=== PATIENT | male | born 1965 | race Caucasian/White ===

== ENCOUNTER 2018-03-24 07:20 | Day surgery (SDC) | payer BC ==
[2018-03-23 13:46] LABS: Absolute Lymphocytes (CBC) 2.7 K/uL (0.7-4.9); Absolute Monocytes 0.6 K/uL (0.1-1.3); Absolute Neutrophil 7.1 K/uL (1.8-8.0); Basophils % 0.9 % (0-1.3); Eosinophils % 1.7 % (0-4.4); Hematocrit 45.3 % (39.6-49.0); Lymphocytes % 25.5 % (15.3-44.8); MCH 31.2 pg (27.0-35.0); MCV 89.8 fL (80-100); RBC Red Blood Cell Count 5.04 M/uL (4.33-5.43)
[2018-03-23 13:56] LABS: Potassium 3.9 mmol/L (3.5-5.1)
[2018-03-24] MEDS ORDERED: NA CHLORIDE 0.9% 500 ML ONE (07:54)
[2018-03-24] MEDS ORDERED: HEPA 1000U/500MLS 1,000 UNIT/500 ML BAG IV ONE (08:59)
[2018-03-24] MEDS ORDERED: ATROPINE SULF 1 MG/10 ML SYR IV ONE (09:07)
[2018-03-24] MEDS ORDERED: MIDAZOLAM HCL 2 MG/2 ML INJ ONE ×2 (09:07→09:38)
[2018-03-24] MEDS ORDERED: NA CHLORIDE 0.9% 0 ML ONE (09:07)
[2018-03-24] MEDS ORDERED: FENTANYL CITR 100 MCG/2 ML ONE (09:07)
[2018-03-24] MEDS ORDERED: LIDOCAINE 1% MPF 5 ML VIAL ONE (10:12)
--- NOTE | 2018-03-24 21:10 | OP ---
Surgeon: Alok Lemon MD Admitted as an outpatient on 03/24/2018 for a heart catheterization. History Of Present Illness: Mr. Hanley is a 52-year-old white male. He is a patient of Dr. Antoine ca me to see me in the office with symptoms that I thought were classic for unstable angina with shortne ss of breath, chest pain with exertion. 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 He was scheduled for a heart catheterization to day, was brought to the greens laborer, prepped and draped in the routine sterile fashion, was given 4 mg o f Versed for IV sedation and 25 mg of fentanyl. A 6-Thai sheath introduced in the right common fem oral artery. Angio-Seal was used to close the case. 6-Thai catheters, left Harmony, right Harmony , and pigtail were used to do the selective coronary arteriogram, LV-gram, a left heart catheterizati on. He was found to have normal coronaries, normal LV end-diastolic pressure, normal ejection fracti on. There were no complications. Blood loss was 5 cc. Final Diagnosis: Chest pain. Normal coronaries. Operators: Alok Lemon and My Hill. Total conscious sedation was 30 minutes. The patient will be sent home today after 2 hours of bedres t and he will see me in the office in 2 weeks. EREN/JERAD Voice ID: [id number] Report ID: [id number]
== END 2018-03-24 12:00 | disposition home or self-care (01) ==
LOC: CCL 07:20
PROC: 4A023N7 Measurement of Cardiac Sampling and Pressure, Left Heart, Percutaneous Approach (ICD-10-PCS; principal; 2018-03-24)
PROC: B211YZZ Fluoroscopy of Multiple Coronary Arteries using Other Contrast (ICD-10-PCS; 2018-03-24)
PROC: B215YZZ Fluoroscopy of Left Heart using Other Contrast (ICD-10-PCS; 2018-03-24)
DX: I20.0 Unstable angina (principal); E78.2 Mixed hyperlipidemia; I10 Essential (primary) hypertension; F17.220 Nicotine dependence, chewing tobacco, uncomplicated; R00.1 Bradycardia, unspecified; I44.0 Atrioventricular block, first degree
CPT/HCPCS: 36415; 80048; 85025; 85730; 93458; C1760; C1893; J0583; J2250; J3010

== ENCOUNTER 2020-07-28 06:52 | Emergency (ER) | payer BC, SELFPAY ==
--- OUTSIDE RECORDS SUMMARY | 2020-07-28 06:55 | XMS REPORT | Continuity of Care Document ---
:1965 Author Organization [employer] Care Team Providers Name Role Phone [employer] Unavailable Un available Problems Problem Status Onset Classification Date Comments Sourc e Date Reported ACS EVALUATION/CHEST Active 09/22/ [facility] PAIN 2012 [facility] SOB Active 09/22/ [facility] 2012 [facility] Diverticulitis Resolved 05/14/ Problem 1Had [facility] 2010 3 diverticulitis Medic al in 2010, 2011 Center Testosterone Resolved 02/19/ Problem Ángel zelaya 2010 3 Medical Center Gout Resolved 02/24/ Problem [facility] 2006 3 [facility] Hypercholesterolemia Resolved 01/13/ Problem [facility] 2001 3 [facility] Abdominal pain Active Problem [facility] 3 [facility] Chest pain Active Problem [address] Center Syncope Active Problem [address] Acute gouty arthritis Active Problem [facility] [place] Benign essential Active Problem Rhe [facility] hypertension [facility] [place] Hyperlipidemia Active Problem [facility] [place] Abnormal immunological Active Problem Rheum finding in serum, 0 Ct r of unspecified [place] Encounter for Active Diagnosis Rheum therapeutic drug level 0 [facility] monitoring [place] Heartburn Active Problem Rhe[facility] [place] Acute gouty Active Diagnosis [facility] arthropathy [facility] [place] Other obesity Active Problem [facility] [place] nursing home (current) Active Problem Rheum use of non-steroidal 0 [facility]tr [facility] anti-inflammatories [place] (NSAID) Osteoarthritis Active Problem [facility] [place] Pain in joint Active Diagnosis Rhe[facility] involving lower leg 9 [facility] [place] CHEST PAIN NOS Active [facility] Medications Medication Details Route Status Patient Ordering Order Source Instructions Provider Date PredniSONE 2 tablets daily Orally Active 20 MG Orally Vo 11/07/ Rheum for 7 days, then as directed 2019 Ctr of 15 tabs daily for [place] 1 week, then 1 tablet daily for 1 week, stay on 0.5 tab daily Mitigare 1 capsule Orally Active 0.6 MG Orally Haley 04/08/ Rheum twice a day 2018 [facility] [place] Allopurinol 2 tablets Orally Active 100 mg Orally Haley 03/26/ Rheu m every day 2018 Ctr of (qd) as [place] directed Colchicine 1 tablet Orally Active 0.6 MG Orally Haley 03/26/ Rheum twice a day 2018 Ctr of (bid) [place] meclizine 25 25 mg, 1 tab, PO, PO Active [facility] [place] mg oral TID, PRN, 10 tab, 2013 Medica l tablet for Center nausea/vomiting, Substitution Allowed, TAB Ativan 2 mg, 1 mL, IVP No Omidvar [facility] Route: IVP, Drug Longer 2012 Medical form: INJ, ONCE, Active Center Dosing Weight 125.227, kg, PRN Anxiety, Start date: 09/23/12 19:37:00 Ativan 1 mg, 0.5 mL, IVP No Noah 09/23[facility] Route: IVP, Drug 2012 Medical form: INJ, ONCE, Active Center Dosing Weight 125.227, kg, PRN Anxiety, Start date: 09/23/12 16:43:00 Zofran 4 mg, 2 mL, IVP No Carmella 09/23[facility] Route: IVP, Drug Longer 2012 Medical form: INJ, ONCE, Active Center Dosing Weight 125.227, kg, Start date: 09/23/12 12:04:00, Stop date: 09/23/12 12:04:00 Zofran 4 mg, 2 mL, IVP No [place] 09/23[facility] Route: IVP, Drug 2012 Medical form: INJ, ONCE, Active Center Start date: 09/23/12 12:00:00, Stop date: 09/23/12 12:00:00 influenza 0.5 ml, Route: IM No [place] virus IM, Drug Form: Longer 2012 Medical vaccine, INJ, Start date: Active Center inactivated 09/23/12 9:00:00, Stop date: 09/23/12 9:00:00 magnesium 2 gm, 50 mL, IVPB No [place] [facility] sulfate Route: IVPB, Drug Longer 2012 Medica l form: INJ, ONCE, Active Center Dosing Weight 125.227, kg, Total dose = 2 gm, Start date: 09/22/12 16:14:00, Duration: 1 doses or times, Stop date: 09/22/12 16:14:00 ondansetron 4 mg, 2 mL, IVP No [place] [facility] Route: IVP, Drug 2012 Medical form: INJ, Q6H, Active Center Dosing Weight 125.227, kg, PRN Nausea & Vomiting, Start date: 09/22/12 14:01:00, Duration: 30 day, Stop date: 10/22/12 14:00:00 AndroGel Substitution No [facility] Allowed 2012 Medical Active Center allopurinol Substitution [place] 300 mg oral Allowed 2012 Medical tablet Center pravastatin Substitution [place] 40 mg oral Allowed 2012 Medical tablet Center omeprazole 20 [place]stitution [place] mg oral Allowed 2012 [facility] delayed Center release capsule Omnipaque 138 mL, Route: IVP No [place] 350mg/ml IVP, Drug Form: Longer 2012 Medical SOLN, Dosing Active Center Weight 118.182, kg, ONCALL, STAT, Start date: 09/22/12 8:59:00, Duration: 1 doses or times, Dose = 2.2ml/kg, Max dose = 150ml -- "To be infused by Radiology Staff ONLY"Dose = 2.2ml/kg, Max dose = 150ml -- "To be infused by Radiology Staff ONLY" Zofran 4 mg, 2 mL, IVP No [place] [facility] Route: IVP, Drug Longer 2012 Medical form: INJ, ONCE, Active Center Dosing Weight 118.182, kg, Priority: STAT, Start date: 09/22/12 7:56:00, Stop date: 09/22/12 7:56:00 aspirin 324 mg, 4 tab, CHEW No [place] [facility] Route: CHEW, Drug 2012 Medica l form: CHEWTAB, Active Center ONCE, Dosing Weight 118.182, kg, Priority: STAT, Start date: 09/22/12 6:21:00, Stop date: 09/22/12 6:21:00 aspirin 324 mg, 4 tab, PO No [place] [facility] Route: PO, Drug 2012 Medical form: ECTAB, Active Center ONCE, Dosing Weight 118.182, kg, Priority: STAT, Start date: 09/22/12 6:00:00, Stop date: 09/22/12 6:00:00 Saline Flush 5 mL, Route: IVP, IVP No [facility] 0.9% Drug Form: INJ, Longer 2012 Medical Dosing Weight Active Center 118.182, kg, Q8H, PRN Line Flush, Start date: 09/22/12 6:00:00, Duration: 30 day, Stop date: 10/22/12 5:59:00, Administer at least once every 8 hoursAdminister at least once every 8 hours Omeprazole 1 capsule Orally Active 40 MG Orally Haley [facility] Once a day [facility] [place] AndroGel Pump not defined Transdermal Active 20.25 MG/ACT [place] [facility] (1.62%) Ctr [facility] Transdermal [place] Twice a day Metoprolol 1 tablet Orally Active 100 MG Orally Haley Rheum Succinate ER Once a day [facility] [place] Meloxicam 1 tablet Orally Active 7.5 MG Orally Vo Rheum Once a day [facility] [place] Allergies, Adverse Reactions, Alerts Substance Category Reaction Severity Reaction Status Date Comments S ource type Reported Indomethacin Adverse dizziness Adverse Active Rheum Reaction Reaction 9 [facility] [place] Immunizations Immunization Date Given Site Status Last Updated Comments Mala rce influenza virus 09/23/2012 completed [facility] vaccine, Medical inactivated Center Results Order Name Results Value Reference Date Interpretation Comments [place] Range CHEMISTRY Troponin-I <0.02 0.00 - 09/23 Normal [facility] 0.40 /2012 [facility] CHEMISTRY Troponin-T <0.010 0.000 - 09/23 Normal [facility] 0.100 /2012 [facility] CHEMISTRY Total CK 278 12 - 191 09/23 HI [facility] CHEMISTRY CK MB Index 0.9 0.0 - 2.5 09/23 Normal [facility] CHEMISTRY CK MB 2.5 0.5 - 3.6 09/23 Normal [facility] CHEMISTRY Troponin-I <0.02 0.00 - 09/22 Normal [facility] 0.40 [facility] CHEMISTRY Troponin-T <0.010 0.000 - 09/22 Normal [facility] 0.100 /2012 [facility] CHEMISTRY Total CK 302 - 09/22 HI [facility] CHEMISTRY CK MB Index 1.0 0.0 - 2.5 09/22 Normal [facility] CHEMISTRY CK MB 3.1 0.5 - 3.6 09/22 [facility] CHEMISTRY Magnesium Lvl 1.6 1.8 - 2.4 09/22 LOW [facility] CHEMISTRY Phosphorus 2.8 2.5 - 4.5 09/22 Normal [facility] CHEMISTRY Troponin-I <0.02 0.00 - 09/22 [facility] 0.40 [facility] CHEMISTRY Total CK 298 - 09/22 [facility] CHEMISTRY eGFR 66 09/22 NA <sup>1</sup>Res ult Comment: Medical The eGFR is Center calculated using the CKD-EPI formula. In most young, healthy individuals the eGFR will be >90 mL/min/1.73m2. The eGFR declines with age. An eGFR of 60-89 may be normal in some populations, particularly the elderly, for whom the CKD-EPI formula has not been extensively validated. Use of the eGFR is not recommended in the following populations:&lt ;br/>
Indiv iduals with unstable creatinine concentrations, including patients and those with serious co-morbid conditions.<br/ >
Patients with extremes in muscle mass or diet.

The data above are obtained from the National Kidney Disease Education Program (NKDEP) which additionally recommends that when the eGFR is used in patients with extremes of body mass index for purposes of drug dosing, the eGFR should be multiplied by the estimated BMI. CHEMISTRY Calcium Lvl 8.3 8.5 - 10.5 09/22 [facility]OW [facility] CHEMISTRY CO2 26 24 - 32 09/22 Normal [facility] CHEMISTRY Chloride Lvl 104 95 - 109 09/22 [facility] CHEMISTRY Potassium Lvl 4.0 3.5 - 5.1 09/22 [facility] Medical [place] CHEMISTRY Sodium Lvl 140 135 - 145 09/22 [facility] /2013 [facility] CHEMISTRY Creatinine 1.3 0.5 - 1.4 09/22 Normal [facility] Lvl Medical Center CHEMISTRY BUN 15 7 - 22 09/22 Normal Medical Center CHEMISTRY Glucose Lvl 148 70 - 99 09/22 HI <sup>2</sup>Int erpretive Data: Medical Adult reference Center range values reflect the clinical guidelines
of the [place] [employer]. CHEMISTRY Albumin Lvl 3.7 3.5 - 5.0 09/22 Normal [facility] CHEMISTRY Total Protein 6.7 6.4 - 8.4 09/22 Normal Medical Center CHEMISTRY Alk Phos 151 39 - 136 09/22 HI Medical Center CHEMISTRY ALT 63 0 - 65 09/22 Normal [facility] CHEMISTRY Bili Total 0.3 0.2 - 1.3 09/22 Normal [facility] CHEMISTRY AST 36 0 - 37 09/22 Normal [facility] CHEMISTRY AGAP 14.0 10.0 - 09/22 Normal [place] 20.0 [facility] CHEMISTRY B/C Ratio 12 6 - 25 09/22 Normal [facility] CHEMISTRY A/G Ratio 1.2 0.7 - 1.6 09/22 Normal [facility] CHEMISTRY Globulin 3.0 2.0 - 4.0 09/22 Normal [facility] HEMATOLOGY Monocytes 5.0 2.0 - 12.0 09/22 Normal [facility] HEMATOLOGY Lymphocytes 19.5 20.0 - 09/22 LOW [place] 40.0 Medical Center HEMATOLOGY Eosinophils 1.1 0.0 - 4.0 09/22 Normal Medical [place] HEMATOLOGY Segs 73.8 45.0 - 09/22 Normal [place] 75.0 Medical Center HEMATOLOGY Monocytes # 0.4 0.0 - 0.8 09/22 Normal [facility] HEMATOLOGY Lymphocytes # 1.6 1.0 - 5.5 09/22 Normal [facility] HEMATOLOGY Basophils # 0.0 0.0 - 0.2 09/22 Normal [facility] HEMATOLOGY Eosinophils # 0.1 0.0 - 0.5 09/22 Normal [place] [facility] HEMATOLOGY Segs-Bands # 6.0 1.5 - 8.1 09/22 Normal [place] [facility] HEMATOLOGY Basophils 0.6 0.0 - 1.0 09/22 Normal [facility] HEMATOLOGY INR 0.87 0.85 - 09/22 Normal <sup>3</sup>[place] 1.17 /2012 erpretive Data: [facility] RANGES FOR PROTIME INR:
2.0-3.0 for most medical and surgical thromboembolic states.
2.5-3.5 for artificial heart valves and recurrent embolism.
< br/>INR SHOULD BE USED ONLY FOR PATIENTS ON STABLE ANTICOAGULANT THERAPY. HEMATOLOGY PTT 23.2 22.9 - 09/22 Normal <sup>5</sup>[place] 35.8 erpretive Data: [facility] Therapeutic Range: 57 - 92 Seconds HEMATOLOGY PT 12.0 12.0 - 09/22 Normal [facility] 14.7 [facility] HEMATOLOGY MCV 92.3 80.0 - 09/22 Normal [facility] 94.0 /2012 [facility] HEMATOLOGY MCH 31.0 27.0 - 09/22 Normal [facility] 31.0 [facility] HEMATOLOGY MCHC 33.6 32.0 - 09/22 Normal [facility] 36.0 /2012 [facility] HEMATOLOGY RDW 12.8 11.5 - 09/22 Normal [facility] 14.5 [facility] HEMATOLOGY Hct 47.8 42.0 - 09/22 Normal [facility] 54.0 /2012 [facility] HEMATOLOGY MPV 9.1 7.4 - 10.4 09/22 Normal [facility] HEMATOLOGY Platelet 232 133 - 450 09/22 Normal [facility] HEMATOLOGY RBC 5.18 4.70 - 09/22 Normal [facility] 6.10 /2012 [facility] HEMATOLOGY Hgb 16.1 14.0 - 09/22 Normal [facility] 18.0 /2012 [facility] HEMATOLOGY WBC 8.1 3.7 - 10.4 09/22 Normal [facility] HEMATOLOGY D-Dimer 0.21 09/22 NA <sup>4</sup>[place] erpretive Data: Medical In [facility], Center quantitative D-Dimer is generally greater than
0.66 ug/mL FEU. Values of quantitative D-Dimer less than
0.40 ug/mL FEU have been reported to be associated with a low
probabilit y of deep vein thrombosis/pulm onary embolism.
This test alone should not be used to rule out DVT/PE. Pathology Reports No Data Provided for This Section Diagnostic Reports No Data Provided for This Section Consultation Notes No Data Provided for This Section Discharge Summaries No Data Provided for This Section History and Physicals No Data Provided for This Section Vital Signs Vital Sign Value Date Comments Source Weight 277.6 04/23/2019 [facility] Height 71 04/23/2019 [facility] Heart Rate 67 04/23/2019 [facility] Diastolic (mm Hg) 98 04/23/2019 [facility] Systolic (mm Hg) 151 04/23/2019 [facility] [place] Weight 273.2 03/26/2019 [facility] Height 71 03/26/2019 [facility] Heart Rate 70 03/26/2019 [facility] Diastolic (mm Hg) 91 03/26/2019 [facility] Systolic (mm Hg) 143 03/26/2019 [facility] Systolic (mm Hg) 121 09/24/2012 [facility] Diastolic (mm Hg) 72 09/24/2012 [facility] Heart Rate 76 09/24/2012 [facility] Temperature Oral (F) 97.1 F 09/24/2012 [facility] Respitory Rate 16 09/24/2012 [facility] Center Diastolic (mm Hg) 77 09/24/2012 [facility] [place] Temperature Oral (F) 97.4 F 09/24/2012 [facility] Heart Rate 69 09/24/2012 [facility] Respitory Rate 16 09/24/2012 [facility] Center Systolic (mm Hg) 129 09/24/2012 [facility] Diastolic (mm Hg) 81 09/24/2012 [facility] Systolic (mm Hg) 114 09/24/2012 [facility] Heart Rate 75 09/24/2012 [facility] Respitory Rate 20 09/24/2012 [facility] Temperature Oral (F) 97.6 F 09/24/2012 [facility] Weight 125.227 09/22/2012 [facility] Height 180.34 cm 09/22/2012 [facility] Weight 118.182 09/22/2012 [facility] Height 180.34 cm 09/22/2012 [facility] Encounters Location Location Encounter Encounter Reason Attending ADM DC Stat us Source Details Type Number For Provider Date Date Visit [facility] [id number] [facility] 09/22 09/24 [facility] Procedures Procedure Code Date Perfomer Comments Source Abdomen endoscopy [id number] 10/21/2011 1EGD [facility] <sup>1</sup> [facility] Colonoscopy [id number] 10/17/2011 [facility] Cholecystectomy [id number] 10/16/2011 [facility] Back fusion [id number] 02/16/1998 [facility] Assessment and Plan No Data Provided for This Section Plan of Care No Data Provided for This Section Social History No Data Provided for This Section Family History No Data Provided for This Section Advance Directives No Data Provided for This Section Functional Status No Data Provided for This Section
--- OUTSIDE RECORDS SUMMARY | 2020-07-28 06:56 | XMS REPORT | Summary of Care ---
:1965 Author Organization [facility] Address [address] [place] [id number] Care Team Providers Name Role Phone Evelio Gould MD Primary Care Provider Reason for Visit Reason Comments Refill Request Encounter Details Date Type Department Care Team Description 05/03/2020 Telephone [facility] Neurology- Long, Olamide Michaels MD Refill Request [place] [address] [facility] [place] [address] [address] [address] [address] [place] [address] [phone] Allergies No Known Allergiesdocumented as of this encounter (statuses as of 05/03/2020) Medications Medication Sig Dispensed Refills Start End Date Status Date omeprazole 40 mg 0 Act seun capsule 8 metoprolol Take 100 mg by 0 Acti ve succinate XL 100 mg mouth daily. 24 hr tablet vitamin B-12 Take 1,000 mcg 0 Ac tive (VITAMIN B-12) by mouth daily. 1,000 mcg tablet ARTIFICIAL 1 Drop 3 0 Active TEARS,SVPT01-VCUCG, (three) times ophthalmic solution daily as needed. allopurinol 100 mg TAKE 2 TABLETS 1 Active tablet BY MOUTH ONCE 9 DAILY DIRECTED FOR 30 DAYS aspirin 81 mg Take 1 tablet 30 tablet 5 Ac tive chewable by mouth daily. 9 tabletIndications: Vertebral basilar insufficiency, Unsteady gait thiamine 100 mg Take 1 tablet 30 tablet 5 Active tabletIndications: by mouth daily. 9 Thiamine deficiency albuterol 90 Inhale 2 Puffs 8.5 g 11 Ac tive mcg/actuation every 6 (six) 0 inhalerIndications: hours as needed Dyspnea on for Wheezing or exertion, Obesity Shortness of (BMI 35.0-39.9 Breath. without comorbidity), JAZMIN (obstructive sleep apnea) ondansetron 4 mg Take 1 tablet 20 tablet 0 Active disintegrating by mouth every 0 tabletIndications: 8 (eight) hours Left upper quadrant as needed for pain Nausea and Vomiting (N/V). proMETHazine 25 mg 0 A ctive tablet 9 predniSONE 20 mg Take 20 mg by 0 Active tabletIndications: mouth daily. takes 1/2 tablet Indications: daily takes 1/2 tablet daily metFORMIN 500 mg Take 1 tablet 30 tablet 0 Active tabletIndications: by mouth 2 0 Hyperglycemia (two) times daily. glipiZIDE 10 mg Take 1 tablet 30 tablet 0 Active tabletIndications: by mouth daily. 0 Hyperglycemia Blood-Glucose Meter Use as directed 1 Each 0 Active (BLOOD GLUCOSE 0 MONITORING) KitIndications: Hyperglycemia escitalopram Take 1 tablet 30 tablet 1 Act seun oxalate (LEXAPRO) by mouth daily. 0 10 mg tabletIndications: Current moderate episode of major depressive disorder without prior episode traZODone 50 mg Take 1/2 tablet 30 tablet 1 Active tabletIndications: at bedtime as 0 Current moderate needed for episode of major insomnia. May depressive disorder take an without prior additional 1/2 episode tab if ineffective. atorvastatin 80 mg Take 1 tablet 30 tablet 0 Active tablet by mouth at 0 bedtime. atorvastatin 80 mg 0 05/03/20 D iscontinued tablet 0 20 (Reorder) documented as of this encounter (statuses as of 05/03/2020) Active Problems Problem Noted Date Obesity (BMI 30-39.9) 10/14/2019 Gastroesophageal reflux disease, esophagitis presence not specified 10/07/2019 Overview: Added automatically from request for breanna corrine [id number] Colon cancer screening 10/07/2019 Overview: Added automatically from request for breanna corrine [id number] documented as of this encounter (statuses as of 05/03/2020) Immunizations Name Administration Dates Next Due TDAP (ADACEL) VACCINE 08/04/2011 documented as of this encounter Social History Tobacco Use Types Packs/Day Years Used Date Never Smoker Smokeless Tobacco: Current User Snuff Alcohol Use Drinks/Week oz/Week Comments No Sex Assigned at Date Recorded Not on file documented as of this encounter Last Filed Vital Signs Not on filedocumented in this encounter Miscellaneous Notes Telephone Encounter - Lyssa Lewis LVN - 05/03/2020 8:40 AM CDT Received fax from [facility] for a refill on Atorvastatin 80 mg PO QHS. EMPERATRIZ: 09-14-19 NOV: not scheduled yet Last Filled: atorvastatin 80 mg tablet 11/19/2019 documented in this encounter Plan of Treatment Date Type Specialty Care Team Description 05/15/2020 Office Visit Otolaryngology Margret Benitez MD [address] [place], [place] [address] 06/01/2020 Office Visit Pulmonary Disease Rhea Alcazar, DO [address] [place] [address] Health Maintenance Due Date Last Done Comments COLON CANCER SCREENING ANNUAL 2017 FIT/FOBT COLON CANCER SCREENING FIT 2017 DNA EVERY 3 YEARS COLON CANCER SCREENING 2017 SIGMOIDOSCOPY EVERY 5 YEARS INFLUENZA VACCINE (#1) 2020 Zoster Recombinant Vaccine 08/27/2020 Postp oned from 2017 (SHINGRIX) (1 of 2) (Refused) Depression Screening 03/10/2021 03/10/2020, 03/10/2020 DTaP,Tdap,and Td Vaccines (2 08/04/2021 08/04/2011 - Td) COLONOSCOPY 10/13/2029 10/14/2019, 08/04/2016 Colorectal Cancer Screening 10/13/2029 PNEUMOCOCCAL 0-64 YEARS Aged Out No longe r eligible based COMBINED SERIES on patient's age to complete this to pic documented as of this encounter Results Not on filedocumented in this encounter
--- OUTSIDE RECORDS SUMMARY | 2020-07-28 06:56 | XMS REPORT | Summary of Care ---
:1965 Author Organization [facility] Address [address] [place] [address] Care Team Providers Name Role Phone Evelio Gould MD Primary Care Provider [phone] Reason for Visit Reason Comments Social Work Encounter Details Date Type Department Care Team Description 05/04/2020 Patient Outreach [facility] Ear, Nose June Manley, Social Work and Throat-[facility] [address] [place] [phone] Allergies No Known Allergiesdocumented as of this encounter (statuses as of 05/08/2020) Medications Medication Sig Dispensed Refills Start Date End Date Status omeprazole 40 mg 0 05/21/2018 Ac tive capsule metoprolol succinate Take 100 mg by 0 Active XL 100 mg 24 hr tablet mouth daily. vitamin B-12 (VITAMIN Take 1,000 mcg by 0 Active B-12) 1,000 mcg tablet mouth daily. ARTIFICIAL 1 Drop 3 (three) 0 Ac tive TEARS,[id number], times daily as ophthalmic solution needed. allopurinol 100 mg TAKE 2 TABLETS BY 1 03/27/2019 Active tablet MOUTH ONCE DAILY DIRECTED FOR 30 DAYS aspirin 81 mg chewable Take 1 tablet by 30 tablet 5 06/14/2019 Active tabletIndications: mouth daily. Vertebral basilar insufficiency, Unsteady gait thiamine 100 mg Take 1 tablet by 30 tablet 5 06/20/2019 Active tabletIndications: mouth daily. Thiamine deficiency albuterol 90 Inhale 2 Puffs 8.5 g 11 08/27/2019 A ctive mcg/actuation every 6 (six) inhalerIndications: hours as needed Dyspnea on exertion, for Wheezing or Obesity (BMI 35.0-39.9 Shortness of without comorbidity), Breath. JAZMIN (obstructive sleep apnea) ondansetron 4 mg Take 1 tablet by 20 tablet 0 09/26/2019 Active disintegrating mouth every 8 tabletIndications: (eight) hours as Left upper quadrant needed for Nausea pain and Vomiting (N/V). proMETHazine 25 mg 0 02/01/2019 Active tablet predniSONE 20 mg Take 20 mg by 0 Active tabletIndications: mouth daily. takes 1/2 tablet daily Indications: takes 1/2 tablet daily metFORMIN 500 mg Take 1 tablet by 30 tablet 0 02/23/2020 Active tabletIndications: mouth 2 (two) Hyperglycemia times daily. glipiZIDE 10 mg Take 1 tablet by 30 tablet 0 02/23/2020 Active tabletIndications: mouth daily. Hyperglycemia Blood-Glucose Meter Use as directed 1 Each 0 02/23/2020 Active (BLOOD GLUCOSE MONITORING) KitIndications: Hyperglycemia escitalopram oxalate Take 1 tablet by 30 tablet 1 03/10/2020 Active (LEXAPRO) 10 mg mouth daily. tabletIndications: Current moderate episode of major depressive disorder without prior episode traZODone 50 mg Take 1/2 tablet at 30 tablet 1 03/10/2020 Active tabletIndications: bedtime as needed Current moderate for insomnia. May episode of major take an additional depressive disorder 1/2 tab if without prior episode ineffective. atorvastatin 80 mg Take 1 tablet by 30 tablet 0 05/03/2020 Active tablet mouth at bedtime. documented as of this encounter (statuses as of 05/08/2020) Active Problems Problem Noted Date Obesity (BMI 30-39.9) 10/14/2019 Gastroesophageal reflux disease, esophagitis presence not specified 10/07/2019 Overview: Added automatically from request for breanna corrine [id number] Colon cancer screening 10/07/2019 Overview: Added automatically from request for breanna corrine [id number] documented as of this encounter (statuses as of 05/08/2020) Immunizations Name Administration Dates Next Due TDAP (ADACEL) VACCINE 08/04/2011 documented as of this encounter Social History Tobacco Use Types Packs/Day Years Used Date Never Smoker Smokeless Tobacco: Current User Snuff Alcohol Use Drinks/Week oz/Week Comments No Sex Assigned at Date Recorded Not on file documented as of this encounter Last Filed Vital Signs Not on filedocumented in this encounter Progress Notes June Manley LMSW - 05/04/2020 11:59 PM CDTSW Note: SW received a referral for patient re: [place] indigent SW printed the application and typed up information on the program and mailed out to patient. SW will remain available MARCELINO Manley LMSW Office Associate documented in this encounter Plan of Treatment Date Type Specialty Care Team Description 05/15/2020 Office Visit Otolaryngology Margret Benitez MD [address] [place], [place] [address] 06/01/2020 Office Visit Pulmonary Disease Rhea Alcazar DO [address] [place] [address] Health Maintenance Due Date Last [...]
--- OUTSIDE RECORDS SUMMARY | 2020-07-28 06:56 | XMS REPORT | Continuity of Care Document ---
:1965 Author Organization [facility] t Address [address] [place] [address] Care Team Providers Name Role Phone Fahad Grijalva DO Attending Clinician Doctor Unassigned, Name Attending Clinician Unavailable Emmanuel GIBBS Attending Clinician Problems Condition Condition Condition Status Onset Resolution Last Treating Co mments Source Name Details Category Date Date Treatment Clinician Date ACS Diagnosis Active 2012-09-23 Mem oria EVALUATION 09-22 08:31:00 l /CHEST ACS 00:00: Dolph PAIN EVALUATION 00 /CHEST PAIN Active 09/22/2012 [facility] SOB Diagnosis Active 2012-09-22 Mem oria 09-22 11:39:00 l SOB 00:00: Dolph 00 Active 09/22/2012 [facility] Abdominal Problem Active 2012-09-26 Me moria pain 10:14:14 l Dolph Abdominal pain Active Problem 09/26/2012 [facility] Chest pain Problem Active 2012-09-26 M emoria 10:14:14 l Chest Bebo pain Active Problem 09/26/2012 [facility] Syncope Problem Active 2012-09-26 Serg kim 10:14:14 l Syncope Bebo Active Problem 09/26/2012 [facility] Acute Problem Active 2019-11-17 Memor ia gouty 02:45:45 l arthritis Acute Arjan n gouty arthritis Active Problem 11/17/2019 [facility] Benign Problem Active 2019-11-17 Memor ia essential 02:45:45 l hypertensi Benign Herm lobo on essential hypertensi on Active Problem 0 [facility] Hyperlipid Problem Active 2019-11-17 M emoria emia 02:45:45 l Dolph Hyperlipid emia Active Problem 11/17/2019 [facility] Abnormal Problem Active 2019-11-17 Mem oria immunologi 02:45:45 l jose Abnormal Rajan n finding in immunologi serum, jose unspecifie finding in d serum, unspecifie d Active Problem 11/17/2019 [facility] Encounter Diagnosis Active 2019-11-17 Memoria for 02:45:45 l therapeuti Rajan n c drug Encounter level for monitoring therapeuti c drug level monitoring Active Diagnosis 11/17/2019 [facility] Heartburn Problem Active 2019-11-17 Me moria 02:45:45 l Bebo Heartburn Active Problem 11/17/2019 [facility] Acute Diagnosis Active 2019-11-17 Mem oria gouty 02:45:45 l arthropath Acute Radha nn y gouty arthropath y Active Diagnosis 11/17/2019 [facility] Other Problem Active 2019-11-17 Memor ia obesity 02:45:45 l Other Bebo obesity Active Problem 11/17/2019 [facility] penitentiary Problem Active 2019-11-17 Me moria (current) 02:45:45 l use of Long Bebo non-steroi term farrukh (current) anti-infla use of mmatories non-steroi (NSAID) farrukh anti-infla mmatories (NSAID) Active Problem 11/17/2019 [facility] Osteoarthr Problem Active 2019-11-17 M emoria itis 02:45:45 l B[place]o Osteoarthr itis Active Problem 11/17/2019 [facility] Pain in Diagnosis Active 2019-03-27 Me moria joint 02:45:01 l involving Pain in Herm lobo lower leg joint involving lower leg Active Diagnosis 03/27/2019 [facility] CHEST PAIN Diagnosis Active 2012-09-23 Memoria NOS 08:31:00 l CHEST [place] PAIN NOS Active [facility] History of Past Illness Condition Condition Condition Status Onset Resolution Last Treating Co mments Source Name Details Category Date Date Treatment Clinician Date Diverticul Problem Resolve 2010-2012-09-26 2012-09-26 Memoria itis d 0-11 10:14:14 10:14:14 l 00:00: Dolph Diverticul 00 itis Resolved 05/14/2011 Problem 09/26/2012 1Had diverticul itis in 2010, 2011 [facility] Testostero Problem Resolve 2012-09-26 2012-09-26 Memoria ne d 7-19 10:14:14 10:14:14 l 00:00: [place] Testostero 00 ne Resolved 02/19/2011 Problem 09/26/2012 [facility] Gout Problem Resolve 2012-09-26 2012-09-26 Memoria d 02-24 10:14:14 10:14:14 l Gout 00:00: Bebo 00 Resolved 02/24/2007 Problem 09/26/2012 [facility] Hyperchole Problem Resolve 2012-09-26 2012-09-26 Memoria sterolemia d 6-12 10:14:14 10:14:14 l 00:00: [place] Hyperchole 00 sterolemia Resolved 01/13/2002 Problem 09/26/2012 [facility] Allergies, Adverse Reactions, Alerts Allergy Allergy Status Severity Reaction(s) Onset Inactive Treating Comm ents Source Name Type Date Date Clinician Indometh Indometh Active dizziness Mem oria acin acin 9-20 l 00:00: Medications Ordered Filled Start Stop Current Ordering Indication Dosage Frequency Signature Comments Components Source Medication Medication Date Date Medication? Clinician (SIG) Name Name PredniSONE Yes Diann 2 tablets Memoria 4-06 Vo daily for l 00:00: 7 days, then 15 tabs daily for 1 week, then 1 tablet daily for 1 week, stay on 0.5 tab daily Omeprazole Yes Nilanjana 1 capsule Memoria 04-26 Haley l 02:45: AndroGel Yes Nilanjana not Serg kim Pump 04-26 Haley defined l 02:45: Metoprolol 2018- Yes Nilanjana 1 tablet Memoria Succinate 04-26 Haley l ER 02:45: Mitigare Yes Nilanjana 1 capsule Memoria 9-05 Haley l 00:00: Meloxicam 2018- Yes Diann 1 tablet Memoria 8-24 Vo l 02:45: Allopurinol Yes Nilanjana 2 tablets Memoria 8-23 Haley l 00:00: Colchicine Yes Nilanjana 1 tablet Memoria 8-23 Haley l 00:00: meclizine Yes Jaymie 25 mg, 1 M emoria 25 mg oral 2-21 Natasha tab, PO, l tablet 17:10: Noah TID, PRN, Herm lobo 25 10 tab, for nausea/vom iting, Substituti on Allowed, TAB Ativan No Jarvis 2 mg, 1 Memori a 2-21 Omidvar mL, Route: l 01:37: IVP, Drug Dolph form: INJ, ONCE, Dosing Weight 125.227, kg, PRN Anxiety, Start date: 09/23/12 19:37:00 Ativan No Jaymie 1 mg, 0.5 Mem oria 2-20 Natasha mL, Route: l 22:43: Noah IVP, Drug Rajan n form: INJ, ONCE, Dosing Weight 125.227, kg, PRN Anxiety, Start date: 09/23/12 16:43:00 Zofran No Bret 4 mg, 2 Memor ia 2-20 Donald mL, Route: l 18:04: Carmella IVP, Drug Herm lobo 00 form: INJ, ONCE, Dosing Weight 125.227, kg, Start date: 09/23/12 12:04:00, Stop date: 09/23/12 12:04:00 Zofran No Zaina 4 mg, 2 Serg kim 2-20 Lobo Wally mL, Route: l 18:00: IVP, Drug Bebo form: INJ, ONCE, Start date: 09/23/12 12:00:00, Stop date: 09/23/12 12:00:00 influenza No SYSTEM 0.5 ml, Mem oria virus 2-20 SYSTEM Route: IM, l vaccine, 15:00: Drug Form: Her marina inactivated 00 INJ, Start date: 09/23/12 9:00:00, Stop date: 09/23/12 9:00:00 magnesium No Zaina 2 gm, 50 Memoria sulfate 2-19 Lobo Wally mL, Route: l 22:14: IVPB, Drug Bebo 00 form: INJ, ONCE, Dosing Weight 125.227, kg, Total dose = 2 gm, Start date: 09/22/12 16:14:00, Duration: 1 doses or times, Stop date: 09/22/12 16:14:00 ondansetron No Zaina 4 mg, 2 Memoria 2-19 Lobo Wally mL, Route: l 20:01: IVP, Drug Bebo 00 form: INJ, Q6H, Dosing Weight 125.227, kg, PRN Nausea & Vomiting, Start date: 09/22/12 14:01:00, Duration: 30 day, Stop date: 10/22/12 14:00:00 AndroGel No Substituti Mem oria 2-19 on Allowed l 19:27: Bebo 11 allopurinol Yes Substituti Memoria 300 mg oral 2-19 on Allowed l tablet 19:26: Bebo 34 pravastatin Yes Substituti Memoria 40 mg oral 2-19 on Allowed l tablet 19:26: Bebo 17 omeprazole Yes Substituti M emoria 20 mg oral 2-19 on Allowed l delayed 19:25: Bebo release 55 capsule Omnipaque No Arthur-Abundio 138 mL, M emoria 350mg/ml 2-19 Sperry Route: l 14:59: Vogt IVP, Drug Herm lobo 00 Pu Form: SOLN, Dosing Weight 118.182, kg, ONCALL, STAT, Start date: 09/22/12 8:59:00, Duration: 1 doses or times, Dose = 2.2ml/kg, Max dose = 150ml -- "To be infused by Radiology Staff ONLY"Dose = 2.2ml/kg, Max dose = 150ml -- "To be infused by Radiology Staff ONLY" Zofran No Arthur-Abundio 4 mg, 2 Serg kim 2-19 Sperry mL, Route: l 13:56: Vogt IVP, Drug Herm lobo 00 Pu form: INJ, ONCE, Dosing Weight 118.182, kg, Priority: STAT, Start date: 09/22/12 7:56:00, Stop date: 09/22/12 7:56:00 aspirin No Shoshana 324 mg, 4 Mem oria -19 Joyce tab, l 12:21: Bruce Route: Bebo 00 CHEW, Drug form: CHEWTAB, ONCE, Dosing Weight 118.182, kg, Priority: STAT, Start date: 09/22/12 6:21:00, Stop date: 09/22/12 6:21:00 aspirin No Shoshana 324 mg, 4 Mem oria -19 Joyce tab, l 12:00: Bruce Route: PO, Herm lobo 00 Drug form: ECTAB, ONCE, Dosing Weight 118.182, kg, Priority: STAT, Start date: 09/22/12 6:00:00, Stop date: 09/22/12 6:00:00 Saline No Shoshana 5 mL, Memoria Flush 0.9% 09-22 Joyce Route: l 12:00: Bruce IVP, Drug Radha nn 00 Form: INJ, Dosing Weight 118.182, kg, Q8H, PRN Line Flush, Start date: 09/22/12 6:00:00, Duration: 30 day, Stop date: 10/22/12 5:59:00, Administer at least once every 8 hoursAdmin ister at least once every 8 hours Vital Signs Vital Name Observation Time Observation Value Comments Source [facility]23 [facility] 2019[facility]04-23 14:15:00 [facility] Bebo Heart Rate 2019-04-23 14:15:00 [facility] Dolph Diastolic (mm Hg) 2019-04-23 14:15:00 [facility] orial Dolph Systolic (mm Hg) 2019-04-23 14:15:00 [facility]erg [facility] Bebo Weight 2019-03-26 13:45:00 [facility] Bebo Height 2019-03-26 13:45:00 [facility] Bebo Heart Rate 2019-03-26 13:45:00 [facility] [place] Diastolic (mm Hg) 2019-03-26 13:45:00 Mem orial Dolph Systolic (mm Hg) 2019-03-26 13:45:00 Serg rial Bebo Systolic (mm Hg) 2012-09-24 13:17:00 Serg [facility] Bebo Diastolic (mm Hg) 2012-09-24 13:17:00 Mem orial B[place]o Heart Rate 2012-09-24 13:17:00 [facility] [place] Temperature Oral (F) 2012-09-24 13:17:00 97.1 F [facility] [place] Respitory Rate 2012-09-24 13:17:00 Memori al Bebo Diastolic (mm Hg) 2012-09-24 10:00:00 Mem orial Dolph Temperature Oral (F) 2012-09-24 10:00:00 97.4 F [facility] [place] Heart Rate 2012-09-24 10:00:00 [facility] [place] Respitory Rate 2012-09-24 10:00:00 Memori al B[place]o Systolic (mm Hg) 2012-09-24 10:00:00 Serg rial Bebo Diastolic (mm Hg) 2012-09-24 08:10:00 Mem orial Dolph Systolic (mm Hg) 2012-09-24 08:10:00 Serg rial Bebo Heart Rate 2012-09-24 08:10:00 [facility] [place] Respitory Rate 2012-09-24 01:42:00 Memori al [place]o Temperature Oral (F) 2012-09-24 01:42:00 97.6 F [facility] [place] Weight 2012-09-22 19:21:00 [facility] Dolph Height 2012-09-22 19:21:00 180.34 cm [facility] [place] Weight 2012-09-22 11:50:00 [facility] Dolph Height 2012-09-22 11:50:00 180.34 cm [facility] Procedures Procedure Date / Time Performing Clinician Source Performed Abdomen endoscopy 2011-10-21 05:00:00 [facility] Etienne ermann <sup>1</sup> Colonoscopy 2011-10-17 05:00:00 [facility] marina Cholecystectomy 2011-10-16 05:00:00 [facility] marina Back fusion 1998-02-16 05:00:00 [facility] Her marina Encounters Start End Encounter Admission Attending Care Care Encounter Source Date/Time Date/Time Type Type Clinicians Facility Department ID 2020-07-19 2020-07-19 Telephone TONA Grijalva 1.2.840.114 [id number] 00:00:00 00:00:00 Mahesh Vásquez [facility] [id number] CARE [id number] [facility] [id number] 2020-07-14 2020-07-14 Telephone Rudi COJUAN CARLOS 1.2.840.114 [id number] 00:00:00 00:00:00 Mahesh Vásquez MULTISPEC [id number] [place]AL[facility] 4.2.7.2.686 [place] [id number] AND HARMAN [facility] 2020-07-14 2020-07-14 Telephone [facility] 1.2.840.114 [id number] 00:00:00 00:00:00 Mahesh Vásquez MULTISPEC [id number] IAL[place] [id number] [place] [id number] AND HARMAN [facility] 2020-07-14 2020-07-14 Orders Doctor MARIA TERESA [id number] 00:00:00 00:00:00 Only Unassigned, FANNY 350.1.13.10 [place] [facility] 4.2.7.2.686 [id number] 2020-07-13 2020-07-13 Telephone [place] [id number] 00:00:00 00:00:00 Magui YOANA [id number] [facility] 4.2.7.2.686 [id number] 2020-06-07 2020-06-07 Orders Doctor MARIA TERESA [id number] 00:00:00 00:00:00 Only Unassigned, FANNY [id number] [place] [facility] 4.2.7.2.686 [id number] 2020-05-15 2020-05-15 Office [place] [id number] 09:43:40 09:58:40 Visit Magui YOANA [id number] [facility] 4.2.7.2.686 [id number] 2019-11-08 2019-11-08 Outpatient PRL - PRL - [id number] eClinic 12:53:00 12:53:00 [facility]umat[facility] 2019-10-19 2019-10-19 Outpatient PRL - PRL - [id number] eClinic 15:28:00 15:28:00 [facility]umatol [facility] 2019-04-23 2019-04-23 Outpatient PRL - PRL - [id number] eClinic 09:15:00 09:15:00 Rheumatol [facility] 2019-03-31 2019-03-31 Outpatient JESI Salima [facility] - [id number] eClinic 11:15:00 11:15:00 Rheumatol [facility] 2019-03-26 2019-03-26 Outpatient PRL - PRL - [id number] eClinic 08:45:00 08:45:00 Rheumatol [facility] Results Test Description Test Time Test Comments Results Result Comments Source CHEMISTRY 2012-09-23 <0.02 [facility] Radha nn 02:00:00 CHEMISTRY 2012-09-23 <0.010 [facility] Radha nn 02:00:00 CHEMISTRY 2012-09-23 278 [facility] Radha nn 02:00:00 CHEMISTRY 2012-09-23 0.9 [facility] Radha nn 02:00:00 CHEMISTRY 2012-09-23 2.5 [facility] Radha nn 02:00:00 CHEMISTRY 2012-09-22 <0.02 [facility] Radha nn 20:37:00 CHEMISTRY 2012-09-22 <0.010 [facility] Radha nn 20:37:00 CHEMISTRY 2012-09-22 302 [facility] Radha nn 20:37:00 CHEMISTRY 2012-09-22 1.0 [facility] Radha nn 20:37:00 CHEMISTRY 2012-09-22 3.1 [facility] Radha nn 20:37:00 CHEMISTRY 2012-09-22 1.6 [facility] Radha nn 12:15:00 CHEMISTRY 2012-09-22 2.8 [facility] Radha nn 12:15:00 CHEMISTRY 2012-09-22 <0.02 [facility] Radha nn 12:15:00 CHEMISTRY 2012-09-22 298 [facility] Radha nn 12:15:00 CHEMISTRY 2012-09-22 66 [facility] Radha nn 12:15:00 CHEMISTRY 2012-09-22 8.3 [facility] Radha nn 12:15:00 CHEMISTRY 2012-09-22 26 [facility] Radha nn 12:15:00 CHEMISTRY 2012-09-22 104 [facility] Radha nn 12:15:00 CHEMISTRY 2012-09-22 4.0 [facility] Radha nn 12:15:00 CHEMISTRY 2012-09-22 140 [facility] Radha nn 12:15:00 CHEMISTRY 2012-09-22 1.3 [facility] Radha nn 12:15:00 CHEMISTRY 2012-09-22 15 [facility] Radha nn 12:15:00 CHEMISTRY 2012-09-22 148 [facility] Radha nn 12:15:00 CHEMISTRY 2012-09-22 3.7 [facility] Radha nn 12:15:00 CHEMISTRY 2012-09-22 6.7 [facility] Radha nn 12:15:00 CHEMISTRY 2012-09-22 151 [facility] Radha nn 12:15:00 CHEMISTRY 2012-09-22 63 [facility] Radha nn 12:15:00 CHEMISTRY 2012-09-22 0.3 [facility] Radha nn 12:15:00 CHEMISTRY 2012-09-22 36 [facility] Radha nn 12:15:00 CHEMISTRY 2012-09-22 14.0 [facility] Radha nn 12:15:00 CHEMISTRY 2012-09-22 12 [facility] Radha nn 12:15:00 CHEMISTRY 2012-09-22 1.2 [facility] Radha nn 12:15:00 CHEMISTRY 2012-09-22 3.0 [facility] Radha nn 12:15:00 HEMATOLOGY 2012-09-22 5.0 [facility] Radha nn 12:15:00 HEMATOLOGY 2012-09-22 19.5 [facility] Radha nn 12:15:00 HEMATOLOGY 2012-09-22 1.1 [facility] Radha nn 12:15:00 HEMATOLOGY 2012-09-22 73.8 [facility] Radha nn 12:15:00 HEMATOLOGY 2012-09-22 0.4 [facility] Radha nn 12:15:00 HEMATOLOGY 2012-09-22 1.6 [facility] Radha nn 12:15:00 HEMATOLOGY 2012-09-22 0.0 [facility] Radha nn 12:15:00 HEMATOLOGY 2012-09-22 0.1 [facility] Radha nn 12:15:00 HEMATOLOGY 2012-09-22 6.0 [facility] Radha nn 12:15:00 HEMATOLOGY 2012-09-22 0.6 [facility] Radha nn 12:15:00 HEMATOLOGY 2012-09-22 0.87 [facility] Radha nn 12:15:00 HEMATOLOGY 2012-09-22 12:15:00 Test Item Value Reference Range Interpretation Comme nts PTT (test code = PTT) 23.2 s 22.9-35.8 N [facility] [id number] 12:15:00 Test Item Value Reference Range Interpretation Comments PT (test code = PT) 12.0 s 12.0-14.7 N [facility] [id number] 12:15:0092.3[facility] 2012-09-22 12:15:00 Test Item Value Reference Range Interpretation Comments MCH (test code = MCH) 31.0 pg 27.0-31.0 N [facility] [id number] 12:15:0033.6[facility] HermannHEMATOLOGY 2012-09-22 12:15:0012.8[facility] [id number] 12:15:0047.8[facility] [id number] 12:15:009.1[facility] [id number] 12:15:88620Yweakxen UwnmgyiTLXZKHLRXP1982-20-00 12:15:005.18[facility] [place] [id number] 12:15:0016.1[facility] [id number] 12:15:00 8.1[facility] [id number] 12:00:000.21[facility] [place]
--- OUTSIDE RECORDS SUMMARY | 2020-07-28 06:57 | XMS REPORT | Clinical Summary ---
:[address] [facility] Address [address] [place] [address] Care Team Providers Name Role Phone Evelio Gould MD Primary Care Provider Allergies No Known Allergies Medications Medication Sig Dispensed Refills Start Date End Date Status omeprazole 40 mg 0 05/21/2018 Ac tive capsule metoprolol succinate Take 100 mg by 0 Active XL 100 mg 24 hr tablet mouth daily. vitamin B-12 (VITAMIN Take 1,000 mcg by 0 Active B-12) 1,000 mcg tablet mouth daily. ARTIFICIAL 1 Drop 3 (three) 0 Ac tive TEARS,[id number], times daily as ophthalmic solution needed. allopurinol [...] 02/23/2020 Active (BLOOD GLUCOSE MONITORING) KitIndications: Hyperglycemia atorvastatin 80 mg Take 1 tablet by 30 tablet 0 05/03/2020 Active tablet mouth at bedtime. traZODone 50 mg Take 1/2 tablet at 30 tablet 1 05/10/2020 Active tabletIndications: bedtime as needed Current moderate for insomnia. May episode of major take an additional depressive disorder 1/2 tab if without prior episode ineffective. escitalopram oxalate Take 1 tablet by 30 tablet 1 05/10/2020 Active (LEXAPRO) 10 mg mouth daily. tabletIndications: Current moderate episode of major depressive disorder without prior episode Active Problems Problem Noted Date Obesity (BMI 30-39.9) 10/14/2019 Gastroesophageal reflux disease, esophagitis presence not specified 10/07/2019 Overview: Added automatically from request for breanna corrine [id number] Colon cancer screening 10/07/2019 Overview: Added automatically from request for breanna corrine [id number] Encounters Date Type Specialty Care Team Description 05/04/2020 Patient Outreach Otolaryngology June Manley Social Work Andreea Corrales LMSW 05/03/2020 Telephone Neurology Kamari Long Refill Request MD Brando 03/20/2020 Office Visit Otolaryngology Emmanuel Dizziness (Pr imary Dx); MD Magui Fatigue, unspec ified type; Vertigo; Anxiety; Depression, uns pecified depression type; Central vestibu lar vertigo; Insomnia, unspe cified type 03/20/2020 Orders Only Doctor Unassigned, [place] 03/10/2020 Orders Only Doctor Unassigned, [place] 03/09/2020 Travel 02/23/2020 Emergency Emergency Medicine Mickey Clemente, Hyper glycemia (Primary DO Dx) 02/23/2020 Showroom Sales Assistant Visit Phlebotomy Mahesh Grijalva Rheumat oid arthritis, M, DO involving unspecified Pcp-Lab site, unspecifi ed rheumatoid fact or presence 02/23/2020 Office Visit Rheumatology Mahesh Grijalva Rheumatoid arthritis, involving unspecified site, unspecified rheumatoid factor presence (Primary Dx); M, DO Gout, unspecifi ed cause, unspecified chronicity, unspecified site; Dry eyes; GERMAN positive; Osteoarthritis, unspecified osteoarthritis type, unspecified site; Diffuse pain; terminal supervisor syste wesly steroid user 02/23/2020 Telephone Rheumatology Mahesh Grijalva LAB WORK M, DO 02/23/2020 Telephone Rheumatology Mahesh Grijalva Lab Results ; LAB WORK M, DO 02/23/2020 Travel 02/22/2020 Patient Outreach Otolaryngology June Manley Social Work Andreea Corrales LMSW 02/14/2020 Office Visit Otolaryngology Emmanuel, Vertigo (Prim edgar Dx); MD Magui Other insomnia; Anxiety; Depression, uns pecified depression type; BPPV (benign pa roxysmal positional vertigo), right; Central vestibu lar vertigo; Dizziness; Tinnitus of bot h ears; Insomnia, unspe cified type; Uninsured; Fatigue, unspec ified type; Obstructive sle ep apnea; Daytime sleepin ess; Nystagmus assoc iated with vestibular disorder; Imbalance 02/14/2020 Travel from Last 3 Months Immunizations Name Administration Dates Next Due TDAP (ADACEL) VACCINE 08/04/2011 Family History Medical History Relation Name Comments VT (myocardial infarction) Father Thyroid Mother Relation Name Status Comments Father Mother Social History Tobacco Use Types Packs/Day Years Used Date Never Smoker Smokeless Tobacco: Current User Snuff Tobacco Cessation: Counseling Given: No Alcohol Use Drinks/Week oz/Week Comments No Sex Assigned at Date Recorded Not on file Last Filed Vital Signs Vital Sign Reading Time Taken Comments Blood Pressure 126/74 03/10/2020 8:45 AM CDT Pulse 70 03/10/2020 8:45 AM CDT Temperature 36.6 C (97.8 F) 03/20/2020 8:59 AM CDT Respiratory Rate 19 03/10/2020 8:45 AM CDT Oxygen Saturation 95% 02/23/2020 4:53 PM CDT Inhaled Oxygen Concentration - - Weight 116.2 kg (256 lb 1.6 oz) 03/20/2020 8:59 AM CDT Height 180.3 cm (5' 11") 03/20/2020 8:59 AM CDT Body Mass Index 35.72 03/20/2020 8:59 AM CDT Plan of Treatment Date Type Specialty Care Team Description 05/15/2020 Office Visit Otolaryngology Margret Benitez MD [address] [place], [place] [address] [phone] 06/01/2020 Office Visit Pulmonary Disease Rhea Alcazar, [address] [place] [phone] 06/06/2020 Office Visit Rheumatology Mahesh Grijalva, DO [address] [place] [address] Health Maintenance Due Date Last Done Comments [...] patient's age to complete this to pic Procedures Procedure Name Priority Date/Time Associated Comments Diagnosis PATIENT QUESTIONNAIRE Routine 03/20/2020 12:01 AM CDT AUTHORIZATION FOR RELEASE Routine 03/10/2020 12:01 OF PHI AM CDT AUTHORIZATION FOR RELEASE Routine 03/10/2020 12:01 OF PHI AM CDT PSYCHIATRY CLINIC PATIENT Routine 03/10/2020 12:01 INFORMATION AM CDT CONSENT TO TREATMENT WITH Routine 03/10/2020 12:01 PSYCHOACTIVE MEDICATION AM CDT CONSENT TO TREATMENT WITH Routine 03/10/2020 12:01 PSYCHOACTIVE MEDICATION AM CDT POCT GLUCOSE (AUTOMATED) Routine 02/23/2020 5:00 Results for PM CDT this procedure are in the results section. POCT GLUCOSE(AGE >30DAYS) YAHAIRA 02/23/2020 4:36 Hyperglycem ia Results for PM CDT this procedure are in the results section. POCT GLUCOSE (AUTOMATED) Routine 02/23/2020 4:34 Results for PM CDT this procedure are in the results section. POCT GLUCOSE (AUTOMATED) Routine 02/23/2020 3:44 Results for PM CDT this procedure are in the results section. GLYCOSYLATED HEMOGLOBIN STAT 02/23/2020 2:57 Hyperglycemia Results for (A1C) PM CDT this procedure are in the results section. POCT GLUCOSE (AUTOMATED) Routine 02/23/2020 2:35 Results for PM CDT this procedure are in the results section. CONSENT/REFUSAL FOR Routine 02/23/2020 2:23 DIAGNOSIS AND TREATMENT PM CDT URINALYSIS Routine 02/23/2020 8:41 Rheumatoid Results for AM CDT arthritis, this procedure involving are in the unspecified site, results unspecified section. rheumatoid factor presence ANTI-NUCLEAR ANTIBODY Routine 02/23/2020 8:33 Rheumatoid Re sults for TITER AM CDT arthritis, this procedure involving are in the unspecified site, results unspecified section. rheumatoid factor presence CREATINE KINASE Add-on 02/23/2020 8:33 Rheumatoid Results for AM CDT arthritis, this procedure involving are in the unspecified site, results unspecified section. rheumatoid factor presence GERMAN positive GAMMA GLUTAMYLTRANSFERASE Add-on 02/23/2020 8:33 Rheumatoid Results for AM CDT arthritis, this procedure involving are in the unspecified site, results unspecified section. rheumatoid factor presence GERMAN positive ANTI-SSB(LA) Routine 02/23/2020 8:33 Rheumatoid Results for AM CDT arthritis, this procedure involving are in the unspecified site, results unspecified section. rheumatoid factor presence HCV ANTIBODY Routine 02/23/2020 8:33 Rheumatoid Results for AM CDT arthritis, this procedure involving are in the unspecified site, results unspecified section. rheumatoid factor presence HEPATITIS B SURFACE Routine 02/23/2020 8:33 Rheumatoid Resu lts for ANTIGEN AM CDT arthritis, this procedure involving are in the unspecified site, results unspecified section. rheumatoid factor presence RHEUMATOID FACTOR Routine 02/23/2020 8:33 Rheumatoid Result s for AM CDT arthritis, this procedure involving are in the unspecified site, results unspecified section. rheumatoid factor presence CYCLIC CITRULLINATED Routine 02/23/2020 8:33 Rheumatoid Res ults for PEPTIDE AM CDT arthritis, this procedure involving are in the unspecified site, results unspecified section. rheumatoid factor presence C4 COMPLEMENT Routine 02/23/2020 8:33 Rheumatoid Results fo r AM CDT arthritis, this procedure involving are in the unspecified site, results unspecified section. rheumatoid factor presence C3 COMPLEMENT Routine 02/23/2020 8:33 Rheumatoid Results fo r AM CDT arthritis, this procedure involving are in the unspecified site, results unspecified section. rheumatoid factor presence ANTI-SM/MOTION GRAPHICS DESIGNER Routine 02/23/2020 8:33 Rheumatoid Results for AM CDT arthritis, this procedure involving are in the unspecified site, results unspecified section. rheumatoid factor presence ANTI-SSA(RO) Routine 02/23/2020 8:33 Rheumatoid Results for AM CDT arthritis, this procedure involving are in the unspecified site, results unspecified section. rheumatoid factor presence ANTI-DOUBLE STRANDED DNA Routine 02/23/2020 8:33 Rheumatoid Results for AM CDT arthritis, this procedure involving are in the unspecified site, results unspecified section. rheumatoid factor presence ANTI-NUCLEAR ANTIBODY Routine 02/23/2020 8:33 Rheumatoid Re sults for SCREEN AM CDT arthritis, this procedure involving are in the unspecified site, results unspecified section. rheumatoid factor presence URIC ACID Routine 02/23/2020 8:33 Rheumatoid Results for AM CDT arthritis, this procedure involving are in the unspecified site, results unspecified section. rheumatoid factor presence SEDIMENTATION RATE Routine 02/23/2020 8:33 Rheumatoid Resul ts for AM CDT arthritis, this procedure involving are in the unspecified site, results unspecified section. rheumatoid factor presence THYROID STIMULATING Routine 02/23/2020 8:33 Rheumatoid Resu lts for HORMONE AM CDT arthritis, this procedure involving are in the unspecified site, results unspecified section. rheumatoid factor presence VITAMIN D, 25-OH Routine 02/23/2020 8:33 Rheumatoid Results for AM CDT arthritis, this procedure involving are in the unspecified site, results unspecified section. rheumatoid factor presence CREATINE KINASE Routine 02/23/2020 8:33 Rheumatoid Results for AM CDT arthritis, this procedure involving are in the unspecified site, results unspecified section. rheumatoid factor presence C-REACTIVE PROTEIN Routine 02/23/2020 8:33 Rheumatoid Resul ts for AM CDT arthritis, this procedure involving are in the unspecified site, results unspecified section. rheumatoid factor presence COMP. METABOLIC PANEL Routine 02/23/2020 8:33 Rheumatoid Re sults for ([id number]) AM CDT arthritis, this procedure involving are in the unspecified site, results unspecified section. rheumatoid factor presence CBC WITH DIFF Routine 02/23/2020 8:33 Rheumatoid Results fo r AM CDT arthritis, this procedure involving are in the unspecified site, results unspecified section. rheumatoid factor presence EMERGENCY SERVICES Routine 02/23/2020 12:01 AGREEMENTS AND AM CDT AUTHORIZATIONS from Last 3 Months Results PATIENT QUESTIONNAIRE (03/20/2020 12:01 AM CDT) Specimen Performing Organization Address City/State/Zipcode Phone Number [facility] PSYCHIATRY CLINIC PATIENT INFORMATION (03/10/2020 12:01 AM CDT) Specimen Performing Organization Address City/[facility] Phone Number [facility] CONSENT TO TREATMENT WITH PSYCHOACTIVE MEDICATION (03/10/2020 12:01 AM CDT)Only the most recent of2 resultswithin the time period is included. Specimen Performing Organization Address [facility] Phone Number [facility] AUTHORIZATION FOR RELEASE OF PHI (03/10/2020 12:01 AM CDT)Only the most recent of2 resultswithin the time period is included. Specimen Performing Organization Address [facility] Phone Number [facility] POCT GLUCOSE (AUTOMATED) (02/23/2020 5:00 PM CDT)Only the most recent of4 resultswithin the time period is included. Pathologist [facility] POCT GLU 408 (H) 70 - 110 mg/dL [facility] Specimen Blood Performing Organization Address [facility] Phone Number [facility] CLIA: [id number] [place] [address] POCT GLUCOSE(AGE >30DAYS) (02/23/2020 4:36 PM CDT) Pathologist [facility] POCT Glu (age>30days) 409 (A) 70 - 110 mg/dL Specimen Blood - VENOUS GLYCOSYLATED HEMOGLOBIN (A1C) (02/23/2020 2:57 PM CDT) Pathologist [facility] HGB A1C >14.0 (H) 4.0 - 6.0 % [facility] Specimen Blood - VENOUS Narrative Performed At %A1C (NGSP) Interpretation (ADA) [facility] 4.8-5.6 Normal or (Non-Diabetic Ra nge) 5.7-6.4 Increased Risk (Pre-Diabet ic) >6.5 Diabetes Indicated Performing Organization Address [facility] Phone Number [facility] CLIA: [id number] [place] [address] CONSENT/REFUSAL FOR DIAGNOSIS AND TREATMENT (02/23/2020 2:23 PM CDT) Specimen Performing Organization Address City/[facility] Phone Number [facility] URINALYSIS (02/23/2020 8:41 AM CDT) Pathologist Sig nature APPEARANCE Hazy (A) Clear [facility] COLOR Yellow Yellow [facility] PH 6.0 4.8 - 8.[address] [facility] SERVICES SP GRAVITY 1.037 (H) 1.003 - 1.[address] [facility] SERVICES GLU U QUAL 500 mg/dL (A) Normal [facility] BLOOD Negative Negative [facility] SERVICES KETONES Negative Negative [facility] PROTEIN Negative Negative [facility] UROBILIN Normal Normal [facility] BILIRUBIN Negative Negative [facility] NITRITE Negative Negative [facility] LEUK WILFRED Negative Negative [facility] RBC/HPF <1 0 - 3 HPF [facility] WBC/HPF <1 0 - 5 HPF [facility] BACTERIA Negative Negative [facility] SERVICES Specimen Urine - URINE, CLEAN CATCH Performing Organization Address [facility] Phone Number [facility] SERVICES CLIA: [id number] [place] [address] [place] [address] ANTI-DOUBLE STRANDED DNA (02/23/2020 8:33 AM CDT) Pathologist Sig nature ANTI-DSDNA 1.0 0.0 - 4.0 IU/mL [facility] SERVICES Specimen Blood - ARM, RIGHT Narrative Performed At Negative < or = 4 IU/mL [facility] Positive > or = 10 IU/mL Indeterminate 5-9 IU/mL Performing Organization Address [facility] Phone Number [facility] SERVICES CLIA: [id number] [place] [address] [place] [address] ANTI-SSB(LA) (02/23/2020 8:33 AM CDT) Pathologist Sig [facility] Anti-SSB(LA) Negative Negative [facility] SERVICES Specimen Blood - ARM, RIGHT Narrative Performed At Positive - Antibody detected. [facility] SERVICES Negative - No antibody detected. Performing Organization Address City/State/[facility] Phone Number [facility] SERVICES CLIA: [id number] [place] [address] [place] [address] ANTI-SSA(RO) (02/23/2020 8:33 AM CDT) Pathologist Sig [facility] ANTI-SSA(RO) Negative Negative [facility] SERVICES Specimen Blood - ARM, RIGHT Narrative Performed At Positive - Antibody detected. [facility] SERVICES Negative - No antibody detected. Performing Organization Address City/[facility] Phone Number [facility] SERVICES CLIA: [id number] [place] [address] [place] [address] ANTI-SM/MOTION GRAPHICS DESIGNER (02/23/2020 8:33 AM CDT) Pathologist Sig [facility] ANTI-SMRNP Negative Negative [facility] SERVICES Specimen Blood - ARM, RIGHT Narrative Performed At Positive - Antibody detected. [facility] SERVICES Negative - No antibody detected. Performing Organization Address City/[facility] Phone Number [facility] SERVICES CLIA: [id number] [place] [address] [place] [address] VITAMIN D, 25-OH (02/23/2020 8:33 AM CDT) Pathologist Sig [facility] VIT D 25OH 29 25 - 80 ng/mL [facility] SERVICES Specimen Blood - ARM, RIGHT Narrative Performed At Deficiency: <20 ng/mL [facility] SERVICES Insufficiency: 20-24 ng/mL Optimal: 25-80 ng/mL Performing Organization Address City/[facility] Phone Number [facility] SERVICES CLIA: [id number] [place] [address] [place] [address] CYCLIC CITRULLINATED PEPTIDE (02/23/2020 8:33 AM CDT) Pathologist Sig [facility] CCP IgG/IgA 13.9 0.0 - 20.0 U ANTIPHOSPHOLIPID STANDARDIZA TION LABORAT. Specimen Blood - ARM, RIGHT Narrative Performed At INTERPRETATION: UNITS: ANTIPHOSPHOLIPID [facility] LABORAT . Negative <20 Weak Positive 20-39 Moderate Positive 40-59 Strong Positive >=60 A positive result indicates the presence of CCP IgG antibodies and suggests the possibility of RA antibodies and suggests the possibility of SLE. A negative result indicates no CCP IgG antibodies or levels below the cut-off o f the assay. Performing Organization Address City/[facility] Phone Number ANTIPHOSPHOLIPID [address] [place] [phone] STANDARDIZATION LABORAT. [address] [employer] [facility] [address] ANTI-NUCLEAR ANTIBODY TITER (02/23/2020 8:33 AM CDT) Pathologist Sig nature GERMAN Titer by IFA 1:[address] [facility]ATORY SERVICES Specimen Blood - ARM, RIGHT Narrative Performed At Homogenous Pattern [facility] SERVICES Anti-nuclear antibodies are seen in a variety of autoi mmune diseases and may also be seen in low titers in otherwi se normal individuals without evidence of autoimmune dise ase. In general, a titer greater than or equal to 1:160 is considered significant. For further information, conta ct the appropriate Specialist. For additional GERMAN tests, refe r to the Laboratory Test Directory. The specimen will be he ld for 7 days. Performing Organization Address [facility] Phone Number [facility] SERVICES CLIA: [id number] [place] [address] [place] [address] HCV ANTIBODY (02/23/2020 8:33 AM CDT) Pathologist Sig nature HCV Ab Negative [facility] SERVICES HCV Semi-Quantitative 0.[address] [facility] SERVICES Specimen Blood - ARM, RIGHT Performing Organization Address [facility] Phone Number [facility] SERVICES CLIA: [id number] [place] [address] [phone] [address] [facility] HEPATITIS B SURFACE ANTIGEN (02/23/2020 8:33 AM CDT) Pathologist Sig nature HBsAg Negative Negative [facility] SERVICES HBsAg 0.[address] [facility] Semi-Quantitative SERVICES Specimen Blood - ARM, RIGHT Performing Organization Address [facility] Phone Number [facility] SERVICES CLIA: [id number] [place] [address] [phone] [address] [facility] ANTI-NUCLEAR ANTIBODY SCREEN (02/23/2020 8:33 AM CDT) Pathologist Sig nature GERMAN Positive (A) Negative [facility] SERVICES Specimen Blood - ARM, RIGHT Narrative Performed At Negative - No Anti-Nuclear Antibodies de tected by IFA. [facility] SERVICES Positive - GERMAN IFA screen performed with a 1:80 diluti on in adults and a 1:40 dilution in pediatrics. Any GERMAN "Pos itive" will have titer performed and reported s eparately. Negative - No Anti-Nuclear Antibodies de tected by IFA. Positive - GERMAN IFA screen performed with a 1:80 diluti on in adults and a 1:40 dilution in pediatrics. Any GERMAN "Pos itive" will have titer performed and reported separately. Performing Organization Address City/State/Zipcode Phone Number [facility] SERVICES CLIA: [id number] [place], [place] [address] [address] [place] [address] CBC WITH DIFF (02/23/2020 8:33 AM CDT) Pathologist Sig nature WBC 11.85 (H) 4.20 - 10.[address] [facility] LABORATORY 10*3/L SERVICES RBC 5.36 4.26 - 5.[address] [facility] 10*6/L SERVICES HGB 16.5 (H) 12.2 - 16.[address] [facility] g/dL SERVICES HCT 49.4 (H) 38.4 - 49.3 % [facility] SERVICES MCV 92.2 81.7 - 95.[address] [facility] SERVICES MCH 30.8 26.1 - 32.[address] [facility] SERVICES MCHC 33.4 31.2 - 35.[address] [facility] g/dL SERVICES RDW-SD 44.6 38.5 - 51.[address] [facility] SERVICES RDW-CV 13.2 12.1 - 15.4 % [facility] SERVICES PLT 253 150 - [address] [facility] 10*3/L SERVICES MPV 11.6 9.8 - 13.[address] [facility] SERVICES NRBC/100 WBC 0.0 0.0 - 10.0 /[address] [facility] WBCs SERVICES NRBC x10^3 <0.01 10*3/L [facility] SERVICES GRAN MAT (NEUT) % 75.0 % [facility] SERVICES IMM GRAN % 0.90 % [facility] SERVICES LYMPH % 16.9 % [facility] MONO % 5.2 % [facility] EOS % 0.6 % [facility] BASO % 1.4 % [facility] GRAN MAT x10^3(ANC) 8.88 (H) 1.99 - 6.95 [facility] 10*3/uL SERVICES IMM GRAN x10^3 0.11 (H) 0.00 - 0.06 [facility] 10*3/uL SERVICES LYMPH x10^3 2.00 1.09 - 3.23 [facility] 10*3/uL SERVICES MONO x10^3 0.62 0.36 - 1.02 [facility] 10*3/uL SERVICES EOS x10^3 0.07 0.06 - 0.53 [facility] 10*3/uL SERVICES BASO x10^3 0.17 (H) 0.01 - 0.09 [facility] 10*3/uL SERVICES Specimen Blood - ARM, RIGHT Performing Organization Address City/[facility]/Zipcode Phone Number [facility] CLIA: [id number] [place] [address] [place] [address] SEDIMENTATION RATE (02/23/2020 8:33 AM CDT) Pathologist Sig nature ESR 10 0 - 10 mm/HR [facility] Specimen Blood - ARM, RIGHT Performing Organization Address [facility]/[employer] Phone Number [facility] CLIA: [id number] [place] [address] [place] [address] COMP. METABOLIC PANEL (01444) (02/23/2020 8:33 AM CDT) NA 132 (L) 135 - [address] [facility] mmol/L SERVICES K 5.2 (H) 3.5 - 5.[address] [facility] mmol/L SERVICES CL 92 (L) 98 - 108 mmol/L [facility] CO2 TOTAL 29 23 - 31 mmol/L [facility] AGAP 11 2 - [address] [facility] BUN 13 7 - 23 mg/dL [facility] GLUCOSE 514 (HH) 70 - 110 mg/dL [facility] CREATININE 0.68 0.60 - 1.[address] [facility] mg/dL SERVICES TOTAL BILI 0.8 0.1 - 1.1 mg/dL [facility] CALCIUM 9.4 8.6 - 10.[address] [facility] mg/dL SERVICES T PROTEIN 6.6 6.3 - 8.2 g/dL [facility] ALBUMIN 4.1 3.5 - 5.0 g/dL [facility] ALK PHOS 234 (H) 34 - 122 U/L [facility] ALTv 54 (H) 5 - 50 U/L [facility] AST(SGOT) 43 (H) 13 - 40 U/L [facility] eGFR Calculation 122.5 mL/min/1.73m2 [facility] (Non- SERVICES Salv[place]orean) eGFR Calculation 148.4 mL/min/1.73m2 [facility] () SERVICES Specimen Blood - ARM, RIGHT Narrative Performed At [employer] of Glomerular Filtration Rate (GFR) and St aging [facility] of Kidney Disease* + + +------- ------ + | GFR (mL/min/1.73 m2) | With Kidney Damage | Wi thout Kidney Damage + + +------- ------ + | >90 | Stage one | Normal + + +------- ------ + | 60-89 | Stage two | Decreased GFR + + +------- ------ + | 30-59 | Stage three | Stage three + + +------- ------ + | 15-29 | Stage four | Stage four + + +------- ------ + | <15 (or dialysis) | Stage five | Stage five + + +------- ------ + *Each stage assumes the associated GFR level has been in effect for at least three months. Stages 1 to 5, wit h or without kidney disease, indicate chronic kidney disease. Notes: Determination of stages one and two (with eGFR >59mL/min/1.73 m2) requires estimation of kidney damag e for at least three months as defined by structural or func tional abnormalities of the kidney, manifested by either: Pathological abnormalities or Markers of kidney damage (including abnormalities in the composition of the blo od or urine or abnormalities in imaging tests) . Performing Organization Address City/[facility] Phone Number [facility] CLIA: [id number] [place] [address] [place] [address] THYROID STIMULATING HORMONE (02/23/2020 8:33 AM CDT) [facility] TSH 1.96 0.45 - 4.70 mIU/L [facility] S Specimen Blood - ARM, RIGHT Performing Organization Address [facility] Phone Number [facility] CLIA: [id number] [place] [id number] [address] [place] [address] C4 COMPLEMENT (02/23/2020 8:33 AM CDT) Pathologist Sig nature C4 19 (L) 20 - 59 mg/dL [facility] Specimen Blood - ARM, RIGHT Performing Organization Address [facility] Phone Number [facility] CLIA: [id number] [place] [address] [place] [address] C3 COMPLEMENT (02/23/2020 8:33 AM CDT) Pathologist Sig nature C3 118 86 - 184 mg/dL [facility] Specimen Blood - ARM, RIGHT Performing Organization Address [facility] Phone Number [facility] CLIA: [id number] [place] [address] [place] [address] C-REACTIVE PROTEIN (02/23/2020 8:33 AM CDT) Pathologist Sig [facility] CRP 0.8 (H) <0.8 mg/dL [facility] Specimen Blood - ARM, RIGHT Performing Organization Address [facility] Phone Number [facility] CLIA: [id number] [place] [address] [place] [address] RHEUMATOID FACTOR (02/23/2020 8:33 AM CDT) Pathologist Sig nature RF <20 <20 IU/mL [facility] Specimen Blood - ARM, RIGHT Performing Organization Address [facility] Phone Number [facility] CLIA: [id number] [place] [address] [place] [address] URIC ACID (02/23/2020 8:33 AM CDT) Pathologist Sig nature URIC ACID 4.0 3.6 - 8.0 mg/dL [facility] Specimen Blood - ARM, RIGHT Performing Organization Address [facility] Phone Number [facility] CLIA: [id number] [place] [address] [place] [address] CREATINE KINASE (02/23/2020 8:33 AM CDT)Only the most recent of2 resultswithin the time period is included. Pathologist Sig nature CK 54 33 - 194 U/L [facility] Specimen Blood - ARM, RIGHT Performing Organization Address [facility] Phone Number [facility] CLIA: [id number] [place] [address] [place] [address] GAMMA GLUTAMYLTRANSFERASE (02/23/2020 8:33 AM CDT) Pathologist [facility] nature GGT 194 (H) 13 - 58 U/L [facility] Specimen Blood - ARM, RIGHT Performing Organization Address [facility] Phone Number [facility] CLIA: [id number] [place] [address] [phone] [address] [facility] EMERGENCY SERVICES AGREEMENTS AND AUTHORIZATIONS (02/23/2020 12:01 AM CDT) Specimen Performing Organization Address City/[facility] Phone Number HIM from Last 3 Months
--- OUTSIDE RECORDS SUMMARY | 2020-07-28 06:58 | XMS REPORT | Clinical Summary ---
:1965 Author Organization [facility] - [facility] Address [address] [place] [address] Care Team Providers Name Role Phone Evelio Gould MD Primary Care Provider [phone] Allergies No Known Allergies Medications Medication Sig Dispensed Refills Start Date End Date Status omeprazole 40 mg 0 05/21/2018 Ac tive capsule metoprolol succinate XL Take 100 mg by 0 Active 100 mg 24 hr tablet mouth daily. vitamin B-12 (VITAMIN Take 1,000 mcg by 0 Active B-12) 1,000 mcg tablet mouth daily. ARTIFICIAL 1 Drop 3 (three) 0 Ac tive TEARS,[id number], times daily as ophthalmic solution needed. allopurinol [...] 09/26/2019 Active disintegrating mouth every 8 tabletIndications: Left (eight) hours as upper quadrant pain needed for Nausea and Vomiting (N/V). proMETHazine 25 mg [...] mouth at bedtime. traZODone 50 mg Take 2 tablets at 60 tablet 1 05/19/2020 Active tabletIndications: bedtime as needed Current moderate for insomnia. episode of major depressive disorder without prior episode escitalopram oxalate 20 Take 1 tablet by 30 tablet 1 0 Active mg tabletIndications: mouth daily. Current moderate episode of major depressive disorder without prior episode Active Problems Problem Noted Date Obesity (BMI 30-39.9) 10/14/2019 Gastroesophageal reflux disease, esophagitis presence not specified 10/07/2019 Overview: Added automatically from request for breanna corrine [id number] Colon cancer screening 10/07/2019 Overview: Added automatically from request for breanna corrine [id number] Encounters Date Type Specialty Care Team Description 05/19/2020 Travel 05/18/2020 Travel 05/15/2020 Office Visit Otolaryngology Emmanuel, Dizziness (Pr imary Dx); MD Magui Depression, uns pecified depression type; BPPV (benign pa roxysmal positional vertigo), right; Vertigo; Anxiety 05/15/2020 Travel 05/04/2020 Patient Outreach Otolaryngology June Manley Social Work Andreea Corrales LMSW 05/03/2020 Telephone Neurology Kamari Long Refill Request MD Brando 03/20/2020 Office Visit Otolaryngology Emmanuel, Dizziness (Pr imary Dx); MD Magui Fatigue, unspec ified type; Vertigo; Anxiety; Depression, uns pecified depression type; Central vestibu lar vertigo; Insomnia, unspe cified type 03/20/2020 Orders Only Doctor Unassigned, [place] 03/10/2020 Orders Only Doctor Unassigned, [place] 03/09/2020 Travel 02/23/2020 Emergency Emergency Medicine Mickey Clemente, Hyper glycemia (Primary DO Dx) 02/23/2020 Back Tender Visit Phlebotomy Mahesh Grijalva Rheumat oid arthritis, M, DO involving unspecified Pcp-Lab site, unspecifi ed rheumatoid fact or presence 02/23/2020 Office Visit Rheumatology Mahesh Grijalva Rheumatoid arthritis, involving unspecified site, unspecified rheumatoid factor presence (Primary Dx); M, DO Gout, unspecifi ed cause, unspecified chronicity, unspecified site; Dry eyes; GERMAN positive; Osteoarthritis, unspecified osteoarthritis type, unspecified site; Diffuse pain; termination clerk syste wesly steroid user 02/23/2020 Telephone Rheumatology Mahesh Grijalva LAB WORK M, DO 02/23/2020 Telephone Rheumatology Mahesh Grijalva Lab Results ; LAB WORK M, DO 02/23/2020 Travel 02/22/2020 Patient Outreach Otolaryngology June Manley Social Work Andreea Corrales LMSW from Last 3 Months Immunizations Name Administration Dates Next Due TDAP (ADACEL) VACCINE 08/04/2011 Family History Medical History Relation Name Comments [place] (myocardial infarction) Father Thyroid Mother Relation Name Status Comments Father Mother Social History Tobacco Use Types Packs/Day Years Used Date Never Smoker Smokeless Tobacco: Current User Snuff Tobacco Cessation: Counseling Given: No Alcohol Use Drinks/Week oz/Week Comments No Sex Assigned at Date Recorded Not on file COVID-19 Exposure Response Date Recorded In the last month, have you been in contact with No / Unsure 05/19/2020 8:40 AM CDT someone who was confirmed or suspected to have Coronavirus / COVID-19? Last Filed Vital Signs Vital Sign Reading Time Taken Comments Blood Pressure 119/78 05/19/2020 8:49 AM CDT Pulse 59 05/19/2020 8:49 AM CDT Temperature 37 C (98.6 F) 05/15/2020 10:20 AM CDT Respiratory Rate 16 05/19/2020 8:49 AM CDT Oxygen Saturation 95% 02/23/2020 4:53 PM CDT Inhaled Oxygen Concentration - - Weight 114.2 kg (251 lb 12.8 oz) 05/19/2020 8:49 AM CDT Height 180.3 cm (5' 11") 05/19/2020 8:49 AM CDT Body Mass Index 35.12 05/19/2020 8:49 AM CDT Plan of Treatment Date Type Specialty Care Team Description 06/01/2020 Office Visit Pulmonary Disease Rhea AlcazarDO [address] [place] [phone] 06/06/2020 Office Visit Rheumatology Mahesh Grijalva DO Fahad [address] [place] [address] [phone] 08/28/2020 Office Visit Otolaryngology Margret Benitez MD [address] [place], [place] [address] Health Maintenance Due Date Last Done Comments COLON CANCER SCREENING ANNUAL 2017 FIT/FOBT COLON CANCER SCREENING FIT 2017 DNA EVERY 3 YEARS COLON CANCER SCREENING 2017 SIGMOIDOSCOPY EVERY 5 YEARS INFLUENZA VACCINE (#1) 2020 Zoster Recombinant Vaccine 08/27/2020 Postp oned from 2017 (SHINGRIX) (1 of 2) (Refused) Depression Screening 05/19/2021 05/19/2020, 05/19/2020 DTaP,Tdap,and Td Vaccines (2 08/04/2021 08/04/2011 - [...] site, results unspecified section. rheumatoid factor presence ANTI-SM/RN PEDIATRIC Routine 02/23/2020 8:33 Rheumatoid Results for AM [...] Routine 02/23/2020 8:33 Rheumatoid Re sults for (79197) AM CDT arthritis, this procedure involving are [...] Specimen Performing Organization Address City/State/Zipcode Phone Number [facility] PATIENT INFORMATION (03/10/2020 12:01 AM CDT) Specimen Performing Organization Address [facility] Phone Number [facility] CONSENT TO TREATMENT WITH PSYCHOACTIVE MEDICATION (03/10/2020 12:01 AM CDT)Only the most recent of2 resultswithin the time period is included. Specimen Performing Organization Address City/[facility] Phone Number [facility] AUTHORIZATION FOR RELEASE OF PHI (03/10/2020 12:01 AM CDT)Only the most recent of2 resultswithin the time period is included. Specimen Performing Organization Address [facility] Phone Number [facility] POCT GLUCOSE (AUTOMATED) (02/23/2020 5:00 PM CDT)Only the most recent of4 resultswithin the time period is included. Pathologist [facility] [place] [employer] POCT GLU 408 (H) 70 - 110 mg/dL [facility] Specimen Blood Performing Organization Address City/[facility] Phone Number [facility] CLIA: [id number] [place] [address] POCT GLUCOSE(AGE >30DAYS) (02/23/2020 4:36 PM CDT) Pathologist [facility] [place] [employer] POCT Glu (age>30days) 409 (A) 70 - 110 mg/dL Specimen Blood - VENOUS GLYCOSYLATED HEMOGLOBIN (A1C) (02/23/2020 2:57 PM CDT) Pathologist [facility] [place] [employer] HGB A1C >14.0 (H) 4.0 - 6.0 % [facility] Specimen Blood - VENOUS Narrative Performed At %A1C (NGSP) Interpretation (ADA) [facility] 4.8-5.6 Normal or (Non-Diabetic Ra nge) 5.7-6.4 Increased Risk (Pre-Diabet ic) >6.5 Diabetes Indicated Performing Organization Address City/[facility]/Zipcode Phone Number [facility] CLIA: [id number] [place] [address] CONSENT/REFUSAL FOR DIAGNOSIS AND TREATMENT (02/23/2020 2:23 PM CDT) Specimen Performing Organization Address City/State/Zipcode Phone Number [facility] URINALYSIS (02/23/2020 8:41 AM CDT) Pathologist Sig nature APPEARANCE Hazy (A) Clear [facility] COLOR Yellow Yellow [facility] PH 6.0 4.8 - 8.0 [facility] SP GRAVITY 1.037 (H) 1.003 - 1.030 [facility] GLU U QUAL 500 mg/dL (A) Normal [facility] BLOOD Negative Negative [facility] KETONES Negative Negative [facility] PROTEIN Negative Negative [facility] UROBILIN Normal Normal [facility] BILIRUBIN Negative Negative [facility] NITRITE Negative Negative [facility] [place] WILFRED Negative Negative [facility] RBC/HPF <1 0 - 3 HPF [facility] WBC/HPF <1 0 - 5 HPF [facility] BACTERIA Negative Negative [facility] Specimen Urine - URINE, CLEAN CATCH Performing Organization Address [facility] Phone Number [facility] CLIA: [id number] [place] [address] [place] [address] ANTI-DOUBLE STRANDED DNA (02/23/2020 8:33 AM CDT) Pathologist Sig [facility] ANTI-DSDNA 1.0 0.0 - 4.0 IU/mL [facility] Specimen Blood - ARM, RIGHT Narrative Performed At Negative < or = 4 IU/mL [facility] Positive > or = 10 IU/mL Indeterminate 5-9 IU/mL Performing Organization Address [facility] Phone Number [facility] CLIA: [id number] [place] [address] [place] [address] ANTI-SSB(LA) (02/23/2020 8:33 AM CDT) Pathologist Sig nature Anti-SSB(LA) Negative Negative [facility] Specimen Blood - ARM, RIGHT Narrative Performed At Positive - Antibody detected. [facility] Negative - No antibody detected. Performing Organization Address City/[facility] Phone Number [facility] CLIA: [id number] [place] [address] [place] [address] ANTI-SSA(RO) (02/23/2020 8:33 AM CDT) Pathologist Sig [facility] ANTI-SSA(RO) Negative Negative [facility] Specimen Blood - ARM, RIGHT Narrative Performed At Positive - Antibody detected. [facility] Negative - No antibody detected. Performing Organization Address [facility] Phone Number [facility] CLIA: [id number] [place] [address] [place] [address] ANTI-SM/RN PEDIATRIC (02/23/2020 8:33 AM CDT) Pathologist Sig [facility] ANTI-SMRNP Negative Negative [facility] Specimen Blood - ARM, RIGHT Narrative Performed At Positive - Antibody detected. [facility] Negative - No antibody detected. Performing Organization Address City/[facility] Phone Number [facility] CLIA: [id number] [place] [address] [place] [address] VITAMIN D, 25-OH (02/23/2020 8:33 AM CDT) Pathologist Sig [facility] VIT D 25OH 29 25 - 80 ng/mL [facility] Specimen Blood - ARM, RIGHT Narrative Performed At Deficiency: <20 ng/mL [facility] Insufficiency: 20-24 ng/mL Optimal: 25-80 ng/mL Performing Organization Address City/[facility] Phone Number [facility] CLIA: [id number] [place] [address] [place] [address] CYCLIC CITRULLINATED PEPTIDE (02/23/2020 8:33 AM CDT) Pathologist Sig [facility] CCP IgG/IgA 13.9 0.0 - 20.0 U [...] o f the assay. Performing Organization Address City/[facility] Phone Number ANTIPHOSPHOLIPID [address] [place] [address] STANDARDIZATION LABORAT. [address] [facility] ANTI-NUCLEAR ANTIBODY TITER (02/23/2020 8:33 AM CDT) Pathologist Sig [facility] GERMAN Titer by IFA 1:320 [facility] SERVICES Specimen Blood - ARM, RIGHT Narrative Performed At Homogenous Pattern [facility] Anti-nuclear antibodies are seen in a variety of autoi mmune diseases and may also be seen in low titers in otherwi se normal individuals without evidence of autoimmune dise ase. In general, a titer greater than or equal to 1:160 is considered significant. For further information, parminder ct the appropriate Specialist. For additional GERMAN tests, refe r to the Laboratory Test Directory. The specimen will be he ld for 7 days. Performing Organization Address City/[facility] Phone Number [facility] CLIA: [id number] [place] [address] [place] [address] HCV ANTIBODY (02/23/2020 8:33 AM CDT) [facility] HCV Ab Negative [facility] HCV Semi-Quantitative 0.00 [facility] Specimen Blood - ARM, RIGHT Performing Organization Address [facility] Phone Number [facility] CLIA: [id number] [place] [address] [place] [address] HEPATITIS B SURFACE ANTIGEN (02/23/2020 8:33 AM CDT) Pathologist Sig [facility] HBsAg Negative Negative [facility] HBsAg 0.07 [facility] Semi-Quantitative SERVICES Specimen Blood - ARM, RIGHT Performing Organization Address [facility] Phone Number [facility] CLIA: [id number] [place] [address] [place] [address] ANTI-NUCLEAR ANTIBODY SCREEN (02/23/2020 8:33 AM CDT) [facility] Sig nature GERMAN Positive (A) Negative [facility] Specimen Blood - ARM, RIGHT Narrative Performed At Negative - No Anti-Nuclear Antibodies de tected by IFA. [facility] Positive - [...] separately. Performing Organization Address City/State/Zipcode Phone Number [facility] CLIA: [id number] [place], [place] [id number] [address] [place] [address] CBC WITH DIFF (02/23/2020 8:33 AM CDT) Pathologist Sig nature WBC 11.85 (H) 4.20 - 10.70 [facility] 10*3/L SERVICES RBC 5.36 4.26 - 5.52 [facility] 10*6/L SERVICES HGB 16.5 (H) 12.2 - 16.4 [facility] g/dL SERVICES HCT 49.4 (H) 38.4 - 49.3 % [facility] MCV 92.2 81.7 - 95.6 fL [facility] SERVICES MCH 30.8 26.1 - 32.7 pg [facility] SERVICES MCHC 33.4 31.2 - 35.0 [facility] g/dL SERVICES RDW-SD 44.6 38.5 - 51.6 fL [facility] SERVICES RDW-CV 13.2 12.1 - 15.4 % [facility] SERVICES PLT 253 150 - 328 [facility] 10*3/L SERVICES MPV 11.6 9.8 - 13.0 fL [facility] SERVICES NRBC/100 WBC 0.0 0.0 - 10.0 /100 [facility] WBCs SERVICES NRBC x10^3 <0.01 10*3/L [facility] SERVICES GRAN MAT (NEUT) % 75.0 % [facility] IMM GRAN % 0.90 % [facility] LYMPH % 16.9 % [facility] MONO % 5.2 % [facility] EOS % 0.6 % [facility] BASO % 1.4 % [facility] SERVICES GRAN MAT x10^3(ANC) 8.88 (H) 1.99 - 6.95 [facility] 10*3/uL SERVICES IMM GRAN x10^3 0.11 (H) 0.00 - 0.06 [facility] 10*3/uL SERVICES LYMPH x10^3 2.00 1.09 - 3.23 [facility] 10*3/uL SERVICES MONO x10^3 0.62 0.36 - 1.02 [facility] 10*3/uL SERVICES EOS x10^3 0.07 0.06 - 0.53 [facility] 10*3/uL SERVICES BASO x10^3 0.17 (H) 0.01 - 0.09 [facility] 10*3/uL SERVICES Specimen Blood - ARM, RIGHT Performing Organization Address City/State/Zipcode Phone Number [facility] CLIA: [id number] [place] [address] [place] [address] SEDIMENTATION RATE (02/23/2020 8:33 AM CDT) Pathologist Sig nature ESR 10 0 - 10 mm/HR [facility] Specimen Blood - ARM, RIGHT Performing Organization Address City/State/Zipcode Phone Number [facility] CLIA: [id number] [place] [address] [place] [address] COMP. METABOLIC PANEL (37618) (02/23/2020 8:33 AM CDT) NA 132 (L) 135 - 145 [facility] mmol/L SERVICES K 5.2 (H) 3.5 - 5.0 [facility] mmol/L SERVICES CL 92 (L) 98 - 108 mmol/L [facility] SERVICES CO2 TOTAL 29 23 - 31 mmol/L [facility] AGAP 11 2 - 16 [facility] SERVICES BUN 13 7 - 23 mg/dL [facility] SERVICES GLUCOSE 514 (HH) 70 - 110 mg/dL [facility] SERVICES CREATININE 0.68 0.60 - 1.25 [facility] mg/dL SERVICES TOTAL BILI 0.8 0.1 - 1.1 mg/dL [facility] SERVICES CALCIUM 9.4 8.6 - 10.6 [facility] mg/dL SERVICES T PROTEIN 6.6 6.3 - 8.2 g/dL [facility] SERVICES ALBUMIN 4.1 3.5 - 5.0 g/dL [facility] SERVICES ALK PHOS 234 (H) 34 - 122 U/L [facility] SERVICES ALTv 54 (H) 5 - 50 U/L [facility] SERVICES AST(SGOT) 43 (H) 13 - 40 U/L [facility] SERVICES eGFR Calculation 122.5 mL/min/1.73m2 [facility] (Non- SERVICES Slovenian) eGFR Calculation 148.4 mL/min/1.73m2 [facility] () SERVICES Specimen Blood - ARM, RIGHT Narrative Performed At Association of Glomerular Filtration Rate (GFR) and St aging [facility] SERVICES of Kidney [...] in imaging tests) . Performing Organization Address City/[facility]/Zipcode Phone Number [facility] CLIA: [id number] [place] [address] [place] [address] THYROID STIMULATING HORMONE (02/23/2020 8:33 AM CDT) [facility] TSH 1.96 0.45 - 4.70 mIU/L [facility] SERVICE S Specimen Blood - ARM, RIGHT Performing Organization Address City/[facility]/Zipcode Phone Number [facility] CLIA: [id number] [place], [place] [address] [address] [place] [address] C4 COMPLEMENT (02/23/2020 8:33 AM CDT) Pathologist Sig nature C4 19 (L) 20 - 59 mg/dL [facility] Specimen Blood - ARM, RIGHT Performing Organization Address [facility] Phone Number [facility] CLIA: [id number] [place] [address] [place] [address] C3 COMPLEMENT (02/23/2020 8:33 AM CDT) Pathologist Sig nature C3 118 86 - 184 mg/dL [facility] Specimen Blood - ARM, RIGHT Performing Organization Address [facility] Phone Number [facility] CLIA: [id number] [place] [address] [place] [address] C-REACTIVE PROTEIN (02/23/2020 8:33 AM CDT) Pathologist Sig nature CRP 0.8 (H) <0.8 mg/dL [facility] SERVICES Specimen Blood - ARM, RIGHT Performing Organization Address [facility] Phone Number [facility] CLIA: [id number] [place] [address] [place] [address] RHEUMATOID FACTOR (02/23/2020 8:33 AM CDT) Pathologist Sig nature RF <20 <20 IU/mL [facility] Specimen Blood - ARM, RIGHT Performing Organization Address [facility] Phone Number [facility] CLIA: [id number] [place] [address] [place] [address] URIC ACID (02/23/2020 8:33 AM CDT) Pathologist Sig nature URIC ACID 4.0 3.6 - 8.0 mg/dL [facility] Specimen Blood - ARM, RIGHT Performing Organization Address [facility] Phone Number [facility] CLIA: [id number] [place] [address] [place] [address] CREATINE KINASE (02/23/2020 8:33 AM CDT)Only the most recent of2 resultswithin the time period is included. Pathologist Sig nature CK 54 33 - 194 U/L [facility] SERVICES Specimen Blood - ARM, RIGHT Performing Organization Address [facility] Phone Number [facility] CLIA: [id number] [place] [address] [phone] [address] [facility] GAMMA GLUTAMYLTRANSFERASE (02/23/2020 8:33 AM CDT) Pathologist Sig nature GGT 194 (H) 13 - 58 U/L [facility] Specimen Blood - ARM, RIGHT Performing Organization Address City/[facility]/Zipcode Phone Number [facility] CLIA: [id number] [place] [address] [phone] 301 [facility] EMERGENCY SERVICES AGREEMENTS AND AUTHORIZATIONS (02/23/2020 12:01 AM CDT) Specimen Performing Organization Address City/[facility]/Zipcode Phone Number HIM from Last 3 Months
--- OUTSIDE RECORDS SUMMARY | 2020-07-28 06:58 | XMS REPORT | Clinical Summary ---
:1965 Author Organization [facility] Address [address] [place] [address] Care Team Providers Name Role Phone Evelio Gould MD Primary Care Provider [phone] Allergies No Known Allergies Medications Medication Sig Dispensed Refills Start Date End Date Status omeprazole 40 mg 0 05/21/2018 Ac tive capsule metoprolol succinate XL Take 100 mg by 0 Active 100 mg 24 hr tablet mouth daily. vitamin B-12 (VITAMIN Take 1,000 mcg by 0 Active B-12) 1,000 mcg tablet mouth daily. ARTIFICIAL 1 Drop 3 (three) 0 Ac tive TEARS,[id number], times daily as ophthalmic solution needed. allopurinol [...] Added automatically from request for breanna corrine [id number] Colon cancer screening 10/07/2019 Overview: Added automatically from request for breanna corrine [id number] Encounters Date Type Specialty Care Team Description [...] cified type 03/20/2020 Orders Only Doctor Unassigned, [place] 03/10/2020 Orders Only Doctor Unassigned, [place] 03/09/2020 Travel 02/23/2020 Emergency Emergency Medicine Mickey Clemente, Hyper glycemia (Primary DO Dx) 02/23/2020 Shoe Salesman Visit Phlebotomy Mahesh Grijalva Rheumat oid arthritis, M, DO involving unspecified Pcp-Lab site, unspecifi ed rheumatoid fact or presence 02/23/2020 Office Visit Rheumatology Mahesh Grijalva Rheumatoid arthritis, involving unspecified site, unspecified rheumatoid factor presence (Primary Dx); M, DO Gout, unspecifi ed cause, unspecified chronicity, unspecified site; Dry eyes; GERMAN positive; Osteoarthritis, unspecified osteoarthritis type, unspecified site; Diffuse pain; termite inspector syste wesly steroid user 02/23/2020 Telephone Rheumatology Mahesh Grijalva LAB WORK M, DO 02/23/2020 Telephone Rheumatology Mahesh Grijalva Lab Results ; LAB WORK M, DO 02/23/2020 Travel 02/22/2020 Patient Outreach Otolaryngology June Manley Social Work Andreea Corrales LMSW from Last 3 Months Immunizations Name Administration Dates Next Due TDAP (ADACEL) VACCINE 08/04/2011 Family History Medical History Relation Name Comments [place] (myocardial infarction) Father Thyroid Mother Relation Name [...] Office Visit Pulmonary Disease Rhea AlcazarDO [address] [place] [phone] 06/06/2020 Office Visit Rheumatology Mahesh Grijalva DO Fahad [address] [place] [address] [phone] 08/28/2020 Office Visit Otolaryngology Margret Benitez MD [address] [place], [place] [address] Health Maintenance Due Date [...] site, results unspecified section. rheumatoid factor presence ANTI-SM/REVERBERATORY FURNACE OPERATOR Routine 02/23/2020 8:33 Rheumatoid Results for AM [...] Routine 02/23/2020 8:33 Rheumatoid Re sults for (22655) AM CDT arthritis, this procedure involving are [...] Specimen Performing Organization Address City/State/Zipcode Phone Number [facility] PATIENT INFORMATION (03/10/2020 12:01 AM CDT) Specimen Performing Organization Address [facility] Phone Number [facility] CONSENT TO TREATMENT WITH PSYCHOACTIVE MEDICATION (03/10/2020 12:01 AM CDT)Only the most recent of2 resultswithin the time period is included. Specimen Performing Organization Address City/[facility] Phone Number [facility] AUTHORIZATION FOR RELEASE OF PHI (03/10/2020 12:01 AM CDT)Only the most recent of2 resultswithin the time period is included. Specimen Performing Organization Address [facility] Phone Number [facility] POCT GLUCOSE (AUTOMATED) (02/23/2020 5:00 PM CDT)Only the most recent of4 resultswithin the time period is included. Pathologist [facility] POCT GLU 408 (H) 70 - 110 mg/dL [facility] LABORATORY Specimen Blood Performing Organization Address City/[facility] Phone Number [facility] CLIA: [id number] [place] [address] POCT GLUCOSE(AGE >30DAYS) (02/23/2020 4:36 PM CDT) Pathologist [facility] POCT Glu (age>30days) 409 (A) 70 - 110 mg/dL Specimen Blood - VENOUS GLYCOSYLATED HEMOGLOBIN (A1C) (02/23/2020 2:57 PM CDT) Pathologist [facility] HGB A1C >14.0 (H) 4.0 - 6.0 % [facility] LABORATORY Specimen Blood - VENOUS Narrative Performed At %A1C (NGSP) Interpretation (ADA) [facility] LABORATORY 4.8-5.6 Normal or (Non-Diabetic Ra nge) 5.7-6.4 Increased Risk (Pre-Diabet ic) >6.5 Diabetes Indicated Performing Organization Address City/[facility]/Zipcode Phone Number [facility] CLIA: [id number] [place] [address] CONSENT/REFUSAL FOR DIAGNOSIS AND TREATMENT (02/23/2020 2:23 PM CDT) Specimen Performing Organization Address City/State/Zipcode Phone Number [facility] URINALYSIS (02/23/2020 8:41 AM CDT) Pathologist Sig nature APPEARANCE Hazy (A) Clear [facility] LABORATORY SERVICES COLOR Yellow Yellow [facility] LABORATORY SERVICES PH 6.0 4.8 - 8.0 [facility] LABORATORY SERVICES SP GRAVITY 1.037 (H) 1.003 - 1.030 [facility] LABORATORY SERVICES GLU U QUAL 500 mg/dL (A) Normal [facility] LABORATORY SERVICES BLOOD Negative Negative [facility] LABORATORY SERVICES KETONES Negative Negative [facility] LABORATORY SERVICES PROTEIN Negative Negative [facility] LABORATORY SERVICES UROBILIN Normal Normal [facility] LABORATORY SERVICES BILIRUBIN Negative Negative [facility] NITRITE Negative Negative [facility] [place] WILFRED Negative Negative [facility] RBC/HPF <1 0 - 3 HPF [facility] LABORATORY SERVICES WBC/HPF <1 0 - 5 HPF [facility] BACTERIA Negative Negative [facility] LABORATORY SERVICES Specimen Urine - URINE, CLEAN CATCH Performing Organization Address [facility] Phone Number [facility] LABORATORY SERVICES CLIA: [id number] [place] [address] [place] [address] ANTI-DOUBLE STRANDED DNA (02/23/2020 8:33 AM CDT) Pathologist Sig [facility] ANTI-DSDNA 1.0 0.0 - 4.0 IU/mL [facility] LABORATORY SERVICES Specimen Blood - ARM, RIGHT Narrative Performed At Negative < or = 4 IU/mL [facility] LABORATORY SERVICES Positive > or = 10 IU/mL Indeterminate 5-9 IU/mL Performing Organization Address [facility] Phone Number [facility] LABORATORY SERVICES CLIA: [id number] [place] [address] [place] [address] ANTI-SSB(LA) (02/23/2020 8:33 AM CDT) Pathologist Sig nature Anti-SSB(LA) Negative Negative [facility] LABORATORY SERVICES Specimen Blood - ARM, RIGHT Narrative Performed At Positive - Antibody detected. [facility] LABORATORY SERVICES Negative - No antibody detected. Performing Organization Address City/[facility] Phone Number [facility] LABORATORY SERVICES CLIA: [id number] [place] [address] [place] [address] ANTI-SSA(RO) (02/23/2020 8:33 AM CDT) Pathologist Sig [facility] ANTI-SSA(RO) Negative Negative [facility] LABORATORY SERVICES Specimen Blood - ARM, RIGHT Narrative Performed At Positive - Antibody detected. [facility] LABORATORY SERVICES Negative - No antibody detected. Performing Organization Address [facility] Phone Number [facility] LABORATORY SERVICES CLIA: [id number] [place] [address] [place] [address] ANTI-SM/REVERBERATORY FURNACE OPERATOR (02/23/2020 8:33 AM CDT) Pathologist Sig [facility] ANTI-SMRNP Negative Negative [facility] LABORATORY SERVICES Specimen Blood - ARM, RIGHT Narrative Performed At Positive - Antibody detected. [facility] LABORATORY SERVICES Negative - No antibody detected. Performing Organization Address City/[facility] Phone Number [facility] LABORATORY SERVICES CLIA: [id number] [place] [address] [place] [address] VITAMIN D, 25-OH (02/23/2020 8:33 AM CDT) Pathologist Sig [facility] VIT D 25OH 29 25 - 80 ng/mL [facility] LABORATORY SERVICES Specimen Blood - ARM, RIGHT Narrative Performed At Deficiency: <20 ng/mL [facility] LABORATORY SERVICES Insufficiency: 20-24 ng/mL Optimal: 25-80 ng/mL Performing Organization Address City/[facility] Phone Number [facility] LABORATORY SERVICES CLIA: [id number] [place] [address] [place] [address] CYCLIC CITRULLINATED PEPTIDE (02/23/2020 8:33 AM CDT) Pathologist Sig [facility] CCP IgG/IgA 13.9 0.0 - 20.0 [...] o f the assay. Performing Organization Address City/[facility] Phone Number ANTIPHOSPHOLIPID [address] [place] [address] ST[facility]ARD[facility] LABORAT. [address] [employer] [address] ANTI-NUCLEAR ANTIBODY TITER (02/23/2020 8:33 AM CDT) Pathologist Sig [facility] GERMAN Titer by IFA 1:320 [facility] LABORATORY SERVICES Specimen Blood - ARM, RIGHT Narrative Performed At Homogenous Pattern [facility] LABORATORY SERVICES Anti-nuclear antibodies are seen [...] ld for 7 days. Performing Organization Address City/[facility] Phone Number [facility] LABORATORY SERVICES CLIA: [id number] [place] [address] [place] [address] HCV ANTIBODY (02/23/2020 8:33 AM CDT) [facility] HCV Ab Negative [facility] LABORATORY SERVICES HCV Semi-Quantitative 0.00 [facility] LABORATORY SERVICES Specimen Blood - ARM, RIGHT Performing Organization Address [facility] Phone Number [facility] LABORATORY SERVICES CLIA: [id number] [place] [address] [place] [address] HEPATITIS B SURFACE ANTIGEN (02/23/2020 8:33 AM CDT) Pathologist Sig [facility] HBsAg Negative Negative [facility] LABORATORY SERVICES HBsAg 0.07 [facility] LABORATORY Semi-Quantitative SERVICES Specimen Blood - ARM, RIGHT Performing Organization Address [facility] Phone Number [facility] LABORATORY SERVICES CLIA: [id number] [place] [address] [place] [address] ANTI-NUCLEAR ANTIBODY SCREEN (02/23/2020 8:33 AM CDT) [facility] Sig nature GERMAN Positive (A) Negative [facility] LABORATORY SERVICES Specimen Blood - ARM, RIGHT Narrative Performed At Negative - No Anti-Nuclear Antibodies de tected by IFA. [facility] LABORATORY SERVICES Positive - GERMAN IFA [...] separately. Performing Organization Address City/State/Zipcode Phone Number [facility] LABORATORY SERVICES CLIA: [id number] [place] [id number] [address] [place] [address] CBC WITH DIFF (02/23/2020 8:33 AM CDT) Pathologist Sig nature WBC 11.85 (H) 4.20 - 10.70 [facility] LABORATORY 10*3/L SERVICES RBC 5.36 4.26 - 5.52 [facility] LABORATORY 10*6/L SERVICES HGB 16.5 (H) 12.2 - 16.4 [facility] LABORATORY g/dL SERVICES HCT 49.4 (H) 38.4 - 49.3 % [facility] LABORATORY SERVICES MCV 92.2 81.7 - 95.6 fL [facility] LABORATORY SERVICES MCH 30.8 26.1 - 32.7 pg [facility] LABORATORY SERVICES MCHC 33.4 31.2 - 35.0 [facility] LABORATORY g/dL SERVICES RDW-SD 44.6 38.5 - 51.6 fL [facility] LABORATORY SERVICES RDW-CV 13.2 12.1 - 15.4 % [facility] LABORATORY SERVICES PLT 253 150 - 328 [facility] LABORATORY 10*3/L SERVICES MPV 11.6 9.8 - 13.0 fL [facility] LABORATORY SERVICES NRBC/100 WBC 0.0 0.0 - 10.0 /100 [facility] LABORATORY WBCs SERVICES NRBC x10^3 <0.01 10*3/L [facility] LABORATORY SERVICES GRAN MAT (NEUT) % 75.0 % [facility] IMM GRAN % 0.90 % [facility] LYMPH % 16.9 % [facility] MONO % 5.2 % [facility] EOS % 0.6 % [facility] LABORAT[facility] SERVICES BASO % 1.4 % [facility] LABORATORY SERVICES GRAN MAT x10^3(ANC) 8.88 (H) 1.99 - 6.95 [facility] LAB[facility]ORY 10*3/uL SERVICES IMM GRAN x10^3 0.11 (H) 0.00 - 0.06 [facility] 10*3/uL SERVICES LYMPH x10^3 2.00 1.09 - 3.23 [facility] LABORATORY 10*3/uL SERVICES MONO x10^3 0.62 0.36 - 1.02 [facility] 10*3/uL SERVICES EOS x10^3 0.07 0.06 - 0.53 [facility] LABORATORY 10*3/uL SERVICES BASO x10^3 0.17 (H) 0.01 - 0.09 [facility] LABORATORY 10*3/uL SERVICES Specimen Blood - ARM, RIGHT Performing Organization Address City/State/Zipcode Phone Number [facility] LABORATORY SERVICES CLIA: [id number] [place] [address] [place] [address] SEDIMENTATION RATE (02/23/2020 8:33 AM CDT) Pathologist Sig nature ESR 10 0 - 10 mm/HR [facility] LABORATORY SERVICES Specimen Blood - ARM, RIGHT Performing Organization Address City/State/Zipcode Phone Number [facility] LABORATORY SERVICES CLIA: [id number] [place] [address] [place] [address] COMP. METABOLIC PANEL (43963) (02/23/2020 8:33 AM CDT) NA 132 (L) 135 - 145 [facility] LABORATORY mmol/L SERVICES K 5.2 (H) 3.5 - 5.0 [facility] LABORATORY mmol/L SERVICES CL 92 (L) 98 - 108 mmol/L [facility] LABORATORY SERVICES CO2 TOTAL 29 23 - 31 mmol/L [facility] LABORATORY SERVICES AGAP 11 2 - 16 [facility] LABORATORY SERVICES BUN 13 7 - 23 mg/dL [facility] LABORATORY SERVICES GLUCOSE 514 (HH) 70 - 110 mg/dL [facility] LABORATORY SERVICES CREATININE 0.68 0.60 - 1.25 [facility] LABORATORY mg/dL SERVICES TOTAL BILI 0.8 0.1 - 1.1 mg/dL [facility] LABORATORY SERVICES CALCIUM 9.4 8.6 - 10.6 [facility] LABORATORY mg/dL SERVICES T PROTEIN 6.6 6.3 - 8.2 g/dL [facility] LABORATORY SERVICES ALBUMIN 4.1 3.5 - 5.0 g/dL [facility] LABORATORY SERVICES ALK PHOS 234 (H) 34 - 122 U/L [facility] LABORATORY SERVICES ALTv 54 (H) 5 - 50 U/L [facility] LABORATORY SERVICES AST(SGOT) 43 (H) 13 - 40 U/L [facility] LABORATORY SERVICES eGFR Calculation 122.5 mL/min/1.73m2 [facility] LABORATORY (Non- SERVICES [place] Citizen) eGFR Calculation 148.4 mL/min/1.73m2 [facility] LABORATORY () SERVICES Specimen Blood - ARM, RIGHT Narrative Performed At Association of Glomerular Filtration Rate (GFR) and St aging [facility] LABORATORY SERVICES of Kidney Disease* + [...] in imaging tests) . Performing Organization Address City/[facility]/Zipcode Phone Number [facility] LABORATORY SERVICES CLIA: [id number] [place] [address] [place] [address] THYROID STIMULATING HORMONE (02/23/2020 8:33 AM CDT) [facility] TSH 1.96 0.45 - 4.70 mIU/L [facility] LABORATORY SERVICE S Specimen Blood - ARM, RIGHT Performing Organization Address City/[facility]/Zipcode Phone Number [facility] LABORATORY SERVICES CLIA: [id number] [place], [place] [address] [address] [place] [address] C4 COMPLEMENT (02/23/2020 8:33 AM CDT) Pathologist Sig nature C4 19 (L) 20 - 59 mg/dL [facility] LABORATORY SERVICES Specimen Blood - ARM, RIGHT Performing Organization Address [facility] Phone Number [facility] LABORATORY SERVICES CLIA: [id number] [place] [address] [place] [address] C3 COMPLEMENT (02/23/2020 8:33 AM CDT) Pathologist Sig nature C3 118 86 - 184 mg/dL [facility] LABORATORY SERVICES Specimen Blood - ARM, RIGHT Performing Organization Address [facility] Phone Number [facility] LABORATORY SERVICES CLIA: [id number] [place] [address] [place] [address] C-REACTIVE PROTEIN (02/23/2020 8:33 AM CDT) Pathologist Sig nature CRP 0.8 (H) <0.8 mg/dL [facility] LABORATORY SERVICES Specimen Blood - ARM, RIGHT Performing Organization Address [facility] Phone Number [facility] LABORATORY SERVICES CLIA: [id number] [place] [address] [place] [address] RHEUMATOID FACTOR (02/23/2020 8:33 AM CDT) Pathologist Sig nature RF <20 <20 IU/mL [facility] LABORATORY SERVICES Specimen Blood - ARM, RIGHT Performing Organization Address [facility] Phone Number [facility] LABORATORY SERVICES CLIA: [id number] [place] [address] [place] [address] URIC ACID (02/23/2020 8:33 AM CDT) Pathologist Sig nature URIC ACID 4.0 3.6 - 8.0 mg/dL [facility] LABORATORY SERVICES Specimen Blood - ARM, RIGHT Performing Organization Address [facility] Phone Number [facility] LABORATORY SERVICES CLIA: [id number] [place] [address] [place] [address] CREATINE KINASE (02/23/2020 8:33 AM CDT)Only the most recent of2 resultswithin the time period is included. Pathologist Sig nature CK 54 33 - 194 U/L [facility] LABORATORY SERVICES Specimen Blood - ARM, RIGHT Performing Organization Address [facility] Phone Number [facility] LABORATORY SERVICES CLIA: [id number] [place] [address] [phone] [address] [facility] GAMMA GLUTAMYLTRANSFERASE (02/23/2020 8:33 AM CDT) Pathologist Sig nature GGT 194 (H) 13 - 58 U/L [facility] LABORATORY SERVICES Specimen Blood - ARM, RIGHT Performing Organization Address City/[facility]/Zipcode Phone Number [facility] LABORATORY SERVICES CLIA: [id number] [place] [address] [phone] 301 [facility] EMERGENCY SERVICES AGREEMENTS AND AUTHORIZATIONS (02/23/2020 12:01 AM CDT) Specimen Performing Organization Address City/[facility]/Zipcode Phone Number HIM from Last 3 Months
--- OUTSIDE RECORDS SUMMARY | 2020-07-28 06:59 | XMS REPORT | Summary of Care ---
:1965 Author Organization [facility] Address [address] [place] [address] Care Team Providers Name Role Phone Evelio Gould MD Primary Care Provider [phone] Reason for Visit Reason Comments Follow-up f/u dizzy Encounter Details Date Type Department Care Team Description 05/15/2020 Office Visit [facility] Ear, Nose Makishima, Dizzin ess (Primary Dx); [facility] [place]ui Depression, unspecified depression type; [address] BPPV (be nign paroxysmal positional vertigo), right; [place] [address] [id number] Vertigo; [place], [place] Anxiety [address] [phone] Allergies No Known Allergiesdocumented as of this encounter (statuses as of 06/04/2020) Medications Medication Sig Dispensed Refills Start End Date Status Date omeprazole 40 mg 0 Act seun capsule 8 metoprolol Take 100 mg by 0 Acti ve succinate XL 100 mg mouth daily. 24 hr tablet vitamin B-12 Take 1,000 mcg 0 Ac tive (VITAMIN B-12) by mouth daily. 1,000 mcg tablet ARTIFICIAL 1 Drop 3 0 Active TEARS,[id number], (three) times ophthalmic solution daily as needed. [...] Active (BLOOD GLUCOSE 0 MONITORING) KitIndications: Hyperglycemia atorvastatin 80 mg Take 1 tablet 30 tablet 0 Active tablet by mouth at 0 bedtime. traZODone 50 mg Take 1/2 tablet 30 tablet 1 05/19/20 Discontinued tabletIndications: at bedtime as 0 20 (Reorder) Current moderate needed for episode of major insomnia. May depressive disorder take an without prior additional 1/2 episode tab if ineffective. escitalopram Take 1 tablet 30 tablet 1 05/19/20 Dis continued oxalate (LEXAPRO) by mouth daily. 0 20 (Reorder) 10 mg tabletIndications: Current moderate episode of major depressive disorder without prior episode documented as of this encounter (statuses as of 06/04/2020) Active Problems Problem Noted Date Obesity (BMI 30-39.9) 10/14/2019 Gastroesophageal reflux disease, esophagitis presence not specified 10/07/2019 Overview: Added automatically from request for breanna castle [id number] Colon cancer screening 10/07/2019 Overview: Added automatically from request for breanna castle [id number] documented as of this encounter (statuses as of 06/04/2020) Immunizations Name Administration Dates Next Due TDAP [...] or suspected to have Coronavirus / COVID-19? documented as of this encounter Last Filed Vital Signs Vital Sign Reading Time Taken Comments Blood Pressure - - Pulse - - Temperature 37 C (98.6 F) 05/15/2020 10:20 AM CDT Respiratory Rate - - Oxygen Saturation - - Inhaled Oxygen Concentration - - Weight 114.8 kg (253 lb) 05/15/2020 10:20 AM CDT Height 180.3 cm (5' 11") 05/15/2020 10:20 AM CDT Body Mass Index 35.29 05/15/2020 10:20 AM CDT documented in this encounter Progress Notes Magui Benitez MD - 05/15/2020 10:00 AM CDT Otolaryngology Clinic Visit Name: Rashad Hanley Chief Complaint Dizziness and tinnitus History of Present Illness Rashad Hanley is a 55 year old male with hx of dizziness and tinnitus. Patient reports that he is still experiencing dizziness and endorses increased tinnitus in his L ear. Pt states that he has been "blacking out" recently and is having difficulty breathing. He sees a risk control director/respiratory specialist and is taking an albuterol inhaler. Pt works around and with chemicals and is concerned his sx's may be related. He says his blacking out spells last for a few seconds at a time and will cause him to fall over. The spells are very quick and occur when he is sitting or standing, and is not sure whatworsens them. Patient also reports that he will spill drinks on himself and is not able to bend over. Hand coordination is normal but has a jumbling sensation when writing.He has seen neurology for these episodes but is not able to afford the testing. Patient reports falling occasionally. The dizziness is worse when he looks to the R. Lightheadedness occurs when patient stands up. Reports numbness inhead. Denies numbness in legs. Of note, patient is managing his diabetes with diet, is seeing a psychiatrist for depression and sleep disorder. Past Medical History Past Medical History: Diagnosis Date Acid reflux Anxiety Cephalgia Depression Diverticulitis Diverticulosis Gout Hyperlipidemia Hypertension Obesity Paresthesia Rheumatoid arthritis Sleep apnea Tinnitus Transaminitis Vertigo Past Surgical History No H&N surgeries Past Surgical History: Procedure Laterality Date CHOLECYSTECTOMY COLONOSCOPY N/A 10/14/2019 Surgeon: Dru Melton DO; [facility] ESOPHAGOGASTRODUODENOSCOPY N/A 10/14/2019 Surgeon: Dru Melton DO; [facility] LAMINECTOMY,LUMBAR 4-5 Past Social History Social History Socioeconomic History Marital status: Single Spouse name: Not on file Number of children: Not on file Years of education: Not on file Highest education level: Not on file Occupational History Not on file Social Needs Financial resource strain: Not on file Food insecurity Worry: Not on file Inability: Not on file Transportation needs Medical: Not on file Non-medical: Not on file Tobacco Use Smoking status: Never Smoker Smokeless tobacco: Current User Types: Snuff Substance and Sexual Activity Alcohol use: No Drug use: No Sexual activity: Yes Partners: Female control/protection: Post-menopausal Lifestyle Physical activity Days per week: Not on file Minutes per session: Not on file Stress: Not on file Relationships Social connections Talks on phone: Not on file Gets together: Not on file Attends holiness service: Not on file Active member of club or organization: Not on file Attends meetings of clubs or organizations: Not on file Relationship status: Not on file Intimate partner violence Fear of current or ex partner: Not on file Emotionally abused: Not on file Physically abused: Not on file Forced sexual activity: Not on file Other Topics Concern Not on file Social History Narrative Not on file Family History Reviewed/noncontributory Review of Systems Constitutional: Negative; Eyes: Negative; ENT: dizziness and tinnitus; CV: negative; Resp:negative; GI: Negative; : negative; MSK: negative; Integumentary: negative; Neuro: negative; Psych: negative;Endoc: negative; Heme: negative; Allergy/Immunology: negative Physical Exam Temp 37 C (98.6 F) (Temporal Artery) | Ht 5' 11" (1.803 m) | Wt 253 lb (114.8 kg) | BMI 35.29kg/m General: no change Eyes: EOMI Ears: Canals clear. TMs flat/intact Nose: No septal deviation, no inferior turbinate hypertrophy, no mass/lesions Oral cavity: no trismus, no mass/lesions, tonsils not enlarged Neck: no masses palpated, trachea is midline; no thyroid nodules, Salivary glands symmetrical, no masses/abnormality on palpation Lymph: no cervical lymphadenopathy Skin: no obvious facial lesions Neuro: face symmetrical, no obvious masses or cranial nerve palsy Lungs: Normal work of breathing, symmetrical chest expansion Nystagmus: slight left directional nystagmus with left gaze with head extended looking upward Romberg: unstable Fukuda: unstable Procedure None Medical Data Comprehensive chart review performed Laboratory No new labs No new labs Radiology No new Radiology No new imaging Assessment/Plan Rashad Hanley is a 55 year old male with: R42 Dizziness (primary encounter diagnosis) F32.9 Depression, unspecified depression type H81.11 BPPV (benign paroxysmal positional vertigo), right R42 Vertigo F41.9 Anxiety - continue with care for other medical issues - continue with vestibular exercises at home RTC: 3 months Scribe's Attestation I, Rena Fischer , am scribing for, and in the presence of, Magui Benitez MD who performed the services described here-in. Rena Fischer, May 15, 2020, 10:47 AM Physician's Attestation I, Dr. Magui Benitez MD, personally performed and ordered the services described in this documentation, as scribed by Rena Fischer, in my presence, and it is both accurate and complete. D PSYCHIATRIST documented in this encounter Plan of Treatment Date Type Specialty Care Team Description 06/06/2020 Office Visit Rheumatology Mahesh Grijalva, [address] [place] [address] [phone] 08/11/2020 Office Visit Pulmonary Disease Rhea Alcazar DO [address] [place] [phone] 08/28/2020 Office Visit Otolaryngology Margret Benitez MD [address] [place], [place] [address] Health Maintenance Due Date [...] Results Not on filedocumented in this encounter Visit Diagnoses Diagnosis Dizziness - Primary Dizziness and giddiness Depression, unspecified depression type BPPV (benign paroxysmal positional verti go), right Vertigo Dizziness and giddiness Anxiety Anxiety state, unspecified documented in this encounter
--- OUTSIDE RECORDS SUMMARY | 2020-07-28 06:59 | XMS REPORT | Summary of Care ---
:1965 Author Organization [facility] - [facility] Address [address] [place] [address] Care Team Providers Name Role Phone Evelio Gould MD Primary Care Provider [phone] Reason for Visit Reason Comments Disability Assistance/referral Encounter Details Date Type Department Care Team Description 07/14/2020 Telephone [facility] Mahesh Grijalva Disability Rheumatology-[place] M, DO Assistance/referral [facility] [address] [place] [address], [facility] [place] [phone] Allergies No Known Allergiesdocumented as of this encounter (statuses as of 07/14/2020) Medications Medication Sig Dispensed Refills Start Date End Date Status omeprazole 40 mg 0 05/21/2018 Ac tive capsule metoprolol succinate XL Take 100 mg by 0 Active 100 mg 24 hr tablet mouth daily. vitamin B-12 (VITAMIN Take 1,000 mcg by 0 Active B-12) 1,000 mcg tablet mouth daily. ARTIFICIAL 1 Drop 3 (three) 0 Ac tive TEARS,[id number], times daily as ophthalmic solution needed. allopurinol [...] as of this encounter (statuses as of 07/14/2020) Active Problems Problem Noted Date Obesity (BMI 30-39.9) 10/14/2019 Gastroesophageal reflux disease, esophagitis presence not specified 10/07/2019 Overview: Added automatically from request for breanna corrine [id number] Colon cancer screening 10/07/2019 Overview: Added automatically from request for breanna corrine [id number] documented as of this encounter (statuses as of 07/14/2020) Immunizations Name Administration Dates Next Due TDAP [...] this encounter Miscellaneous Notes Telephone Encounter - Mahesh Grijalva DO - 07/14/2020 11:48 AM CSTI see he is scheduled to see me in August. I placed the OT disability evaluation request. documented in this encounter Plan of Treatment Date Type Specialty Care Team Description 08/03/2020 Office Visit Psychiatry Waqas Bender M D [address] [place], [place] [phone] 08/11/2020 Office Visit Pulmonary Disease Rhea Alcazar, DO [address] [place] [phone] 08/15/2020 Office Visit Rheumatology Mahesh Grijalva DO [facility] [place] [address] [phone] 08/28/2020 Office Visit Otolaryngology Margret Benitez MD [address] [place], [place] [address] Health Maintenance Due Date [...]
--- OUTSIDE RECORDS SUMMARY | 2020-07-28 06:59 | XMS REPORT | Summary of Care ---
:1965 Author Organization [facility] Address [address] [place] [address] Care Team Providers Name Role Phone Evelio Gould MD Primary Care Provider Reason for Visit Reason Comments Follow-up f/u dizzy Encounter Details Date Type Department Care Team Description 05/15/2020 Office Visit [facility] Ear, Nose Makishima, Dizzin ess (Primary Dx); [facility] MD Magui Depression, unspecified depression type; [address] [place] [address] BPPV (be nign paroxysmal positional vertigo), right; [place] [address] [id number] Vertigo; [place], [place] Anxiety [address] [phone] Allergies No Known Allergiesdocumented as of this [...] tablet ARTIFICIAL 1 Drop 3 0 Active TEARS,[id number], (three) times ophthalmic solution daily as needed. [...] Added automatically from request for breanna castle [id number] Colon cancer screening 10/07/2019 Overview: Added automatically from request for breanna castle [id number] documented as of this encounter (statuses as [...] is having difficulty breathing. He sees a associate financial planner/respiratory specialist and is taking an albuterol inhaler. [...] file Gets together: Not on file Attends [employer]aritan service: Not on file Active member of [...] and it is both accurate and complete. 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
--- OUTSIDE RECORDS SUMMARY | 2020-07-28 06:59 | XMS REPORT | Summary of Care ---
:1965 Author Organization [facility] - [facility] Address [address] [place] [address] Care Team Providers Name Role Phone Evelio Gould MD Primary Care Provider [phone] Encounter Details Date Type Department Care Team Description 06/07/2020 Orders Only [facility] Doctor Unassigned, No 301 [facility] Name [place] [id number] [address] [place] [phone] Allergies No Known Allergiesdocumented as of this encounter (statuses as of 07/06/2020) Medications Medication Sig Dispensed Refills Start Date End Date Status omeprazole 40 mg 0 05/21/2018 Ac tive capsule metoprolol succinate XL Take 100 mg by 0 Active 100 mg 24 hr tablet mouth daily. vitamin B-12 (VITAMIN Take 1,000 mcg by 0 Active B-12) 1,000 mcg tablet mouth daily. ARTIFICIAL 1 Drop 3 (three) 0 Ac tive TEARS,[id number], times daily as ophthalmic solution needed. allopurinol [...] as of this encounter (statuses as of 07/06/2020) Active Problems Problem Noted Date Obesity (BMI 30-39.9) 10/14/2019 Gastroesophageal reflux disease, esophagitis presence not specified 10/07/2019 Overview: Added automatically from request for breanna corrine [id number] Colon cancer screening 10/07/2019 Overview: Added automatically from request for breanna corrine [id number] documented as of this encounter (statuses as of 07/06/2020) Immunizations Name Administration Dates Next Due TDAP [...] Signs Not on filedocumented in this encounter Plan of Treatment Date Type Specialty Care Team Description 08/03/2020 Office Visit Psychiatry Waqas Bender M D [address] [place], [place] [phone] 08/11/2020 Office Visit Pulmonary Disease Ottoniel Elmiraluis carlos, DO [address] [place] [phone] 08/15/2020 Office Visit Rheumatology Mahesh Grijalva, DO [address] [place], [place] [phone] 08/28/2020 Office Visit Otolaryngology Margret Benitez MD [address] [place], [place] [address] Health Maintenance Due Date [...] to pic documented as of this encounter Procedures Procedure Name Priority Date/Time Associated Diagnosis Comme nts AUTHORIZATION FOR RELEASE Routine 06/07/2020 12:01 AM OF PHI DIRECTOR OF MATERIALS documented in this encounter Results Not on filedocumented in this encounter
--- OUTSIDE RECORDS SUMMARY | 2020-07-28 06:59 | XMS REPORT | Summary of Care ---
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 allopurinol [...] Added automatically from request for breanna corrine [id number] Colon cancer screening 10/07/2019 Overview: Added automatically from request for breanna corrine [id number] documented as of this encounter (statuses as [...] this encounter Miscellaneous Notes Telephone Encounter - Nori Sheikh LVN - 07/14/2020 9:26 AM CSTLong Term Disability forms [facility] P: [phone] Pt will require Disability Assessment Please place referral for OT / Disability Assessment documented in this encounter Plan of Treatment Date Type Specialty Care Team Description 08/03/2020 Office Visit Psychiatry Waqas Bender M D [address] [place], [place] [address]d. [place], [place] [phone] 08/11/2020 Office Visit Pulmonary Disease Rhea Alcazar, DO [address] [place] [phone] 08/15/2020 Office Visit Rheumatology Mahesh Grijalva, DO [address] [place], [place] 814[address] 08/28/2020 Office Visit Otolaryngology Margret Benitez MD [address] [place], [place] [address] Health Maintenance Due Date [...] on patient's age to complete this to [facility] documented as of this encounter Results Not on filedocumented in this encounter Visit Diagnoses Diagnosis Disability examination - Primary Issue of medical certificate for disabil ity examination documented in this encounter
--- OUTSIDE RECORDS SUMMARY | 2020-07-28 06:59 | XMS REPORT | Summary of Care ---
:1965 Author Organization [facility] - [facility] Address [address] [place] [address] Care Team Providers Name Role Phone Evelio Gould MD Primary Care Provider [phone] Encounter Details Date Type Department Care Team Description 07/14/2020 Orders Only [facility] Doctor Unassigned, No 301 [facility] Name [place] [phone] [place] [phone] Allergies No Known Allergiesdocumented as of this encounter (statuses as of 07/17/2020) Medications Medication Sig Dispensed Refills Start Date End Date Status omeprazole 40 mg 0 05/21/2018 Ac tive capsule metoprolol succinate XL Take 100 mg by 0 Active 100 mg 24 hr tablet mouth daily. vitamin B-12 (VITAMIN Take 1,000 mcg by 0 Active B-12) 1,000 mcg tablet mouth daily. ARTIFICIAL 1 Drop 3 (three) 0 Ac tive TEARS,[id number], times daily as ophthalmic solution needed. allopurinol [...] as of this encounter (statuses as of 07/17/2020) Active Problems Problem Noted Date Obesity (BMI 30-39.9) 10/14/2019 Gastroesophageal reflux disease, esophagitis presence not specified 10/07/2019 Overview: Added automatically from request for breanna corrine [id number] Colon cancer screening 10/07/2019 Overview: Added automatically from request for breanna corrnie [id number] documented as of this encounter (statuses as of 07/17/2020) Immunizations Name Administration Dates Next Due TDAP [...] Office Visit Psychiatry Waqas Bender M D [address] [place] [address]. 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
--- OUTSIDE RECORDS SUMMARY | 2020-07-28 07:00 | XMS REPORT | Summary of Care ---
:1965 Author Organization [facility] Address [address] [place] [address] Care Team Providers Name Role Phone Evelio Gould MD Primary Care Provider [phone] Reason for Referral (Routine) Status Reason Specialty Diagnoses / Referred By Referred To Procedures Contact Contact New Request Physical Therapy Diagnoses Disability examination Pertusi, Procedures CONSULT/REFERRAL PHYSICAL THERAPY Mahesh Vásquez DO [address] [place] [address] Reason for Visit Reason Comments Disability Assistance/referral Encounter Details Date Type Department Care Team Description 07/19/2020 Telephone [facility] Internal Mahesh Grijalva Disability Medicine DO Assistance/referral [facility] on [address] [facility] Primary Care [address] , [place], [place] [phone] [place] [address] [phone] [phone] Allergies No Known Allergiesdocumented as of this encounter (statuses as of 07/19/2020) Medications Medication Sig Dispensed Refills Start Date End Date Status omeprazole 40 mg 0 05/21/2018 Ac tive capsule metoprolol succinate XL Take 100 mg by 0 Active 100 mg 24 hr tablet mouth daily. vitamin B-12 (VITAMIN Take 1,000 mcg by 0 Active B-12) 1,000 mcg tablet mouth daily. ARTIFICIAL 1 Drop 3 (three) 0 Ac tive TEARS,[id number], times daily as ophthalmic solution needed. allopurinol [...] as of this encounter (statuses as of 07/19/2020) Active Problems Problem Noted Date Obesity (BMI 30-39.9) 10/14/2019 Gastroesophageal reflux disease, esophagitis presence not specified 10/07/2019 Overview: Added automatically from request for breanna corrine [id number] Colon cancer screening 10/07/2019 Overview: Added automatically from request for breanna corrine [id number] documented as of this encounter (statuses as of 07/19/2020) Immunizations Name Administration Dates Next Due TDAP [...] Care Team Description 08/03/2020 Office Visit Psychiatry Elsie Chen M D [address] [facility] [address] [place], [place] [address] Waqas Bender MD [address] [facility] [place] [phone] 08/11/2020 Office Visit Pulmonary Disease Rhea Alcazar, DO [address] [place] [phone] 08/15/2020 Office Visit Rheumatology Mahesh Grijalva, DO [address] [place], [place] [address] 08/28/2020 Office Visit Otolaryngology Margret Benitez MD [address] [facility] [address] [place], [place] [address] Health Maintenance Due Date [...]
--- OUTSIDE RECORDS SUMMARY | 2020-07-28 07:00 | XMS REPORT | Summary of Care ---
:1965 Author Organization [facility] Address [address] [place] [id number] Care Team Providers Name Role Phone Evelio Gould MD Primary Care Provider [phone] Reason for Visit Reason Comments Forms Intermediate Disability Encounter Details Date Type Department Care Team Description 07/13/2020 Telephone [facility] Ear, Nose Makishima, Forms (Glass Technician and Throat-League Ci ty MD Magui Disability) [id number] [place] [id number] [phone] Allergies No Known Allergiesdocumented as of this [...] 1 Drop 3 (three) 0 Ac tive TEARS,[id number], times daily as ophthalmic solution needed. allopurinol [...] Added automatically from request for breanna corrine [id number] Colon cancer screening 10/07/2019 Overview: Added automatically from request for breanna corrine [id number] documented as of this encounter (statuses as [...] this encounter Miscellaneous Notes Telephone Encounter - Selina Paredes RN - 07/14/2020 4:22 PM CSTForm filled out and signed by Dr Benitez were printed off of email and faxed to [employer] at [phone]. "Ok" received on fax confirmation. Copy placed for scanning. elephone Encounter - Magui Benitez MD - 07/14/2020 2:50 PM CSTThe forms were completed today and sent to you via email. Please scan to [facility] and fax to listed number on form. Thank you. elephone Encounter - Selina Paredes RN - 07/13/2020 2:30 PM CSTDr Deandre, do you have this form? elephone Encounter - Katlyn Holland - 07/13/2020 10:30 AM CSTPatient was seen by Dr. Benitez in [place] on 05/15/20. At that time, patient gave Dr. Benitez a copy of a Physical Capacity Assessment form that needed to be completed for this long-term disability. Patient is calling today to inform that the company still hasn't received the paperwork. Please advise status of the forms. Patient states if Dr. Benitez needs another copy of the form, he can fax that to clinic. Patient's call back: [phone]. Once form is completed, please fax to: [employer] Claim #[id number] signed by Katlyn Holland at 07/13/2020 10:33 AM CSTdocumented in this encounter Plan of Treatment Date Type Specialty Care Team Description 08/03/2020 Office Visit Psychiatry Waqas Bender M D [address] [place] [address]. [place] [address] [phone] 08/11/2020 Office Visit Pulmonary Disease Rhea Alcazar, DO [address] [place] [address] 08/15/2020 Office Visit Rheumatology Mahesh Grijalva, DO [address] [place] [address] [phone] 08/28/2020 Office Visit Otolaryngology Margret Benitez MD [address] [place], [place] [address] Health Maintenance Due Date [...]
--- NOTE | 2020-07-28 07:14 | RAD REPORT ---
EXAM DESCRIPTION: CT - Ct Stroke Brain Wo Cont - 07/28/2020 7:00 am CLINICAL HISTORY: DIZZINESS Headache, drowsiness, CVA symptomology COMPARISON: Head Brain Wo Cont dated 03/31/2018 TECHNIQUE: All CT scans are performed using dose optimization technique as appropriate and may inclu de automated exposure control or mA/KV adjustment according to patient size. FINDINGS: No intracranial hemorrhage, hydrocephalus or extra-axial fluid collection.No areas of brai n edema or evidence of midline shift. The paranasal sinuses and mastoids are clear. The calvarium is intact. IMPRESSION: No acute intracranial abnormality.
[2020-07-28 07:46] LABS: Protime INR 0.97
[2020-07-28 07:47] LABS: Absolute Lymphocytes (CBC) 3.6 K/uL (0.7-4.9); Basophils % 1.2 % (0-1.3); Hematocrit 48.5 % (39.6-49.0); Lymphocytes % 29.7 % (15.3-44.8); MPV 9.2 fL (7.6-11.3); RBC Red Blood Cell Count 5.45 M/uL (4.33-5.43)
[2020-07-28] MEDS ORDERED: MECLIZINE HCL 12.5 MG TAB ONE (07:53)
[2020-07-28] MEDS ORDERED: ONDANSETRON 4 MG/2 ML VIAL ONE (07:53)
[2020-07-28 07:59] LABS: ALT/SGPT 34 U/L (12-78); AST/SGOT 26 U/L (15-37); Albumin 3.9 g/dL (3.4-5.0); Alkaline Phosphatase 120 U/L (45-117); BUN Blood Urea Nitrogen 15 mg/dL (7-18); Bicarbonate 29 mmol/L (21-32); Bilirubin Direct 0.2 mg/dL (0-0.2); Bilirubin Total 0.9 mg/dL (0.2-1.0); Glucose Level 158 mg/dL (74-106); NT PRO-BNP 84 pg/mL (<125); Potassium 3.9 mmol/L (3.5-5.1); Protein, Total 7.2 g/dL (6.4-8.2); Sodium Level 138 mmol/L (136-145); Troponin (Emerg Dept Use Only) < 0.02 ng/mL (0.0-0.045)
[2020-07-28] MEDS ORDERED: LORAZEPAM 1 MG TABLET ONE (09:11)
[2020-07-28] MEDS ORDERED: ACETAMINOPHEN 500 MG TAB ONE (10:20)
[2020-07-28] MEDS ORDERED: DIAZEPAM 10 MG/2 ML INJ SYRINGE ONE (10:20)
--- NOTE | 2020-07-28 11:26 | RAD REPORT ---
EXAM DESCRIPTION: MRI - Brain Wo Cont - 07/28/2020 10:41 am CLINICAL HISTORY: DIZZINESS Headache, drowsiness, CVA symptomology COMPARISON: Ct Stroke Brain Wo Cont dated 07/28/2020 TECHNIQUE: Multi-sequence, multiplanar MR imaging of the brain was performed without contrast. FINDINGS: No intracranial hemorrhage, hydrocephalus or extra-axial fluid collections. No edema or sh ift of midline structures. No findings to suspect brain mass. DWI is negative for acute CVA. Midline structures are normally formed. Mastoid air cells and paranasal sinuses are clear. IMPRESSION: No acute or concerning intracranial abnormalities.
--- NOTE | 2020-07-28 11:39 | RAD REPORT ---
EXAM DESCRIPTION: RAD - Chest Single View - 07/28/2020 7:40 am CLINICAL HISTORY: CHEST PAIN Chest pain. COMPARISON: Chest Pa And Lat (2 Views) dated 03/12/2018; Chest Single View dated 12/23/2016; CHEST SING LE VIEW dated 01/16/2014 FINDINGS: Portable technique limits examination quality. The lungs are grossly clear. The heart is normal in size. No displaced fractures. IMPRESSION: No acute intrathoracic process suspected.
--- NOTE | 2020-07-28 12:00 | EDPHYS ---
Physician Documentation [facility] Name: Rashad Hanley III Age: 55 yrs Sex: Male : 1965 Arrival Date: 07/28/2020 Time: 06:51 Bed 7 Private MD: ED Physician Ha Pena HPI: 07/28 07:35 This 55 yrs old Male presents to ER via EMS with complaints of Dizziness. kdr 07:35 The patient presents with dizziness, generalized weakness, lightheadedness, a sense of kdr confusion. Onset: The symptoms/episode began/occurred suddenly, this morning. Context: occurred at home, occurred while the patient was standing, just prior to the episode the patient experienced no apparent symptoms. Modifying factors: The symptoms are alleviated by nothing, the symptoms are aggravated by nothing. Associated signs and symptoms: Pertinent positives: The patient had waves of paresthesia to his meehan, scalp and face, Pertinent negatives: abdominal pain, agitation, ataxia, blurred vision, chest pain, combativeness, diaphoresis, focal weakness, head injury, headache, near-syncope, numbness, palpitations, seizure, syncope, tingling, vomiting. Severity of symptoms: At their worst the symptoms were moderate just prior to arrival, in the emergency department the symptoms have improved moderately. Patient's baseline: Neuro: alert and fully oriented, Motor: no deficits, Ambulation: walks without assistance, Speech: normal. This is different than his normal and chronic vertigo. The patient has not recently seen a physician. Historical: - Allergies: 06:55 No Known Allergies; sg - PMHx: 06:55 GERD; Hypertension; sg - PSHx: 06:55 Cholecystectomy; back surg; sg - Immunization history:: Adult Immunizations up to date. - Social history:: Smoking status: Patient denies any tobacco usage or history of. ROS: 07:35 Constitutional: Negative for fever, chills, and weight loss, Eyes: Negative for injury, kdr pain, redness, and discharge, ENT: Negative for injury, pain, and discharge, Neck: Negative for injury, pain, and swelling, Cardiovascular: Negative for chest pain, palpitations, and edema, Respiratory: Negative for shortness of breath, cough, wheezing, and pleuritic chest pain, Abdomen/GI: Negative for abdominal pain, nausea, vomiting, diarrhea, and constipation, Back: Negative for injury and pain, : Negative for injury, bleeding, discharge, and swelling, MS/Extremity: Negative for injury and deformity, Skin: Negative for injury, rash, and discoloration, Psych: Negative for depression, anxiety, suicide ideation, homicidal ideation, and hallucinations, Allergy/Immunology: Negative for hives, rash, and allergies, Endocrine: Negative for neck swelling, polydipsia, polyuria, polyphagia, and marked weight changes, Hematologic/Lymphatic: Negative for swollen nodes, abnormal bleeding, and unusual bruising. 07:35 Neuro: Positive for dizziness, Paresthesia that is transient and waxes/wanes around his neck face and scalp. 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 Exam: 07:35 Constitutional: This is a well developed, well nourished patient who is awake, alert, kdr and in no acute distress. Head/Face: Normocephalic, atraumatic. Eyes: Pupils equal round and reactive to light, extra-ocular motions intact. Lids and lashes normal. Conjunctiva and sclera are non-icteric and not injected. Cornea within normal limits. Periorbital areas with no swelling, redness, or edema. 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 Supple, full range of motion without nuchal rigidity, or vertebral point tenderness. No Meningismus. Chest/axilla: Normal chest wall appearance and motion. Nontender with no deformity. No lesions are appreciated. Cardiovascular: Regular rate and rhythm with a normal S1 and S2. No gallops, murmurs, or rubs. Normal PMI, no JVD. No pulse deficits. Respiratory: Lungs have equal breath sounds bilaterally, clear to auscultation and percussion. No rales, rhonchi or wheezes noted. No increased work of breathing, no retractions or nasal flaring. Abdomen/GI: Soft, non-tender, with normal bowel sounds. No distension or tympany. No guarding or rebound. No evidence of tenderness throughout. Back: No spinal tenderness. No costovertebral tenderness. Full range of motion. Skin: Warm, dry with normal turgor. Normal color with no rashes, no lesions, and no evidence of cellulitis. MS/ Extremity: Pulses equal, no cyanosis. Neurovascular intact. Full, normal range of motion. Neuro: Awake and alert, GCS 15, oriented to person, place, time, and situation. Cranial nerves II-XII grossly intact. Motor strength 5/5 in all extremities. Sensory grossly intact. Cerebellar exam normal. Normal gait. Psych: Awake, alert, with orientation to person, place and time. Behavior, mood, and affect are within normal limits. 07:53 ECG was reviewed by the Attending Physician. kdr Vital Signs: 07:08 BP 115 / 66; Pulse 56; Resp 18; Temp 98.1; Pulse Ox 96% ; Weight 112.94 kg; Height 5 wh ft. 11 in. (180.34 cm); 08:00 BP 113 / 57; Pulse 55; Resp 18; Pulse Ox 96% on R/A; em 09:00 BP 130 / 66; Pulse 57; Resp 18; Pulse Ox 95% on R/A; em 10:00 BP 125 / 54; Pulse 51; Resp 18; Pulse Ox 97% on R/A; Pain 8/10; em 11:56 BP 114 / 61; Pulse 50; Resp 18; Pulse Ox 96% on R/A; em 07:08 Body Mass Index 34.73 (112.94 kg, 180.34 cm) wh MDM: 07:35 Data reviewed: vital signs, nurses notes, lab test result(s), EKG, radiologic studies. kdr Counseling: I had a detailed discussion with the patient and/or guardian regarding: the historical points, exam findings, and any diagnostic results supporting the discharge/admit diagnosis, lab results, radiology results. 11:59 Patient medically screened. kdr 07/28 07:09 Order name: Basic Metabolic Panel; Complete Time: 09:14 kdr 07/28 07:09 Order name: CBC with Diff; Complete Time: :14 kdr 07/28 07:09 Order name: LFT's; Complete Time: 09:14 kdr 07/28 07:09 Order name: Magnesium; Complete Time: 09:14 kdr 07/28 07:09 Order name: NT PRO-BNP; Complete Time: 09:14 kdr 07/28 07:09 Order name: PT-INR; Complete Time: :14 [facility] 07/28 06:52 Order name: CT Stroke Brain w/o Contrast; Complete Time: 09:14 sg 07/28 07:09 Order name: Troponin (emerg Dept Use Only); Complete Time: 09:14 kdr 07/28 07:09 Order name: XRAY Chest (1 view); Complete Time: 11:56 kdr 07/28 07:17 Order name: MRI - Brain Wo Cont; Complete Time: 11:56 bd 07/28 07:19 Order name: Glucose, Ancillary Testing; Complete Time: 09:14 EDMS 07/28 07:09 Order name: EKG; Complete Time: 07:10 kdr 07/28 07:09 Order name: Cardiac monitoring; Complete Time: 07:19 kdr 07/28 07:09 Order name: EKG - Nurse/Tech; Complete Time: 08:05 kdr 07/28 07:09 Order name: IV Saline Lock; Complete Time: 07:19 kdr 07/28 07:09 Order name: Labs collected and sent; Complete Time: 07:19 kdr 07/28 07:09 Order name: O2 Per Protocol; Complete Time: 07:19 kdr 07/28 07:09 Order name: O2 Sat Monitoring; Complete Time: 07:19 kdr EC:53 Rate is 56 beats/min. Rhythm is regular, Sinus bradycardia with No ectopy. QRS Med[place] is kdr Normal. ID interval is prolonged. QRS interval is normal. Clinical impression: NSR w/ Non-specific ST/T Changes and Sinus bradycardia. Administered Medications: 07:42 Drug: Zofran (Ondansetron) 4 mg Route: IVP; Site: right antecubital; em 08:00 Follow up: Response: No adverse reaction; Marked relief of symptoms; Nausea is decreasedem 08:01 Drug: Meclizine 25 mg Route: PO; em 10:17 Follow up: Response: No adverse reaction; Marked relief of symptoms em 08:59 Drug: Ativan 1 mg Route: PO; em 10:19 Follow up: Response: No adverse reaction em 10:04 Drug: Valium 5 mg Route: IVP; Site: right antecubital; em 12:02 Follow up: Response: No adverse reaction; No change in condition em 10:09 Drug: Tylenol 1000 mg Route: PO; em 12:02 Follow up: Response: No adverse reaction; Marked relief of symptoms; Pain is decreased em 10:12 Not Given (Other Intervention Used): Valium 5 mg PO once em Disposition: 07/28/20 11:59 Discharged to Home. Impression: Paresthesia of skin, Headache, Dizziness and giddiness. - Condition is Fair. - Discharge Instructions: General Headache Without Cause, Paresthesia, Oaks-iw-Bwjw, Dizziness, Fvxb-[id number]. - Prescriptions for Tramadol 50 mg Oral Tablet - take 1 tablet by ORAL route every 8 hours as needed; 12 tablet. Meclizine 25 mg Oral Tablet - take 1 tablet by ORAL route every 8 hours As needed; 15 tablet. Valium 5 mg Oral Tablet - take 1 tablet by ORAL route every 8 hours As needed For dizziness not relieved by meclizine; 16 tablet. - Medication Reconciliation Form, Thank You Letter form. - Follow up: Private Physician; When: 2 - 3 days; Reason: If symptoms return, Further diagnostic work-up, Recheck today's complaints, Continuance of care, Re-evaluation by your physician. - Problem is new. - Symptoms have improved. Signatures: Dispatcher [employer] EDZion Watt RN RN Ha Pena MD MD [facility] Wil Horn RN RN em Corrections: (The following items were deleted from the chart) 12:23 11:59 07/28/2020 11:59 Discharged to Home. Impression: Paresthesia of skin; Headache; em Dizziness and giddiness. Condition is Fair. Forms are Medication Reconciliation Form, Thank You Letter, Antibiotic Education, Prescription Opioid Use. Follow up: Private Physician; When: 2 - 3 days; Reason: If symptoms return, Further diagnostic work-up, Recheck today's complaints, Continuance of care, Re-evaluation by your physician. Problem is new. Symptoms have improved. kdr
--- NOTE | 2020-07-28 12:00 | ER ---
Nurse's Notes [facility] Name: Rashad Hanley III Age: 55 yrs Sex: Male : 1965 Arrival Date: 07/28/2020 Time: 06:51 Bed 7 Private MD: Diagnosis: Paresthesia of skin;Headache;Dizziness and giddiness Presentation: 07/28 06:53 Chief complaint: EMS states: Pt toned them for dizziness and felt not himself after wh walking up at 6:00 am. Pt did not show any stroke signs at the scene. Pt C/O headache, nausea and tooth ache for a week. Pt also with Hx of Vertigo. Coronavirus screen: Client denies travel out of the [place] in the last 14 days. nausea. Ebola Screen: Patient negative for fever greater than or equal to 101.5 degrees Fahrenheit, and additional compatible Ebola Virus Disease symptoms Patient denies exposure to infectious person. Risk Assessment: Do you want to hurt yourself or someone else? Patient reports no desire to harm self or others. Onset of symptoms was July 28, 2020. 06:53 Method Of Arrival: EMS: [facility] 06:53 Acuity: SHIRA 3 07:08 Initial Sepsis Screen: Does the patient meet any 2 criteria? No. Patient's initial sepsis screen is negative. Does the patient have a suspected source of infection? No. Patient's initial sepsis screen is negative. Historical: - Allergies: 06:55 No Known Allergies; sg - PMHx: 06:55 GERD; Hypertension; sg - PSHx: 06:55 Cholecystectomy; back surg; sg - Immunization history:: Adult Immunizations up to date. - Social history:: Smoking status: Patient denies any tobacco usage or history of. Screenin:50 VAN Screening: Arm Drift: Patient shows no arm weakness. Visual Disturbance: No visual wh disturbance noted. Aphasia: No aphasia noted. Neglect: No neglect noted. 06:55 Abuse screen: Denies threats or abuse. Denies injuries from another. Nutritional wh screening: No deficits noted. Tuberculosis screening: No symptoms or risk factors identified. Fall Risk None identified. Assessment: 07:10 General: Appears in no apparent distress. comfortable, Behavior is calm, cooperative, em appropriate for age. Pain: Denies pain. Neuro: Level of Consciousness is awake, alert, obeys commands, Oriented to person, place, time, situation, Appropriate for age Reports dizziness, headache. Cardiovascular: Capillary refill < 3 seconds Patient's skin is warm and dry. Respiratory: Airway is patent Respiratory effort is even, unlabored, Respiratory pattern is regular, symmetrical. GI: Reports nausea. Derm: Skin is intact, is healthy with good turgor, Skin is pink, warm \T\ dry. Musculoskeletal: Capillary refill < 3 seconds, Range of motion: intact in all extremities. 07:40 Reassessment: reports nausea, Dr. Pena notified, received VO order for 4 mg Zofran em IVP x 1 and 25 mg meclizine PO x 1. 08:55 Reassessment: reports he needs claustrophobic medication prior to going to MRI, Dr. quan Pena notified, received VO for 1 mg Ativan PO x 1. 09:05 Reassessment: wheeled to MRI via wheelchair. em 10:00 Reassessment: reports CASTELLANOS and dizziness, Dr. Pena notified. em 11:00 Reassessment: Patient appears in no apparent distress at this time. Patient and/or em family updated on plan of care and expected duration. Pain level reassessed. Patient is alert, oriented x 3, equal unlabored respirations, skin warm/dry/pink. CASTELLANOS has improved, dizziness is unchanged, Dr. Pena notified Patient states symptoms have improved. 12:00 Reassessment: Patient appears in no apparent distress at this time. Patient and/or em family updated on plan of care and expected duration. Pain level reassessed. Patient is alert, oriented x 3, equal unlabored respirations, skin warm/dry/pink. Vital Signs: 07:08 BP 115 / 66; Pulse 56; Resp 18; Temp 98.1; Pulse Ox 96% ; Weight 112.94 kg; Height 5 wh ft. 11 in. (180.34 cm); 08:00 BP 113 / 57; Pulse 55; Resp 18; Pulse Ox 96% on R/A; em 09:00 BP 130 / 66; Pulse 57; Resp 18; Pulse Ox 95% on R/A; em 10:00 BP 125 / 54; Pulse 51; Resp 18; Pulse Ox 97% on R/A; Pain 8/10; em 11:56 BP 114 / 61; Pulse 50; Resp 18; Pulse Ox 96% on R/A; em 07:08 Body Mass Index 34.73 (112.94 kg, 180.34 cm) ED Course: 06:[address] via stretcher. sg 06:51 Patient arrived in ED. wh 06:53 Arm band placed on. sg 06:55 Triage completed. 06:55 Roshan Miller MD is Attending Physician. [facility] 07:00 CT Stroke Brain w/o Contrast In Process Unspecified. EDMS 07:03 Inserted saline lock: 20 gauge in right forearm, using aseptic technique. Blood rv collected. 07:08 Attending Physician role handed off by Roshan Miller MD kdr 07:08 Ha Pena MD is Attending Physician. kdr 07:10 Patient has correct armband on for positive identification. Bed in low position. Call light in reach. Side rails up X 1. Pulse ox on. NIBP on. 07:19 Wil Horn, RN is Primary Nurse. em 07:40 XRAY Chest (1 view) In Process Unspecified. EDMS 09:25 MRI - Brain Wo Cont In Process Unspecified. EDMS 12:21 No provider procedures requiring assistance completed. IV discontinued, intact, em bleeding controlled, No redness/swelling at site. Pressure dressing applied. Administered Medications: 07:42 Drug: Zofran (Ondansetron) 4 mg Route: IVP; Site: right antecubital; em 08:00 Follow up: Response: No adverse reaction; Marked relief of symptoms; Nausea is decreasedem 08:01 Drug: Meclizine 25 mg Route: PO; em 10:17 Follow up: Response: No adverse reaction; Marked relief of symptoms em 08:59 Drug: Ativan 1 mg Route: PO; em 10:19 Follow up: Response: No adverse reaction em 10:04 Drug: Valium 5 mg Route: IVP; Site: right antecubital; em 12:02 Follow up: Response: No adverse reaction; No change in condition em 10:09 Drug: Tylenol 1000 mg Route: PO; em 12:02 Follow up: Response: No adverse reaction; Marked relief of symptoms; Pain is decreased em 10:12 Not Given (Other Intervention Used): Valium 5 mg PO once em Outcome: 11:59 Discharge ordered by . kdr 12:21 Discharged to home ambulatory, with family. em 12:21 Condition: stable 12:21 Discharge instructions given to patient, family, Instructed on discharge instructions, follow up and referral plans. no drinking with medication, no driving heavy equipment, medication usage, Demonstrated understanding of instructions, follow-up care, medications, Prescriptions given X 3. 12:23 Patient left the ED. em Signatures: Dispatcher [employer] EDMS Zion Pena RN RN Ha Pena MD MD kdr Munoz, Edgar, RN RN Sandip Loyola Jose Miguel Steven RN RN Roshan Miller MD MD [email or web address] Corrections: (The following items were deleted from the chart) 07:11 07:08 Pulse 56bpm; Resp 18bpm; Pulse Ox 96%; Temp 98.1F; 112.94 kg; Height 5 ft. 11 wh in.; BMI: 34.7; wh
[2020-07-28 12:27] VITALS: TEMP 98.1
[2020-07-28 12:31] VITALS: BP 114/61; O2SAT 96
== END 2020-07-28 12:23 | disposition home or self-care (01) ==
LOC: ER 06:52
DX: R51.9 Headache, unspecified (principal); R20.2 Paresthesia of skin; I10 Essential (primary) hypertension
CPT/HCPCS: 36415; 70450; 70551; 71045; 80048; 80076; 82947; 83735; 83880; 84484; 85025; 85610; 93005; 96374; 96375; 99285; J2405; J3360

== ENCOUNTER 2021-07-08 06:35 | Emergency (ER) | payer SELFPAY ==
--- OUTSIDE RECORDS SUMMARY | 2021-07-08 06:52 | XMS REPORT | Continuity of Care Document ---
:1965 Author Organization [facility] t Address [address] [place] [address] Care Team Providers Name Role Phone EDEMESONIA Primary Care Physician Unavailable Fahad MARLEY Attending Clinician Unavailable STANFORD Attending Clinician Unavailable REHMAN Attending Clinician Unavailable Singer ROGERS Attending Clinician Fahad Marley DO Attending Clinician Cong VILLANUEVA Attending Clinician Unavailable Doctor Unassigned, Name Attending Clinician Unavailable Emmanuel GIBBS Attending Clinician ALIYAH RAHMAN Admitting Clinician Unavailable REHMAN Admitting Clinician Unavailable Payers Payer Name Policy Type Policy Number Effective Date Expiration Date S steff MEDICARE PART A [id number] 2020 \\T\\ B 00:00:00 [facility] [id number] 2019 2019 PPO/POS 00:00:00 00:00:00 Problems Condition Condition Condition Status Onset Resolution Last Treating Co mments Source Name Details Category Date Date Treatment Clinician Date Chronic Chronic Disease Active 2020-08 Univers constipati constipati 2-03 it y of on on 00:00: [place] [facility] Branch Generalize Generalize Disease Active 2020-08 U vanceers d d 2-03 ity of abdominal abdominal 00:00: [place] s pain pain 00 [facility] Branch Epigastric Epigastric Disease Active 2020-08 U yash abdominal abdominal 1-23 ity of pain pain 00:00: [address] Branch Numbness Numbness Disease Active 2020-08 Unive rs of left of left 0-14 ity of foot foot 00:00: Medical Branch Abnormal Abnormal Disease Active Unive rs EKG EKG 7-11 ity of 00:00: Medical Branch Essential Essential Disease Active Uni vers hypertensi hypertensi 7-11 it y of on on 00:00: Medical Branch Chest pain Chest pain Disease Active U nivers 7-10 ity of 00:00: Medical Branch Obesity Obesity Disease Active Univers (BMI (BMI 3-12 ity of 30-39.9) 30-39.9) 00:00: Medical Branch Gastroesop Gastroesop Disease Active Overview : Univers hageal hageal 3-05 Formattin ity of reflux reflux 00:00: g of this [place] disease, disease, 00 note Medica l esophagiti esophagiti might be Branch s presence s presence different not not from the specified specified original. Added automatic ally from request for surgery [id number] ACS Diagnosis Active 2012-09-23 Mem oria EVALUATION 2- 08:31:00 l /CHEST ACS 00:00: [place] PAIN EVALUATION 00 /CHEST PAIN Active 09/22/2012 [facility] SOB Diagnosis Active 2012-09-22 Mem oria 2- 11:39:00 l SOB 00:00: [place] 00 Active 09/22/2012 [facility] Type 2 Type 2 Disease Active Univers diabetes diabetes ity of mellitus mellitus [place] without without Medical complicati complicati Br anch on, on, without without long-term long-term current current use of use of insulin insulin Rheumatoid Rheumatoid Disease Active U nivers arthritis arthritis [facility] Sleep Sleep Disease Active Univers apnea apnea ity of [facility] Hypertensi Hypertensi Disease Active U nivers on on ity of [facility] Hyperlipid Hyperlipid Disease Active U nivers emia emia ity of [facility] Gout Gout Disease Active Univers it[facility] Depression Depression Disease Active U nivers ity of [facility] Anxiety [facility] Problem Active 2012-09-26 M emoria 10:14:14 l Chest [place] pain Active Problem 09/26/2012 [facility] Syncope Problem Active 2012-09-26 Serg kim 10:14:14 l Syncope [place] Active Problem 09/26/2012 [facility] Other Problem Active 2019-11-17 Memor ia obesity 02:45:45 l Other [place] obesity Active Problem 11/17/2019 [facility] Benign Problem Active 2019-11-17 Memor ia essential 02:45:45 l hypertensi Benign Herm lobo on essential hypertensi on Active Problem 0 [facility] Acute Diagnosis Active 2019-11-17 Mem oria gouty 02:45:45 l arthropath Acute Radha nn y gouty arthropath y Active Diagnosis 11/17/2019 [facility] Hyperlipid Problem Active 2019-11-17 M emoria emia 02:45:45 l [place] Hyperlipid emia Active Problem 11/17/2019 [facility] Acute Problem Active 2019-11-17 Memor ia gouty 02:45:45 l arthritis Acute Rajan n gouty arthritis Active Problem 11/17/2019 [facility] Abnormal Problem Active 2019-11-17 Mem oria immunologi 02:45:45 l jose Abnormal Rajan n finding in immunologi serum, jose unspecifie finding in d serum, unspecifie d Active Problem 11/17/2019 [facility] Encounter Diagnosis Active 2019-11-17 Memoria for 02:45:45 l therapeuti Rajan n c drug Encounter level for monitoring therapeuti c drug level monitoring Active Diagnosis 11/17/2019 [facility] Heartburn Problem Active 2019-11-17 Me moria 02:45:45 l [place] Heartburn Active Problem 11/17/2019 [facility] senior living Problem Active 2019-11-17 Me moria (current) 02:45:45 l use of Long [place] non-steroi term farrukh (current) anti-infla use of mmatories non-steroi (NSAID) farrukh anti-infla mmatories (NSAID) Active Problem 11/17/2019 [facility] Osteoarthr Problem Active 2019-11-17 M emoria itis 02:45:45 l [place] Osteoarthr itis Active Problem 11/17/2019 [facility] Pain in Diagnosis Active 2019-03-27 Me moria joint 02:45:01 l involving Pain in Herm lobo lower leg joint involving lower leg Active Diagnosis 03/27/2019 [facility] CHEST PAIN Diagnosis Active 2012-09-23 Memoria NOS 08:31:00 l CHEST [place] PAIN NOS Active [facility] Abdominal Problem Active 2012-09-26 Me moria pain 10:14:14 l [place] Abdominal pain Active Problem 09/26/2012 [facility] Diverticul Problem Resolve 2010-082012-09-26 2012-09-26 Memoria itis d 0-11 10:14:14 10:14:14 l 00:00: [place] Diverticul 00 itis Resolved 05/14/2011 Problem 09/26/2012 1Had diverticul itis in 2010, 2011 [facility] Testostero Problem Resolve 2012-09-26 2012-09-26 Memoria ne d 7- 10:14:14 10:14:14 l 00:00: [place] Testostero 00 ne Resolved 02/19/2011 Problem 09/26/2012 [facility] Gout Problem Resolve 2006-2012-09-26 2012-09-26 Memoria d -24 10:14:14 10:14:14 l Gout 00:00: [place] 00 Resolved 02/24/2007 Problem 09/26/2012 [facility] Hyperchole Problem Resolve 2001-2012-09-26 2012-09-26 Memoria sterolemia d 6-12 10:14:14 10:14:14 l 00:00: [place] Hyperchole 00 sterolemia Resolved 01/13/2002 Problem 09/26/2012 [facility] Allergies, Adverse Reactions, Alerts Allergy Allergy Status Severity Reaction(s) Onset Inactive Treating Comm ents Source Name Type Date Date Clinician Indometh Indometh Active dizziness Mem oria acin acin 9-20 l 00:00: [place] 00 NO KNOWN Drug Active Univers ALLERGIE Class ity of S [place] [facility] Social History Social Habit Start Date Stop Date Quantity Comments Source History of Chews Tobacco University of tobacco use [place] [facility] Exposure to Not sure University of SARS-CoV-2 [place] Medical (event) Branch History SDHI University o f Alcohol Frequency [place] M edical Branch History SDOH University o f Alcohol Std [place] Medical Drinks Branch History SDHI University o f Alcohol Binge [place] [facility] Branch Alcohol intake 2021-07-04 2021-07-04 Current University of 00:00:00 00:00:00 non-drinker of [facility] alcohol Branch (finding) Alcohol Comment 2021-06-26 2021-06-26 quit about 2 Univers ity of 00:00:00 00:00:00 years [facility] Tobacco Comment 2021-06-26 2021-06-26 can per day Universi ty of 00:00:00 00:00:00 [facility] History SDOH 2020-12-01 2020-12-01 0 University o f Physical Activity 00:00:00 00:00:00 [facility] edical DPW Branch History SDOH 2020-12-01 2020-12-01 0 University o f Physical Activity 00:00:00 00:00:00 [facility] edical MPS Branch Tobacco use and 2019-06-28 2019-06-28 Current user Univers ity of exposure 00:00:00 00:00:00 [facility] Sex [birth year] At [birth year] Universit y of 00:00:00 00:00:00 [facility] Smoking Status Start Date Stop Date Source Never smoker [facility] Medications Ordered Filled Start Stop Current Ordering Indication Dosage Frequency Signature Comments Components Source Medication Medication Date Date Medication? Clinician (SIG) Name Name dicyclomine 2020-08 Yes 10mg 10 mg, Univ ers (BENTYL) 09-06 Oral, QID, ity o f capsule 10 22:00: First dose [place] mg 00 on Fri Medical 07/06/21 at Branch 1600, Until Discontinu ed, Routine metoclopram 2020-08- No 10mg 10 mg, Uni vers harriet HCl 09-06- Slow IV ity of (REGLAN) 20:30: 19:33 Push, [place] injection 00 :00 ONCE, 1 Medical 10 mg dose, On Branch 07/06/21 at 1430, YAHAIRA glycerin/mi 2020-08- No 225mL 225 mL, U nivers neral oil 09-06-03 Rectal, ity of (AGLO 20:00: 19:46 ONCE, 1 [place] ENEMA) 00 :00 dose, On Medical (COMPOUNDED Fri [place] ) Enem 225 07/06/21 at mL 1400, Routine NaCl 0.9% 2020-08- No 1000mL at 999 Uni vers (NS) bolus 2-10 13-03 mL/hr, ity of infusion 18:00: 19:34 1,000 mL, [place] as 1,000 mL 00 :00 IV Medical Infusion, Branch ONCE, 1 dose, On Fri07/06/21 at 1200, STAT sodium 2020-08 Yes 5mL 5 mL, Univers chloride 2-03 Intravenou ity o f (NS) 17:24: s, PRN, [place] injection 5 05 Starting Medi jose mL on Fri Branch 07/06/21 at 1124, Until Discontinu ed, Routine, IV line flushing docusate 2020-08 Yes [id number] 100mg Take 1 U nivers (COLACE) 2-03 capsule by ity o f 100 mg 00:00: mouth 2 [place] capsule 00 (two) Medical times Branch daily. sennosides 2020-08 Yes [id number] 8.6mg Take 1 Univers (SENOKOT) 2-03 tablet by ity o f 8.6 mg 00:00: mouth [place] tablet 00 daily. Medical Branch glycerin/mi 2020-08 Yes [id number] 225mL Insert 225 Univers neral oil, 2-03 mL into ity of AGLO ENEMA, 00:00: rectum as [place] Enem 00 needed for Medical Constipati Branch on. dicyclomine 2020-08 Yes [id number] 10mg Take 1 Univers (BENTYL) 10 2-03 capsule by it y of mg capsule 00:00: mouth [place] 00 every 8 Medical (eight) Branch hours as needed for Abdominal pain. ARTIFICIAL 2020-08 Yes 1[drp] 1 Drop 3 U nivers TEARS,DEXT7 2-01 (three) ity o f 0-HYPRO, 09:44: times [place] ophthalmic 40 daily as Medic al solution needed. Branch atorvastati 2020-08 Yes 80mg Take 80 mg Univers n 80 mg 2-01 by mouth ity of tablet 09:44: at [place] 40 bedtime. Medical Branch ARTIFICIAL 2020-08 Yes 1[drp] 1 Drop 3 U nivers TEARS,DEXT7 2-01 (three) ity o f 0-HYPRO, 09:44: times [place] ophthalmic 40 daily as Medic al solution needed. Branch atorvastati 2020-08 Yes 80mg Take 80 mg Univers n 80 mg 2-01 by mouth ity of tablet 09:44: at [place] 40 bedtime. Medical Branch ARTIFICIAL 2020-08 Yes 1[drp] 1 Drop 3 U nivers TEARS,DEXT7 2- (three) ity o f 0-HYPRO, 09:44: times [place] ophthalmic 40 daily as Medic al solution needed. Branch atorvastati 2020-08 Yes 80mg Take 80 mg Univers n 80 mg 09-04 by mouth ity of tablet 09:44: at [place] 40 bedtime. Medical Branch vitamin 2020-08 Yes 1000ug Take 1,000 Un lety B-12 1-29 mcg by ity of (VITAMIN 08:13: mouth [place] B-12) 1,000 34 daily. Medica l mcg tablet Branch vitamin 2020-08 Yes 1000ug Take 1,000 Un lety B-12 1-29 mcg by ity of (VITAMIN 08:13: mouth [place] B-12) 1,000 34 daily. Medica l mcg tablet Branch vitamin 2020-08 Yes 1000ug Take 1,000 Un lety B-12 1-29 mcg by ity of (VITAMIN 08:13: mouth [place] B-12) 1,000 34 daily. Medica l mcg tablet Branch sennosides- 2020-08 Yes [id number] 1{tbl} Take 1 Univers docusate 1-27 tablet by ity of sodium 00:00: mouth [place] 8.6-50 mg 00 daily. Medical per tablet Branch sennosides- 2020-08 Yes [id number] 1{tbl} Take 1 Univers docusate 1-27 tablet by ity of sodium 00:00: mouth [place] 8.6-50 mg 00 daily. Medical per tablet Branch polyethylen 2020-08 Yes [id number] 1{packe Take 1 Univers e glycol 1-26 t} Packet by ity of 3350 17 00:00: mouth 2 [place] gram powder 00 (two) Medical times Branch daily. ondansetron 2020-08 Yes [id number] 4mg Take 1 Univers 4 mg 1-26 tablet by ity of disintegrat 00:00: mouth [place] ing tablet 00 every 8 Medica l (eight) Branch hours as needed for Nausea and Vomiting (N/V). escitalopra 2020-08 Yes [id number] 20mg Take 1 Univers m oxalate 1-26 tablet by ity o f 20 mg 00:00: mouth [place] tablet 00 daily. Medical Branch polyethylen 2020-08 Yes [id number] 1{packe Take 1 Univers e glycol 1-26 t} Packet by ity of 3350 17 00:00: mouth 2 [place] gram powder 00 (two) Medical times Branch daily. ondansetron 2020-08 Yes [id number] 4mg Take 1 Univers 4 mg 1-26 tablet by ity of disintegrat 00:00: mouth [place] ing tablet 00 every 8 Medica l (eight) Branch hours as needed for Nausea and Vomiting (N/V). escitalopra 2020-08 Yes [id number] 20mg Take 1 Univers m oxalate 1-26 tablet by ity o f 20 mg 00:00: mouth [place] tablet 00 daily. Medical Branch polyethylen 2020-08 Yes [id number] 1{packe Take 1 Univers e glycol 1-26 t} Packet by ity of 3350 17 00:00: mouth 2 [place] gram powder 00 (two) Medical times Branch daily. ondansetron 2020-08 Yes [id number] 4mg Take 1 Univers 4 mg 1-26 tablet by ity of disintegrat 00:00: mouth [place] ing tablet 00 every 8 Medica l (eight) Branch hours as needed for Nausea and Vomiting (N/V). escitalopra 2020-08 Yes [id number] 20mg Take 1 Univers m oxalate 1-26 tablet by ity o f 20 mg 00:00: mouth [place] tablet 00 daily. Medical Branch traMADoL 50 2020-08- Yes [id number] 50mg Take 1 Uni vers mg tablet 1- 12-11 tablet by ity of 00:00: 05:59 mouth [place] 00 :00 every 6 Medical (six) Branch hours as needed for Pain (scale 4-6) for up to 14 days. Indication s: acute pain traMADoL 50 2020-08- Yes [id number] 50mg Take 1 Uni vers mg tablet 1-26 12-11 tablet by ity of 00:00: 05:59 mouth [place] 00 :00 every 6 Medical (six) Branch hours as needed for Pain (scale 4-6) for up to 14 days. Indication s: acute pain traMADoL 50 2020-08- Yes [id number] 50mg Take 1 Uni vers mg tablet 1-26 12-11 tablet by ity of 00:00: 05:59 mouth [place] 00 :00 every 6 Medical (six) Branch hours as needed for Pain (scale 4-6) for up to 14 days. Indication s: acute pain methocarbam 2020-08 Yes [id number] 500mg Take 1 Univers oL 0-15 tablet by ity of (ROBAXIN) 00:00: mouth 2 [place] 500 mg 00 (two) Medical tablet times Branch daily as needed for Pain (scale 4-6) or Pain (scale 7-10). methocarbam 2020-08 Yes [id number] 500mg Take 1 Univers oL 0-15 tablet by ity of (ROBAXIN) 00:00: mouth 2 [place] 500 mg 00 (two) Medical tablet times Branch daily as needed for Pain (scale 4-6) or Pain (scale 7-10). methocarbam 2020-08 Yes [id number] 500mg Take 1 Univers oL 0-15 tablet by ity of (ROBAXIN) 00:00: mouth 2 [place] 500 mg 00 (two) Medical tablet times Branch daily as needed for Pain (scale 4-6) or Pain (scale 7-10). metoprolol 2020-08 Yes 50mg Take 1 Unive rs succinate 0-14 tablet by ity o f XL 50 mg 24 00:00: mouth [place] hr tablet 00 daily. Medical Branch metoprolol 2020-08 Yes 50mg Take 1 Unive rs succinate 0-14 tablet by ity o f XL 50 mg 24 00:00: mouth [place] hr tablet 00 daily. Medical Branch metoprolol 2020-08 Yes 50mg Take 1 Unive rs succinate 0-14 tablet by ity o f XL 50 mg 24 00:00: mouth [place] hr tablet 00 daily. Medical Branch albuterol 2020-08 Yes [id number] 2{puff} Inhale 2 Univers 90 0-11 Puffs ity of mcg/actuati 00:00: every 6 [place] as on inhaler 00 (six) Medical hours as Branch needed for Wheezing or Shortness of Breath. albuterol 2020-08 Yes [id number] 2{puff} Inhale 2 Univers 90 0-11 Puffs ity of mcg/actuati 00:00: every 6 [place] as on inhaler 00 (six) Medical hours as Branch needed for Wheezing or Shortness of Breath. albuterol 2020-08 Yes [id number] 2{puff} Inhale 2 Univers 90 0-11 Puffs ity of mcg/actuati 00:00: every 6 [place] on inhaler 00 (six) Medical hours as Branch needed for Wheezing or Shortness of Breath. traZODone 2020-0 Yes [id number] Take 0.5 Univers 100 mg 8-13 to 1.5 ity of tablet 00:00: tabs at [place] 00 night as Medical needed for Branch insomnia. traZODone 0 Yes [id number] Take 0.5 Univers 100 mg 8-13 to 1.5 ity of tablet 00:00: tabs at [place] 00 night as Medical needed for Branch insomnia. traZODone 0 Yes [id number] Take 0.5 Univers 100 mg 8-13 to 1.5 ity of tablet 00:00: tabs at [place] 00 night as Medical needed for Branch insomnia. omeprazole 0 Yes [id number] 40mg Take 1 Univers 40 mg 5-18 capsule by ity of capsule 00:00: mouth [address] [place] [address] (two) Medical times Branch daily. omeprazole 2020-0 Yes [id number] 40mg Take 1 Univers 40 mg 5-18 capsule by ity of capsule 00:00: mouth [place] (two) Medical times Branch daily. omeprazole 2020-0 Yes [id number] 40mg Take 1 Univers 40 mg 5-18 capsule by ity of capsule 00:00: mouth [address] [place] [address] (two) Medical times Branch daily. glipiZIDE 0 Yes [id number] 10mg Take 1 U nivers 10 mg 3-26 tablet by ity of tablet 00:00: mouth [place] daily. As Medical needed if Branch blood sugars are over 140. metFORMIN 2020-0 Yes [id number] 500mg Take 1 Univers 500 mg 3-26 tablet by ity of tablet 00:00: mouth [place] (two) Medical times Branch daily. glipiZIDE 2020-0 Yes [id number] 10mg Take 1 U nivers 10 mg 3-26 tablet by ity of tablet 00:00: mouth [place] 00 daily. As Medical needed if Branch blood sugars are over 140. metFORMIN 2020-0 Yes [id number] 500mg Take 1 Univers 500 mg 3-26 tablet by ity of tablet 00:00: mouth [place] (two) Medical times Branch daily. glipiZIDE 2021-0 Yes [id number] 10mg Take 1 U nivers 10 mg 3-26 tablet by ity of tablet 00:00: mouth [place] 00 daily. As Medical needed if Branch blood sugars are over 140. metFORMIN 0 Yes [id number] 500mg Take 1 Univers 500 mg 3-26 tablet by ity of tablet 00:00: mouth 2 [place] 00 (two) Medical times Branch daily. ezetimibe 0 Yes 10mg Take 1 Univer s 10 mg 3-05 tablet by ity of tablet 00:00: mouth [place] 00 daily. Medical Branch ezetimibe 0 Yes 10mg Take 1 Univer s 10 mg 3-05 tablet by ity of tablet 00:00: mouth [place] 00 daily. Medical Branch ezetimibe 0 Yes 10mg Take 1 Univer s 10 mg 3-05 tablet by ity of tablet 00:00: mouth [place] 00 daily. Medical Branch Blood-Gluco 2020-0 Yes [id number] Use as Univers se Meter 7-22 directed ity of (BLOOD 00:00: [place] GLUCOSE 00 Medical MONITORING) Branch Kit Blood-Gluco 2020-0 Yes [id number] Use as Univers se Meter 7-22 directed ity of (BLOOD 00:00: [place] GLUCOSE 00 Medical MONITORING) Branch Kit Blood-Gluco 2020-0 Yes [id number] Use as Univers se Meter 7-22 directed ity of (BLOOD 00:00: [place] GLUCOSE 00 Medical MONITORING) Branch Kit PredniSONE 2020-0 Yes Diann 2 tablets Memoria 4-06 Vo daily for l 00:00: 7 days, [place] 00 then 15 tabs daily for 1 week, then 1 tablet daily for 1 week, stay on 0.5 tab daily PredniSONE 2020-0 Yes Diann 2 tablets Memoria 4-06 Vo daily for l 00:00: 7 days, [place] 00 then 15 tabs daily for 1 week, then 1 tablet daily for 1 week, stay on 0.5 tab daily PredniSONE 2020-0 Yes Diann 2 tablets Memoria 4-06 Vo daily for l 00:00: 7 days, [place] 00 then 15 tabs daily for 1 week, then 1 tablet daily for 1 week, stay on 0.5 tab daily PredniSONE 2020-0 Yes Diann 2 tablets Memoria 4-06 Vo daily for l 00:00: 7 days, [place] 00 then 15 tabs daily for 1 week, then 1 tablet daily for 1 week, stay on 0.5 tab daily PredniSONE 2020-0 Yes Diann 2 tablets Memoria 4-06 Vo daily for l 00:00: 7 days, [place] 00 then 15 tabs daily for 1 week, then 1 tablet daily for 1 week, stay on 0.5 tab daily PredniSONE 2020-0 Yes Diann 2 tablets Memoria 4-06 Vo daily for l 00:00: 7 days, [place] 00 then 15 tabs daily for 1 week, then 1 tablet daily for 1 week, stay on 0.5 tab daily PredniSONE 2020-0 Yes Diann 2 tablets Memoria 4-06 Vo daily for l 00:00: 7 days, [place] 00 then 15 tabs daily for 1 week, then 1 tablet daily for 1 week, stay on 0.5 tab daily PredniSONE 2020-0 Yes Diann 2 tablets Memoria 4-06 Vo daily for l 00:00: 7 days, [place] 00 then 15 tabs daily for 1 week, then 1 tablet daily for 1 week, stay on 0.5 tab daily PredniSONE 2020-0 Yes Diann 2 tablets Memoria 4-06 Vo daily for l 00:00: 7 days, [place] 00 then 15 tabs daily for 1 week, then 1 tablet daily for 1 week, stay on 0.5 tab daily PredniSONE 2020-0 Yes Diann 2 tablets Memoria 4-06 Vo daily for l 00:00: 7 days, [place] 00 then 15 tabs daily for 1 week, then 1 tablet daily for 1 week, stay on 0.5 tab daily PredniSONE 2020-0 Yes Diann 2 tablets Memoria 4-06 Vo daily for l 00:00: 7 days, [place] 00 then 15 tabs daily for 1 week, then 1 tablet daily for 1 week, stay on 0.5 tab daily PredniSONE 2020-0 Yes Diann 2 tablets Memoria 4-06 Vo daily for l 00:00: 7 days, [place] 00 then 15 tabs daily for 1 week, then 1 tablet daily for 1 week, stay on 0.5 tab daily PredniSONE 2020-0 Yes Diann 2 tablets Memoria 4-06 Vo daily for l 00:00: 7 days, [place] 00 then 15 tabs daily for 1 week, then 1 tablet daily for 1 week, stay on 0.5 tab daily PredniSONE 2020-0 Yes Diann 2 tablets Memoria 4-06 Vo daily for l 00:00: 7 days, [place] 00 then 15 tabs daily for 1 week, then 1 tablet daily for 1 week, stay on 0.5 tab daily PredniSONE 2020-0 Yes Diann 2 tablets Memoria 4-06 Vo daily for l 00:00: 7 days, [place] 00 then 15 tabs daily for 1 week, then 1 tablet daily for 1 week, stay on 0.5 tab daily PredniSONE 2020-0 Yes Diann 2 tablets Memoria 4-06 Vo daily for l 00:00: 7 days, [place] 00 then 15 tabs daily for 1 week, then 1 tablet daily for 1 week, stay on 0.5 tab daily PredniSONE 2020-0 Yes Diann 2 tablets Memoria 4-06 Vo daily for l 00:00: 7 days, [place] 00 then 15 tabs daily for 1 week, then 1 tablet daily for 1 week, stay on 0.5 tab daily PredniSONE 2020-0 Yes Diann 2 tablets Memoria 4-06 Vo daily for l 00:00: 7 days, [place] 00 then 15 tabs daily for 1 week, then 1 tablet daily for 1 week, stay on 0.5 tab daily PredniSONE 2020-0 Yes Diann 2 tablets Memoria 4-06 Vo daily for l 00:00: 7 days, [place] 00 then 15 tabs daily for 1 week, then 1 tablet daily for 1 week, stay on 0.5 tab daily PredniSONE 2020-0 Yes Diann 2 tablets Memoria 4-06 Vo daily for l 00:00: 7 days, [place] 00 then 15 tabs daily for 1 week, then 1 tablet daily for 1 week, stay on 0.5 tab daily PredniSONE 2020-0 Yes Diann 2 tablets Memoria 4-06 Vo daily for l 00:00: 7 days, [place] 00 then 15 tabs daily for 1 week, then 1 tablet daily for 1 week, stay on 0.5 tab daily PredniSONE 2020-0 Yes Diann 2 tablets Memoria 4-06 Vo daily for l 00:00: 7 days, [place] 00 then 15 tabs daily for 1 week, then 1 tablet daily for 1 week, stay on 0.5 tab daily PredniSONE 2020-0 Yes Diann 2 tablets Memoria 4-06 Vo daily for l 00:00: 7 days, [place] 00 then 15 tabs daily for 1 week, then 1 tablet daily for 1 week, stay on 0.5 tab daily thiamine 2018-08 Yes [id number] 100mg Take 1 U nivers 100 mg 1-17 tablet by ity of tablet 00:00: mouth [place] 00 daily. Medical Branch thiamine 2018-08 Yes [id number] 100mg Take 1 U nivers 100 mg 1-17 tablet by ity of tablet 00:00: mouth [place] 00 daily. Medical Branch thiamine 2018-08 Yes [id number] 100mg Take 1 U nivers 100 mg 1-17 tablet by ity of tablet 00:00: mouth [place] 00 daily. Medical Branch aspirin 81 2018-08 Yes [id number] 81mg Take 1 U nivers mg chewable 1-11 tablet by ity of tablet 00:00: mouth [place] 00 daily. [facility] Branch aspirin 81 2018-08 Yes [id number] 81mg Take 1 U nivers mg chewable 1-11 tablet by ity of tablet 00:00: mouth [place] 00 daily. Medical Branch aspirin 81 2018-08 Yes [id number] 81mg Take 1 U nivers mg chewable 1-11 tablet by ity of tablet 00:00: mouth [place] 00 daily. Medical Branch AndroGel Yes Nilanjana not Serg kim Pump 9-23 Haley defined l 02:45: Omeprazole Yes Nilanjana 1 capsule Memoria 9-23 Haley l 02:45: Metoprolol Yes Nilanjana 1 tablet Memoria Succinate 9-23 Haley l ER 02:45: AndroGel Yes Nilanjana not Serg kim Pump 9-23 [place] defined l 02:45: Omeprazole Yes Nilanjana 1 capsule Memoria 9-23 Haley l 02:45: Metoprolol 2019-0 Yes Nilanjana 1 tablet Memoria Succinate 9-23 Haley l ER 02:45: AndroGel Yes Nilanjana not Serg kim Pump 9-23 [place] defined l 02:45: Omeprazole 2018- Yes Nilanjana 1 capsule Memoria 9-23 Haley l 02:45: Metoprolol 2019-0 Yes Nilanjana 1 tablet Memoria Succinate 9-23 Haley l ER 02:45: [place] AndroGel 2019-0 Yes Nilanjana not Serg kim Pump 9-23 Haley defined l 02:45: Omeprazole 2019-0 Yes Nilanjana 1 capsule Memoria 9-23 Haley l 02:45: [place] Metoprolol 2019-0 Yes Nilanjana 1 tablet Memoria Succinate 9-23 Haley l ER 02:45: [place] AndroGel 2019-0 Yes Nilanjana not Serg kim Pump 9-23 Haley defined l 02:45: [place] Omeprazole 2019-0 Yes Nilanjana 1 capsule Memoria 9-23 Haley l 02:45: [place] Metoprolol 2019-0 Yes Nilanjana 1 tablet Memoria Succinate 9-23 Haley l ER 02:45: [place] AndroGel 2019-0 Yes Nilanjana not Serg kim Pump 9-23 Haley defined l 02:45: [place] Omeprazole 2019-0 Yes Nilanjana 1 capsule Memoria 9-23 Haley l 02:45: [place] Metoprolol 2019-0 Yes Nilanjana 1 tablet Memoria Succinate 9-23 Haley l ER 02:45: [place] AndroGel 2019-0 Yes Nilanjana not Serg kim Pump 9-23 Haley defined l 02:45: [place] Omeprazole 2019-0 Yes Nilanjana 1 capsule Memoria 9-23 Haley l 02:45: [place] Metoprolol 2019-0 Yes Nilanjana 1 tablet Memoria Succinate 9-23 Haley l ER 02:45: [place] AndroGel 2019-0 Yes Nilanjana not Serg kim Pump 9-23 Haley defined l 02:45: [place] Omeprazole 2019-0 Yes Nilanjana 1 capsule Memoria 9-23 Haley l 02:45: [place] Metoprolol 2019-0 Yes Nilanjana 1 tablet Memoria Succinate 9-23 Haley l ER 02:45: [place] AndroGel 2019-0 Yes Nilanjana not Serg kim Pump 9-23 Haley defined l 02:45: [place] Omeprazole 2019-0 Yes Nilanjana 1 capsule Memoria 9-23 Haley l 02:45: [place] Metoprolol 2019-0 Yes Nilanjana 1 tablet Memoria Succinate 9-23 Haley l ER 02:45: AndroGel 2019-0 Yes Nilanjana not Serg kim Pump 9-23 Haley defined l 02:45: [place] Omeprazole 2019-0 Yes Nilanjana 1 capsule Memoria 9-23 Haley l 02:45: [place] 03 Metoprolol 2019-0 Yes Nilanjana 1 tablet Memoria Succinate 9-23 Haley l ER 02:45: [place] AndroGel 2019-0 Yes Nilanjana not Serg kim Pump 9-23 Haley defined l 02:45: [place] Omeprazole 2019-0 Yes Nilanjana 1 capsule Memoria 9-23 Haley l 02:45: [place] 03 Metoprolol 2019-0 Yes Nilanjana 1 tablet Memoria Succinate 9-23 Haley l ER 02:45: [place] AndroGel 2019-0 Yes Nilanjana not Serg kim Pump 9-23 Haley defined l 02:45: [place] Omeprazole 2019-0 Yes Nilanjana 1 capsule Memoria 9-23 Haley l 02:45: [place] Metoprolol 2019-0 Yes Nilanjana 1 tablet Memoria Succinate 9-23 Haley l ER 02:45: AndroGel 2019-0 Yes Nilanjana not Serg kim Pump 9-23 Haley defined l 02:45: [place] Omeprazole 2019-0 Yes Nilanjana 1 capsule Memoria 9-23 Haley l 02:45: [place] Metoprolol 2019-0 Yes Nilanjana 1 tablet Memoria Succinate 9-23 Haley l ER 02:45: [place] AndroGel 2019-0 Yes Nilanjana not Serg kim Pump 9-23 Haley defined l 02:45: [place] Omeprazole 2019-0 Yes Nilanjana 1 capsule Memoria 9-23 Haley l 02:45: [place] 03 Metoprolol 2019-0 Yes Nilanjana 1 tablet Memoria Succinate 9-23 Haley l ER 02:45: [place] AndroGel 2019-0 Yes Nilanjana not Serg kim Pump 9-23 Haley defined l 02:45: [place] Omeprazole 2019-0 Yes Nilanjana 1 capsule Memoria 9-23 Haley l 02:45: [place] Metoprolol 2019-0 Yes Nilanjana 1 tablet Memoria Succinate 9-23 Haley l ER 02:45: [place] AndroGel 2019-0 Yes Nilanjana not Serg kim Pump 9-23 Haley defined l 02:45: [place] Omeprazole 2019-0 Yes Nilanjana 1 capsule Memoria 9-23 Haley l 02:45: [place] 03 Metoprolol 2019-0 Yes Nilanjana 1 tablet Memoria Succinate 9-23 Haley l ER 02:45: [place] AndroGel 2019-0 Yes Nilanjana not Serg kim Pump 9-23 Haley defined l 02:45: [place] 03 Omeprazole 2019-0 Yes Nilanjana 1 capsule Memoria 9-23 Haley l 02:45: [place] Metoprolol 2019-0 Yes Nilanjana 1 tablet Memoria Succinate 9-23 Haley l ER 02:45: [place] AndroGel 2019-0 Yes Nilanjana not Serg kim Pump 9-23 Haley defined l 02:45: [place] Omeprazole 2019-0 Yes Nilanjana 1 capsule Memoria 9-23 Haley l 02:45: [place] Metoprolol 2019-0 Yes Nilanjana 1 tablet Memoria Succinate 9-23 Haley l ER 02:45: [place] AndroGel 2019-0 Yes Nilanjana not Serg kim Pump 9-23 Haley defined l 02:45: [place] Omeprazole 2019-0 Yes Nilanjana 1 capsule Memoria 9-23 Haley l 02:45: [place] Metoprolol 2019-0 Yes Nilanjana 1 tablet Memoria Succinate 9-23 Haley l ER 02:45: [place] AndroGel 2019-0 Yes Nilanjana not Serg kim Pump 9-23 Haley defined l 02:45: [place] Omeprazole 2019-0 Yes Nilanjana 1 capsule Memoria 9-23 Haley l 02:45: [place] Metoprolol 2019-0 Yes Nilanjana 1 tablet Memoria Succinate 9-23 Haley l ER 02:45: AndroGel 2019-0 Yes Nilanjana not Serg kim Pump 9-23 Haley defined l 02:45: Omeprazole 2019-0 Yes Nilanjana 1 capsule Memoria 9-23 Haley l 02:45: Metoprolol 2019-0 Yes Nilanjana 1 tablet Memoria Succinate 9-23 Haley l ER 02:45: AndroGel 2019-0 Yes Nilanjana not Serg kim Pump 9-23 Haley defined l 02:45: Omeprazole 2019-0 Yes Nilanjana 1 capsule Memoria 9-23 Haley l 02:45: Metoprolol 2019-0 Yes Nilanjana 1 tablet Memoria Succinate 9-23 Haley l ER 02:45: AndroGel 2019-0 Yes Nilanjana not Serg kim Pump 9-23 Haley defined l 02:45: Omeprazole 2019-0 Yes Nilanjana 1 capsule Memoria 9-23 Haley l 02:45: Metoprolol 2019-0 Yes Nilanjana 1 tablet Memoria Succinate 9-23 Haley l ER 02:45: Mitigare 2019-0 Yes Nilanjana 1 capsule Memoria 9-05 Haley l 00:00: Mitigare 2019-0 Yes Nilanjana 1 capsule Memoria 9-05 Haley l 00:00: Mitigare 2019-0 Yes Nilanjana 1 capsule Memoria 9-05 Haley l 00:00: Mitigare 2019-0 Yes Nilanjana 1 capsule Memoria 9-05 Haley l 00:00: Mitigare 2019-0 Yes Nilanjana 1 capsule Memoria 9-05 Haley l 00:00: Mitigare 2019-0 Yes Nilanjana 1 capsule Memoria 9-05 Haley l 00:00: Mitigare 2019-0 Yes Nilanjana 1 capsule Memoria 9-05 Haley l 00:00: Mitigare 2019-0 Yes Nilanjana 1 capsule Memoria 9-05 Haley l 00:00: Mitigare 2019-0 Yes Nilanjana 1 capsule Memoria 9-05 Haley l 00:00: Mitigare 2019-0 Yes Nilanjana 1 capsule Memoria 9-05 Haley l 00:00: [place] 00 Mitigare 2019-0 Yes Nilanjana 1 capsule Memoria 9-05 Haley l 00:00: [place] 00 Mitigare 2019-0 Yes Nilanjana 1 capsule Memoria 9-05 Haley l 00:00: [place] 00 Mitigare 2019-0 Yes Nilanjana 1 capsule Memoria 9-05 Haley l 00:00: [place] 00 Mitigare 2019-0 Yes Nilanjana 1 capsule Memoria 9-05 Haely l 00:00: Mitigare 2019-0 Yes Nilanjana 1 capsule Memoria 9-05 Haley l 00:00: Mitigare 2019-0 Yes Nilanjana 1 capsule Memoria 9-05 Haley l 00:00: [place] 00 Mitigare 2019-0 Yes Nilanjana 1 capsule Memoria 9-05 Haley l 00:00: [place] 00 Mitigare 2019-0 Yes Nilanjana 1 capsule Memoria 9-05 Haley l 00:00: [place] 00 Mitigare 2019-0 Yes Nilanjana 1 capsule Memoria 9-05 Haley l 00:00: Mitigare 2019-0 Yes Nilanjana 1 capsule Memoria 9-05 Haley l 00:00: Mitigare 2019-0 Yes Nilanjana 1 capsule Memoria 9-05 Haley l 00:00: [place] 00 Mitigare 2019-0 Yes Nilanjana 1 capsule Memoria 9-05 Haley l 00:00: [place] 00 Mitigare 2019-0 Yes Nilanjana 1 capsule Memoria 9-05 Haley l 00:00: Meloxicam 2019-0 Yes Diann 1 tablet Memoria 8-24 Vo l 02:45: Meloxicam 2019-0 Yes Diann 1 tablet Memoria 8-24 Vo l 02:45: Meloxicam 2019-0 Yes Diann 1 tablet Memoria 8-24 Vo l 02:45: Meloxicam 2019-0 Yes Diann 1 tablet Memoria 8-24 Vo l 02:45: Meloxicam 2019-0 Yes Diann 1 tablet Memoria 8-24 Vo l 02:45: [place] Meloxicam 2019-0 Yes Diann 1 tablet Memoria 8-24 Vo l 02:45: [place] Meloxicam 2019-0 Yes Diann 1 tablet Memoria 8-24 Vo l 02:45: [place] Meloxicam 2019-0 Yes Diann 1 tablet Memoria 8-24 Vo l 02:45: [place] Meloxicam 2019-0 Yes Diann 1 tablet Memoria 8-24 Vo l 02:45: [place] Meloxicam 2019-0 Yes Diann 1 tablet Memoria 8-24 Vo l 02:45: [place] Meloxicam 2019-0 Yes Diann 1 tablet Memoria 8-24 Vo l 02:45: [place] Meloxicam 2019-0 Yes Diann 1 tablet Memoria 8-24 Vo l 02:45: [place] Meloxicam 2019-0 Yes Diann 1 tablet Memoria 8-24 Vo l 02:45: [place] Meloxicam 2019-0 Yes Diann 1 tablet Memoria 8-24 Vo l 02:45: [place] Meloxicam 2019-0 Yes Diann 1 tablet Memoria 8-24 Vo l 02:45: [place] Meloxicam 2019-0 Yes Diann 1 tablet Memoria 8-24 Vo l 02:45: [place] Meloxicam 2019-0 Yes Diann 1 tablet Memoria 8-24 Vo l 02:45: [place] Meloxicam 2019-0 Yes Diann 1 tablet Memoria 8-24 Vo l 02:45: [place] Meloxicam 2019-0 Yes Diann 1 tablet Memoria 8-24 Vo l 02:45: [place] Meloxicam 2019-0 Yes Diann 1 tablet Memoria 8-24 Vo l 02:45: [place] Meloxicam 2019-0 Yes Diann 1 tablet Memoria 8-24 Vo l 02:45: [place] Meloxicam 2019-0 Yes Diann 1 tablet Memoria 8-24 Vo l 02:45: [place] Meloxicam 2019-0 Yes Diann 1 tablet Memoria 8-24 Vo l 02:45: [place] Allopurinol 2019-0 Yes Nilanjana 2 tablets Memoria 8-23 Haley l 00:00: Colchicine 2019-0 Yes Nilanjana 1 tablet Memoria 8-23 Haley l 00:00: Allopurinol 2019-0 Yes Nilanjana 2 tablets Memoria 8-23 Haley l 00:00: Colchicine 2019-0 Yes Nilanjana 1 tablet Memoria 8-23 Haley l 00:00: Allopurinol 2019-0 Yes Nilanjana 2 tablets Memoria 8-23 Haley l 00:00: Colchicine 2019-0 Yes Nilanjana 1 tablet Memoria 8-23 Haley l 00:00: Allopurinol 2019-0 Yes Nilanjana 2 tablets Memoria 8-23 Haley l 00:00: Colchicine 2019-0 Yes Nilanjana 1 tablet Memoria 8-23 Haley l 00:00: Allopurinol 2019-0 Yes Nilanjana 2 tablets Memoria 8-23 Haley l 00:00: Colchicine 2019-0 Yes Nilanjana 1 tablet Memoria 8-23 Haley l 00:00: Allopurinol 2019-0 Yes Nilanjana 2 tablets Memoria 8-23 Haley l 00:00: Colchicine 2019-0 Yes Nilanjana 1 tablet Memoria 8-23 Haley l 00:00: Allopurinol 2019-0 Yes Nilanjana 2 tablets Memoria 8-23 Haley l 00:00: Colchicine 2019-0 Yes Nilanjana 1 tablet Memoria 8-23 Haley l 00:00: Allopurinol 2019-0 Yes Nilanjana 2 tablets Memoria 8-23 Haley l 00:00: Colchicine 2019-0 Yes Nilanjana 1 tablet Memoria 8-23 Haley l 00:00: Allopurinol 2019-0 Yes Nilanjana 2 tablets Memoria 8-23 Haley l 00:00: Colchicine 2019-0 Yes Nilanjana 1 tablet Memoria 8-23 Haley l 00:00: Allopurinol 2019-0 Yes Nilanjana 2 tablets Memoria 8-23 Haley l 00:00: Colchicine 2019-0 Yes Nilanjana 1 tablet Memoria 8-23 Haley l 00:00: Allopurinol 2019-0 Yes Nilanjana 2 tablets Memoria 8-23 Haley l 00:00: Colchicine 2019-0 Yes Nilanjana 1 tablet Memoria 8-23 Haley l 00:00: Allopurinol 2019-0 Yes Nilanjana 2 tablets Memoria 8-23 Haley l 00:00: Colchicine 2019-0 Yes Nilanjana 1 tablet Memoria 8-23 Haley l 00:00: Allopurinol 2019-0 Yes Nilanjana 2 tablets Memoria 8-23 Haley l 00:00: Colchicine 2019-0 Yes Nilanjana 1 tablet Memoria 8-23 Haley l 00:00: Allopurinol 2019-0 Yes Nilanjana 2 tablets Memoria 8-23 Haley l 00:00: Colchicine 2019-0 Yes Nilanjana 1 tablet Memoria 8-23 Haley l 00:00: Allopurinol 2019-0 Yes Nilanjana 2 tablets Memoria 8-23 Haley l 00:00: Colchicine 2019-0 Yes Nilanjana 1 tablet Memoria 8-23 Haley l 00:00: Allopurinol 2019-0 Yes Nilanjana 2 tablets Memoria 8-23 Haley l 00:00: Colchicine 2019-0 Yes Nilanjana 1 tablet Memoria 8-23 Haley l 00:00: Allopurinol 2019-0 Yes Nilanjana 2 tablets Memoria 8-23 Haley l 00:00: Colchicine 2019-0 Yes Nilanjana 1 tablet Memoria 8-23 Haley l 00:00: Allopurinol 2019-0 Yes Nilanjana 2 tablets Memoria 8-23 Haley l 00:00: Colchicine 2019-0 Yes Nilanjana 1 tablet Memoria 8-23 Haley l 00:00: Allopurinol 2019-0 Yes Nilanjana 2 tablets Memoria 8-23 Haley l 00:00: Colchicine 2019-0 Yes Nilanjana 1 tablet Memoria 8-23 Haley l 00:00: Allopurinol 2019-0 Yes Nilanjana 2 tablets Memoria 8-23 Haley l 00:00: Colchicine 2019-0 Yes Nilanjana 1 tablet Memoria 8-23 Haley l 00:00: Allopurinol 2019-0 Yes Nilanjana 2 tablets Memoria 8-23 Haley l 00:00: Colchicine 2019-0 Yes Nilanjana 1 tablet Memoria 8-23 Haley l 00:00: Allopurinol 2019-0 Yes Nilanjana 2 tablets Memoria 8-23 Haley l 00:00: Colchicine 2019-0 Yes Nilanjana 1 tablet Memoria 8-23 Haley l 00:00: Allopurinol 2019-0 Yes Nilanjana 2 tablets Memoria 8-23 Haley l 00:00: Colchicine 2019-0 Yes Nilanjana 1 tablet Memoria 8-23 Haley l 00:00: meclizine Yes Jaymie 25 mg, 1 M emoria 25 mg oral 2-21 Natasha tab, PO, l tablet 17:10: Noah TID, PRN, Herm lobo 25 10 tab, for nausea/vom iting, Substituti on Allowed, TAB meclizine Yes Jaymie 25 mg, 1 M emoria 25 mg oral 2-21 Natasha tab, PO, l tablet 17:10: [place] TID, PRN, Herm lobo 25 10 tab, for nausea/vom iting, Substituti on Allowed, TAB meclizine Yes Jaymie 25 mg, 1 M emoria 25 mg oral 2-21 Natasha tab, PO, l tablet 17:10: [place] TID, PRN, Herm lobo 25 10 tab, for nausea/vom iting, Substituti on Allowed, TAB meclizine Yes Jaymie 25 mg, 1 M emoria 25 mg oral 2-21 Natasha tab, PO, l tablet 17:10: [place] TID, PRN, Herm lobo 25 10 tab, for nausea/vom iting, Substituti on Allowed, TAB meclizine Yes Jaymie 25 mg, 1 M emoria 25 mg oral 2-21 Natasha tab, PO, l tablet 17:10: [place] TID, PRN, Herm lobo 25 10 tab, for nausea/vom iting, Substituti on Allowed, TAB meclizine Yes Jaymie 25 mg, 1 M emoria 25 mg oral 2- Natasha tab, PO, l tablet 17:10: [place] TID, PRN, Herm lobo 25 10 tab, for nausea/vom iting, Substituti on Allowed, TAB meclizine Yes Jaymie 25 mg, 1 M emoria 25 mg oral 2- Natasha tab, PO, l tablet 17:10: Noah TID, PRN, Herm lobo 25 10 tab, for nausea/vom iting, Substituti on Allowed, TAB meclizine Yes Jaymie 25 mg, 1 M emoria 25 mg oral 2- Natasha tab, PO, l tablet 17:10: [place] TID, PRN, Herm lobo 25 10 tab, for nausea/vom iting, Substituti on Allowed, TAB meclizine Yes Jaymie 25 mg, 1 M emoria 25 mg oral 2- Natasha tab, PO, l tablet 17:10: [place] TID, PRN, Herm lobo 25 10 tab, for nausea/vom iting, Substituti on Allowed, TAB meclizine Yes Jaymie 25 mg, 1 M emoria 25 mg oral - Natasha tab, PO, l tablet 17:10: [place] TID, PRN, Herm lobo 25 10 tab, for nausea/vom iting, Substituti on Allowed, TAB meclizine Yes Jaymie 25 mg, 1 M emoria 25 mg oral 2- Natasha tab, PO, l tablet 17:10: [place] TID, PRN, Herm lobo 25 10 tab, for nausea/vom iting, Substituti on Allowed, TAB meclizine Yes Jaymie 25 mg, 1 M emoria 25 mg oral 2-21 Natasha tab, PO, l tablet 17:10: [place] TID, PRN, Herm lobo 25 10 tab, for nausea/vom iting, Substituti on Allowed, TAB meclizine Yes Jaymie 25 mg, 1 M emoria 25 mg oral 2- Natasha tab, PO, l tablet 17:10: [place] TID, PRN, Herm lobo 25 10 tab, for nausea/vom iting, Substituti on Allowed, TAB meclizine Yes Jaymie 25 mg, 1 M emoria 25 mg oral 2-21 Natasha tab, PO, l tablet 17:10: [place] TID, PRN, Herm lobo 25 10 tab, for nausea/vom iting, Substituti on Allowed, TAB meclizine Yes Jaymie 25 mg, 1 M emoria 25 mg oral 2- Natasha tab, PO, l tablet 17:10: Noah TID, PRN, Herm lobo 25 10 tab, for nausea/vom iting, Substituti on Allowed, TAB meclizine Yes Jaymie 25 mg, 1 M emoria 25 mg oral 2- Natasha tab, PO, l tablet 17:10: Noah TID, PRN, Herm lobo 25 10 tab, for nausea/vom iting, Substituti on Allowed, TAB meclizine Yes Jaymie 25 mg, 1 M emoria 25 mg oral 2- Natasha tab, PO, l tablet 17:10: Noah TID, PRN, Herm lobo 25 10 tab, for nausea/vom iting, Substituti on Allowed, TAB meclizine Yes Jaymie 25 mg, 1 M emoria 25 mg oral 2- Natasha tab, PO, l tablet 17:10: Noah TID, PRN, Herm lobo 25 10 tab, for nausea/vom iting, Substituti on Allowed, TAB meclizine Yes Jaymie 25 mg, 1 M emoria 25 mg oral 2-21 Natasha tab, PO, l tablet 17:10: Noah TID, PRN, Herm lobo 25 10 tab, for nausea/vom iting, Substituti on Allowed, TAB meclizine Yes Jaymie 25 mg, 1 M emoria 25 mg oral 2-21 Natasha tab, PO, l tablet 17:10: Noah TID, PRN, Herm lobo 25 10 tab, for nausea/vom iting, Substituti on Allowed, TAB meclizine Yes Jaymie 25 mg, 1 M emoria 25 mg oral 2-21 Natasha tab, PO, l tablet 17:10: Noah TID, PRN, Herm lobo 25 10 tab, for nausea/vom iting, Substituti on Allowed, TAB meclizine Yes Jaymie 25 mg, 1 M emoria 25 mg oral 2-21 Natasha tab, PO, l tablet 17:10: Noah TID, PRN, Herm lobo 25 10 tab, for nausea/vom iting, Substituti on Allowed, TAB meclizine Yes Jaymie 25 mg, 1 M emoria 25 mg oral 2-21 Natasha tab, PO, l tablet 17:10: [place] TID, PRN, Herm lobo 25 10 tab, for nausea/vom iting, Substituti on Allowed, TAB Ativan No Jarvis 2 mg, 1 Memori a 2-21 Omidvar mL, Route: l 01:37: IVP, Drug [place] 00 form: INJ, ONCE, Dosing Weight 125.227, kg, PRN Anxiety, Start date: 09/23/12 19:37:00 Ativan No Jarvis 2 mg, 1 Memori a 2-21 Omidvar mL, Route: l 01:37: IVP, Drug [place] 00 form: INJ, ONCE, Dosing Weight 125.227, kg, PRN Anxiety, Start date: 09/23/12 19:37:00 Ativan No Jarvis 2 mg, 1 Memori a 2-21 Omidvar mL, Route: l 01:37: IVP, Drug B[place]o 00 form: INJ, ONCE, Dosing Weight 125.227, kg, PRN Anxiety, Start date: 09/23/12 19:37:00 Ativan No Jarvis 2 mg, 1 Memori a 2-21 Omidvar mL, Route: l 01:37: IVP, Drug B[place]o 00 form: INJ, ONCE, Dosing Weight 125.227, kg, PRN Anxiety, Start date: 09/23/12 19:37:00 Ativan No Jarvis 2 mg, 1 Memori a 2-21 Omidvar mL, Route: l 01:37: IVP, Drug [place] 00 form: INJ, ONCE, Dosing Weight 125.227, kg, PRN Anxiety, Start date: 09/23/12 19:37:00 Ativan No Jarvis 2 mg, 1 Memori a 2-21 Omidvar mL, Route: l 01:37: IVP, Drug [place] 00 form: INJ, ONCE, Dosing Weight 125.227, kg, PRN Anxiety, Start date: 09/23/12 19:37:00 Ativan No Jarvis 2 mg, 1 Memori a 2-21 Omidvar mL, Route: l 01:37: IVP, Drug Bebo 00 form: INJ, ONCE, Dosing Weight 125.227, kg, PRN Anxiety, Start date: 09/23/12 19:37:00 Ativan No Jarvis 2 mg, 1 Memori a 2-21 Omidvar mL, Route: l 01:37: IVP, Drug [place] 00 form: INJ, ONCE, Dosing Weight 125.227, kg, PRN Anxiety, Start date: 09/23/12 19:37:00 Ativan No Jarvis 2 mg, 1 Memori a 2-21 Omidvar mL, Route: l 01:37: IVP, Drug [place] 00 form: INJ, ONCE, Dosing Weight 125.227, kg, PRN Anxiety, Start date: 09/23/12 19:37:00 Ativan No Jarvis 2 mg, 1 Memori a 2-21 Omidvar mL, Route: l 01:37: IVP, Drug Bebo 00 form: INJ, ONCE, Dosing Weight 125.227, kg, PRN Anxiety, Start date: 09/23/12 19:37:00 Ativan No Jarvis 2 mg, 1 Memori a 2-21 Omidvar mL, Route: l 01:37: IVP, Drug Bebo 00 form: INJ, ONCE, Dosing Weight 125.227, kg, PRN Anxiety, Start date: 09/23/12 19:37:00 Ativan No Jarvis 2 mg, 1 Memori a 2-21 Omidvar mL, Route: l 01:37: IVP, Drug [place] 00 form: INJ, ONCE, Dosing Weight 125.227, kg, PRN Anxiety, Start date: 09/23/12 19:37:00 Ativan No Jarvis 2 mg, 1 Memori a 2-21 Omidvar mL, Route: l 01:37: IVP, Drug [place] 00 form: INJ, ONCE, Dosing Weight 125.227, kg, PRN Anxiety, Start date: 09/23/12 19:37:00 Ativan No Jarvis 2 mg, 1 Memori a 2-21 Omidvar mL, Route: l 01:37: IVP, Drug [place] 00 form: INJ, ONCE, Dosing Weight 125.227, kg, PRN Anxiety, Start date: 09/23/12 19:37:00 Ativan No Jarvis 2 mg, 1 Memori a 2-21 Omidvar mL, Route: l 01:37: IVP, Drug Bebo 00 form: INJ, ONCE, Dosing Weight 125.227, kg, PRN Anxiety, Start date: 09/23/12 19:37:00 Ativan No Jarvis 2 mg, 1 Memori a 2-21 Omidvar mL, Route: l 01:37: IVP, Drug [place]o 00 form: INJ, ONCE, Dosing Weight 125.227, kg, PRN Anxiety, Start date: 09/23/12 19:37:00 Ativan No Jarvis 2 mg, 1 Memori a 2-21 Omidvar mL, Route: l 01:37: IVP, Drug Bebo 00 form: INJ, ONCE, Dosing Weight 125.227, kg, PRN Anxiety, Start date: 09/23/12 19:37:00 Ativan 0 No Jarvis 2 mg, 1 Memori a 2-21 Omidvar mL, Route: l 01:37: IVP, Drug Bebo 00 form: INJ, ONCE, Dosing Weight 125.227, kg, PRN Anxiety, Start date: 09/23/12 19:37:00 Ativan 0 No Jarvis 2 mg, 1 Memori a 2-21 Omidvar mL, Route: l 01:37: IVP, Drug [place] 00 form: INJ, ONCE, Dosing Weight 125.227, kg, PRN Anxiety, Start date: 09/23/12 19:37:00 Ativan 0 No Jarvis 2 mg, 1 Memori a 2-21 Omidvar mL, Route: l 01:37: IVP, Drug Bebo 00 form: INJ, ONCE, Dosing Weight 125.227, kg, PRN Anxiety, Start date: 09/23/12 19:37:00 Ativan No Jarvis 2 mg, 1 Memori a 2-21 Omidvar mL, Route: l 01:37: IVP, Drug Bebo 00 form: INJ, ONCE, Dosing Weight 125.227, kg, PRN Anxiety, Start date: 09/23/12 19:37:00 Ativan No Jarvis 2 mg, 1 Memori a 2-21 Omidvar mL, Route: l 01:37: IVP, Drug Bebo 00 form: INJ, ONCE, Dosing Weight 125.227, kg, PRN Anxiety, Start date: 09/23/12 19:37:00 Ativan No Jarvis 2 mg, 1 Memori a 2-21 Omidvar mL, Route: l 01:37: IVP, Drug [place] 00 form: INJ, ONCE, Dosing Weight 125.227, kg, PRN Anxiety, Start date: 09/23/12 19:37:00 Ativan No Jaymie 1 mg, 0.5 Mem oria 2-20 Natasha mL, Route: l 22:43: Noah IVP, Drug Rajan n 00 form: INJ, ONCE, Dosing Weight 125.227, kg, PRN Anxiety, Start date: 09/23/12 16:43:00 Ativan No Jaymie 1 mg, 0.5 Mem oria 2-20 Natasha mL, Route: l 22:43: Noah IVP, Drug Rajan n 00 form: INJ, ONCE, Dosing Weight 125.227, kg, PRN Anxiety, Start date: 09/23/12 16:43:00 Ativan No Jaymie 1 mg, 0.5 Mem oria 2-20 Natasha mL, Route: l 22:43: Noah IVP, Drug Rajan n 00 form: INJ, ONCE, Dosing Weight 125.227, kg, PRN Anxiety, Start date: 09/23/12 16:43:00 Ativan 0 No Jaymie 1 mg, 0.5 Mem oria 2-20 Natasha mL, Route: l 22:43: Noah IVP, Drug Rajan n 00 form: INJ, ONCE, Dosing Weight 125.227, kg, PRN Anxiety, Start date: 09/23/12 16:43:00 Ativan No Jaymie 1 mg, 0.5 Mem oria 2-20 Natasha mL, Route: l 22:43: Noah IVP, Drug Rajan n 00 form: INJ, ONCE, Dosing Weight 125.227, kg, PRN Anxiety, Start date: 09/23/12 16:43:00 Ativan No Jaymie 1 mg, 0.5 Mem oria 2-20 Natasha mL, Route: l 22:43: Noah IVP, Drug Rajan n 00 form: INJ, ONCE, Dosing Weight 125.227, kg, PRN Anxiety, Start date: 09/23/12 16:43:00 Ativan No Jaymie 1 mg, 0.5 Mem oria 2-20 Natasha mL, Route: l 22:43: Noah IVP, Drug Rajan n 00 form: INJ, ONCE, Dosing Weight 125.227, kg, PRN Anxiety, Start date: 09/23/12 16:43:00 Ativan No Jaymie 1 mg, 0.5 Mem oria 2-20 Natasha mL, Route: l 22:43: Noah IVP, Drug Rajan n 00 form: INJ, ONCE, Dosing Weight 125.227, kg, PRN Anxiety, Start date: 09/23/12 16:43:00 Ativan No Jaymie 1 mg, 0.5 Mem oria 2-20 Natasha mL, Route: l 22:43: Noah IVP, Drug Rajan n 00 form: INJ, ONCE, Dosing Weight 125.227, kg, PRN Anxiety, Start date: 09/23/12 16:43:00 Ativan No Jaymie 1 mg, 0.5 Mem oria 2-20 Natasha mL, Route: l 22:43: Noah IVP, Drug Rajan n 00 form: INJ, ONCE, Dosing Weight 125.227, kg, PRN Anxiety, Start date: 09/23/12 16:43:00 Ativan No Jaymie 1 mg, 0.5 Mem oria 2-20 Natasha mL, Route: l 22:43: Noah IVP, Drug Rajan n 00 form: INJ, ONCE, Dosing Weight 125.227, kg, PRN Anxiety, Start date: 09/23/12 16:43:00 Ativan No Jaymie 1 mg, 0.5 Mem oria 2-20 Natasha mL, Route: l 22:43: Noah IVP, Drug Rajan n 00 form: INJ, ONCE, Dosing Weight 125.227, kg, PRN Anxiety, Start date: 09/23/12 16:43:00 Ativan No Jaymie 1 mg, 0.5 Mem oria 2-20 Natasha mL, Route: l 22:43: Noah IVP, Drug Rajan n 00 form: INJ, ONCE, Dosing Weight 125.227, kg, PRN Anxiety, Start date: 09/23/12 16:43:00 Ativan No Jaymie 1 mg, 0.5 Mem oria 2-20 Natasha mL, Route: l 22:43: Noah IVP, Drug Rajan n 00 form: INJ, ONCE, Dosing Weight 125.227, kg, PRN Anxiety, Start date: 09/23/12 16:43:00 Ativan No Jaymie 1 mg, 0.5 Mem oria 2-20 Natasha mL, Route: l 22:43: Noah IVP, Drug Rajan n 00 form: INJ, ONCE, Dosing Weight 125.227, kg, PRN Anxiety, Start date: 09/23/12 16:43:00 Ativan No Ajymie 1 mg, 0.5 Mem oria 2-20 Natasha mL, Route: l 22:43: Noah IVP, Drug Rajan n 00 form: INJ, ONCE, Dosing Weight 125.227, kg, PRN Anxiety, Start date: 09/23/12 16:43:00 Ativan No Jaymie 1 mg, 0.5 Mem oria 2-20 Natasha mL, Route: l 22:43: Noah IVP, Drug Rajan n 00 form: INJ, ONCE, Dosing Weight 125.227, kg, PRN Anxiety, Start date: 09/23/12 16:43:00 Ativan No Jaymie 1 mg, 0.5 Mem oria 2-20 Natasha mL, Route: l 22:43: Noah IVP, Drug Rajan n 00 form: INJ, ONCE, Dosing Weight 125.227, kg, PRN Anxiety, Start date: 09/23/12 16:43:00 Ativan No Jaymie 1 mg, 0.5 Mem oria 2-20 Natasha mL, Route: l 22:43: Noah IVP, Drug Rajan n 00 form: INJ, ONCE, Dosing Weight 125.227, kg, PRN Anxiety, Start date: 09/23/12 16:43:00 Ativan No Jaymie 1 mg, 0.5 Mem oria 2-20 Natasha mL, Route: l 22:43: Noah IVP, Drug Rajan n 00 form: INJ, ONCE, Dosing Weight 125.227, kg, PRN Anxiety, Start date: 09/23/12 16:43:00 Ativan No Jaymie 1 mg, 0.5 Mem oria 2-20 Natasha mL, Route: l 22:43: Noah IVP, Drug Rajan n 00 form: INJ, ONCE, Dosing Weight 125.227, kg, PRN Anxiety, Start date: 09/23/12 16:43:00 Ativan No Jaymie 1 mg, 0.5 Mem oria 2-20 Natasha mL, Route: l 22:43: Noah IVP, Drug Rajan n 00 form: INJ, ONCE, Dosing Weight 125.227, kg, PRN Anxiety, Start date: 09/23/12 16:43:00 Ativan No Jaymie 1 mg, 0.5 Mem oria 2-20 Natasha mL, Route: l 22:43: Noah IVP, Drug Rajan n 00 form: INJ, ONCE, Dosing Weight 125.227, kg, PRN Anxiety, Start date: 09/23/12 16:43:00 Zofran 0 No Bret 4 mg, 2 Memor ia 2-20 Donald mL, Route: l 18:04: Carmella IVP, Drug Herm lobo 00 form: INJ, ONCE, Dosing Weight 125.227, kg, Start date: 09/23/12 12:04:00, Stop date: 09/23/12 12:04:00 Zofran 2013-0 No Bret 4 mg, 2 Memor ia 2-20 Donald mL, Route: l 18:04: Carmella IVP, Drug Herm lobo 00 form: INJ, ONCE, Dosing Weight 125.227, kg, Start date: 09/23/12 12:04:00, Stop date: 09/23/12 12:04:00 Zofran 2012-0 No Bret 4 mg, 2 Memor ia 2-20 Donald mL, Route: l 18:04: Carmella IVP, Drug Herm lobo 00 form: INJ, ONCE, Dosing Weight 125.227, kg, Start date: 09/23/12 12:04:00, Stop date: 09/23/12 12:04:00 Zofran 2012-0 No Bret 4 mg, 2 Memor ia 2-20 Donald mL, Route: l 18:04: Carmella IVP, Drug Herm lobo 00 form: INJ, ONCE, Dosing Weight 125.227, kg, Start date: 09/23/12 12:04:00, Stop date: 09/23/12 12:04:00 Zofran 2012-0 No Bret 4 mg, 2 Memor ia 2-20 Donald mL, Route: l 18:04: Carmella IVP, Drug Herm lobo 00 form: INJ, ONCE, Dosing Weight 125.227, kg, Start date: 09/23/12 12:04:00, Stop date: 09/23/12 12:04:00 Zofran 2012-0 No Bret 4 mg, 2 Memor ia 2-20 Donald mL, Route: l 18:04: Carmella IVP, Drug Herm lobo 00 form: INJ, ONCE, Dosing Weight 125.227, kg, Start date: 09/23/12 12:04:00, Stop date: 09/23/12 12:04:00 Zofran 2012-0 No Bret 4 mg, 2 Memor ia 2-20 Donald mL, Route: l 18:04: Carmella IVP, Drug Herm lobo 00 form: INJ, ONCE, Dosing Weight 125.227, kg, Start date: 09/23/12 12:04:00, Stop date: 09/23/12 12:04:00 Zofran 2012-0 No Bret 4 mg, 2 Memor ia 2-20 Donald mL, Route: l 18:04: Carmella IVP, Drug Herm lobo 00 form: INJ, ONCE, Dosing Weight 125.227, kg, Start date: 09/23/12 12:04:00, Stop date: 09/23/12 12:04:00 Zofran 2012-0 No Bret 4 mg, 2 Memor ia 2-20 Donald mL, Route: l 18:04: Carmella IVP, Drug Herm lobo 00 form: INJ, ONCE, Dosing Weight 125.227, kg, Start date: 09/23/12 12:04:00, Stop date: 09/23/12 12:04:00 Zofran 2012-0 No Bret 4 mg, 2 Memor ia 2-20 Donald mL, Route: l 18:04: Carmella IVP, Drug Herm lobo 00 form: INJ, ONCE, Dosing Weight 125.227, kg, Start date: 09/23/12 12:04:00, Stop date: 09/23/12 12:04:00 Zofran 2012-0 No Bret 4 mg, 2 Memor ia 2-20 Donald mL, Route: l 18:04: Carmella IVP, Drug Herm lobo 00 form: INJ, ONCE, Dosing Weight 125.227, kg, Start date: 09/23/12 12:04:00, Stop date: 09/23/12 12:04:00 Zofran 2012-0 No Bret 4 mg, 2 Memor ia 2-20 Donald mL, Route: l 18:04: Carmella IVP, Drug Herm lobo 00 form: INJ, ONCE, Dosing Weight 125.227, kg, Start date: 09/23/12 12:04:00, Stop date: 09/23/12 12:04:00 Zofran 2012-0 No Bret 4 mg, 2 Memor ia 2-20 Donald mL, Route: l 18:04: Carmella IVP, Drug Herm lobo 00 form: INJ, ONCE, Dosing Weight 125.227, kg, Start date: 09/23/12 12:04:00, Stop date: 09/23/12 12:04:00 Zofran 2012-0 No Bret 4 mg, 2 Memor ia 2-20 Donald mL, Route: l 18:04: Carmella IVP, Drug Herm lobo 00 form: INJ, ONCE, Dosing Weight 125.227, kg, Start date: 09/23/12 12:04:00, Stop date: 09/23/12 12:04:00 Zofran 2012-0 No Bret 4 mg, 2 Memor ia 2-20 Donald mL, Route: l 18:04: Carmella IVP, Drug Herm lobo 00 form: INJ, ONCE, Dosing Weight 125.227, kg, Start date: 09/23/12 12:04:00, Stop date: 09/23/12 12:04:00 Zofran 2012-0 No Bret 4 mg, 2 Memor ia 2-20 Donald mL, Route: l 18:04: Carmella IVP, Drug Herm lobo 00 form: INJ, ONCE, Dosing Weight 125.227, kg, Start date: 09/23/12 12:04:00, Stop date: 09/23/12 12:04:00 Zofran 2012-0 No Bret 4 mg, 2 Memor ia 2-20 Donald mL, Route: l 18:04: [facility]ella IVP, Drug Herm lobo 00 form: INJ, ONCE, Dosing Weight 125.227, kg, Start date: 09/23/12 12:04:00, Stop date: 09/23/12 12:04:00 Zofran 2012-0 No Bret 4 mg, 2 Memor ia 2-20 Donald mL, Route: l 18:04: Carmella IVP, Drug Herm lobo 00 form: INJ, ONCE, Dosing Weight 125.227, kg, Start date: 09/23/12 12:04:00, Stop date: 09/23/12 12:04:00 Zofran 2012-0 No Bret 4 mg, 2 Memor ia 2-20 Donald mL, Route: l 18:04: Carmella IVP, Drug Herm lobo 00 form: INJ, ONCE, Dosing Weight 125.227, kg, Start date: 09/23/12 12:04:00, Stop date: 09/23/12 12:04:00 Zofran 2012-0 No Bret 4 mg, 2 Memor ia 2-20 Donald mL, Route: l 18:04: [facility]ella IVP, Drug Herm lobo 00 form: INJ, ONCE, Dosing Weight 125.227, kg, Start date: 09/23/12 12:04:00, Stop date: 09/23/12 12:04:00 Zofran 2012-0 No Bret 4 mg, 2 Memor ia 2-20 Donald mL, Route: l 18:04: [facility]ella IVP, Drug Herm lobo 00 form: INJ, ONCE, Dosing Weight 125.227, kg, Start date: 09/23/12 12:04:00, Stop date: 09/23/12 12:04:00 Zofran 2012-0 No Bret 4 mg, 2 Memor ia 2-20 Donald mL, Route: l 18:04: [facility]ella IVP, Drug Herm lobo 00 form: INJ, ONCE, Dosing Weight 125.227, kg, Start date: 09/23/12 12:04:00, Stop date: 09/23/12 12:04:00 Zofran 2012-0 No Bret 4 mg, 2 Memor ia 2-20 Donald mL, Route: l 18:04: [facility]ella IVP, Drug Herm lobo 00 form: INJ, ONCE, Dosing Weight 125.227, kg, Start date: 09/23/12 12:04:00, Stop date: 09/23/12 12:04:00 Zofran 2012-0 No Zaina 4 mg, 2 Serg kim 2-20 Lobo Wally mL, Route: l 18:00: IVP, Drug [place] 00 form: INJ, ONCE, Start date: 09/23/12 12:00:00, Stop date: 09/23/12 12:00:00 Zofran 2012-0 No Zaina 4 mg, 2 Serg kim 2-20 Lobo Wally mL, Route: l 18:00: IVP, Drug [place] 00 form: INJ, ONCE, Start date: 09/23/12 12:00:00, Stop date: 09/23/12 12:00:00 Zofran 2012-0 No Zaina 4 mg, 2 Serg kim 2-20 Lobo Wally mL, Route: l 18:00: IVP, Drug [place] 00 form: INJ, ONCE, Start date: 09/23/12 12:00:00, Stop date: 09/23/12 12:00:00 Zofran 2012-0 No Zaina 4 mg, 2 Serg kim 2-20 Lobo Wally mL, Route: l 18:00: IVP, Drug [facility] 00 form: INJ, ONCE, Start date: 09/23/12 12:00:00, Stop date: 09/23/12 12:00:00 Zofran 2012-0 No Zaina 4 mg, 2 Serg kim 2-20 Lobo Wally mL, Route: l 18:00: IVP, Drug [facility] 00 form: INJ, ONCE, Start date: 09/23/12 12:00:00, Stop date: 09/23/12 12:00:00 Zofran 2012-0 No Zaina 4 mg, 2 Serg kim 2-20 Lobo Wally mL, Route: l 18:00: IVP, Drug [facility] 00 form: INJ, ONCE, Start date: 09/23/12 12:00:00, Stop date: 09/23/12 12:00:00 Zofran 2012-0 No Zaina 4 mg, 2 Serg kim 2-20 Lobo Wally mL, Route: l 18:00: IVP, Drug [place] 00 form: INJ, ONCE, Start date: 09/23/12 12:00:00, Stop date: 09/23/12 12:00:00 Zofran 2012-0 No Zaina 4 mg, 2 Serg kim 2-20 Lobo Wally mL, Route: l 18:00: IVP, Drug [place] 00 form: INJ, ONCE, Start date: 09/23/12 12:00:00, Stop date: 09/23/12 12:00:00 Zofran 2012-0 No Zaina 4 mg, 2 Serg kim 2-20 Lobo Wally mL, Route: l 18:00: IVP, Drug [facility] 00 form: INJ, ONCE, Start date: 09/23/12 12:00:00, Stop date: 09/23/12 12:00:00 Zofran 2012-0 No Zaina 4 mg, 2 Serg kim 2-20 Lobo Wally mL, Route: l 18:00: IVP, Drug [place] 00 form: INJ, ONCE, Start date: 09/23/12 12:00:00, Stop date: 09/23/12 12:00:00 Zofran 2012-0 No Zaina 4 mg, 2 Serg kim 2-20 Lobo Wally mL, Route: l 18:00: IVP, Drug [facility] 00 form: INJ, ONCE, Start date: 09/23/12 12:00:00, Stop date: 09/23/12 12:00:00 Zofran 2012-0 No Zaina 4 mg, 2 Serg kim 2-20 Lobo Wally mL, Route: l 18:00: IVP, Drug [facility] 00 form: INJ, ONCE, Start date: 09/23/12 12:00:00, Stop date: 09/23/12 12:00:00 Zofran 2012-0 No Zaina 4 mg, 2 Serg kim 2-20 Lobo Wally mL, Route: l 18:00: IVP, Drug [facility] 00 form: INJ, ONCE, Start date: 09/23/12 12:00:00, Stop date: 09/23/12 12:00:00 Zofran 2012-0 No Zaina 4 mg, 2 Serg kim 2-20 Lobo Wally mL, Route: l 18:00: IVP, Drug [facility] 00 form: INJ, ONCE, Start date: 09/23/12 12:00:00, Stop date: 09/23/12 12:00:00 Zofran 2012-0 No Zaina 4 mg, 2 Serg kim 2-20 Lobo Wally mL, Route: l 18:00: IVP, Drug [facility] 00 form: INJ, ONCE, Start date: 09/23/12 12:00:00, Stop date: 09/23/12 12:00:00 Zofran 2012-0 No Zaina 4 mg, 2 Serg kim 2-20 Lobo Wally mL, Route: l 18:00: IVP, Drug [place] 00 form: INJ, ONCE, Start date: 09/23/12 12:00:00, Stop date: 09/23/12 12:00:00 Zofran 2013-0 No Zaina 4 mg, 2 Serg kim 2-20 Lobo Wally mL, Route: l 18:00: IVP, Drug [place] 00 form: INJ, ONCE, Start date: 09/23/12 12:00:00, Stop date: 09/23/12 12:00:00 Zofran 2012-0 No Zaina 4 mg, 2 Serg kim 2-20 Lobo Wally mL, Route: l 18:00: IVP, Drug [place] 00 form: INJ, ONCE, Start date: 09/23/12 12:00:00, Stop date: 09/23/12 12:00:00 Zofran 2012-0 No Zaina 4 mg, 2 Serg kim 2-20 Lobo Wally mL, Route: l 18:00: IVP, Drug [facility] 00 form: INJ, ONCE, Start date: 09/23/12 12:00:00, Stop date: 09/23/12 12:00:00 Zofran 2012-0 No Zaina 4 mg, 2 Serg kim 2-20 Lobo Wally mL, Route: l 18:00: IVP, Drug [place] 00 form: INJ, ONCE, Start date: 09/23/12 12:00:00, Stop date: 09/23/12 12:00:00 Zofran 2012-0 No Zaina 4 mg, 2 Serg kim 2-20 Lobo Wally mL, Route: l 18:00: IVP, Drug [facility] 00 form: INJ, ONCE, Start date: 09/23/12 12:00:00, Stop date: 09/23/12 12:00:00 Zofran 2012-0 No Zaina 4 mg, 2 Serg kim 2-20 Lobo Wally mL, Route: l 18:00: IVP, Drug [facility] 00 form: INJ, ONCE, Start date: 09/23/12 12:00:00, Stop date: 09/23/12 12:00:00 Zofran 2012-0 No Zaina 4 mg, 2 Serg kim 2-20 Lobo Wally mL, Route: l 18:00: IVP, Drug [place] 00 form: INJ, ONCE, Start date: 09/23/12 12:00:00, Stop date: 09/23/12 12:00:00 influenza 0 No SYSTEM 0.5 ml, Mem oria virus 2-20 SYSTEM Route: IM, l vaccine, 15:00: Drug Form: Her marina inactivated 00 INJ, Start date: 09/23/12 9:00:00, Stop date: 09/23/12 9:00:00 influenza 2013-0 No SYSTEM 0.5 ml, Mem oria virus 2-20 SYSTEM Route: IM, l vaccine, 15:00: Drug Form: Her marina inactivated 00 INJ, Start date: 09/23/12 9:00:00, Stop date: 09/23/12 9:00:00 influenza 2013-0 No SYSTEM 0.5 ml, Mem oria virus 2-20 SYSTEM Route: IM, l vaccine, 15:00: Drug Form: Her marina inactivated 00 INJ, Start date: 09/23/12 9:00:00, Stop date: 09/23/12 9:00:00 influenza 2013-0 No SYSTEM 0.5 ml, Mem oria virus 2-20 SYSTEM Route: IM, l vaccine, 15:00: Drug Form: Her marina inactivated 00 INJ, Start date: 09/23/12 9:00:00, Stop date: 09/23/12 9:00:00 influenza 2013-0 No SYSTEM 0.5 ml, Mem oria virus 2-20 SYSTEM Route: IM, l vaccine, 15:00: Drug Form: Her marina inactivated 00 INJ, Start date: 09/23/12 9:00:00, Stop date: 09/23/12 9:00:00 influenza 2013-0 No SYSTEM 0.5 ml, Mem oria virus 2-20 SYSTEM Route: IM, l vaccine, 15:00: Drug Form: Her marina inactivated 00 INJ, Start date: 09/23/12 9:00:00, Stop date: 09/23/12 9:00:00 influenza 2013-0 No SYSTEM 0.5 ml, Mem oria virus 2-20 SYSTEM Route: IM, l vaccine, 15:00: Drug Form: Her marina inactivated 00 INJ, Start date: 09/23/12 9:00:00, Stop date: 09/23/12 9:00:00 influenza 2013-0 No SYSTEM 0.5 ml, Mem oria virus 2-20 SYSTEM Route: IM, l vaccine, 15:00: Drug Form: Her marina inactivated 00 INJ, Start date: 09/23/12 9:00:00, Stop date: 09/23/12 9:00:00 influenza 2013-0 No SYSTEM 0.5 ml, Mem oria virus 2-20 SYSTEM Route: IM, l vaccine, 15:00: Drug Form: Her marina inactivated 00 INJ, Start date: 09/23/12 9:00:00, Stop date: 09/23/12 9:00:00 influenza 2013-0 No SYSTEM 0.5 ml, Mem oria virus 2-20 SYSTEM Route: IM, l vaccine, 15:00: Drug Form: Her marina inactivated 00 INJ, Start date: 09/23/12 9:00:00, Stop date: 09/23/12 9:00:00 influenza 2013-0 No SYSTEM 0.5 ml, Mem oria virus 2-20 SYSTEM Route: IM, l vaccine, 15:00: Drug Form: Her marina inactivated 00 INJ, Start date: 09/23/12 9:00:00, Stop date: 09/23/12 9:00:00 influenza 2013-0 No SYSTEM 0.5 ml, Mem oria virus 2-20 SYSTEM Route: IM, l vaccine, 15:00: Drug Form: Her marina inactivated 00 INJ, Start date: 09/23/12 9:00:00, Stop date: 09/23/12 9:00:00 influenza 2013-0 No SYSTEM 0.5 ml, Mem oria virus 2-20 SYSTEM Route: IM, l vaccine, 15:00: Drug Form: Her marina inactivated 00 INJ, Start date: 09/23/12 9:00:00, Stop date: 09/23/12 9:00:00 influenza 2013-0 No SYSTEM 0.5 ml, Mem oria virus 2-20 SYSTEM Route: IM, l vaccine, 15:00: Drug Form: Her marina inactivated 00 INJ, Start date: 09/23/12 9:00:00, Stop date: 09/23/12 9:00:00 influenza 2013-0 No SYSTEM 0.5 ml, Mem oria virus 2-20 SYSTEM Route: IM, l vaccine, 15:00: Drug Form: Her marina inactivated 00 INJ, Start date: 09/23/12 9:00:00, Stop date: 09/23/12 9:00:00 influenza 2013-0 No SYSTEM 0.5 ml, Mem oria virus 2-20 SYSTEM Route: IM, l vaccine, 15:00: Drug Form: Her marina inactivated 00 INJ, Start date: 09/23/12 9:00:00, Stop date: 09/23/12 9:00:00 influenza 2013-0 No SYSTEM 0.5 ml, Mem oria virus 2-20 SYSTEM Route: IM, l vaccine, 15:00: Drug Form: Her marina inactivated 00 INJ, Start date: 09/23/12 9:00:00, Stop date: 09/23/12 9:00:00 influenza 2012-0 No SYSTEM 0.5 ml, Mem oria virus 2-20 SYSTEM Route: IM, l vaccine, 15:00: Drug Form: Her marina inactivated 00 INJ, Start date: 09/23/12 9:00:00, Stop date: 09/23/12 9:00:00 influenza 2012-0 No SYSTEM 0.5 ml, Mem oria virus 2-20 SYSTEM Route: IM, l vaccine, 15:00: Drug Form: Her marina inactivated 00 INJ, Start date: 09/23/12 9:00:00, Stop date: 09/23/12 9:00:00 influenza 2012-0 No SYSTEM 0.5 ml, Mem oria virus 2-20 SYSTEM Route: IM, l vaccine, 15:00: Drug Form: Her marina inactivated 00 INJ, Start date: 09/23/12 9:00:00, Stop date: 09/23/12 9:00:00 influenza 2012-0 No SYSTEM 0.5 ml, Mem oria virus 2-20 SYSTEM Route: IM, l vaccine, 15:00: Drug Form: Her marina inactivated 00 INJ, Start date: 09/23/12 9:00:00, Stop date: 09/23/12 9:00:00 influenza 2012-0 No SYSTEM 0.5 ml, Mem oria virus 2-20 SYSTEM Route: IM, l vaccine, 15:00: Drug Form: Her marina inactivated 00 INJ, Start date: 09/23/12 9:00:00, Stop date: 09/23/12 9:00:00 influenza 2012-0 No SYSTEM 0.5 ml, Mem oria virus 2-20 SYSTEM Route: IM, l vaccine, 15:00: Drug Form: Her marina inactivated 00 INJ, Start date: 09/23/12 9:00:00, Stop date: 09/23/12 9:00:00 magnesium 2013-0 No Zaina 2 gm, 50 Memoria sulfate 2-19 Lobo Wally mL, Route: l 22:14: IVPB, Drug [place] 00 form: INJ, ONCE, Dosing Weight 125.227, kg, Total dose = 2 gm, Start date: 09/22/12 16:14:00, Duration: 1 doses or times, Stop date: 09/22/12 16:14:00 magnesium 2013-0 No Zaina 2 gm, 50 Memoria sulfate 2-19 Lobo Wally mL, Route: l 22:14: IVPB, Drug [facility] 00 form: INJ, ONCE, Dosing Weight 125.227, kg, Total dose = 2 gm, Start date: 09/22/12 16:14:00, Duration: 1 doses or times, Stop date: 09/22/12 16:14:00 magnesium 2012-0 No Zaina 2 gm, 50 Memoria sulfate 2-19 Lobo Wally mL, Route: l 22:14: IVPB, Drug [place] 00 form: INJ, ONCE, Dosing Weight 125.227, kg, Total dose = 2 gm, Start date: 09/22/12 16:14:00, Duration: 1 doses or times, Stop date: 09/22/12 16:14:00 magnesium 2012-0 No Zaina 2 gm, 50 Memoria sulfate 2-19 Lobo Wally mL, Route: l 22:14: IVPB, Drug [facility] 00 form: INJ, ONCE, Dosing Weight 125.227, kg, Total dose = 2 gm, Start date: 09/22/12 16:14:00, Duration: 1 doses or times, Stop date: 09/22/12 16:14:00 magnesium 2013-0 No Zaina 2 gm, 50 Memoria sulfate 2-19 Lobo Wally mL, Route: l 22:14: IVPB, Drug [facility] 00 form: INJ, ONCE, Dosing Weight 125.227, kg, Total dose = 2 gm, Start date: 09/22/12 16:14:00, Duration: 1 doses or times, Stop date: 09/22/12 16:14:00 magnesium 2013-0 No Zaina 2 gm, 50 Memoria sulfate 2-19 Lobo Wally mL, Route: l 22:14: IVPB, Drug [place] 00 form: INJ, ONCE, Dosing Weight 125.227, kg, Total dose = 2 gm, Start date: 09/22/12 16:14:00, Duration: 1 doses or times, Stop date: 09/22/12 16:14:00 magnesium 2013-0 No Zaina 2 gm, 50 Memoria sulfate 2-19 Lobo Wally mL, Route: l 22:14: IVPB, Drug [place] 00 form: INJ, ONCE, Dosing Weight 125.227, kg, Total dose = 2 gm, Start date: 09/22/12 16:14:00, Duration: 1 doses or times, Stop date: 09/22/12 16:14:00 magnesium 2013-0 No Zaina 2 gm, 50 Memoria sulfate 2-19 Lobo Wally mL, Route: l 22:14: IVPB, Drug [place] 00 form: INJ, ONCE, Dosing Weight 125.227, kg, Total dose = 2 gm, Start date: 09/22/12 16:14:00, Duration: 1 doses or times, Stop date: 09/22/12 16:14:00 magnesium 2012-0 No Zaina 2 gm, 50 Memoria sulfate 2-19 Lobo Wally mL, Route: l 22:14: IVPB, Drug [facility] 00 form: INJ, ONCE, Dosing Weight 125.227, kg, Total dose = 2 gm, Start date: 09/22/12 16:14:00, Duration: 1 doses or times, Stop date: 09/22/12 16:14:00 magnesium 2012-0 No Zaina 2 gm, 50 Memoria sulfate 2-19 Lobo Wally mL, Route: l 22:14: IVPB, Drug [facility] 00 form: INJ, ONCE, Dosing Weight 125.227, kg, Total dose = 2 gm, Start date: 09/22/12 16:14:00, Duration: 1 doses or times, Stop date: 09/22/12 16:14:00 magnesium 2013-0 No Zaina 2 gm, 50 Memoria sulfate 2-19 Lobo Wally mL, Route: l 22:14: IVPB, Drug [place] 00 form: INJ, ONCE, Dosing Weight 125.227, kg, Total dose = 2 gm, Start date: 09/22/12 16:14:00, Duration: 1 doses or times, Stop date: 09/22/12 16:14:00 magnesium 2012-0 No Zaina 2 gm, 50 Memoria sulfate 2-19 Lobo Wally mL, Route: l 22:14: IVPB, Drug [place] 00 form: INJ, ONCE, Dosing Weight 125.227, kg, Total dose = 2 gm, Start date: 09/22/12 16:14:00, Duration: 1 doses or times, Stop date: 09/22/12 16:14:00 magnesium 2013-0 No Zaina 2 gm, 50 Memoria sulfate 2-19 Lobo Wally mL, Route: l 22:14: IVPB, Drug [place] 00 form: INJ, ONCE, Dosing Weight 125.227, kg, Total dose = 2 gm, Start date: 09/22/12 16:14:00, Duration: 1 doses or times, Stop date: 09/22/12 16:14:00 magnesium 2012-0 No Zaina 2 gm, 50 Memoria sulfate 2-19 Lobo Wally mL, Route: l 22:14: IVPB, Drug [place] 00 form: INJ, ONCE, Dosing Weight 125.227, kg, Total dose = 2 gm, Start date: 09/22/12 16:14:00, Duration: 1 doses or times, Stop date: 09/22/12 16:14:00 magnesium 2012-0 No Zaina 2 gm, 50 Memoria sulfate 2-19 Lobo Wally mL, Route: l 22:14: IVPB, Drug [facility] 00 form: INJ, ONCE, Dosing Weight 125.227, kg, Total dose = 2 gm, Start date: 09/22/12 16:14:00, Duration: 1 doses or times, Stop date: 09/22/12 16:14:00 magnesium 2012-0 No Zaina 2 gm, 50 Memoria sulfate 2-19 Lobo Wally mL, Route: l 22:14: IVPB, Drug [facility] 00 form: INJ, ONCE, Dosing Weight 125.227, kg, Total dose = 2 gm, Start date: 09/22/12 16:14:00, Duration: 1 doses or times, Stop date: 09/22/12 16:14:00 magnesium 2013-0 No Zaina 2 gm, 50 Memoria sulfate 2-19 Lobo Wally mL, Route: l 22:14: IVPB, Drug [place] 00 form: INJ, ONCE, Dosing Weight 125.227, kg, Total dose = 2 gm, Start date: 09/22/12 16:14:00, Duration: 1 doses or times, Stop date: 09/22/12 16:14:00 magnesium 2013-0 No Zaina 2 gm, 50 Memoria sulfate 2-19 Lobo Wally mL, Route: l 22:14: IVPB, Drug [place] 00 form: INJ, ONCE, Dosing Weight 125.227, kg, Total dose = 2 gm, Start date: 09/22/12 16:14:00, Duration: 1 doses or times, Stop date: 09/22/12 16:14:00 magnesium 2013-0 No Zaina 2 gm, 50 Memoria sulfate 2-19 Lobo Wally mL, Route: l 22:14: IVPB, Drug [place] 00 form: INJ, ONCE, Dosing Weight 125.227, kg, Total dose = 2 gm, Start date: 09/22/12 16:14:00, Duration: 1 doses or times, Stop date: 09/22/12 16:14:00 magnesium 2013-0 No Zaina 2 gm, 50 Memoria sulfate 2-19 Lobo Wally mL, Route: l 22:14: IVPB, Drug [place] 00 form: INJ, ONCE, Dosing Weight 125.227, kg, Total dose = 2 gm, Start date: 09/22/12 16:14:00, Duration: 1 doses or times, Stop date: 09/22/12 16:14:00 magnesium 2012-0 No Zaina 2 gm, 50 Memoria sulfate 2-19 Lobo Wally mL, Route: l 22:14: IVPB, Drug [facility] 00 form: INJ, ONCE, Dosing Weight 125.227, kg, Total dose = 2 gm, Start date: 09/22/12 16:14:00, Duration: 1 doses or times, Stop date: 09/22/12 16:14:00 magnesium 2013-0 No Zaina 2 gm, 50 Memoria sulfate 2-19 Lobo Wally mL, Route: l 22:14: IVPB, Drug [facility] 00 form: INJ, ONCE, Dosing Weight 125.227, kg, Total dose = 2 gm, Start date: 09/22/12 16:14:00, Duration: 1 doses or times, Stop date: 09/22/12 16:14:00 magnesium 2013-0 No Zaina 2 gm, 50 Memoria sulfate 2-19 Lobo Wally mL, Route: l 22:14: IVPB, Drug [place] 00 form: INJ, ONCE, Dosing Weight 125.227, kg, Total dose = 2 gm, Start date: 09/22/12 16:14:00, Duration: 1 doses or times, Stop date: 09/22/12 16:14:00 ondansetron 2013-0 No Zaina 4 mg, 2 Memoria 2-19 Lobo Wally mL, Route: l 20:01: IVP, Drug [place] 00 form: INJ, Q6H, Dosing Weight 125.227, kg, PRN Nausea & Vomiting, Start date: 09/22/12 14:01:00, Duration: 30 day, Stop date: 10/22/12 14:00:00 ondansetron 2013-0 No Zaina 4 mg, 2 Memoria 2-19 Lobo Wally mL, Route: l 20:01: IVP, Drug [facility] 00 form: INJ, Q6H, Dosing Weight 125.227, kg, PRN Nausea & Vomiting, Start date: 09/22/12 14:01:00, Duration: 30 day, Stop date: 10/22/12 14:00:00 ondansetron 2013-0 No Zaina 4 mg, 2 Memoria 2-19 Lobo Wally mL, Route: l 20:01: IVP, Drug [place] 00 form: INJ, Q6H, Dosing Weight 125.227, kg, PRN Nausea & Vomiting, Start date: 09/22/12 14:01:00, Duration: 30 day, Stop date: 10/22/12 14:00:00 ondansetron 2013-0 No Zaina 4 mg, 2 Memoria 2-19 Lobo Wally mL, Route: l 20:01: IVP, Drug [place] 00 form: INJ, Q6H, Dosing Weight 125.227, kg, PRN Nausea & Vomiting, Start date: 09/22/12 14:01:00, Duration: 30 day, Stop date: 10/22/12 14:00:00 ondansetron 2013-0 No Zaina 4 mg, 2 Memoria 2-19 Lobo Wally mL, Route: l 20:01: IVP, Drug [facility] 00 form: INJ, Q6H, Dosing Weight 125.227, kg, PRN Nausea & Vomiting, Start date: 09/22/12 14:01:00, Duration: 30 day, Stop date: 10/22/12 14:00:00 ondansetron 2013-0 No Zaina 4 mg, 2 Memoria 2-19 Lobo Wally mL, Route: l 20:01: IVP, Drug [place] 00 form: INJ, Q6H, Dosing Weight 125.227, kg, PRN Nausea & Vomiting, Start date: 09/22/12 14:01:00, Duration: 30 day, Stop date: 10/22/12 14:00:00 ondansetron 2013-0 No Zaina 4 mg, 2 Memoria 2-19 Lobo Wally mL, Route: l 20:01: IVP, Drug [facility] 00 form: INJ, Q6H, Dosing Weight 125.227, kg, PRN Nausea & Vomiting, Start date: 09/22/12 14:01:00, Duration: 30 day, Stop date: 10/22/12 14:00:00 ondansetron 2013-0 No Zaina 4 mg, 2 Memoria 2-19 Lobo Wally mL, Route: l 20:01: IVP, Drug [place] 00 form: INJ, Q6H, Dosing Weight 125.227, kg, PRN Nausea & Vomiting, Start date: 09/22/12 14:01:00, Duration: 30 day, Stop date: 10/22/12 14:00:00 ondansetron 2013-0 No Zaina 4 mg, 2 Memoria 2-19 Lobo Wally mL, Route: l 20:01: IVP, Drug [place] 00 form: INJ, Q6H, Dosing Weight 125.227, kg, PRN Nausea & Vomiting, Start date: 09/22/12 14:01:00, Duration: 30 day, Stop date: 10/22/12 14:00:00 ondansetron 2013-0 No Zaina 4 mg, 2 Memoria 2-19 Lobo Wally mL, Route: l 20:01: IVP, Drug [place] 00 form: INJ, Q6H, Dosing Weight 125.227, kg, PRN Nausea & Vomiting, Start date: 09/22/12 14:01:00, Duration: 30 day, Stop date: 10/22/12 14:00:00 ondansetron 2013-0 No Zaina 4 mg, 2 Memoria 2-19 Lobo Wally mL, Route: l 20:01: IVP, Drug [place] 00 form: INJ, Q6H, Dosing Weight 125.227, kg, PRN Nausea & Vomiting, Start date: 09/22/12 14:01:00, Duration: 30 day, Stop date: 10/22/12 14:00:00 ondansetron 2013-0 No Zaina 4 mg, 2 Memoria 2-19 Lobo Wally mL, Route: l 20:01: IVP, Drug [place] 00 form: INJ, Q6H, Dosing Weight 125.227, kg, PRN Nausea & Vomiting, Start date: 09/22/12 14:01:00, Duration: 30 day, Stop date: 10/22/12 14:00:00 ondansetron 2013-0 No Zaina 4 mg, 2 [facility]oria 2-19 Lobo Wally mL, Route: l 20:01: IVP, Drug [place] 00 form: INJ, Q6H, Dosing Weight 125.227, kg, PRN Nausea & Vomiting, Start date: 09/22/12 14:01:00, Duration: 30 day, Stop date: 10/22/12 14:00:00 ondansetron 2013-0 No Zaina 4 mg, 2 Memoria 2-19 Lobo Wally mL, Route: l 20:01: IVP, Drug [place] 00 form: INJ, Q6H, Dosing Weight 125.227, kg, PRN Nausea & Vomiting, Start date: 09/22/12 14:01:00, Duration: 30 day, Stop date: 10/22/12 14:00:00 ondansetron 2013-0 No Zaina 4 mg, 2 Memoria 2-19 Lobo Wally mL, Route: l 20:01: IVP, Drug [place] 00 form: INJ, Q6H, Dosing Weight 125.227, kg, PRN Nausea & Vomiting, Start date: 09/22/12 14:01:00, Duration: 30 day, Stop date: 10/22/12 14:00:00 ondansetron 2013-0 No Zaina 4 mg, 2 Memoria 2-19 Lobo Wally mL, Route: l 20:01: IVP, Drug [place] 00 form: INJ, Q6H, Dosing Weight 125.227, kg, PRN Nausea & Vomiting, Start date: 09/22/12 14:01:00, Duration: 30 day, Stop date: 10/22/12 14:00:00 ondansetron 2013-0 No Zaina 4 mg, 2 [facility]oria 2-19 Lobo Wally mL, Route: l 20:01: IVP, Drug [place] 00 form: INJ, Q6H, Dosing Weight 125.227, kg, PRN Nausea & Vomiting, Start date: 09/22/12 14:01:00, Duration: 30 day, Stop date: 10/22/12 14:00:00 ondansetron 2013-0 No Zaina 4 mg, 2 [facility] 2-19 Lobo Wally mL, Route: l 20:01: IVP, Drug [place] 00 form: INJ, Q6H, Dosing Weight 125.227, kg, PRN Nausea & Vomiting, Start date: 09/22/12 14:01:00, Duration: 30 day, Stop date: 10/22/12 14:00:00 ondansetron 2013-0 No Zaina 4 mg, 2 [facility]oria 2-19 Lobo Wally mL, Route: l 20:01: IVP, Drug [place] 00 form: INJ, Q6H, Dosing Weight 125.227, kg, PRN Nausea & Vomiting, Start date: 09/22/12 14:01:00, Duration: 30 day, Stop date: 10/22/12 14:00:00 ondansetron 2013-0 No Zaina 4 mg, 2 [facility] 2-19 Lobo Wally mL, Route: l 20:01: IVP, Drug [place] 00 form: INJ, Q6H, Dosing Weight 125.227, kg, PRN Nausea & Vomiting, Start date: 09/22/12 14:01:00, Duration: 30 day, Stop date: 10/22/12 14:00:00 ondansetron 2013-0 No Zaina 4 mg, 2 [facility]oria 2-19 Lobo Wally mL, Route: l 20:01: IVP, Drug [place] 00 form: INJ, Q6H, Dosing Weight 125.227, kg, PRN Nausea & Vomiting, Start date: 09/22/12 14:01:00, Duration: 30 day, Stop date: 10/22/12 14:00:00 ondansetron 2013-0 No Zaina 4 mg, 2 [facility] 2-19 Lobo Wally mL, Route: l 20:01: IVP, Drug [place] 00 form: INJ, Q6H, Dosing Weight 125.227, kg, PRN Nausea & Vomiting, Start date: 09/22/12 14:01:00, Duration: 30 day, Stop date: 10/22/12 14:00:00 [email or web address] 2012-0 No Zaina 4 mg, 2 [facility] 2-19 Lobo Wally mL, Route: l 20:01: IVP, Drug [place] form: INJ, Q6H, Dosing Weight 125.227, kg, PRN Nausea & Vomiting, Start date: 09/22/12 14:01:00, Duration: 30 day, Stop date: 10/22/12 14:00:00 AndroGel No Substituti Mem oria 2-19 on Allowed l 19:27: Bebo Barraza No Substituti Mem oria 2-19 on Allowed l 19:27: Bebo Barraza No Substituti Mem oria 2-19 on Allowed l 19:27: Bebo Barraza No Substituti Mem oria 2-19 on Allowed l 19:27: Bebo Barraza No Substituti Mem oria 2-19 on Allowed l 19:27: Bebo Barraza No Substituti Mem oria 2-19 on Allowed l 19:27: Bebo Barraza No Substituti Mem oria 2-19 on Allowed l 19:27: Bebo Barraza No Substituti Mem oria 2-19 on Allowed l 19:27: Bebo [place] [facility] No Substituti Mem oria 2-19 on Allowed l 19:27: Bebo Barraza No Substituti Mem oria 2-19 on Allowed l 19:27: Bebo Barraza No Substituti Mem oria 2-19 on Allowed l 19:27: Bebo Barraza No Substituti Mem oria 2-19 on Allowed l 19:27: Bebo Barraza No Substituti Mem oria 2-19 on Allowed l 19:27: [facility] Mem [facility] 2-19 on Allowed l 19:27: [facility] Substituti Mem oria 2-19 on Allowed l 19:27: [facility] Substituti Mem oria 2-19 on Allowed l 19:27: [facility] Substituti Mem oria 2-19 on Allowed l 19:27: [facility] Substituti Mem oria 2-19 on Allowed l 19:27: [facility] Substituti Mem oria 2-19 on Allowed l 19:27: [facility] Substituti Mem oria 2-19 on Allowed l 19:27: [facility] Substituti Mem oria 2-19 on Allowed l 19:27: Bebo Sullivan [facility] 0 No Substituti Mem oria 2-19 on Allowed l 19:27: [facility] Substituti Mem oria 2-19 on Allowed l 19:27: Bebo Sullivan allopurinol 0 Yes Substituti Memoria 300 mg oral 2-19 on Allowed l tablet 19:26: Bebo Cuevas allopurinol 0 Yes Substituti Memoria 300 mg oral 2-19 on Allowed l tablet 19:26: Bebo Cuevas allopurinol Yes Substituti Memoria 300 mg oral 2-19 on Allowed l tablet 19:26: Bebo Cuevas allopurinol Yes Substituti Memoria 300 mg oral 2-19 on Allowed l tablet 19:26: Bebo Cuevas allopurinol 2012-0 Yes Substituti Memoria 300 mg oral 2-19 on Allowed l tablet 19:26: Bebo Cuevas allopurinol 2012-0 Yes Substituti Memoria 300 mg oral 2-19 on Allowed l tablet 19:26: Bebo Cuevas allopurinol Yes Substituti Memoria 300 mg oral 2-19 on Allowed l tablet 19:26: Bebo Cuevas allopurinol 0 Yes Substituti Memoria 300 mg oral 2-19 on Allowed l tablet 19:26: Bebo 34 allopurinol 2013-0 Yes Substituti Memoria 300 mg oral 2-19 on Allowed l tablet 19:26: Bebo 34 allopurinol 2013-0 Yes Substituti Memoria 300 mg oral 2-19 on Allowed l tablet 19:26: Bebo 34 allopurinol 2013-0 Yes Substituti Memoria 300 mg oral 2-19 on Allowed l tablet 19:26: Bebo 34 allopurinol 2013-0 Yes Substituti Memoria 300 mg oral 2-19 on Allowed l tablet 19:26: Bebo 34 allopurinol 2013-0 Yes Substituti Memoria 300 mg oral 2-19 on Allowed l tablet 19:26: Bebo 34 allopurinol 2013-0 Yes Substituti Memoria 300 mg oral 2-19 on Allowed l tablet 19:26: eBbo 34 allopurinol 2013-0 Yes Substituti Memoria 300 mg oral 2-19 on Allowed l tablet 19:26: Bebo 34 allopurinol 2013-0 Yes Substituti Memoria 300 mg oral 2-19 on Allowed l tablet 19:26: Bebo 34 allopurinol 2013-0 Yes Substituti Memoria 300 mg oral 2-19 on Allowed l tablet 19:26: Bebo 34 allopurinol 2013-0 Yes Substituti Memoria 300 mg oral 2-19 on Allowed l tablet 19:26: Bebo 34 allopurinol 2013-0 Yes Substituti Memoria 300 mg oral 2-19 on Allowed l tablet 19:26: Bebo 34 allopurinol 2013-0 Yes Substituti Memoria 300 mg oral 2-19 on Allowed l tablet 19:26: Bebo 34 allopurinol 2013-0 Yes Substituti Memoria 300 mg oral 2-19 on Allowed l tablet 19:26: Bebo Cuevas allopurinol 2013-0 Yes Substituti Memoria 300 mg oral 2-19 on Allowed l tablet 19:26: Bebo 34 allopurinol 2013-0 Yes Substituti Memoria 300 mg oral 2-19 on Allowed l tablet 19:26: Bebo 34 pravastatin 2012-0 Yes Substituti Memoria 40 mg oral 2-19 on Allowed l tablet 19:26: Bebo 17 pravastatin 2012-0 Yes Substituti Memoria 40 mg oral 2-19 on Allowed l tablet 19:26: Bebo Solomon pravastatin 2012-0 Yes Substituti Memoria 40 mg oral 2-19 on Allowed l tablet 19:26: Bebo Solomon pravastatin 2012-0 Yes Substituti Memoria 40 mg oral 2-19 on Allowed l tablet 19:26: Bebo Solomon pravastatin 2012-0 Yes Substituti Memoria 40 mg oral 2-19 on Allowed l tablet 19:26: Bebo Solomon pravastatin 2012-0 Yes Substituti Memoria 40 mg oral 2-19 on Allowed l tablet 19:26: Bebo Solomon pravastatin 2012-0 Yes Substituti Memoria 40 mg oral 2-19 on Allowed l tablet 19:26: Bebo Solomon pravastatin 2012-0 Yes Substituti Memoria 40 mg oral 2-19 on Allowed l tablet 19:26: Bebo Solomon pravastatin 2012-0 Yes Substituti Memoria 40 mg oral 2-19 on Allowed l tablet 19:26: Bebo Solomon pravastatin 2012-0 Yes Substituti Memoria 40 mg oral 2-19 on Allowed l tablet 19:26: Bebo Solomon pravastatin 2012-0 Yes Substituti Memoria 40 mg oral 2-19 on Allowed l tablet 19:26: Bebo Solomon pravastatin 2012-0 Yes Substituti Memoria 40 mg oral 2-19 on Allowed l tablet 19:26: Bebo Solomon pravastatin 2012-0 Yes Substituti Memoria 40 mg oral 2-19 on Allowed l tablet 19:26: Bebo Solomon pravastatin 2012-0 Yes Substituti Memoria 40 mg oral 2-19 on Allowed l tablet 19:26: Bebo Solomon pravastatin 2012-0 Yes Substituti Memoria 40 mg oral 2-19 on Allowed l tablet 19:26: Bebo Solomon pravastatin 2012-0 Yes Substituti Memoria 40 mg oral 2-19 on Allowed l tablet 19:26: Bebo Solomon pravastatin 2012-0 Yes Substituti Memoria 40 mg oral 2-19 on Allowed l tablet 19:26: Bebo Solomon pravastatin 2012-0 Yes Substituti Memoria 40 mg oral 2-19 on Allowed l tablet 19:26: Bebo Solomon pravastatin 2012-0 Yes Substituti Memoria 40 mg oral 2-19 on Allowed l tablet 19:26: Bebo Solomon pravastatin 2012-0 Yes Substituti Memoria 40 mg oral 2-19 on Allowed l tablet 19:26: Bebo Soloomn pravastatin 2012-0 Yes Substituti Memoria 40 mg oral 2-19 on Allowed l tablet 19:26: Bebo 17 pravastatin 2012-0 Yes Substituti Memoria 40 mg oral 2-19 on Allowed l tablet 19:26: Bebo 17 pravastatin 2012-0 Yes Substituti Memoria 40 mg oral 2-19 on Allowed l tablet 19:26: Bebo 17 omeprazole 2012-0 Yes Substituti M emoria 20 mg oral 2-19 on Allowed l delayed 19:25: Bebo release 55 capsule omeprazole 2012-0 Yes Substituti M emoria 20 mg oral 2-19 on Allowed l delayed 19:25: [place] release 55 capsule omeprazole 2012-0 Yes Substituti M emoria 20 mg oral 2-19 on Allowed l delayed 19:25: [place] release 55 capsule omeprazole 2012-0 Yes Substituti M emoria 20 mg oral 2-19 on Allowed l delayed 19:25: Bebo release 55 capsule omeprazole 2012-0 Yes Substituti M emoria 20 mg oral 2-19 on Allowed l delayed 19:25: Bebo release 55 capsule omeprazole 2012-0 Yes Substituti M emoria 20 mg oral 2-19 on Allowed l delayed 19:25: Bebo release 55 capsule omeprazole 2012-0 Yes Substituti M emoria 20 mg oral 2-19 on Allowed l delayed 19:25: Bebo release 55 capsule omeprazole 2012-0 Yes Substituti M emoria 20 mg oral 2-19 on Allowed l delayed 19:25: Bebo release 55 capsule omeprazole 2012-0 Yes Substituti M emoria 20 mg oral 2-19 on Allowed l delayed 19:25: Bebo release 55 capsule omeprazole 2012-0 Yes Substituti M emoria 20 mg oral 2-19 on Allowed l delayed 19:25: [place] release 55 capsule omeprazole 2012-0 Yes Substituti M emoria 20 mg oral 2-19 on Allowed l delayed 19:25: [place] release 55 capsule omeprazole 2012-0 Yes Substituti M emoria 20 mg oral 2-19 on Allowed l delayed 19:25: Bebo release 55 capsule omeprazole 2012-0 Yes Substituti M emoria 20 mg oral 2-19 on Allowed l delayed 19:25: Bebo release 55 capsule omeprazole 2012- Yes Substituti M emoria 20 mg oral 2-19 on Allowed l delayed 19:25: Bebo release 55 capsule omeprazole 2012- Yes Substituti M emoria 20 mg oral 2-19 on Allowed l delayed 19:25: [place] release 55 capsule omeprazole 2012- Yes Substituti M emoria 20 mg oral 2-19 on Allowed l delayed 19:25: [place] release 55 capsule omeprazole 2012- Yes Substituti M emoria 20 mg oral 2-19 on Allowed l delayed 19:25: Bebo release 55 capsule omeprazole 2012- Yes Substituti M emoria 20 mg oral 2-19 on Allowed l delayed 19:25: [place] release 55 capsule omeprazole 2012- Yes Substituti M emoria 20 mg oral 2-19 on Allowed l delayed 19:25: Bebo release 55 capsule omeprazole 2012- Yes Substituti M emoria 20 mg oral 2-19 on Allowed l delayed 19:25: [place] release 55 capsule omeprazole 2012- Yes Substituti M emoria 20 mg oral 2-19 on Allowed l delayed 19:25: Bebo release 55 capsule omeprazole Yes Substituti M emoria 20 mg oral 2-19 on Allowed l delayed 19:25: [place] release 55 capsule omeprazole 2012- Yes Substituti M emoria 20 mg oral 2-19 on Allowed l delayed 19:25: Bebo release 55 capsule Omnipaque No Arthur-Abundio 138 mL, M emoria 350mg/ml 09-22 [place] Route: l 14:59: Sin IVP, Drug lobo Pu Form: SOLN, Dosing Weight 118.182, kg, ONCALL, STAT, Start date: 09/22/12 8:59:00, Duration: 1 doses or times, Dose = 2.2ml/kg, Max dose = 150ml -- "To be infused by Radiology Staff ONLY"Dose = 2.2ml/kg, Max dose = 150ml -- "To be infused by Radiology Staff ONLY" Omnipaque No Arthur-Abundio 138 mL, M emoria 350mg/ml - [place] Route: l 14:59: Vogt IVP, Drug Herm lobo 00 Pu Form: SOLN, Dosing Weight 118.182, kg, ONCALL, STAT, Start date: 09/22/12 8:59:00, Duration: 1 doses or times, Dose = 2.2ml/kg, Max dose = 150ml -- "To be infused by Radiology Staff ONLY"Dose = 2.2ml/kg, Max dose = 150ml -- "To be infused by Radiology Staff ONLY" Omnipaque 2013-0 No Arthur-Abundio 138 mL, M emoria 350mg/ml 09-22 [place] Route: l 14:59: Vogt IVP, Drug Herm lobo 00 Pu Form: SOLN, Dosing Weight 118.182, kg, ONCALL, STAT, Start date: 09/22/12 8:59:00, Duration: 1 doses or times, Dose = 2.2ml/kg, Max dose = 150ml -- "To be infused by Radiology Staff ONLY"Dose = 2.2ml/kg, Max dose = 150ml -- "To be infused by Radiology Staff ONLY" Omnipaque 2012-0 No Arthur-Abundio 138 mL, M emoria 350mg/ml 09-22 [place] Route: l 14:59: Vogt IVP, Drug Herm lobo 00 Pu Form: SOLN, Dosing Weight 118.182, kg, ONCALL, STAT, Start date: 09/22/12 8:59:00, Duration: 1 doses or times, Dose = 2.2ml/kg, Max dose = 150ml -- "To be infused by Radiology Staff ONLY"Dose = 2.2ml/kg, Max dose = 150ml -- "To be infused by Radiology Staff ONLY" Omnipaque 2012-0 No Arthur-Abundio 138 mL, M emoria 350mg/ml 09-22 [place] Route: l 14:59: Vogt IVP, Drug Herm lobo Pu Form: SOLN, Dosing Weight 118.182, kg, ONCALL, STAT, Start date: 09/22/12 8:59:00, Duration: 1 doses or times, Dose = 2.2ml/kg, Max dose = 150ml -- "To be infused by Radiology Staff ONLY"Dose = 2.2ml/kg, Max dose = 150ml -- "To be infused by Radiology Staff ONLY" Omnipaque 2013-0 No Arthur-Abundio 138 mL, M emoria 350mg/ml 09-22 [place] Route: l 14:59: Vogt IVP, Drug Herm lobo 00 Pu Form: SOLN, Dosing Weight 118.182, kg, ONCALL, STAT, Start date: 09/22/12 8:59:00, Duration: 1 doses or times, Dose = 2.2ml/kg, Max dose = 150ml -- "To be infused by Radiology Staff ONLY"Dose = 2.2ml/kg, Max dose = 150ml -- "To be infused by Radiology Staff ONLY" Omnipaque 2012-0 No Arthur-Abundio 138 mL, M emoria 350mg/ml 09-22 [place] Route: l 14:59: Vogt IVP, Drug Herm lobo 00 Pu Form: SOLN, Dosing Weight 118.182, kg, ONCALL, STAT, Start date: 09/22/12 8:59:00, Duration: 1 doses or times, Dose = 2.2ml/kg, Max dose = 150ml -- "To be infused by Radiology Staff ONLY"Dose = 2.2ml/kg, Max dose = 150ml -- "To be infused by Radiology Staff ONLY" Omnipaque 2012-0 No Arthur-Abundio 138 mL, M emoria 350mg/ml 09-22 [place] Route: l 14:59: Vogt IVP, Drug Herm lobo 00 Pu Form: SOLN, Dosing Weight 118.182, kg, ONCALL, STAT, Start date: 09/22/12 8:59:00, Duration: 1 doses or times, Dose = 2.2ml/kg, Max dose = 150ml -- "To be infused by Radiology Staff ONLY"Dose = 2.2ml/kg, Max dose = 150ml -- "To be infused by Radiology Staff ONLY" Omnipaque 2012-0 No Arthur-Abundio 138 mL, M emoria 350mg/ml 09-22 [place] Route: l 14:59: Vogt IVP, Drug Herm lobo 00 Pu Form: SOLN, Dosing Weight 118.182, kg, ONCALL, STAT, Start date: 09/22/12 8:59:00, Duration: 1 doses or times, Dose = 2.2ml/kg, Max dose = 150ml -- "To be infused by Radiology Staff ONLY"Dose = 2.2ml/kg, Max dose = 150ml -- "To be infused by Radiology Staff ONLY" Omnipaque 2012-0 No Arthur-Abundio 138 mL, M emoria 350mg/ml 09-22 [place] Route: l 14:59: Vogt IVP, Drug Herm lobo 00 Pu Form: SOLN, Dosing Weight 118.182, kg, ONCALL, STAT, Start date: 09/22/12 8:59:00, Duration: 1 doses or times, Dose = 2.2ml/kg, Max dose = 150ml -- "To be infused by Radiology Staff ONLY"Dose = 2.2ml/kg, Max dose = 150ml -- "To be infused by Radiology Staff ONLY" Omnipaque 2012-0 No Arthur-Abundio 138 mL, M emoria 350mg/ml 09-22 [place] Route: l 14:59: Vogt IVP, Drug Herm lobo Pu Form: SOLN, Dosing Weight 118.182, kg, ONCALL, STAT, Start date: 09/22/12 8:59:00, Duration: 1 doses or times, Dose = 2.2ml/kg, Max dose = 150ml -- "To be infused by Radiology Staff ONLY"Dose = 2.2ml/kg, Max dose = 150ml -- "To be infused by Radiology Staff ONLY" Omnipaque 0 No Arthur-Abundio 138 mL, M emoria 350mg/ml 09-22 [place] Route: l 14:59: Vogt IVP, Drug Herm lobo Pu Form: SOLN, Dosing Weight 118.182, kg, ONCALL, STAT, Start date: 09/22/12 8:59:00, Duration: 1 doses or times, Dose = 2.2ml/kg, Max dose = 150ml -- "To be infused by Radiology Staff ONLY"Dose = 2.2ml/kg, Max dose = 150ml -- "To be infused by Radiology Staff ONLY" Omnipaque 0 No Arthur-Abundio 138 mL, M emoria 350mg/ml 09-22 [place] Route: l 14:59: Vogt IVP, Drug Herm lobo Pu Form: SOLN, Dosing Weight 118.182, kg, ONCALL, STAT, Start date: 09/22/12 8:59:00, Duration: 1 doses or times, Dose = 2.2ml/kg, Max dose = 150ml -- "To be infused by Radiology Staff ONLY"Dose = 2.2ml/kg, Max dose = 150ml -- "To be infused by Radiology Staff ONLY" Omnipaque 2012-0 No Arthur-Abundio 138 mL, M emoria 350mg/ml 09-22 [place] Route: l 14:59: Vogt IVP, Drug Herm lobo Pu Form: SOLN, Dosing Weight 118.182, kg, ONCALL, STAT, Start date: 09/22/12 8:59:00, Duration: 1 doses or times, Dose = 2.2ml/kg, Max dose = 150ml -- "To be infused by Radiology Staff ONLY"Dose = 2.2ml/kg, Max dose = 150ml -- "To be infused by Radiology Staff ONLY" Omnipaque 2012-0 No Arthur-Abundio 138 mL, M emoria 350mg/ml 09-22 [place] Route: l 14:59: Vogt IVP, Drug Herm lobo Pu Form: SOLN, Dosing Weight 118.182, kg, ONCALL, STAT, Start date: 09/22/12 8:59:00, Duration: 1 doses or times, Dose = 2.2ml/kg, Max dose = 150ml -- "To be infused by Radiology Staff ONLY"Dose = 2.2ml/kg, Max dose = 150ml -- "To be infused by Radiology Staff ONLY" Omnipaque 2012-0 No Arthur-Abundio 138 mL, M emoria 350mg/ml 09-22 [place] Route: l 14:59: Vogt IVP, Drug Herm lobo Pu Form: SOLN, Dosing Weight 118.182, kg, ONCALL, STAT, Start date: 09/22/12 8:59:00, Duration: 1 doses or times, Dose = 2.2ml/kg, Max dose = 150ml -- "To be infused by Radiology Staff ONLY"Dose = 2.2ml/kg, Max dose = 150ml -- "To be infused by Radiology Staff ONLY" Omnipaque 2012-0 No Arthur-Abundio 138 mL, M emoria 350mg/ml 09-22 [place] Route: l 14:59: Vogt IVP, Drug Herm lobo 00 Pu Form: SOLN, Dosing Weight 118.182, kg, ONCALL, STAT, Start date: 09/22/12 8:59:00, Duration: 1 doses or times, Dose = 2.2ml/kg, Max dose = 150ml -- "To be infused by Radiology Staff ONLY"Dose = 2.2ml/kg, Max dose = 150ml -- "To be infused by Radiology Staff ONLY" Omnipaque 2013-0 No Arthur-Abundio 138 mL, M emoria 350mg/ml 09-22 [place] Route: l 14:59: Vogt IVP, Drug Herm lobo Pu Form: SOLN, Dosing Weight 118.182, kg, ONCALL, STAT, Start date: 09/22/12 8:59:00, Duration: 1 doses or times, Dose = 2.2ml/kg, Max dose = 150ml -- "To be infused by Radiology Staff ONLY"Dose = 2.2ml/kg, Max dose = 150ml -- "To be infused by Radiology Staff ONLY" Omnipaque 2012-0 No Arthur-Abundio 138 mL, M emoria 350mg/ml 09-22 [place] Route: l 14:59: Vogt IVP, Drug Herm lobo Pu Form: SOLN, Dosing Weight 118.182, kg, ONCALL, STAT, Start date: 09/22/12 8:59:00, Duration: 1 doses or times, Dose = 2.2ml/kg, Max dose = 150ml -- "To be infused by Radiology Staff ONLY"Dose = 2.2ml/kg, Max dose = 150ml -- "To be infused by Radiology Staff ONLY" Omnipaque 2013-0 No Arthur-Abundio 138 mL, M emoria 350mg/ml 09-22 [place] Route: l 14:59: Vogt IVP, Drug Herm lobo Pu Form: SOLN, Dosing Weight 118.182, kg, ONCALL, STAT, Start date: 09/22/12 8:59:00, Duration: 1 doses or times, Dose = 2.2ml/kg, Max dose = 150ml -- "To be infused by Radiology Staff ONLY"Dose = 2.2ml/kg, Max dose = 150ml -- "To be infused by Radiology Staff ONLY" Omnipaque 2012-0 No Arthur-Abundio 138 mL, M emoria 350mg/ml 09-22 [place] Route: l 14:59: Vogt IVP, Drug Herm lobo 00 Pu Form: SOLN, Dosing Weight 118.182, kg, ONCALL, STAT, Start date: 09/22/12 8:59:00, Duration: 1 doses or times, Dose = 2.2ml/kg, Max dose = 150ml -- "To be infused by Radiology Staff ONLY"Dose = 2.2ml/kg, Max dose = 150ml -- "To be infused by Radiology Staff ONLY" Omnipaque 0 No Arthur-Abundio 138 mL, M emoria 350mg/ml 09-22 [place] Route: l 14:59: Vogt IVP, Drug Herm lobo 00 Pu Form: SOLN, Dosing Weight 118.182, kg, ONCALL, STAT, Start date: 09/22/12 8:59:00, Duration: 1 doses or times, Dose = 2.2ml/kg, Max dose = 150ml -- "To be infused by Radiology Staff ONLY"Dose = 2.2ml/kg, Max dose = 150ml -- "To be infused by Radiology Staff ONLY" Omnipaque 2012-0 No Arthur-Abundio 138 mL, M emoria 350mg/ml 09-22 [place] Route: l 14:59: Vogt IVP, Drug Herm lobo 00 Pu Form: SOLN, Dosing Weight 118.182, kg, ONCALL, STAT, Start date: 09/22/12 8:59:00, Duration: 1 doses or times, Dose = 2.2ml/kg, Max dose = 150ml -- "To be infused by Radiology Staff ONLY"Dose = 2.2ml/kg, Max dose = 150ml -- "To be infused by Radiology Staff ONLY" Zofran 0 No Arthur-Abundio 4 mg, 2 Serg kim 09-22 [place] mL, Route: l 13:56: Vogt IVP, Drug Herm lobo 00 Pu form: INJ, ONCE, Dosing Weight 118.182, kg, Priority: STAT, Start date: 09/22/12 7:56:00, Stop date: 09/22/12 7:56:00 Zofran 2013-0 No Arthur-Abundio 4 mg, 2 Serg kim 2-19 [place] mL, Route: l 13:56: Vogt IVP, Drug Herm lobo 00 Pu form: INJ, ONCE, Dosing Weight 118.182, kg, Priority: STAT, Start date: 09/22/12 7:56:00, Stop date: 09/22/12 7:56:00 Zofran 2012-0 No Arthur-Abundio 4 mg, 2 Serg kim 2-19 [place] mL, Route: l 13:56: Vogt IVP, Drug Herm lobo 00 Pu form: INJ, ONCE, Dosing Weight 118.182, kg, Priority: STAT, Start date: 09/22/12 7:56:00, Stop date: 09/22/12 7:56:00 Zofran 2012-0 No Arthur-Abundio 4 mg, 2 Serg kim 2-19 [place] mL, Route: l 13:56: Vogt IVP, Drug Herm lobo 00 Pu form: INJ, ONCE, Dosing Weight 118.182, kg, Priority: STAT, Start date: 09/22/12 7:56:00, Stop date: 09/22/12 7:56:00 Zofran 2012-0 No Arthur-Abundio 4 mg, 2 Serg kim 2-19 [place] mL, Route: l 13:56: Vogt IVP, Drug Herm lobo 00 Pu form: INJ, ONCE, Dosing Weight 118.182, kg, Priority: STAT, Start date: 09/22/12 7:56:00, Stop date: 09/22/12 7:56:00 Zofran 2012-0 No Arthur-Abundio 4 mg, 2 Serg kim 2-19 [place] mL, Route: l 13:56: Vogt IVP, Drug Herm lobo 00 Pu form: INJ, ONCE, Dosing Weight 118.182, kg, Priority: STAT, Start date: 09/22/12 7:56:00, Stop date: 09/22/12 7:56:00 Zofran 2012-0 No Arthur-Abundio 4 mg, 2 Serg kim 2-19 [place] mL, Route: l 13:56: Vogt IVP, Drug Herm lobo 00 Pu form: INJ, ONCE, Dosing Weight 118.182, kg, Priority: STAT, Start date: 09/22/12 7:56:00, Stop date: 09/22/12 7:56:00 Zofran 2012-0 No Arthur-Abundio 4 mg, 2 Serg kim 2-19 [place] mL, Route: l 13:56: Vogt IVP, Drug Herm lobo 00 Pu form: INJ, ONCE, Dosing Weight 118.182, kg, Priority: STAT, Start date: 09/22/12 7:56:00, Stop date: 09/22/12 7:56:00 Zofran 2012-0 No Arthur-Abundio 4 mg, 2 Serg kim 2-19 [place] mL, Route: l 13:56: Vogt IVP, Drug Herm lobo 00 Pu form: INJ, ONCE, Dosing Weight 118.182, kg, Priority: STAT, Start date: 09/22/12 7:56:00, Stop date: 09/22/12 7:56:00 Zofran 2012-0 No Arthur-Abundio 4 mg, 2 Serg kim 2-19 [place] mL, Route: l 13:56: Vogt IVP, Drug Herm lobo 00 Pu form: INJ, ONCE, Dosing Weight 118.182, kg, Priority: STAT, Start date: 09/22/12 7:56:00, Stop date: 09/22/12 7:56:00 Zofran 2012-0 No Arthur-Abundio 4 mg, 2 Serg kim 2-19 [place] mL, Route: l 13:56: Vogt IVP, Drug Herm lobo 00 Pu form: INJ, ONCE, Dosing Weight 118.182, kg, Priority: STAT, Start date: 09/22/12 7:56:00, Stop date: 09/22/12 7:56:00 Zofran 2012-0 No Arthur-Abundio 4 mg, 2 Serg kim 2-19 [place] mL, Route: l 13:56: Vogt IVP, Drug Herm lobo 00 Pu form: INJ, ONCE, Dosing Weight 118.182, kg, Priority: STAT, Start date: 09/22/12 7:56:00, Stop date: 09/22/12 7:56:00 Zofran 2012-0 No Arthur-Abundio 4 mg, 2 Serg kim 2-19 [place] mL, Route: l 13:56: Vogt IVP, Drug Herm lobo 00 Pu form: INJ, ONCE, Dosing Weight 118.182, kg, Priority: STAT, Start date: 09/22/12 7:56:00, Stop date: 09/22/12 7:56:00 Zofran 2012-0 No Arthur-Abundio 4 mg, 2 Serg kim 2-19 [place] mL, Route: l 13:56: Vogt IVP, Drug Herm lobo 00 Pu form: INJ, ONCE, Dosing Weight 118.182, kg, Priority: STAT, Start date: 09/22/12 7:56:00, Stop date: 09/22/12 7:56:00 Zofran 2012-0 No Arthur-Abundio 4 mg, 2 Serg kim 2-19 [place] mL, Route: l 13:56: Vogt IVP, Drug Herm lobo 00 Pu form: INJ, ONCE, Dosing Weight 118.182, kg, Priority: STAT, Start date: 09/22/12 7:56:00, Stop date: 09/22/12 7:56:00 Zofran 2012-0 No Arthur-Abundio 4 mg, 2 Serg kim 2-19 [place] mL, Route: l 13:56: Vogt IVP, Drug Herm lobo 00 Pu form: INJ, ONCE, Dosing Weight 118.182, kg, Priority: STAT, Start date: 09/22/12 7:56:00, Stop date: 09/22/12 7:56:00 Zofran 2012-0 No Arthur-Abundio 4 mg, 2 Serg kim 2-19 [place] mL, Route: l 13:56: Vogt IVP, Drug Herm lobo 00 Pu form: INJ, ONCE, Dosing Weight 118.182, kg, Priority: STAT, Start date: 09/22/12 7:56:00, Stop date: 09/22/12 7:56:00 Zofran 2012-0 No Arthur-Abundio 4 mg, 2 Serg kim 2-19 [place] mL, Route: l 13:56: Vogt IVP, Drug Herm lobo 00 Pu form: INJ, ONCE, Dosing Weight 118.182, kg, Priority: STAT, Start date: 09/22/12 7:56:00, Stop date: 09/22/12 7:56:00 Zofran 2012-0 No Arthur-Abundio 4 mg, 2 Serg kim 2-19 [place] mL, Route: l 13:56: Vogt IVP, Drug Herm lobo 00 Pu form: INJ, ONCE, Dosing Weight 118.182, kg, Priority: STAT, Start date: 09/22/12 7:56:00, Stop date: 09/22/12 7:56:00 Zofran 2012-0 No Arthur-Abundio 4 mg, 2 Serg kim 2-19 [place] mL, Route: l 13:56: Vogt IVP, Drug Herm lobo 00 Pu form: INJ, ONCE, Dosing Weight 118.182, kg, Priority: STAT, Start date: 09/22/12 7:56:00, Stop date: 09/22/12 7:56:00 Zofran 2012-0 No Arthur-Abundio 4 mg, 2 Serg kim 2-19 [place] mL, Route: l 13:56: Vogt IVP, Drug Herm lobo 00 Pu form: INJ, ONCE, Dosing Weight 118.182, kg, Priority: STAT, Start date: 09/22/12 7:56:00, Stop date: 09/22/12 7:56:00 Zofran 2012-0 No Arthur-Abundio 4 mg, 2 Serg kim 2-19 [place] mL, Route: l 13:56: Vogt IVP, Drug Herm lobo 00 Pu form: INJ, ONCE, Dosing Weight 118.182, kg, Priority: STAT, Start date: 09/22/12 7:56:00, Stop date: 09/22/12 7:56:00 Zofran 2012-0 No Arthur-Abundio 4 mg, 2 Serg kim 2-19 Randolph mL, Route: l 13:56: Vogt IVP, Drug Herm lobo 00 Pu form: INJ, ONCE, Dosing Weight 118.182, kg, Priority: STAT, Start date: 09/22/12 7:56:00, Stop date: 09/22/12 7:56:00 aspirin 2012-0 No Shoshana 324 mg, 4 Mem oria 2-19 Joyce tab, l 12:21: Bruce Route: [place] 00 CHEW, Drug form: CHEWTAB, ONCE, Dosing Weight 118.182, kg, Priority: STAT, Start date: 09/22/12 6:21:00, Stop date: 09/22/12 6:21:00 aspirin 2012-0 No Shoshana 324 mg, 4 Mem oria 2-19 Joyce tab, l 12:21: Bruce Route: [place] 00 CHEW, Drug form: CHEWTAB, ONCE, Dosing Weight 118.182, kg, Priority: STAT, Start date: 09/22/12 6:21:00, Stop date: 09/22/12 6:21:00 aspirin 2012-0 No Shoshana 324 mg, 4 Mem oria 2-19 Joyce tab, l 12:21: Bruce Route: [place] 00 CHEW, Drug form: CHEWTAB, ONCE, Dosing Weight 118.182, kg, Priority: STAT, Start date: 09/22/12 6:21:00, Stop date: 09/22/12 6:21:00 aspirin 2012-0 No Shoshana 324 mg, 4 Mem oria 2-19 Joyce tab, l 12:21: Bruce Route: [place] 00 CHEW, Drug form: CHEWTAB, ONCE, Dosing Weight 118.182, kg, Priority: STAT, Start date: 09/22/12 6:21:00, Stop date: 09/22/12 6:21:00 aspirin 2012-0 No Shoshana 324 mg, 4 Mem oria 2-19 Joyce tab, l 12:21: Bruce Route: [place] 00 CHEW, Drug form: CHEWTAB, ONCE, Dosing Weight 118.182, kg, Priority: STAT, Start date: 09/22/12 6:21:00, Stop date: 09/22/12 6:21:00 aspirin 2012-0 No Shoshana 324 mg, 4 [facility]ria 2-19 Joyce tab, l 12:21: Bruce Route: [place] 00 CHEW, Drug form: CHEWTAB, ONCE, Dosing Weight 118.182, kg, Priority: STAT, Start date: 09/22/12 6:21:00, Stop date: 09/22/12 6:21:00 aspirin 2012-0 No Shoshana 324 mg, 4 Mem oria 2-19 Joyce tab, l 12:21: Bruce Route: [place] 00 CHEW, Drug form: CHEWTAB, ONCE, Dosing Weight 118.182, kg, Priority: STAT, Start date: 09/22/12 6:21:00, Stop date: 09/22/12 6:21:00 aspirin 2012-0 No Shoshana 324 mg, 4 Mem oria 2-19 Joyce tab, l 12:21: Bruce Route: [place] 00 CHEW, Drug form: CHEWTAB, ONCE, Dosing Weight 118.182, kg, Priority: STAT, Start date: 09/22/12 6:21:00, Stop date: 09/22/12 6:21:00 aspirin 2012-0 No Shoshana 324 mg, 4 Mem [facility]ria 2-19 Joyce tab, l 12:21: Bruce Route: [place] 00 CHEW, Drug form: CHEWTAB, ONCE, Dosing Weight 118.182, kg, Priority: STAT, Start date: 09/22/12 6:21:00, Stop date: 09/22/12 6:21:00 aspirin 2012-0 No Shoshana 324 mg, 4 [facility] 2-19 Joyce tab, l 12:21: Bruce Route: [place] 00 CHEW, Drug form: CHEWTAB, ONCE, Dosing Weight 118.182, kg, Priority: STAT, Start date: 09/22/12 6:21:00, Stop date: 09/22/12 6:21:00 aspirin 2012-0 No Shoshana 324 mg, 4 Mem oria 2-19 Joyce tab, l 12:21: Bruce Route: [place] 00 CHEW, Drug form: CHEWTAB, ONCE, Dosing Weight 118.182, kg, Priority: STAT, Start date: 09/22/12 6:21:00, Stop date: 09/22/12 6:21:00 aspirin 2012-0 No Shoshana 324 mg, 4 [facility]ria 2-19 [facility] tab, l 12:21: Bruce Route: [place] 00 CHEW, Drug form: CHEWTAB, ONCE, Dosing Weight 118.182, kg, Priority: STAT, Start date: 09/22/12 6:21:00, Stop date: 09/22/12 6:21:00 aspirin 2012-0 No Shoshana 324 mg, 4 Mem oria 2-19 Joyce tab, l 12:21: Bruce Route: [place] 00 CHEW, Drug form: CHEWTAB, ONCE, Dosing Weight 118.182, kg, Priority: STAT, Start date: 09/22/12 6:21:00, Stop date: 09/22/12 6:21:00 aspirin 2012-0 No Shoshana 324 mg, 4 [facility]ria 2-19 Joyce tab, l 12:21: Bruce Route: [place] 00 CHEW, Drug form: CHEWTAB, ONCE, Dosing Weight 118.182, kg, Priority: STAT, Start date: 09/22/12 6:21:00, Stop date: 09/22/12 6:21:00 aspirin 2012-0 No Shoshana 324 mg, 4 [facility] 2-19 [facility] tab, l 12:21: Bruce Route: [place] 00 CHEW, Drug form: CHEWTAB, ONCE, Dosing Weight 118.182, kg, Priority: STAT, Start date: 09/22/12 6:21:00, Stop date: 09/22/12 6:21:00 aspirin 2012-0 No Shoshana 324 mg, 4 [facility]ria 2-19 Joyce tab, l 12:21: Bruce Route: [place] CHEW, Drug form: CHEWTAB, ONCE, Dosing Weight 118.182, kg, Priority: STAT, Start date: 09/22/12 6:21:00, Stop date: 09/22/12 6:21:00 aspirin 2012-0 No Shoshana 324 mg, 4 [facility] 2-19 [facility] tab, l 12:21: Bruce Route: [place] 00 CHEW, Drug form: CHEWTAB, ONCE, Dosing Weight 118.182, kg, Priority: STAT, Start date: 09/22/12 6:21:00, Stop date: 09/22/12 6:21:00 aspirin 2012-0 No Shoshana 324 mg, 4 [facility] 2-19 [facility] tab, l 12:21: Bruce Route: [place] 00 CHEW, Drug form: CHEWTAB, ONCE, Dosing Weight 118.182, kg, Priority: STAT, Start date: 09/22/12 6:21:00, Stop date: 09/22/12 6:21:00 aspirin 2012-0 No Shoshana 324 mg, 4 [facility] 2-19 [facility] tab, l 12:21: Bruce Route: [place] 00 CHEW, Drug form: CHEWTAB, ONCE, Dosing Weight 118.182, kg, Priority: STAT, Start date: 09/22/12 6:21:00, Stop date: 09/22/12 6:21:00 aspirin 2012-0 No Shoshana 324 mg, 4 [facility] 2-19 [facility] tab, l 12:21: Bruce Route: CHEW, Drug form: CHEWTAB, ONCE, Dosing Weight 118.182, kg, Priority: STAT, Start date: 09/22/12 6:21:00, Stop date: 09/22/12 6:21:00 aspirin 2012-0 No Shoshana 324 mg, 4 [facility] 2-19 [facility] tab, l 12:21: Bruce Route: CHEW, Drug form: CHEWTAB, ONCE, Dosing Weight 118.182, kg, Priority: STAT, Start date: 09/22/12 6:21:00, Stop date: 09/22/12 6:21:00 aspirin 2012-0 No Shoshana 324 mg, 4 [facility] 2-19 [facility] tab, l 12:21: Bruce Route: CHEW, Drug form: CHEWTAB, ONCE, Dosing Weight 118.182, kg, Priority: STAT, Start date: 09/22/12 6:21:00, Stop date: 09/22/12 6:21:00 aspirin 2012-0 No Shoshana 324 mg, 4 [facility] 2-19 [facility] tab, l 12:21: Bruce Route: CHEW, Drug form: CHEWTAB, ONCE, Dosing Weight 118.182, kg, Priority: STAT, Start date: 09/22/12 6:21:00, Stop date: 09/22/12 6:21:00 aspirin 2012-0 No Shoshana 324 mg, 4 [facility] 2-19 [facility] tab, l 12:00: Bruce Route: PO, Drug form: ECTAB, ONCE, Dosing Weight 118.182, kg, Priority: STAT, Start date: 09/22/12 6:00:00, Stop date: 09/22/12 6:00:00 Saline 2012-0 No Shoshana 5 mL, Memoria Flush 0.9% 09-22 [facility] Route: l 12:00: [facility] IVP, Drug Radha nn 00 Form: INJ, Dosing Weight 118.182, kg, Q8H, PRN Line Flush, Start date: 09/22/12 6:00:00, Duration: 30 day, Stop date: 10/22/12 5:59:00, Administer at least once every 8 hoursAdmin ister at least once every 8 hours aspirin 0 No Shoshana 324 mg, 4 [facility] 2-19 [facility] tab, l 12:00: Bruce Route: PO, Herm lobo 00 Drug form: ECTAB, ONCE, Dosing Weight 118.182, kg, Priority: STAT, Start date: 09/22/12 6:00:00, Stop date: 09/22/12 6:00:00 Saline 2012-0 No Shoshana 5 mL, [facility] Flush 0.9% 2-19 Joyce Route: l 12:00: [facility] IVP, Drug Radha nn 00 Form: INJ, Dosing Weight 118.182, kg, Q8H, PRN Line Flush, Start date: 09/22/12 6:00:00, Duration: 30 day, Stop date: 10/22/12 5:59:00, Administer at least once every 8 hoursAdmin ister at least once every 8 hours aspirin No Shoshana 324 mg, 4 [facility] 2-19 [facility] tab, l 12:00: Bruce Route: PO, Herm lobo 00 Drug form: ECTAB, ONCE, Dosing Weight 118.182, kg, Priority: STAT, Start date: 09/22/12 6:00:00, Stop date: 09/22/12 6:00:00 Saline 2012-0 No Shoshana 5 mL, [facility] Flush 0.9% 2-19 Joyce Route: l 12:00: [facility] IVP, Drug Radha nn 00 Form: INJ, Dosing Weight 118.182, kg, Q8H, PRN Line Flush, Start date: 09/22/12 6:00:00, Duration: 30 day, Stop date: 10/22/12 5:59:00, Administer at least once every 8 hoursAdmin ister at least once every 8 hours aspirin 0 No Shoshana 324 mg, 4 [facility] 2-19 [facility] tab, l 12:00: Bruce Route: PO, Herm lobo 00 Drug form: ECTAB, ONCE, Dosing Weight 118.182, kg, Priority: STAT, Start date: 09/22/12 6:00:00, Stop date: 09/22/12 6:00:00 Saline 2012-0 No Shoshana 5 mL, Memoria Flush 0.9% 2-19 Joyce Route: l 12:00: [facility] IVP, Drug Radha nn 00 Form: INJ, Dosing Weight 118.182, kg, Q8H, PRN Line Flush, Start date: 09/22/12 6:00:00, Duration: 30 day, Stop date: 10/22/12 5:59:00, Administer at least once every 8 hoursAdmin ister at least once every 8 hours aspirin 2012-0 No Shoshana 324 mg, 4 [facility] 2-19 Joyce tab, l 12:00: Bruce Route: PO, Herm lobo 00 Drug form: ECTAB, ONCE, Dosing Weight 118.182, kg, Priority: STAT, Start date: 09/22/12 6:00:00, Stop date: 09/22/12 6:00:00 Saline 2012-0 No Shoshana 5 mL, Memoria Flush 0.9% 2-19 Joyce Route: l 12:00: [facility] IVP, Drug Radha nn 00 Form: INJ, Dosing Weight 118.182, kg, Q8H, PRN Line Flush, Start date: 09/22/12 6:00:00, Duration: 30 day, Stop date: 10/22/12 5:59:00, Administer at least once every 8 hoursAdmin ister at least once every 8 hours aspirin 2012-0 No Shoshana 324 mg, 4 Mem [facility] 2-19 Joyce tab, l 12:00: Bruce Route: PO, Herm lobo 00 Drug form: ECTAB, ONCE, Dosing Weight 118.182, kg, Priority: STAT, Start date: 09/22/12 6:00:00, Stop date: 09/22/12 6:00:00 Saline 2012-0 No Shoshana 5 mL, Memoria Flush 0.9% 2-19 Joyce Route: l 12:00: [facility] IVP, Drug Radha nn 00 Form: INJ, Dosing Weight 118.182, kg, Q8H, PRN Line Flush, Start date: 09/22/12 6:00:00, Duration: 30 day, Stop date: 10/22/12 5:59:00, Administer at least once every 8 hoursAdmin ister at least once every 8 hours aspirin No Shoshana 324 mg, 4 Mem oria 2-19 Joyce tab, l 12:00: Bruce Route: PO, Herm lobo 00 Drug form: ECTAB, ONCE, Dosing Weight 118.182, kg, Priority: STAT, Start date: 09/22/12 6:00:00, Stop date: 09/22/12 6:00:00 Saline 2012-0 No Shoshana 5 mL, Memoria Flush 0.9% 2-19 Joyce Route: l 12:00: [facility] IVP, Drug Radha nn 00 Form: INJ, Dosing Weight 118.182, kg, Q8H, PRN Line Flush, Start date: 09/22/12 6:00:00, Duration: 30 day, Stop date: 10/22/12 5:59:00, Administer at least once every 8 hoursAdmin ister at least once every 8 hours aspirin No Shoshana 324 mg, 4 Mem oria 2-19 Joyce tab, l 12:00: Bruce Route: PO, Herm lobo 00 Drug form: ECTAB, ONCE, Dosing Weight 118.182, kg, Priority: STAT, Start date: 09/22/12 6:00:00, Stop date: 09/22/12 6:00:00 Saline 2012-0 No Shoshana 5 mL, Memoria Flush 0.9% 2-19 Joyce Route: l 12:00: [facility] IVP, Drug Radha nn 00 Form: INJ, Dosing Weight 118.182, kg, Q8H, PRN Line Flush, Start date: 09/22/12 6:00:00, Duration: 30 day, Stop date: 10/22/12 5:59:00, Administer at least once every 8 hoursAdmin ister at least once every 8 hours aspirin 0 No Shoshana 324 mg, 4 Mem oria 2-19 Joyce tab, l 12:00: Bruce Route: PO, Herm lobo 00 Drug form: ECTAB, ONCE, Dosing Weight 118.182, kg, Priority: STAT, Start date: 09/22/12 6:00:00, Stop date: 09/22/12 6:00:00 Saline 2012-0 No Shoshana 5 mL, Memoria Flush 0.9% 2-19 Joyce Route: l 12:00: [facility] IVP, Drug Radha nn 00 Form: INJ, Dosing Weight 118.182, kg, Q8H, PRN Line Flush, Start date: 09/22/12 6:00:00, Duration: 30 day, Stop date: 10/22/12 5:59:00, Administer at least once every 8 hoursAdmin ister at least once every 8 hours aspirin 2012-0 No Shoshana 324 mg, 4 Mem oria 2-19 Joyce tab, l 12:00: Bruce Route: PO, Herm lobo 00 Drug form: ECTAB, ONCE, Dosing Weight 118.182, kg, Priority: STAT, Start date: 09/22/12 6:00:00, Stop date: 09/22/12 6:00:00 Saline 2012-0 No Shoshana 5 mL, Memoria Flush 0.9% 2-19 Joyce Route: l 12:00: [facility] IVP, Drug Radha nn 00 Form: INJ, Dosing Weight 118.182, kg, Q8H, PRN Line Flush, Start date: 09/22/12 6:00:00, Duration: 30 day, Stop date: 10/22/12 5:59:00, Administer at least once every 8 hoursAdmin ister at least once every 8 hours aspirin 0 No Shoshana 324 mg, 4 Mem oria 2-19 Joyce tab, l 12:00: Bruce Route: PO, Herm lobo 00 Drug form: ECTAB, ONCE, Dosing Weight 118.182, kg, Priority: STAT, Start date: 09/22/12 6:00:00, Stop date: 09/22/12 6:00:00 Saline 2012-0 No Shoshana 5 mL, Memoria Flush 0.9% 2-19 Joyce Route: l 12:00: [facility] IVP, Drug Radha nn 00 Form: INJ, Dosing Weight 118.182, kg, Q8H, PRN Line Flush, Start date: 09/22/12 6:00:00, Duration: 30 day, Stop date: 10/22/12 5:59:00, Administer at least once every 8 hoursAdmin ister at least once every 8 hours aspirin No Shoshana 324 mg, 4 Mem oria 2-19 Joyce tab, l 12:00: Bruce Route: PO, Herm lobo 00 Drug form: ECTAB, ONCE, Dosing Weight 118.182, kg, Priority: STAT, Start date: 09/22/12 6:00:00, Stop date: 09/22/12 6:00:00 Saline 2012-0 No Shoshana 5 mL, Memoria Flush 0.9% 2-19 Joyce Route: l 12:00: [facility] IVP, Drug Radha nn 00 Form: INJ, Dosing Weight 118.182, kg, Q8H, PRN Line Flush, Start date: 09/22/12 6:00:00, Duration: 30 day, Stop date: 10/22/12 5:59:00, Administer at least once every 8 hoursAdmin ister at least once every 8 hours aspirin No Shoshana 324 mg, 4 Mem oria 2-19 Joyce tab, l 12:00: Bruce Route: PO, Herm lobo 00 Drug form: ECTAB, ONCE, Dosing Weight 118.182, kg, Priority: STAT, Start date: 09/22/12 6:00:00, Stop date: 09/22/12 6:00:00 Saline 2012-0 No Shoshana 5 mL, Memoria Flush 0.9% 2-19 Joyce Route: l 12:00: [facility] IVP, Drug Radha nn 00 Form: INJ, Dosing Weight 118.182, kg, Q8H, PRN Line Flush, Start date: 09/22/12 6:00:00, Duration: 30 day, Stop date: 10/22/12 5:59:00, Administer at least once every 8 hoursAdmin ister at least once every 8 hours aspirin No Shoshana 324 mg, 4 Mem oria 2-19 Joyce tab, l 12:00: Bruce Route: PO, Herm lobo 00 Drug form: ECTAB, ONCE, Dosing Weight 118.182, kg, Priority: STAT, Start date: 09/22/12 6:00:00, Stop date: 09/22/12 6:00:00 Saline 2012-0 No Shoshana 5 mL, Memoria Flush 0.9% 2-19 Joyce Route: l 12:00: [facility] IVP, Drug Radha nn 00 Form: INJ, Dosing Weight 118.182, kg, Q8H, PRN Line Flush, Start date: 09/22/12 6:00:00, Duration: 30 day, Stop date: 10/22/12 5:59:00, Administer at least once every 8 hoursAdmin ister at least once every 8 hours aspirin No Shoshana 324 mg, 4 Mem oria 2-19 Joyce tab, l 12:00: Bruce Route: PO, Herm lobo 00 Drug form: ECTAB, ONCE, Dosing Weight 118.182, kg, Priority: STAT, Start date: 09/22/12 6:00:00, Stop date: 09/22/12 6:00:00 Saline 2012-0 No Shoshana 5 mL, Memoria Flush 0.9% 2-19 Joyce Route: l 12:00: [facility] IVP, Drug Radha nn 00 Form: INJ, Dosing Weight 118.182, kg, Q8H, PRN Line Flush, Start date: 09/22/12 6:00:00, Duration: 30 day, Stop date: 10/22/12 5:59:00, Administer at least once every 8 hoursAdmin ister at least once every 8 hours aspirin 0 No Shoshana 324 mg, 4 Mem oria 2-19 Joyce tab, l 12:00: Bruce Route: PO, Herm lobo 00 Drug form: ECTAB, ONCE, Dosing Weight 118.182, kg, Priority: STAT, Start date: 09/22/12 6:00:00, Stop date: 09/22/12 6:00:00 Saline 2012-0 No Shoshana 5 mL, Memoria Flush 0.9% 2-19 [facility] Route: l 12:00: [facility] IVP, Drug Radha nn 00 Form: INJ, Dosing Weight 118.182, kg, Q8H, PRN Line Flush, Start date: 09/22/12 6:00:00, Duration: 30 day, Stop date: 10/22/12 5:59:00, Administer at least once every 8 hoursAdmin ister at least once every 8 hours aspirin No Shoshana 324 mg, 4 Mem oria 2-19 Jocye tab, l 12:00: Bruce Route: PO, Herm lobo 00 Drug form: ECTAB, ONCE, Dosing Weight 118.182, kg, Priority: STAT, Start date: 09/22/12 6:00:00, Stop date: 09/22/12 6:00:00 Saline 2012-0 No Shoshana 5 mL, Memoria Flush 0.9% 2-19 [facility] Route: l 12:00: [facility] IVP, Drug Radha nn 00 Form: INJ, Dosing Weight 118.182, kg, Q8H, PRN Line Flush, Start date: 09/22/12 6:00:00, Duration: 30 day, Stop date: 10/22/12 5:59:00, Administer at least once every 8 hoursAdmin ister at least once every 8 hours aspirin No Shoshana 324 mg, 4 Mem oria 2-19 Joyce tab, l 12:00: Bruce Route: PO, Herm lobo 00 Drug form: ECTAB, ONCE, Dosing Weight 118.182, kg, Priority: STAT, Start date: 09/22/12 6:00:00, Stop date: 09/22/12 6:00:00 Saline 2012-0 No Shoshana 5 mL, Memoria Flush 0.9% 2-19 [facility] Route: l 12:00: [facility] IVP, Drug Radha nn 00 Form: INJ, Dosing Weight 118.182, kg, Q8H, PRN Line Flush, Start date: 09/22/12 6:00:00, Duration: 30 day, Stop date: 10/22/12 5:59:00, Administer at least once every 8 hoursAdmin ister at least once every 8 hours aspirin 0 No Shoshana 324 mg, 4 Mem oria 2-19 Joyce tab, l 12:00: Bruce Route: PO, Herm lobo 00 Drug form: ECTAB, ONCE, Dosing Weight 118.182, kg, Priority: STAT, Start date: 09/22/12 6:00:00, Stop date: 09/22/12 6:00:00 Saline 2012-0 No Shoshana 5 mL, Memoria Flush 0.9% 2-19 Joyce Route: l 12:00: Bruce IVP, Drug Radha nn 00 Form: INJ, Dosing Weight 118.182, kg, Q8H, PRN Line Flush, Start date: 09/22/12 6:00:00, Duration: 30 day, Stop date: 10/22/12 5:59:00, Administer at least once every 8 hoursAdmin ister at least once every 8 hours aspirin No Shoshana 324 mg, 4 Mem oria 2-19 Joyce tab, l 12:00: Bruce Route: PO, Herm lobo 00 Drug form: ECTAB, ONCE, Dosing Weight 118.182, kg, Priority: STAT, Start date: 09/22/12 6:00:00, Stop date: 09/22/12 6:00:00 Saline 2012- No Shoshana 5 mL, Memoria Flush 0.9% 2-19 Joyce Route: l 12:00: Bruce IVP, Drug Radha nn 00 Form: INJ, Dosing Weight 118.182, kg, Q8H, PRN Line Flush, Start date: 09/22/12 6:00:00, Duration: 30 day, Stop date: 10/22/12 5:59:00, Administer at least once every 8 hoursAdmin ister at least once every 8 hours aspirin No Shoshana 324 mg, 4 Mem oria 2-19 Joyce tab, l 12:00: Bruce Route: PO, Herm lobo 00 Drug form: ECTAB, ONCE, Dosing Weight 118.182, kg, Priority: STAT, Start date: 09/22/12 6:00:00, Stop date: 09/22/12 6:00:00 Saline 2012-0 No Shoshana 5 mL, Memoria Flush 0.9% 2-19 Joyce Route: l 12:00: Bruce IVP, Drug Radha nn 00 Form: INJ, Dosing Weight 118.182, kg, Q8H, PRN Line Flush, Start date: 09/22/12 6:00:00, Duration: 30 day, Stop date: 10/22/12 5:59:00, Administer at least once every 8 hoursAdmin ister at least once every 8 hours aspirin No Shoshana 324 mg, 4 Mem oria 2-19 Joyce tab, l 12:00: Bruce Route: PO, Herm lobo 00 Drug form: ECTAB, ONCE, Dosing Weight 118.182, kg, Priority: STAT, Start date: 09/22/12 6:00:00, Stop date: 09/22/12 6:00:00 Saline No Shoshana 5 mL, Memoria Flush 0.9% 2-19 Joyce Route: l 12:00: Bruce IVP, Drug Radha nn 00 Form: INJ, Dosing Weight 118.182, kg, Q8H, PRN Line Flush, Start date: 09/22/12 6:00:00, Duration: 30 day, Stop date: 10/22/12 5:59:00, Administer at least once every 8 hoursAdmin ister at least once every 8 hours aspirin No Shoshana 324 mg, 4 Mem oria 2-19 Joyce tab, l 12:00: Bruce Route: PO, Herm lobo 00 Drug form: ECTAB, ONCE, Dosing Weight 118.182, kg, Priority: STAT, Start date: 09/22/12 6:00:00, Stop date: 09/22/12 6:00:00 Saline No Shoshana 5 mL, Memoria Flush 0.9% 2-19 Joyce Route: l 12:00: Bruce IVP, Drug Radha nn 00 Form: INJ, Dosing Weight 118.182, kg, Q8H, PRN Line Flush, Start date: 09/22/12 6:00:00, Duration: 30 day, Stop date: 10/22/12 5:59:00, Administer at least once every 8 hoursAdmin ister at least once every 8 hours Immunizations Ordered Filled Immunization Date Status Comments Sour e Immunization Name Name SARS-COV-2 COVID-19 2021-05-22 Completed [facility] of PFIZER VACCINE 00:00:00 [facility] SARS-COV-2 COVID-19 2021-05-22 Completed [facility] of PFIZER VACCINE 00:00:00 [facility] SARS-COV-2 COVID-19 2021-05-22 Completed [facility] of PFIZER VACCINE 00:00:00 [facility] Influenza Virus 2021-05-14 Completed [facility], 00:00:00 [place] [facility] ABX [facility] Free 6 MO-64 YRS Influenza Virus 2021-05-14 Completed [facility] Vaccine [facility], 00:00:00 [place] [facility] Preserv and ABX Branch Free 6 MO-64 YRS Influenza Virus 2021-05-14 Completed [facility] Vaccine [facility], 00:00:00 [place] [facility] Preserv and ABX Branch Free 6 MO-64 YRS SARS-COV-2 COVID-19 2020-10-21 Completed [facility] of PFIZER VACCINE 00:00:00 [facility] SARS-COV-2 COVID-19 2020-10-21 Completed [facility] of PFIZER VACCINE 00:00:00 [facility] SARS-COV-2 COVID-19 2020-10-21 Completed [facility] of PFIZER VACCINE 00:00:00 [facility] SARS-COV-2 COVID-19 2020-09-30 Completed [facility] of PFIZER VACCINE 00:00:00 [facility] SARS-COV-2 COVID-19 2020-09-30 Completed [facility] of PFIZER VACCINE 00:00:00 [facility] SARS-COV-2 COVID-19 2020-09-30 Completed [facility] of PFIZER VACCINE 00:00:00 [facility] influenza virus 2012-09-23 Completed [facility] vaccine, 17:09:00 inactivated influenza virus 2012-09-23 Completed [facility] vaccine, 17:09:00 inactivated influenza virus 2012-09-23 Completed [facility] [place] vaccine, 17:09:00 inactivated influenza virus 2012-09-23 Completed [facility] vaccine, 17:09:00 inactivated influenza virus 2012-09-23 Completed [facility] [place] vaccine, 17:09:00 inactivated influenza virus 2012-09-23 Completed [facility] [place] vaccine, 17:09:00 inactivated influenza virus 2012-09-23 Completed [facility] [place] vaccine, 17:09:00 inactivated influenza virus 2012-09-23 Completed [facility] [place] vaccine, 17:09:00 inactivated influenza virus 2012-09-23 Completed [facility] [place] vaccine, 17:09:00 inactivated influenza virus 2012-09-23 Completed [facility] [place] vaccine, 17:09:00 inactivated influenza virus 2012-09-23 Completed [facility] vaccine, 17:09:00 inactivated influenza virus 2012-09-23 Completed [facility] vaccine, 17:09:00 inactivated influenza virus 2012-09-23 Completed [facility] vaccine, 17:09:00 inactivated influenza virus 2012-09-23 Completed [facility] vaccine, 17:09:00 inactivated influenza virus 2012-09-23 Completed [facility] vaccine, 17:09:00 inactivated influenza virus 2012-09-23 Completed [facility] vaccine, 17:09:00 inactivated influenza virus 2012-09-23 Completed [facility] vaccine, 17:09:00 inactivated influenza virus 2012-09-23 Completed [facility] vaccine, 17:09:00 inactivated influenza virus 2012-09-23 Completed [facility] vaccine, 17:09:00 inactivated influenza virus 2012-09-23 Completed [facility] vaccine, 17:09:00 inactivated influenza virus 2012-09-23 Completed [facility] vaccine, 17:09:00 inactivated influenza virus 2012-09-23 Completed [facility] vaccine, 17:09:00 inactivated influenza virus 2012-09-23 Completed [facility] vaccine, 17:09:00 inactivated TDAP (ADACEL) 2011-08-04 Completed [facility] VACCINE 00:00:00 [facility] TDAP (ADACEL) 2011-08-04 Completed [facility] VACCINE 00:00:00 [facility] TDAP (ADACEL) 2011-08-04 Completed [facility] VACCINE 00:00:00 [facility] Vital Signs Vital Name Observation Time Observation Value Comments Source Systolic blood 2021-07-06 21:25:00 122 mm[Hg] Univer [facility]ity of pressure [facility] Diastolic blood 2021-07-06 21:25:00 70 mm[Hg] Unive rsity of pressure [facility] Heart rate 2021-07-06 21:25:00 59 /min [facility] Respiratory rate 2021-07-06 21:25:00 16 /[facility] 2021-07-06 21:25:00 99 /min [facility] blood by [facility] Pulse oximetry Branch Body temperature 2021-07-06 17:25:00 36.83 Ev [facility] ersity of [facility] Body weight 2021-07-06 17:25:00 119.75 kg Universi ty of [facility] BMI 2021-07-06 17:25:00 36.82 kg/m2 [facility] Systolic blood 2021-07-04 15:29:00 128 mm[Hg] Univer sity of pressure [facility] Diastolic blood 2021-07-04 15:29:00 83 mm[Hg] Unive rsity of pressure [facility] Heart rate 2021-07-04 15:29:00 63 /min [facility] Body temperature 2021-07-04 15:29:00 36.33 Ev [facility] Respiratory rate 2021-07-04 15:29:00 20 /min [facility] Body weight 2021-07-04 15:29:00 121.791 kg Universi [facility] BMI 2021-07-04 15:29:00 37.45 kg/m2 Universi [facility] Oxygen saturation in 2021-07-04 15:29:00 98 /min [facility] Arterial blood by [facility] Pulse oximetry Branch Weight 2019-04-23 14:15:00 [facility] Height 2019-04-23 14:15:00 [facility] Heart Rate 2019-04-23 14:15:00 [facility] Diastolic (mm Hg) 2019-04-23 14:15:00 [facility] [place] Systolic (mm Hg) 2019-04-23 14:15:00 [facility]erg [facility] [place] Weight 2019-03-26 13:45:00 [facility] Height 2019-03-26 13:45:00 [facility] Heart Rate 2019-03-26 13:45:00 [facility] Diastolic (mm Hg) 2019-03-26 13:45:00 [facility] [place] Systolic (mm Hg) 2019-03-26 13:45:00 [facility] [place] Systolic (mm Hg) 2012-09-24 13:17:00 [facility]erg [facility] [place] Diastolic (mm Hg) 2012-09-24 13:17:00 [facility] [place] Heart Rate 2012-09-24 13:17:00 [facility] Temperature Oral (F) 2012-09-24 13:17:00 97.1 F [facility] Respitory Rate 2012-09-24 13:17:00 [facility] Diastolic (mm Hg) 2012-09-24 10:00:00 [facility] [place] Temperature Oral (F) 2012-09-24 10:00:00 97.4 F [facility] Heart Rate 2012-09-24 10:00:00 [facility] Respitory Rate 2012-09-24 10:00:00 [facility] [place] Systolic (mm Hg) 2012-09-24 10:00:00 Serg [facility] [place] Diastolic (mm Hg) 2012-09-24 08:10:00 [facility] [place] Systolic (mm Hg) 2012-09-24 08:10:00 Serg [facility] [place] Heart Rate 2012-09-24 08:10:00 [facility] Respitory Rate 2012-09-24 01:42:00 [facility] [place] Temperature Oral (F) 2012-09-24 01:42:00 97.6 F [facility] Weight 2012-09-22 19:21:00 [facility] Height 2012-09-22 19:21:00 180.34 cm [facility] Weight 2012-09-22 11:50:00 [facility] [place] Height 2012-09-22 11:50:00 180.34 cm [facility] Procedures Procedure Date / Time Performing Clinician Source Performed XR ABDOMEN 1 VW 2021-07-06 18:24:30 [facility] TROPONIN I 2021-07-06 18:07:00 [facility] LIPASE 2021-07-06 17:32:00 [facility] COMP. METABOLIC PANEL 2021-07-06 17:32:00 [facility] ([id number]) [facility] CBC WITH DIFF 2021-07-06 17:32:00 [facility] CONSENT/REFUSAL FOR 2021-07-06 17:15:35 Doctor Unassigned, [facility] DIAGNOSIS AND TREATMENT [facility] XR ANKLE 3+ VW LEFT 2021-07-04 16:31:47 Mahesh Marley [facility] Abdomen endoscopy 2011-10-21 05:00:00 Rolando preston <sup>1</sup> Colonoscopy 2011-10-17 05:00:00 Rolando marina Cholecystectomy 2011-10-16 05:00:00 Rolando marina Back fusion 1998-02-16 05:00:00 Rolando marina Encounters Start End Encounter Admission Attending Care Care Encounter Source Date/Time Date/Time Type Type Clinicians Facility Department ID 2021-10-03 2021-10-03 Outpatient R DONELL [facility] [id number] Univers 08:20:00 08:20:00 MAHESH [id number] [facility] 2021-07-13 2021-07-13 [facility] [id number] Univers 09:40:00 09:40:00 JUSTIN [id number] [facility] 2021-07-13 2021-07-13 [facility] [id number] Univers 09:40:00 09:40:00 JUSTIN [facility] 2021-07-06 2021-07-06 Emergency X [facility] ERT [id number] Univers 11:23:00 15:37:00 CLYDE [facility] 2021-07-06 2021-07-06 Emergency [facility] [id number] Univers 11:23:00 15:37:00 Clyde MORAES 350.1.13.10 [facility] 4.2.7.2.686 [facility] [id number] [place] [address] Branch 2021-07-06 2021-07-06 Outpatient R EDMAYDA [facility] [id number] Univers 11:00:00 11:11:31 JUSTIN [facility] 2021-07-04 2021-07-04 [facility] [id number] Univers 10:05:28 23:59:00 [facility] 2021-07-04 2021-07-04 [facility] [id number] Univers 10:05:28 23:59:00 Encounter Mahesh M PRIMARY 350.1.13.10 [place] [id number] Mo dical [address] 2021-07-04 2021-07-04 [facility] [id number] P-[id number] Univers 11:00:00 11:00:00 MAHESH [id number] ity of [facility] 2021-07-04 2021-07-04 Office [facility] 1.2.840.114 [id number] Univers 08:39:49 09:51:47 Visit Mahesh Vásquez PRIMARY 350.1.13.10 ity of [place]2.[place] [id number] Mo dical [address] [place] [address] 2021-06-26 2021-06-26 [facility] [id number] Univers 08:10:47 15:21:00 EDOUARD celis o f [facility] 2020-07-19 2020-07-19 Telephone [facility] 1.2.840.114 [id number] 00:00:00 00:00:00 Mahesh Vásquez PRIMARY 350.1.13.10 CARE 4.2.7.2.686 [facility] [id number] [facility] 2020-07-14 2020-07-14 Telephone [facility] 1.2.840.114 [id number] 00:00:00 00:00:00 Mahesh Vásquez MULTISPEC 350.1.13.10 IALTY 4.2.7.2.686 [place] [id number] [facility] 2020-07-14 2020-07-14 Telephone [facility] 1.2.840.114 [id number] 00:00:00 00:00:00 Mahesh Vásquez MULTISPEC 350.1.13.10 IALTY 4.2.7.2.686 [place] [id number] [facility] 2020-07-14 2020-07-14 Orders Doctor MARIA TERESA 1.2.840.114 [id number] 00:00:00 00:00:00 Only Unassigned, FANNY 350.1.13.10 [facility] 4.2.7.2.686 [id number] 009 2020-07-13 2020-07-13 Telephone Emmanuel NVJUAN CARLOS 1.2.840.114 [id number] 00:00:00 00:00:00 Magui LEES 350.1.13.10 [facility] 4.2.7.2.686 [id number] 2020-06-07 2020-06-07 Orders Doctor MARIA TERESA 1.2.840.114 [id number] 00:00:00 00:00:00 Only Unassigned, FANNY 350.1.13.10 [facility] 4.2.7.2.686 [id number] 009 2020-05-15 2020-05-15 Office Emmanuel NVJUAN CARLOS 1.2.840.114 [id number] 09:43:40 09:58:40 Visit Magui LEES 350.1.13.10 [facility] 4.2.7.2.686 [id number] 2019-09-26 2019-09-26 Emergency X [facility] ERT [id number] Univers 09:17:53 11:16:00 CLYDE [facility] 2012-09-22 2012-09-24 OU [facility] [id number] Memoria 10:37:00 12:30:[address] Results Test Description Test Time Test Comments Results Result Comments Source TROPONIN I 2021-07-06 19:02:21 Test Item Value Reference Range Interpretation Comme nts TROPONIN I (test code = 0.002 ng/mL See_Comment [Au tomated message] The 1188669322) system which ge nerated this result tra nsmitted reference range : <=0.034. The reference r marek was not used to int erpret this result as normal/abnormal . CARI (test code = CARI) Reference (Normal) Range (defined by the 99th percentile reference limit): <= 0.034 ng/mL Note: Cardiac troponin begins to rise 3-4 hours after the onset of ischemia. Repeat in 4-6 hours if the sample was drawn within 3-4 hours of the onset of the symptom and found normal. Diagnosis of myocardial injury is made with acute changes in cTn concentrations with at least one serial sample above the 99th percentile upper reference limit (URL), taken together with the patient's clinical presentation. Biotin has been reported to cause a negative bias, interpret results relative to patient's use of biotin. Lab Interpretation Normal (test code = 10150-2) [facility] Zlbvo3109-30-66 18:04:53 Test Item Value Reference Range Interpretation Comments NA (test code = 137 mmol/L 135-145 2771978779) K (test code = 4.6 mmol/L 3.5-5.0 0709986300) CL (test code = 101 mmol/L 98-108 6091923035) CO2 TOTAL (test code = 27 mmol/L 23-31 6662430589) AGAP (test code = 2-16 5473744373) BUN (test code = 11 mg/dL 7-23 1384174201) GLUCOSE (test code = 132 mg/dL 70-110 H 6344414409) CREATININE (test code = 0.96 mg/dL 0.60-1.25 6184418854) TOTAL BILI (test code = 0.5 mg/dL 0.1-1.5 5756999567) CALCIUM (test code = 9.6 mg/dL 8.6-10.6 0211432399) T PROTEIN (test code = 7.4 g/dL 6.3-8.2 3845110979) ALBUMIN (test code = 4.6 g/dL 3.5-5.0 7816401291) ALK PHOS (test code = 125 U/L 34-122 H 2606079446) ALTv (test code = 29 U/L 5-50 1742-6) AST(SGOT) (test code = 34 U/L 13-40 3444473599) eGFR (test code = mL/min/1.73m2 9324319220) CARI (test code = CARI) Association of Glomerular Filtration Rate (GFR) and Staging of Kidney Disease* + --+ --+ ------+| GFR (mL/min/1.73 m2) ?| With Kidney Damage ?| ?Without Kidney Damage+ --------+ --------+ +| ?>90 ?| ?Stage one ?| ? Normal ?+ ---+ ---+ -------+| ?60-89 ?| ?Stage two ?| ? Decreased GFR ? + --+ --+ ------+| ?30-59 ?| ?Stage three ?| ? Stage three ? + --+ --+ ------+| ?15-29 ?| ?Stage four ? | ? Stage four ?+ ---+ ---+ -------+| ?<15 (or dialysis) ? ?| ?Stage five ? | ? Stage five ?+ ---+ ---+ -------+ *Each stage assumes the associated GFR level has been in effect for at least three months. ?Stages 1 to 5, with or without kidney disease, indicate chronic kidney disease. Notes: Determination of stages one and two (with eGFR >59mL/min/1.73 m2) requires estimation of kidney damage for at least three months as defined by structural or functional abnormalities of the kidney, manifested by either:Pathological abnormalities or Markers of kidney damage (including abnormalities in the composition of the blood or urine or abnormalities in imaging tests). Lab Interpretation Abnormal (test code = 62416-0) [facility], Ceien6693-79-98 18:04:32 Test Item Value Reference Range Interpretation Comments LIPASE (test code = 6175357326) 151 U/L 0-220 Lab Interpretation (test code = Normal 89510-6) [facility] with Qroydieirpyf3731-50-62 17:56:11 Test Item Value Reference Range Interpretation Comments WBC (test code = See_Comment [Automated 9215-2) message] The sy stem which generated this result transmitted reference range : 4.20 - 10.70 10*3/?L. The reference range was not used to interpret this result as normal/abnormal . RBC (test code = See_Comment [Automated 519-8) message] The sy stem which generated this result transmitted reference range : 4.26 - 5.52 10*6/?L. The reference range was not used to interpret this result as normal/abnormal . HGB (test code = 15.7 g/dL 12.2-16.4 718-7) HCT (test code = 47.2 % 38.4-49.3 4544-3) MCV (test code = 88.7 fL 81.7-95.6 787-2) MCH (test code = 29.5 pg 26.1-32.7 785-6) MCHC (test code = 33.3 g/dL 31.2-35.0 786-4) RDW-SD (test code = 44.0 fL 38.5-51.6 19472-7) RDW-CV (test code = 13.5 % 12.1-15.4 788-0) PLT (test code = See_Comment H [Automated 777-3) message] The sy stem which generated this result transmitted reference range : 150 - 328 10*3/ ?L. The reference r marek was not used to interpret this result as normal/abnormal . MPV (test code = 10.1 fL 9.8-13.0 40201-8) NRBC/100 WBC (test See_Comment [Automat ed code = 3781024025) message] The system which generated this result transmitted reference range : 0.0 - 10.0 /100 WBCs. The refer ence range was not u sed to interpret th is result as normal/abnormal . NRBC x10^3 (test code <0.01 See_Comment [Auto mated = 1886412452) message] The s ystem which generated this result transmitted reference range : 10*3/?L. The reference range was not used to interpret this result as normal/abnormal . GRAN MAT (NEUT) % 72.9 % (test code = 770-8) IMM GRAN % (test code 0.60 % = 1366417238) LYMPH % (test code = 19.3 % 736-9) MONO % (test code = 4.8 % 5905-5) EOS % (test code = 1.2 % 713-8) BASO % (test code = 1.2 % 706-2) GRAN MAT x10^3(ANC) 6.96 10*3/uL 1.99-6.95 H (test code = 2766988180) IMM GRAN x10^3 (test 0.06 10*3/uL 0.00-0.06 code = 3903016938) LYMPH x10^3 (test code 1.84 10*3/uL 1.09-3.23 = 731-0) MONO x10^3 (test code 0.46 10*3/uL 0.36-1.02 = 742-7) EOS x10^3 (test code = 0.11 10*3/uL 0.06-0.53 711-2) BASO x10^3 (test code 0.11 10*3/uL 0.01-0.09 H = 704-7) Lab Interpretation Abnormal (test code = 17199-7) [facility] 02:00:002.5[facility] IlglunpHTSWHFHMG4758-23-83 02:00:00<0.02[facility] XlednmvIIRSMQNQM3830-17-31 02:00:00<0.010[facility] MmszghkHSOOCDUZD6078-77-80 02:00:90190Ewcvkdzs [place] EZIDWXRTC6235-29-15 02:00:000.9[facility] AvdwnimUHVAQMKNA1364-55-97 02:00:002.5 [facility] MzmrqcbUYXXLCUUH5108-99-58 02:00:00<0.02[facility] 2012-09-23 02:00:00<0.010[facility] CytaoakGXAOOELIG1916-79-17 02:00:87148 [facility] TooedfjUIVQHDBMC9050-24-46 02:00:000.9[facility]annCHEMISTRY 2012-09-23 02:00:002.5[facility] MyexdeuTGNUTUKNQ5956-66-08 02:00:00<0.02 [facility] KskomhfCPUSKWWWN1496-58-50 02:00:00<0.010[facility]ann[facility]MI[facility]Y 2012-09-23 02:00:99817Yzqkcdra IkdwfsuFTCEIHDBJ7863-18-80 02:00:000.9[facility] IjgltetFGPDVSROX1634-03-66 02:00:002.5[facility] AkczigsYRCLVIFIE5447-81-95 02:00:00<0.02[facility] JufcyzqNMWOCFCBQ1020-09-31 02:00:00<0.010[facility] OhokktxJDNIPRTQV4542-55-73 02:00:66617Hlrnzkwk UcrzsckCFIGDMQTM2588-55-87 02:00:000.9[facility] AnwcklcPUCIQPMVB6923-94-25 02:00:002.5[facility] [place] SBEHCLVTT7932-69-80 02:00:00<0.02[facility] XogxrumBOTVTNMTW8566-13-85 02:00:00 <0.010[facility] CilesvmFADAVVXVT0367-09-78 02:00:10420Kvuhgahs [place] VLNDUZRAF1956-44-36 02:00:000.9[facility] IebdmeyKZHNGBFCN9189-71-07 02:00:002.5 [facility] QueaizcHBIYAAADV5026-31-12 02:00:00<0.02[facility]ann[facility]MI[facility] 2012-09-23 02:00:00<0.010[facility] CugygnjNDQCJJBOL6990-63-82 02:00:79551 [facility] SfxzwifVXEJVWVWC1299-42-38 02:00:000.9[facility]annCHEMISTRY 2012-09-23 02:00:002.5[facility] BqztvffXPBGHEMVY1316-43-95 02:00:00<0.02 [facility] DankposWDADZKVJP9526-67-81 02:00:00<0.010[facility]ann[facility]MI[facility]Y 2012-09-23 02:00:07306Jiopinhc PcvkttvVVKLQZCMP5895-09-09 02:00:000.9[facility] IpeqbmxFPKLGPRFV1133-53-96 02:00:002.5[facility] AcxkqxeWHTIWNGIF7464-89-82 02:00:00<0.02[facility] VgpoyinGDIBNHDHF1859-06-06 02:00:00<0.010[facility] WmiqqiiNBROGXPHH4302-77-04 02:00:84939Qbgtchhr WezwhuvETBTSGFJE0865-32-04 02:00:000.9[facility] WwahkmgKSMZCEEJM4588-26-82 02:00:002.5[facility] [place] LLMSOCMZE5266-08-85 02:00:00<0.02[facility] CushyteVEODPYFRH3074-75-57 02:00:00 <0.010[facility] OqeiymkWNWNPBOEL3739-69-07 02:00:09533Pxkwfwyw [place] QMYTYDJRQ2475-65-04 02:00:000.9[facility] QygwmfdDJHBXHVYO6104-72-10 02:00:002.5 [facility] KoeybmpDZHGPJXCB0667-93-14 02:00:00<0.02[facility]annCHEMI[facility]Y 2012-09-23 02:00:00<0.010[facility] YlcoviqXBKKVAXKB0270-61-02 02:00:76082 [facility] NcjgtpuUAROLTPLB1421-85-39 02:00:000.9[facility]ann[facility] 2012-09-23 02:00:002.5[facility] YlbagijECAPTQRXU2872-86-80 02:00:00<0.02 [facility] DprjtnxSKYZPQUIP3532-34-32 02:00:00<0.010[facility]annCHEMISTRY 2012-09-23 02:00:73920Askwcpzw XjyupjaNNBKZDQCE3478-17-33 02:00:000.9[facility] IwldiumKTJXXXMIZ3209-83-33 02:00:002.5[facility] GueslskLPNQEAZCD2161-60-68 02:00:00<0.02[facility] NjnxewpYPFCPTWFS0805-50-37 02:00:00<0.010[facility] RdktmipXYESOTYPW1932-61-86 02:00:70147Egynejcm ZsaqoykDOHKFJMCM6907-39-06 02:00:000.9[facility] JcqzgqoTNMAYZCLM0765-90-99 02:00:002.5[facility] [place] KBJXBPTCB9505-93-17 02:00:00<0.02[facility] VwxbkehIXBJWUPPX5372-91-37 02:00:00 <0.010[facility] JtgbhthXYHIUDKBO9252-87-63 02:00:74317Rhsabexh [place] RAGVXVIED8008-48-59 02:00:000.9[facility] IdkmbwvZGTRWAHFF7860-46-44 02:00:002.5 [facility] BiewiaePMIOSPQEU0838-34-92 02:00:00<0.02[facility]annCHEMISTRY 2012-09-23 02:00:00<0.010[facility] FkvqtgsNXJKQECPI8207-97-67 02:00:57379 [facility] WtqedetNAFGTJXTV4034-16-34 02:00:000.9[facility]ann[facility]MI[facility] 2012-09-23 02:00:002.5[facility] LligsliOETRUEFMD8208-48-90 02:00:00<0.02 [facility] VgkqdznCQYMXTOEK6332-64-56 02:00:00<0.010[facility]annCHEMISTRY 2012-09-23 02:00:23775Uyxuqmih LptmhfvSOQNRYGPS6373-54-64 02:00:000.9[facility] BeqpzfcSPTBMEAXH5606-87-84 02:00:002.5[facility] EtwnjgcPAOPIQVOE1689-53-59 02:00:00<0.02[facility] BebejxxJWGGTZKFI0804-80-54 02:00:00<0.010[facility] OkilsodLTRWAQVOA0820-88-34 02:00:16384Jedngzkk HbmnqbcOAQGCWCAO6727-79-76 02:00:000.9[facility] TzmbpgdGKDJIPALZ7456-34-79 02:00:002.5[facility] [place] QFXINGPZQ6667-63-77 02:00:00<0.02[facility] HprwazeHMVKNAIVK4726-23-70 02:00:00 <0.010[facility] GkmpvefIEPQNGRHO7721-01-68 02:00:19759Djqxckyo [place] FTEIJGTIO1372-87-99 02:00:000.9[facility] IlnmhezQTWABXUHC8127-59-48 02:00:002.5 [facility] RstesivKYLIMVSDD1845-26-30 02:00:00<0.02[facility]ann[facility]Y 2012-09-23 02:00:00<0.010[facility] LusnqykLXRIJYVAO3219-53-05 02:00:85385 [facility] ApqbswdDIITOQOCM6612-56-36 02:00:000.9[facility]ann[facility] 2012-09-23 02:00:00<0.02[facility] GhanemgFHURDFLKL1000-74-66 02:00:00<0.010 [facility] IuzhtkcPBEFTNHNL6821-03-08 02:00:96923Uyzogsms HermannCHEMISTRY 2012-09-23 02:00:000.9[facility] XdekyoqTUJJHLPLZ8767-75-86 02:00:002.5[facility] IxqwlggXNLKROJMI2363-34-56 02:00:00<0.02[facility] FpkgsnpBRDPRIIWI0344-76-91 02:00:00<0.010[facility] JmzvyidTWQYINNSV7847-69-34 02:00:30672Mkzysatx [place] OVVWWHXVN6968-98-90 02:00:000.9[facility] AtoswqbZYQBRUCDC4831-42-88 02:00:002.5 [facility] MemoonoSJZKBQHWG6354-30-10 02:00:00<0.02[facility] 2012-09-23 02:00:00<0.010[facility] UeucxfkEIMAQEQJZ6232-66-47 02:00:16967 [facility] ZnyavupNEXIYWPSY2490-06-47 02:00:000.9[facility]ann[facility] 2012-09-23 02:00:002.5[facility] HxwciznQFACOXXDJ4204-91-44 02:00:00<0.02 [facility] JlindvrXBTGNLICL3417-50-75 02:00:00<0.010[facility]ann[facility]MI[facility]Y 2012-09-23 02:00:45498Onskimbg YmigjnsHZHVYFXTM8199-73-06 02:00:000.9[facility] CbhsnraJMLXVQVMC1706-62-57 02:00:002.5[facility] XbjrxwwJRFNLAVKP6752-93-50 02:00:00<0.02[facility] JkomjgmRFWVCIUGH4276-59-19 02:00:00<0.010[facility] RemwkyrQDDCBAOVA3813-93-28 02:00:95683Oomvieed InkxhvaGGOQMZTPU5507-41-61 02:00:000.9[facility] GyonygzOJPQPHONU6710-79-19 02:00:002.5[facility] [place] WCZDTPWSE0735-17-72 20:37:00<0.02[facility] PdhoqplYYTTLHHTW2948-03-62 20:37:00 <0.010[facility] WcoilmvARQNXDOYW8138-98-94 20:37:03570Kipzbzty [place] TBTPGEKFT4783-55-22 20:37:001.0[facility] RocdfxxPOXHOKQHO1535-69-40 20:37:003.1 [facility] QqwwnqoCFTRGSKOS4416-07-50 20:37:00<0.02[facility]ann[facility]MI[facility]Y 2012-09-22 20:37:00<0.010[facility] FbkvxieVSTYNVRAR5330-45-02 20:37:10119 [facility] AebmwuvTZVCORLCT3401-16-12 20:37:001.0[facility] 2012-09-22 20:37:003.1[facility] SgvfvpyWLCUYFOMW6524-02-77 20:37:00<0.02 [facility] EfshnbxYNMPMFFKL9178-25-03 20:37:00<0.010[facility] 2012-09-22 20:37:29594Ymoxgayh CsncoyzEJMIDBWCR8837-48-53 20:37:001.0[facility] OjurmqzAFOOGANGZ0229-45-33 20:37:003.1[facility] NozipaoUPRELLYIP5823-63-82 20:37:00<0.02[facility] ZurzlixCDBJRZQZR2447-32-69 20:37:00<0.010[facility] CddimoxAKRYAXVBE6037-28-10 20:37:02182Dkscgork MrwomyjTYWZAFWKO1897-74-50 20:37:001.0[facility] ZuasmeaGMPKCXZHE3156-26-04 20:37:003.1[facility] [place] XEGJRKSXE6213-67-86 20:37:00<0.02[facility] YcjwdjjJUUIGUZOY1191-32-18 20:37:00 <0.010[facility] OdizlkrEAGLKRJXI3621-54-81 20:37:04447Osmpwntc [place] EETTIDUFC6408-49-88 20:37:001.0[facility] OqaktpiKOPZXMNCC8730-03-99 20:37:003.1 [facility] UtxkdtcTQHTFSDOY6870-63-37 20:37:00<0.02[facility] 2012-09-22 20:37:00<0.010[facility] YdzywikDJBPLUYEV5506-65-90 20:37:21857 [facility] SuouhupRSRGIEORV3828-60-69 20:37:001.0[facility] 2012-09-22 20:37:003.1[facility] YpasjziGPQVPNMJP7476-28-41 20:37:00<0.02 [facility] OwihrhwGFHCKSQJB0789-96-51 20:37:00<0.010[facility] 2012-09-22 20:37:23679Mgljtrfj QcbuavcCFPKZYOQF7374-03-26 20:37:001.0[facility] RbkgaqrGAKOKGNYT6230-82-74 20:37:003.1[facility] MplidtyKDBQXKQQN0145-81-26 20:37:00<0.02[facility] YrhvvyhFVOJCDTQY9018-11-69 20:37:00<0.010[facility] TvchcxtCUAYTDIJO1705-54-88 20:37:92774Kolxolmb ZwjrblaHLQRKVOPD5114-03-17 20:37:001.0[facility] DkrvoqfMZMEGYEAA1998-24-43 20:37:003.1[facility] [place] EDBMPJPOS1938-16-28 20:37:00<0.02[facility] AitaefbCCIBDGGYT4220-20-92 20:37:00 <0.010[facility] BajfqafGTFXCFFRO7837-08-15 20:37:32565Uobclkph [place] DNLXZDFGS9085-14-11 20:37:001.0[facility] MgzcuwvHOALHYYVY8591-13-26 20:37:003.1 [facility] GiysuapVXOKAHLDZ2047-89-90 20:37:00<0.02[facility] 2012-09-22 20:37:00<0.010[facility] TsakzanNFILRPRTA3741-37-62 20:37:46321 [facility] VisfqsdXYMIBSCJA2574-68-03 20:37:001.0[facility] 2012-09-22 20:37:003.1[facility] FxxuhjsVCDGJJUPM6947-82-44 20:37:00<0.02 [facility] QpxibvlKJMNSSKCF5517-75-28 20:37:00<0.010[facility] 2012-09-22 20:37:67450Iecipvlh JbalnrdCNNIXPTMX9411-10-52 20:37:001.0[facility] VdlkxheODANEEKXH8551-81-48 20:37:003.1[facility] JmwlylzBBUUFADES3882-56-23 20:37:00<0.02[facility] OisvngxYTCMIQDIO6266-09-34 20:37:00<0.010[facility] QxoxtdoOLESFQMKI1293-25-98 20:37:20087Cxugyoww ScndiwzPEWBEZXVV4685-35-62 20:37:001.0[facility] GrvkvhfZOGVAQFLU3399-70-10 20:37:003.1[facility] [place] NNXZEFAEE7474-53-60 20:37:00<0.02[facility] IlbsnzmHDFUFQLUI5329-99-98 20:37:00 <0.010[facility] GuqhmlrEDFMURCIA2764-80-20 20:37:31747Rlpmimvc [place] SMMJNGGKB8646-90-52 20:37:001.0[facility] RbfjtfnJCVJLJICH1841-24-46 20:37:003.1 [facility] DococbeDPEHRVMMF9659-98-34 20:37:00<0.02[facility]ann[facility]MI[facility]Y 2012-09-22 20:37:00<0.010[facility] LyhabceYSBHSWEIB5193-39-77 20:37:50711 [facility] ItvuheoKJSMQZMGX9068-16-28 20:37:001.0[facility]Y 2012-09-22 20:37:003.1[facility] PhtuwhoCYUMWSOVJ9075-97-81 20:37:00<0.02 [facility] XmcfyfiLSDPNAPUR9062-94-00 20:37:00<0.010[facility] 2012-09-22 20:37:85093Ixyhgfmj DicqpbpBMQRTYEPH2658-19-57 20:37:001.0[facility] GpupvvmZMZKGFSBP5865-51-78 20:37:003.1[facility] KlssxnqMTKUUMFQA8031-40-72 20:37:00<0.02[facility] WszqnlfJGRUZTUJM2511-30-21 20:37:00<0.010[facility] EbcoahtIIOCDFLKL1526-12-63 20:37:90666Wafmssrz JktmjlyEOPOWRCOY6101-46-33 20:37:001.0[facility] FkoyzhdXFYOPVWWW5568-75-44 20:37:003.1[facility] FIXQUXUYT4188-54-31 20:37:00<0.02[facility] UwvldokKIJHVUPRG3213-60-34 20:37:00 <0.010[facility] AptpkrbQPXUBJNRR7045-32-62 20:37:35879Bjjlwobv [place]o NKARWATVC8146-05-09 20:37:001.0[facility] PfrhtnyFWLQHDAQK6203-97-43 20:37:003.1 [facility] IjwrbsmUBSBUIJQI5731-73-75 20:37:00<0.02[facility]annCHE[facility]Y 2012-09-22 20:37:00<0.010[facility] QpgwspbXHWAYQNRJ8664-68-89 20:37:04863 [facility] XoeajkfPRABQXCER2676-11-07 20:37:001.0[facility]annCHE[facility]Y 2012-09-22 20:37:003.1[facility] HwuajjeUTFFBCHPT0032-37-74 20:37:00<0.02 [facility] QvtcasjYQQUAHXFO4615-87-34 20:37:00<0.010[facility]annCHE[facility]Y 2012-09-22 20:37:95394Ulndjwhf OumtdgeEBXAHAXZJ4750-98-32 20:37:001.0[facility] GywyoazOKRXXZNYI2441-72-28 20:37:003.1[facility] ZzdbkyzQXHSVXMXI8767-18-93 20:37:00<0.02[facility] GvonyitCZDFOHPSO3014-38-71 20:37:00<0.010[facility] UegqxdjKRJVETFOU9274-36-21 20:37:68464Wswdkkod OlltebkRAQGCMTQN9946-10-76 20:37:001.0[facility] ZjniplcXPXZCPCLQ0097-76-36 20:37:003.1[facility] SWYJCIGQK4608-20-67 20:37:00<0.02[facility] DkssjvtKZHGUGFSI0002-69-50 20:37:00 <0.010[facility] CwnmrmqURHVUMMHU9025-04-66 20:37:20673Ujufpezh [facility] DXQSLQHFR6141-82-30 20:37:001.0[facility] XnfzzglKCRHHZABH5605-68-70 20:37:003.1 [facility] NliaxdjZVVYNZOLD0576-06-62 20:37:00<0.02[facility]annCHEMI[facility]Y 2012-09-22 20:37:00<0.010[facility] MjkwzxbSLZCDRSLQ7471-90-60 20:37:96709 [facility] BspbcbuFIXKFEIEO9855-63-51 20:37:001.0[facility]annCHEMISTRY 2012-09-22 20:37:003.1[facility] RdtdbavNNKMVCMTV0821-38-09 20:37:00<0.02 [facility] PunzohtCIDTGUWHZ1670-90-19 20:37:00<0.010[facility]annCHEMISTRY 2012-09-22 20:37:75730Aqsyinsv NnnbqwjBRXSIYKNX5663-16-79 20:37:001.0[facility] PfpdwpeDCNMACNVB4043-55-21 20:37:003.1[facility] SegybdjMYYFVQGIFU1324-59-90 12:15:0016.1[facility] VoddwkwKGCSRPYQJV9895-86-70 12:15:008.1[facility] PGXFLCZQX2059-55-89 12:15:001.6[facility] XyackiaFLDPLLKJH5996-81-08 12:15:002.8 [facility] HuwfiixYDTKPOHCV2009-70-50 12:15:00<0.02[facility]annCHEMISTRY 2012-09-22 12:15:79248Hmbhrbli TlsmngnSPDXILJAO7897-16-16 12:15:0066[facility] AcirjyzIYIRJFMQU9878-31-57 12:15:008.3[facility] JnwvqemLZDPKTGWZ6807-20-80 12:15:0026[facility] CfrgrrhUWJCUEGDL8962-61-43 12:15:29708Wqpptucc [facility] SSYKHPDPK1399-20-99 12:15:004.0[facility] AvfwmpdRILOBNFYB8493-26-55 12:15:40521 [facility] PbykxgxNEBINNHLJ1064-67-08 12:15:001.3[facility]annCHEMISTRY 2012-09-22 12:15:0015[facility] SdbrfyhJCIHKKPGA4841-37-29 12:15:16916Cllczunx ZkisnbfCKUBATGAV2566-75-32 12:15:003.7[facility] CpopxkoSIXVRTUDD1353-44-65 12:15:006.7[facility] VyugmeuRZHBWZPJP7599-49-25 12:15:95265Kgaotmyc [facility] BOUYRUKFN0317-53-81 12:15:0063[facility] QdphtdsDUDJOTDRV2240-39-06 12:15:000.3 [facility] AvsqnjpKQTOZCOGH0032-37-75 12:15:0036[facility]annCHEMISTRY 2012-09-22 12:15:0014.0[facility] YtvkudwEPEMGYMPD1219-06-58 12:15:0012[facility] CugwrvmVRPLYIAJG3708-35-67 12:15:001.2[facility] DiuizyzGIBZEBGTH2740-98-71 12:15:003.0[facility] RvzibdcZEMQGRMLSX5110-76-45 12:15:005.0[facility] FDDONTYPPD1770-93-41 12:15:0019.5[facility] GkimwiiEGSPAKQBCZ4357-16-25 12:15:00 1.1[facility] PbceszxAKWZJSZRJQ5433-95-36 12:15:0073.8[facility]annHEMATOLOGY 2012-09-22 12:15:000.4[facility] NpncnbhHYQROFJPWT8101-13-59 12:15:001.6[facility] XseaogdZFDQPFJSYJ2240-01-81 12:15:000.0[facility] BxkmbeyWFHWVQRRJQ6242-19-31 12:15:000.1[facility] EclghlfJIHJUCDJCL7615-08-47 12:15:006.0[facility] CAOTUFGRGW9109-80-31 12:15:000.6[facility] FykhwmqSYLJWNMVKH4648-19-33 12:15:00 0.87[facility] ZyqndqfBDXMKFLTTD3114-34-08 12:15:00 Test Item Value Reference Range Interpretation Comments PTT (test code = PTT) 23.2 s 22.9-35.[address] [facility]WDY1874-71-84 12:15:00 Test Item Value Reference Range Interpretation Comments PT (test code = PT) 12.0 s 12.0-14.7 [facility] HospitalEugcqipREVLGKGPYC8963-30-39 12:15:0092.3[facility]annHEMATOLOGY 2012-09-22 12:15:00 Test Item Value Reference Range Interpretation Comments MCH (test code = MCH) 31.0 pg 27.0-31.[address] [facility] HospitalSavzvppRNHZXSJLVV8479-99-82 12:15:0033.6[facility]annHEMATOLOGY 2012-09-22 12:15:0012.8[facility] AgvbactHSJVITIPUY9082-31-00 12:15:0047.8[facility] UusqbhbXVJIBBWCRM0641-84-80 12:15:009.1[facility] SwhfuzkLVOCMVYWPK3127-53-21 12:15:99620Kxgbzwkk HqtgftcZRDUTQQTPP6111-32-66 12:15:005.18[facility] KMHKZJEAXF9014-74-28 12:15:0016.1[facility] UjbmkkzTYIRMVRQWN3199-13-17 12:15:00 8.1[facility] YunnhocUHVLDEOLU0432-13-66 12:15:001.6[facility]annCHEMISTRY 2012-09-22 12:15:002.8[facility] JeinepaVIHOIHHCC6752-08-73 12:15:00<0.02 [facility] QtercdeVAHHEBNBU9581-08-72 12:15:24030[facility] HermannCHEMISTRY 2012-09-22 12:15:0066[facility] XnoonxuDYTREPLUP3510-39-73 12:15:008.3[facility] RmwcikfOBHVFWVLK7341-34-61 12:15:0026[facility] VrikovuFCTYEXRMA4567-83-50 12:15:60390Eikjimqq JvmcyfaTQWEHRRIZ9895-78-90 12:15:004.0[facility] NPUJLWRXU1371-83-88 12:15:84535Jggsjdkp PupfatwSXZQUSCWT4728-65-96 12:15:001.3 [facility] HbzrbegUTSJORYFN6647-23-00 12:15:0015[facility]annCHEMISTRY 2012-09-22 12:15:70109Ochhxzgs ZojifqnHBPBQGOSH1380-13-14 12:15:003.7[facility] CtbrpocGNVCPLRMP9718-89-62 12:15:006.7[facility] ThwehkdZPFQUILOB8295-25-24 12:15:86042Rmcrtjvv SeywzqmSJSODPIBS2960-53-82 12:15:0063[facility] OEWLDRFIV0478-59-46 12:15:000.3[facility] DxwkdblHURSLARAG6890-05-91 12:15:0036 [facility] OjiwgugHUOKTSQPR6056-99-55 12:15:0014.0[facility] HermannCHEMISTRY 2012-09-22 12:15:0012[facility] RavrjrjCGZSFTHLV3475-87-63 12:15:001.2[facility] DkpmqzyRNGFPDOIC6493-42-14 12:15:003.0[facility] YupwkrjLOHZHENSZF3510-82-74 12:15:005.0[facility] JvsvhbiKCTHRSESHT0868-67-54 12:15:0019.5[facility] MBOKLQYEHW7304-29-38 12:15:001.1[facility] PvwiiabIRZDVRDYJF5744-93-47 12:15:00 73.8[facility] QdoncbcHDEQIBNNIL5672-47-64 12:15:000.4[facility] HermannHEMATOLOGY 2012-09-22 12:15:001.6[facility] MminmcrRZBAEXJCOQ9135-03-54 12:15:000.0[facility] RuspaniNRLVKPEVQN9754-67-18 12:15:000.1[facility] UqfmamsCJVILVGYQR4838-67-81 12:15:006.0[facility] UgdyswqXUFMVEQCLU5569-09-00 12:15:000.6[facility] FZPTHWTLFL3019-42-53 12:15:000.87[facility] HjwenymPOAKXKFZHQ7192-67-31 12:15:00 Test Item Value Reference Range Interpretation Comments PTT (test code = PTT) 23.2 s 22.9-35.8 [address] [facility]QujflzgWBLTUAYRPR1381-39-30 12:15:00 Test Item Value Reference Range Interpretation Comments PT (test code = PT) 12.0 s 12.0-14.7 N [facility] QrnkenjDDVWSNWWPT6454-01-05 12:15:0092.3[facility] HermannHEMATOLOGY 2012-09-22 12:15:00 Test Item Value Reference Range Interpretation Comments MCH (test code = MCH) 31.0 pg 27.0-31.0 N [facility] EtikiouTBGPLFGWUT8291-58-35 12:15:0033.6[facility] HermannHEMATOLOGY 2012-09-22 12:15:0012.8[facility] ErperynKPVNCSINCH0474-04-46 12:15:0047.8[facility] KgdzkrbDDFISMOLPN5286-10-77 12:15:009.1[facility] WaktdbkYCGILDTHIR7604-38-03 12:15:74598Omyjomml WbpyfyiPPRGMGKRZI6096-27-80 12:15:005.18[facility] UXWXPUQUFG6519-37-14 12:15:0016.1[facility] CsasolcWARVZNPRHG7449-47-40 12:15:00 8.1[facility] EsysztxINQSWIDXK0466-46-85 12:15:001.6[facility] HermannCHEMISTRY 2012-09-22 12:15:002.8[facility] XpoodfuXEDLRXLOX1772-44-71 12:15:00<0.02 [facility] HbarpgpKHSAVKOTZ2385-55-16 12:15:87177Pmubwbwf HermannCHEMISTRY 2012-09-22 12:15:0066[facility] TwvkefgIUSBCGLSR4897-27-33 12:15:008.3[facility] FdtlrxuATVSKYEYN2330-01-60 12:15:0026[facility] AbjlravAFULLWJZQ6596-10-63 12:15:57876Xevoluit HthmdlaFNHHLDNVQ9603-89-06 12:15:004.0[facility] BRHLKORMR4801-45-97 12:15:74677Sahwkuux UonzebsBXDUYTLNU1791-26-68 12:15:001.3 [facility] UjphdrbFNFSCJIEJ6508-71-27 12:15:0015[facility] HermannCHEMISTRY 2012-09-22 12:15:74963Tyxsttte OtstibuWWJGYIVPG0075-05-75 12:15:003.7[facility] CzhjrikDENKAGYXO2033-61-41 12:15:006.7[facility] NbkfyqjGXNZYANYR6131-94-68 12:15:49727Otspjirh UpwrxcwEOUVJNFIH8517-87-71 12:15:0063[facility] DIRQVZFOO3277-85-80 12:15:000.3[facility] GbldvvlMPPQPYMME6692-53-00 12:15:0036 [facility] PaggfqnJPCISLDHL2209-49-34 12:15:0014.0[facility] HermannCHEMISTRY 2012-09-22 12:15:0012[facility] KzgoxhnNCUYROTLF2726-23-51 12:15:001.2[facility] NbrglubODLWTLQHC9839-09-47 12:15:003.0[facility] DnwinxgPFBTQRKBRE7533-64-06 12:15:005.0[facility] BrqzqbbCCUWSLJKSJ8561-52-44 12:15:0019.5[facility] UGVOJKDTAF8683-29-82 12:15:001.1[facility] JpjorczTGVRJZBGWS9907-74-16 12:15:00 73.8[facility] FhtsibuRSOEWAJCSU0321-16-56 12:15:000.4[facility]annHEMATOLOGY 2012-09-22 12:15:001.6[facility] FzxgfqbRNESWXPHTO9586-64-32 12:15:000.0[facility] FqwlzkxOHBXEUXNQB7100-87-18 12:15:000.1[facility] EbbfkuaNMWEFEVQSJ1097-25-43 12:15:006.0[facility] CiuaeolDSFZROPBQO0600-09-89 12:15:000.6[facility] RESUIKKCQO9954-27-18 12:15:000.87[facility] NslwujaUJBHQCWYGB7381-39-56 12:15:00 Test Item Value Reference Range Interpretation Comments PTT (test code = PTT) 23.2 s 22.9-35.8 [address] [facility] HospitalKqlescrSCIJRUJXLN5972-00-26 12:15:00 Test Item Value Reference Range Interpretation Comments PT (test code = PT) 12.0 s 12.0-14.7 N [facility] EuhvukvKZRUAKHHBS1525-31-36 12:15:0092.3[facility] HermannHEMATOLOGY 2012-09-22 12:15:00 Test Item Value Reference Range Interpretation Comments MCH (test code = MCH) 31.0 pg 27.0-31.[address] [facility] HospitalUekysysEQSJZCBVSU4907-39-73 12:15:0033.6[facility] HermannHEMATOLOGY 2012-09-22 12:15:0012.8[facility] DmufjhqUPUROQZKGZ4161-90-43 12:15:0047.8[facility] BycynheYFEBJDSNAD6049-71-22 12:15:009.1[facility] WzbdxubTRQRFAQSIU2984-66-73 12:15:41736Iekiqizf EvlnmlvLWPJQATCFH0378-75-61 12:15:005.18[facility] JDEBAIOGPB3156-01-60 12:15:0016.1[facility] LwixebuMSAOUYNENK2777-09-57 12:15:00 8.1[facility] YdoiukhWPMZWCLLQ4442-82-66 12:15:001.6[facility] HermannCHEMISTRY 2012-09-22 12:15:002.8[facility] QvsucgqFQLQTKWAC5276-88-18 12:15:00<0.02 [facility] UywljpvGQMHVDRIC4237-82-66 12:15:63062Rnvgempt HermannCHEMISTRY 2012-09-22 12:15:0066[facility] MgfifewZXHUPVBFD2571-57-21 12:15:008.3[facility] ZlpfpfyJDVZHKOZB6745-49-88 12:15:0026[facility] QedkzspMEUSDRRUF8692-03-64 12:15:49420Jnzqvbwn OuweaeaBZPEJPBUT6473-67-21 12:15:004.0[facility] VDNSWWWEA6314-35-58 12:15:66657Hwyajrwy CtvgysnPOIZWJDND8189-73-43 12:15:001.3 [facility] ZkwwpujUCTHSGIVQ8747-10-29 12:15:0015[facility]annCHEMISTRY 2012-09-22 12:15:33305Qusfyatf OymxragDTMGXKLGB8750-68-77 12:15:003.7[facility] WlhxrnuWCZDQPKZN0802-04-27 12:15:006.7[facility] SekoftcOAAQKGHZR9655-44-58 12:15:56848Ttaovqlq TinmuybGPLZVUFQB9415-02-46 12:15:0063[facility] KLFZCGPDU1314-48-41 12:15:000.3[facility] NytsdjcPDXJJOEFT8976-44-04 12:15:0036 [facility] JhmrxxvXBRVVRPYX2239-06-29 12:15:0014.0[facility] HermannCHEMISTRY 2012-09-22 12:15:0012[facility] LesfmksKQZFARJPM6158-70-73 12:15:001.2[facility] FecrvluJZUAFTENB8966-28-28 12:15:003.0[facility] RzslmzrGDQZNQKNMD9460-52-77 12:15:005.0[facility] OtfqlrjQMCTCWHKMF9495-52-47 12:15:0019.5[facility] RAKXISQHXZ3407-33-67 12:15:001.1[facility] MohgwytLFKQHSTZVQ4484-57-90 12:15:00 73.8[facility] NqlyhopTVNFVDFVZR4181-41-89 12:15:000.4[facility] HermannHEMATOLOGY 2012-09-22 12:15:001.6[facility] LsxsrbdUTIUREMGTO7256-75-91 12:15:000.0[facility] EdpzxakLKCJYNGUOV0354-43-24 12:15:000.1[facility] ViswxesXVXECRDJLG8440-45-65 12:15:006.0[facility] WjtjqfsZRLLJUYBVH0430-70-91 12:15:000.6[facility] OVSIWDEQOE0585-32-26 12:15:000.87[facility] PushxbmPRVXLQWSSE7901-02-77 12:15:00 Test Item Value Reference Range Interpretation Comments PTT (test code = PTT) 23.2 s 22.9-35.8 [address] [facility] HospitalKcilpbfIJKXSUYQNV4212-31-01 12:15:00 Test Item Value Reference Range Interpretation Comments PT (test code = PT) 12.0 s 12.0-14.7 N [facility] OrtyyclVIDVZOOSCX6817-36-69 12:15:0092.3[facility] HermannHEMATOLOGY 2012-09-22 12:15:00 Test Item Value Reference Range Interpretation Comments MCH (test code = MCH) 31.0 pg 27.0-31.[address] [facility] HospitalSosgklgOLSGYOOGJT8854-61-13 12:15:0033.6[facility] HermannHEMATOLOGY 2012-09-22 12:15:0012.8[facility] LwplceuFBTVWOOJDZ8813-54-61 12:15:0047.8[facility] XmekmljEDDULCBHTA5926-16-97 12:15:009.1[facility] RygmzvxIRHCCLEMVL8411-31-13 12:15:72899Obktqmqi NapsvtxRSKKTNRIDX0149-16-19 12:15:005.18[facility] QXOCUNRCCO3841-27-89 12:15:0016.1[facility] RmdbibeKPDADFUWIM4568-82-37 12:15:00 8.1[facility] RkyvyyaHPJJMZXMK3092-86-30 12:15:001.6[facility] HermannCHEMISTRY 2012-09-22 12:15:002.8[facility] DwkoocgONCCOAZJC4754-51-55 12:15:00<0.02 [facility] WuqievzQONPLHYCZ5759-79-92 12:15:00221Gwozckwi HermannCHEMISTRY 2012-09-22 12:15:0066[facility] PersjhqFQFWSQFYR7985-89-08 12:15:008.3[facility] JnxabeyWUIYWKINT0005-02-81 12:15:0026[facility] DtlqtzdRDZNCBOSU5200-48-08 12:15:17549Ckwwivbw XedkqouUYZQNWZRW9212-63-96 12:15:004.0[facility] GUKQACEUV6877-97-24 12:15:73727Ibckekdg UrmmtzbDRNPSMJRR5855-76-03 12:15:001.3 [facility] VqsjramPDLDQFSXL1337-95-67 12:15:0015[facility]annCHEMISTRY 2012-09-22 12:15:37792Wufyyrgq WmvuryyXJSXSXECE3867-33-99 12:15:003.7[facility] SvsccwxXTPGYKQKU5438-35-10 12:15:006.7[facility] GowslasPMIFWNGXE5133-15-40 12:15:60679Ssemaeep HifpnneRFWUFZRKR3216-74-70 12:15:0063[facility] WJDIXSDKB4792-01-88 12:15:000.3[facility] GelnksyVUJDRLPTR9474-80-10 12:15:0036 [facility] OjaruivSNQRKKNXN0102-07-03 12:15:0014.0[facility] HermannCHEMISTRY 2012-09-22 12:15:0012[facility] UvwsvgtIOXIJNBWJ5672-46-73 12:15:001.2[facility] CzsndvoYTGBEYRLY9561-26-75 12:15:003.0[facility] AybubhdEIRLXPAGND4179-21-00 12:15:005.0[facility] ZrfvexaYOLUGQXGYZ3639-05-30 12:15:0019.5[facility] HYWIRBLUQO2601-58-09 12:15:001.1[facility] OfgipkwFNWOKFSIZG8359-74-72 12:15:00 73.8[facility] SxmdoyrQIDEPKPZTL7125-73-58 12:15:000.4[facility] HermannHEMATOLOGY 2012-09-22 12:15:001.6[facility] QbvbcicLTSSHTGGIP7287-03-65 12:15:000.0[facility] CixpentJFABPDIKPO2160-61-73 12:15:000.1[facility] LqcryxtUCXDGQOXVV9625-85-73 12:15:006.0[facility] AbdkkgaRCEUEHTUVJ4618-43-25 12:15:000.6[facility] ABFFEABJFO3139-25-26 12:15:000.87[facility] CdgyhhqCMKWAEFEYB6177-72-25 12:15:00 Test Item Value Reference Range Interpretation Comments PTT (test code = PTT) 23.2 s 22.9-35.8 [address] [facility] HospitalNmavtflUCYENHKSNK1459-32-12 12:15:00 Test Item Value Reference Range Interpretation Comments PT (test code = PT) 12.0 s 12.0-14.7 N [facility] TrfyitsIFKPXLIPUG1235-64-07 12:15:0092.3[facility] HermannHEMATOLOGY 2012-09-22 12:15:00 Test Item Value Reference Range Interpretation Comments MCH (test code = MCH) 31.0 pg 27.0-31.[address] [facility] HospitalXwnfmtvADPHVFBASC3499-72-01 12:15:0033.6[facility] HermannHEMATOLOGY 2012-09-22 12:15:0012.8[facility] IfrqmkfEBEOHIXJPS3241-46-65 12:15:0047.8[facility] IticwyvXIDQUDAQUH7490-82-23 12:15:009.1[facility] TaqlqmtXDAKANJJGQ3726-58-49 12:15:03947Ireaxouq VpdmowfAWEAINPBIB3555-56-77 12:15:005.18[facility] FKWZPKUHYU2532-16-21 12:15:0016.1[facility] BcwyooaGWTYTRUTUD6496-21-49 12:15:00 8.1[facility] UxkltlvUPJRUKMQH7354-38-16 12:15:001.6[facility] HermannCHEMISTRY 2012-09-22 12:15:002.8[facility] PkobdxhMLQYULPNB7338-41-30 12:15:00<0.02 [facility] RrxppmkMQYXCLPJT6274-50-38 12:15:71532Vqsbccsu HermannCHEMISTRY 2012-09-22 12:15:0066[facility] EzukgqlEZNQGLEDT5546-57-88 12:15:008.3[facility] BqjrfrcXVPLPPIMA4630-36-71 12:15:0026[facility] LgxukcnOEFXQTAYV9538-99-82 12:15:93235Qnyqklxz KqwjnhyDYXTUMMHZ8817-03-44 12:15:004.0[facility] DDNVLGNDC7189-69-43 12:15:86926Alivzkxj TqjplzxAGDRAAPEE2727-92-17 12:15:001.3 [facility] BpvbvtyALDBPWUPA2556-92-77 12:15:0015[facility] HermannCHEMISTRY 2012-09-22 12:15:17780Odjogskz CryjrigNYSEQCGNM0922-24-88 12:15:003.7[facility] HkvvpptITYORYVBV4608-48-17 12:15:006.7[facility] DchazmbAFCSTUOIX4027-73-82 12:15:99576Edowdeqp GgdgznrUOXIJOWGK8696-21-56 12:15:0063[facility] PULBCIKXM5504-15-38 12:15:000.3[facility] MmywalhDFPLBVLEJ0965-00-81 12:15:0036 [facility] NtehgyqSCDLCJWHO7180-28-22 12:15:0014.0[facility] HermannCHEMISTRY 2012-09-22 12:15:0012[facility] NkglsgqTYZXYOCER0725-00-34 12:15:001.2[facility] UpjhuduMCSAEODYK2717-49-93 12:15:003.0[facility] QhryvsnNJQUSDNPNC6606-31-35 12:15:005.0[facility] TrtwlcxUWJKFPUSZX8175-80-09 12:15:0019.5[facility] LKOHIUIGBE5430-97-01 12:15:001.1[facility] PmvtaiaVUCQJKIOSO8822-81-62 12:15:00 73.8[facility] DuprkquZJENUZQXZV2068-29-44 12:15:000.4[facility]annHEMATOLOGY 2012-09-22 12:15:001.6[facility] LxhrbvmRTTZNZZKTN8829-11-22 12:15:000.0[facility] DfxztfgVBSTSZXYNG2924-28-41 12:15:000.1[facility] BwkolakDIBRFNMFWD2509-27-48 12:15:006.0[facility] CltxvtfOJQHEBQWER7302-75-02 12:15:000.6[facility] KPRLCVBCZW1908-48-51 12:15:000.87[facility] HeisgjiAGDLAYAPNE1379-77-42 12:15:00 Test Item Value Reference Range Interpretation Comments PTT (test code = PTT) 23.2 s 22.9-35.8 [address] [facility] HospitalNqtsbxsKIZJDOZDND8125-35-32 12:15:00 Test Item Value Reference Range Interpretation Comments PT (test code = PT) 12.0 s 12.0-14.7 [address] [facility] HospitalEhmtlidKFCPMVULYZ7413-04-98 12:15:0092.3[facility]annHEMATOLOGY 2012-09-22 12:15:00 Test Item Value Reference Range Interpretation Comments MCH (test code = MCH) 31.0 pg 27.0-31.[address] [facility] HospitalGhmpgjmHRDZMETKPD4282-93-04 12:15:0033.6[facility]annHEMATOLOGY 2012-09-22 12:15:0012.8[facility] RbyfvplAZPMYJLRZC5994-90-18 12:15:0047.8[facility] EayzucpDGAFCGLXIK9362-42-69 12:15:009.1[facility] CjmibzwQVDKZWBLEI2393-66-37 12:15:57886Wclqwsyg GjrliahNTLTMVKDTF2861-49-49 12:15:005.18[facility] GXAXAABEGG5694-99-92 12:15:0016.1[facility] AtipsrkZZLYEGFKQD4288-12-36 12:15:00 8.1[facility] OsldyriEUXARCDTJ7303-18-67 12:15:001.6[facility]annCHEMISTRY 2012-09-22 12:15:002.8[facility] RjyitndVEJTHBBEJ3673-99-43 12:15:00<0.02 [facility] TujydrjYCQXBLIWF1258-09-59 12:15:47601Ipuvkkfh HermannCHEMISTRY 2012-09-22 12:15:0066[facility] YdlrmveTKJZDUSNI2454-09-71 12:15:008.3[facility] IgbwjtuDDUBSRJEG3035-41-05 12:15:0026[facility] PbwtqnmKVYNMRRPT0900-44-16 12:15:02086Ynubrimb LgnhefwXQOHBRKHA3123-34-56 12:15:004.0[facility] MBDKEHTNK3027-60-71 12:15:31753Dbdietfi UhhydfkTHFXMDMUO7155-82-35 12:15:001.3 [facility] BjvverwSHTXSDLXV7587-12-08 12:15:0015[facility]annCHEMISTRY 2012-09-22 12:15:73256Qmjzskct ZiaqesiUJNHICTGD3122-32-68 12:15:003.7[facility] DvgzttrJARPWMUUU2204-42-17 12:15:006.7[facility] XowddkiDITJYINCL6526-53-98 12:15:28547Rasngpoi MkeuwfxTZAYYYZJG0934-32-20 12:15:0063[facility] EAISEDWXI2502-42-14 12:15:000.3[facility] XqoytbrHCNJYOBOV3742-97-36 12:15:0036 [facility] KbunkqpWZQYDTJUS0718-53-13 12:15:0014.0[facility]annCHEMISTRY 2012-09-22 12:15:0012[facility] RgqxeptJXOEJGDJW2809-93-87 12:15:001.2[facility] AcistdjPDPQRCMKM7549-84-56 12:15:003.0[facility] XtopudyHYMXKPOLWX7744-98-78 12:15:005.0[facility] BodcrzmIKSMIVOZVG0018-15-75 12:15:0019.5[facility] QDRAQNYZVK4500-09-28 12:15:001.1[facility] YnuyxsfZHDUUBIMZI1805-27-76 12:15:00 73.8[facility] JwtrhcqQPFJAMUJLV6079-33-93 12:15:000.4[facility]annHEMATOLOGY 2012-09-22 12:15:001.6[facility] DqixsobMPLPTGVXCM0991-25-69 12:15:000.0[facility] AvohgfoOQFZQRFFLI7338-61-37 12:15:000.1[facility] TgoetckKTNIYLSNDW4300-04-27 12:15:006.0[facility] WgzodcfAEFAYZMZYE4860-02-66 12:15:000.6[facility] KDKRMIKJZV9852-79-25 12:15:000.87[facility] WenjwvvAGKHMUWQGE5867-11-37 12:15:00 Test Item Value Reference Range Interpretation Comments PTT (test code = PTT) 23.2 s 22.9-35.8 N [facility] FugjbpaBZJCPSXQAJ6804-45-45 12:15:00 Test Item Value Reference Range Interpretation Comments PT (test code = PT) 12.0 s 12.0-14.7 N [facility] VawnkzjIGJUCBKVGC9630-74-08 12:15:0092.3[facility]annHEMATOLOGY 2012-09-22 12:15:00 Test Item Value Reference Range Interpretation Comments MCH (test code = MCH) 31.0 pg 27.0-31.0 N [facility] VocypfqTOCCWQKSBG0538-85-67 12:15:0033.6[facility]annHEMATOLOGY 2012-09-22 12:15:0012.8[facility] KjxzvsrNYHIQNPHWS4166-59-55 12:15:0047.8[facility] KztaoukQPNYMFGFYR5482-82-11 12:15:009.1[facility] GaloofiQMTYIZBJAH5617-35-98 12:15:98544Qjrfdhyq VlmdrqrMBDUKTNDPA9687-33-61 12:15:005.18[facility] KYTWBMTQGM4360-58-71 12:15:0016.1[facility] DedzdhgQXPBFIPBKY3029-20-77 12:15:00 8.1[facility] VtnvfvcPLPESGIMF3825-44-83 12:15:001.6[facility] HermannCHEMISTRY 2012-09-22 12:15:002.8[facility] IpqkzurDIZZRFOAM9592-84-00 12:15:00<0.02 [facility] AsmrkcmSHDWYXKXU3545-62-95 12:15:75337Fnrydysc HermannCHEMISTRY 2012-09-22 12:15:0066[facility] XalwsdnSUVECLEVK9077-82-57 12:15:008.3[facility] NudhziaCVEDUYZSY0037-77-60 12:15:0026[facility] LxgfdvzBUWTUKGFY8932-22-75 12:15:03710Qlffptie RclzbepAYDZERVBN9033-04-34 12:15:004.0[facility] FSAEAMGEM4749-53-92 12:15:37782Esbjdkix QvbdexjTITDHXEHM4767-55-02 12:15:001.3 [facility] DgseageUNOJMMBVA3745-02-48 12:15:0015[facility]annCHEMISTRY 2012-09-22 12:15:74608Zcsljpgb YaegvmiWFXUGBDMH6460-48-42 12:15:003.7[facility] LqwpqdaGLZZDNHIK3945-44-42 12:15:006.7[facility] QfodqzaCCNTRWYFE0532-83-46 12:15:67131Xgdbwzdg LoikvakRQYHCLUEZ7872-04-94 12:15:0063[facility] LCPIHSNCB4095-42-22 12:15:000.3[facility] JeyyyzoMELOXKQUE0934-99-12 12:15:0036 [facility] XgdgakdECVIBNEXX2714-03-62 12:15:0014.0[facility] HermannCHEMISTRY 2012-09-22 12:15:0012[facility] OhwewwoKQMQOFUQK7052-62-99 12:15:001.2[facility] LnfumfbGOLERGGDE2296-42-65 12:15:003.0[facility] AeymqndUWQNDHLZYK3669-24-64 12:15:005.0[facility] WrgpvaqLSQNFABQEW2142-82-70 12:15:0019.5[facility] TJQGOPCQSM9333-26-81 12:15:001.1[facility] JysmhhvCQDLIETHAD7981-76-59 12:15:00 73.8[facility] SlfboqfKXHSGBQICU3643-89-80 12:15:000.4[facility]annHEMATOLOGY 2012-09-22 12:15:001.6[facility] CwqpoihKTQVUCEJND8238-18-65 12:15:000.0[facility] QjnlenxWCIASYTOFX6919-97-65 12:15:000.1[facility] RoqcrcoMCAIBUCFPH3073-23-64 12:15:006.0[facility] VipplbnHXUBCJDATM6012-50-12 12:15:000.6[facility] KBGWTIYWOO1790-35-42 12:15:000.87[facility] MogdhknDAJGREPJFG2832-01-14 12:15:00 Test Item Value Reference Range Interpretation Comments PTT (test code = PTT) 23.2 s 22.9-35.8 N [facility] BhjuemkTPJWMNULAC9073-98-29 12:15:00 Test Item Value Reference Range Interpretation Comments PT (test code = PT) 12.0 s 12.0-14.7 N [facility] WjhvinrZPNEEWGMAK8950-11-35 12:15:0092.3[facility] 2012-09-22 12:15:00 Test Item Value Reference Range Interpretation Comments MCH (test code = MCH) 31.0 pg 27.0-31.0 N [facility] VvudjxkQZKJJRDCQI8598-56-33 12:15:0033.6[facility]ann[facility] 2012-09-22 12:15:0012.8[facility] WnvhnaoMUZCWHAXAF9132-64-24 12:15:0047.8[facility] IgjhpmtWWKPSGLEGV9967-62-67 12:15:009.1[facility] FldmxudBZONGEEOLK6831-87-72 12:15:12144Ujssuraa SlpnlxdBOCXFNGIVN4960-80-83 12:15:005.18[facility] VUWOTFAICF0164-28-90 12:15:0016.1[facility] SqxputxXPPCOVNFUR3982-22-50 12:15:00 8.1[facility] StjqtimXCOHVXCAR2776-48-76 12:15:001.6[facility]annCHEMISTRY 2012-09-22 12:15:002.8[facility] GydhhnlIAQOBZWWX1663-92-35 12:15:00<0.02 [facility] PwnkdqgSILBWOZXP8338-63-43 12:15:25236[facility]annCHEMISTRY 2012-09-22 12:15:0066[facility] EphpahxSOTUPWVBA2359-64-82 12:15:008.3[facility] VygnrufXVHVUVZVT2200-17-85 12:15:0026[facility] NucgwmzDJLUQWCAH5788-32-28 12:15:15905Mvawjxxr FfgeffdRJGBAWWCY2840-87-08 12:15:004.0[facility] MIEBYKSTY5605-33-69 12:15:17653Tleolpck ZkkedchBHHOLAAHU2309-71-10 12:15:001.3 [facility] FeugzucVSLKXULWU4922-91-97 12:15:0015[facility]annCHEMISTRY 2012-09-22 12:15:27919Krmxrswl KamipxhLRTNPBCEE2757-57-36 12:15:003.7[facility] DgqlrguFHCELTXTZ1530-39-70 12:15:006.7[facility] JwfddpcZRLSHGJTH0021-85-79 12:15:04314Kxxcsixw VadafioABVIBHWZM4697-64-79 12:15:0063[facility] PJLKDGTVU8235-36-31 12:15:000.3[facility] HwxueruDFWBHNCUO6306-07-61 12:15:0036 [facility] MukgaxsUWMFOARGP4486-35-68 12:15:0014.0[facility]annCHEMISTRY 2012-09-22 12:15:0012[facility] QzowhdhVBINLSJIM7091-21-75 12:15:001.2[facility] UegqjlfOCUBAMGQH7331-24-83 12:15:003.0[facility] LkklfxcNVNXZJREGE6734-64-62 12:15:005.0[facility] OnerjbxPRHUXFXSSA3943-45-11 12:15:0019.5[facility] WENSYETPYR1666-41-48 12:15:001.1[facility] EcnstxrMOMMHNOXUP4762-69-36 12:15:00 73.8[facility] VioocraEEKZBNWHUE9633-23-09 12:15:000.4[facility]annHEMATOLOGY 2012-09-22 12:15:001.6[facility] RaglztkSFFKNEWAAV9113-49-78 12:15:000.0[facility] ComhkgqRGIFEDTPIQ7324-02-68 12:15:000.1[facility] HuiztstPPTZUBZNMW8835-93-24 12:15:006.0[facility] UevamwyMAGXMARXJR3560-84-69 12:15:000.6[facility] MNVBCCSIYU8664-81-60 12:15:000.87[facility] LmxgkqgKCYPHWLZCT0093-79-42 12:15:00 Test Item Value Reference Range Interpretation Comments PTT (test code = PTT) 23.2 s 22.9-35.8 N [facility] GgvnwrfJDLLYEFGGF2646-70-25 12:15:00 Test Item Value Reference Range Interpretation Comments PT (test code = PT) 12.0 s 12.0-14.7 N [facility] KoasneaNIADYQQWXF9610-12-57 12:15:0092.3[facility]annHEMATOLOGY 2012-09-22 12:15:00 Test Item Value Reference Range Interpretation Comments MCH (test code = MCH) 31.0 pg 27.0-31.0 N [facility] WonethxWPKWZDFRUB1336-32-25 12:15:0033.6[facility]annHEMATOLOGY 2012-09-22 12:15:0012.8[facility] QjxwfycJUQMXDBBVB1372-60-77 12:15:0047.8[facility] HqnufdeWCGNCLDAQL5546-61-65 12:15:009.1[facility] UxholryOJNRCXVRRF7766-66-98 12:15:53018Caevkoxz VknqgjnFRPQXGOMZT4011-82-88 12:15:005.18[facility] LOLVTCETCD0859-90-46 12:15:0016.1[facility] LfpouokCRHONFXTLR7009-74-59 12:15:00 8.1[facility] OnasyqzAAQGRKGCF9017-68-15 12:15:001.6[facility]annCHEMISTRY 2012-09-22 12:15:002.8[facility] ZcoezknZOHTTKCDU1328-62-24 12:15:00<0.02 [facility] SuzycvxZOBCANYJK8367-68-41 12:15:87800Vnixbfrn HermannCHEMISTRY 2012-09-22 12:15:0066[facility] DmzraohQVPKKXFDR6529-33-93 12:15:008.3[facility] OycmidbVKWDDWQGK9988-27-64 12:15:0026[facility] WamgbdnJLUSQUEDZ4148-38-58 12:15:64166Hmlzqdmc JmtzwdvVTFURKTNL1912-64-42 12:15:004.0[facility] VQKIVFJSO2711-56-89 12:15:24982Nzsrwthn GnemuryOZRFYPDNO5208-16-05 12:15:001.3 [facility] JldudxwHGVVERGXZ6699-74-75 12:15:0015[facility]annCHEMISTRY 2012-09-22 12:15:70254Xreqbxnj UmkwfcjOBRQABFJZ3773-28-98 12:15:003.7[facility] LlthnxeGINSXXRCO9296-03-49 12:15:006.7[facility] JiwsdnhZSADOFAQI3621-02-80 12:15:53496Waduquma IbtkobzYTQMMHWTB5431-25-43 12:15:0063[facility] EZEHDXHGD0148-48-76 12:15:000.3[facility] ZsvdvfmUJSQAOBWJ3110-86-23 12:15:0036 [facility] GudgftaKLWRPYXJN1092-78-23 12:15:0014.0[facility]annCHEMISTRY 2012-09-22 12:15:0012[facility] CbyorqbSZKEYJEPI0687-84-35 12:15:001.2[facility] FxbgaamZZMNOIIFO1705-14-55 12:15:003.0[facility] JeneaqrQHIWEKIOVH8093-70-79 12:15:005.0[facility] NzkbbhzJPEHROMJGU5507-57-39 12:15:0019.5[facility] XSGORKGLKP4358-37-99 12:15:001.1[facility] QzdhutxLBAKNNMVIQ6260-36-22 12:15:00 73.8[facility] UmujzrdZJNQLOJJBH3288-26-12 12:15:000.4[facility]annHEMATOLOGY 2012-09-22 12:15:001.6[facility] WfavzrxJPCTCLHCAN6490-14-63 12:15:000.0[facility] XmnihwjQRTXRYQNOU3987-65-86 12:15:000.1[facility] NajmfnmXFYVKZLNPV7632-98-25 12:15:006.0[facility] XedtqtoFQPSEIUCNC8343-26-65 12:15:000.6[facility] WUIZJJDIBL5987-35-49 12:15:000.87[facility] UzyugtzJKRJPQUKGK1671-80-42 12:15:00 Test Item Value Reference Range Interpretation Comments PTT (test code = PTT) 23.2 s 22.9-35.8 N [facility] OthnrbjILKSPQGDQG5008-48-77 12:15:00 Test Item Value Reference Range Interpretation Comments PT (test code = PT) 12.0 s 12.0-14.7 N [facility] TszoxauIVXYNGWYDB8407-25-43 12:15:0092.3[facility]annHEMATOLOGY 2012-09-22 12:15:00 Test Item Value Reference Range Interpretation Comments MCH (test code = MCH) 31.0 pg 27.0-31.0 N [facility] GlzzxfmDMUPVYOUGN7241-31-18 12:15:0033.6[facility]annHEMATOLOGY 2012-09-22 12:15:0012.8[facility] JgswuitGCIPHWYVPS4687-55-98 12:15:0047.8[facility] HagrqxhXIMVTYJRBC8153-95-62 12:15:009.1[facility] CobwqggFUIOKKCDQD8555-86-07 12:15:34886Fbjscwnq AeilzohAVRAXXSIXX6646-41-81 12:15:005.18[facility] DGLSKCNTGG4678-75-89 12:15:0016.1[facility] XfomfauONLUQQRBIW2693-41-37 12:15:00 8.1[facility] TmkyqlwANLNPITXD2090-29-44 12:15:001.6[facility]annCHEMISTRY 2012-09-22 12:15:002.8[facility] WooawbnOJCYMOLTD0849-23-77 12:15:00<0.02 [facility] SusssocXYJWIIDEC3927-21-78 12:15:00845Xmzrfrai HermannCHEMISTRY 2012-09-22 12:15:0066[facility] WgkysaaWBBZQGVRU8555-94-48 12:15:008.3[facility] PdohrmwPXHHMSBJA0749-18-39 12:15:0026[facility] CjpapciFDPJCCMHG0462-66-88 12:15:43548Vfiooyjz UkfolavPTWRNSKNC9609-40-17 12:15:004.0[facility] SSEEYKNHE1775-96-84 12:15:16965Yongozvk PinfzrcKMSWQQDIU4599-63-94 12:15:001.3 [facility] YsfoijlJRCEBUKRR7249-75-33 12:15:0015[facility]annCHEMISTRY 2012-09-22 12:15:66668Xupulssi RyizdtsZJFIQLNFB4506-79-35 12:15:003.7[facility] IjzntgcCQXIEVZNF1028-75-25 12:15:006.7[facility] BlvpildXQRNZEUYW5589-83-36 12:15:95053Zsmudfti EjacyrwUVMJSLJGX3081-62-71 12:15:0063[facility] PXNCOUIEG7731-25-14 12:15:000.3[facility] IvvdgqdDZHCJZKUJ0657-28-01 12:15:0036 [facility] PdknpxkAQOSEOJES6837-19-69 12:15:0014.0[facility]annCHEMISTRY 2012-09-22 12:15:0012[facility] DwhymegTRNNGYXQC1261-41-83 12:15:001.2[facility] UwjtiutFLZVJJNBS3552-89-42 12:15:003.0[facility] RjaeuofJZZGEXKXVZ2666-33-75 12:15:005.0[facility] UcascytAKKGTXEPOD3982-67-25 12:15:0019.5[facility] TPYGWUTAWR9780-59-10 12:15:001.1[facility] KjkqotkBMONBGYUEJ8177-82-91 12:15:00 73.8[facility] PgjjgfpPLYHPWMBBV5581-50-85 12:15:000.4[facility]annHEMATOLOGY 2012-09-22 12:15:001.6[facility] MxiddglJKPTNJJOMX3964-19-51 12:15:000.0[facility] WuvvgbiWJRTXZBIBX1153-68-37 12:15:000.1[facility] GjhjoxvRTMMSUTEYS2607-98-68 12:15:006.0[facility] YvptibeJYCCVHFHFC3923-44-75 12:15:000.6[facility] DUCNBXAZGL2661-36-44 12:15:000.87[facility] ZptpkdtIGAIBMSLVP3556-68-62 12:15:00 Test Item Value Reference Range Interpretation Comments PTT (test code = PTT) 23.2 s 22.9-35.8 N [facility] InbcezxXQXYVPMDGG8958-10-52 12:15:00 Test Item Value Reference Range Interpretation Comments PT (test code = PT) 12.0 s 12.0-14.7 N [facility] YggfattHGWYQHSDVN7626-09-74 12:15:0092.3[facility]annHEMATOLOGY 2012-09-22 12:15:00 Test Item Value Reference Range Interpretation Comments MCH (test code = MCH) 31.0 pg 27.0-31.0 N [facility] HcsdstyJFYQCHATEB7816-80-97 12:15:0033.6[facility] HermannHEMATOLOGY 2012-09-22 12:15:0012.8[facility] GerljqcPFXTYCTCYM1456-18-77 12:15:0047.8[facility] XfmekzzDDURDPDRNQ2365-60-11 12:15:009.1[facility] GatuaktZHPDSBUHKX8608-09-52 12:15:84111Yijnkryg MifudruNSVOZYOYGH9407-92-03 12:15:005.18[facility] JGFCJOURPR9550-27-75 12:15:0016.1[facility] RacpivcTGWFJEHUOH5221-26-93 12:15:00 8.1[facility] CqqpxgwFNGHUNAWU1506-40-87 12:15:001.6[facility] HermannCHEMISTRY 2012-09-22 12:15:002.8[facility] BzwfslcFXWOPKKMF9875-20-82 12:15:00<0.02 [facility] AkekjzlVGZXEYZBV4091-24-00 12:15:70153Msjbmoad HermannCHEMISTRY 2012-09-22 12:15:0066[facility] YbtijoxCKEKRDAQG6246-20-76 12:15:008.3[facility] FbebqmbUEKBIRYGN7536-73-66 12:15:0026[facility] OwazkipBXFAPNJJN5357-14-44 12:15:59476Opdavzuv BexocdyUZLOHJDFQ4907-66-10 12:15:004.0[facility] XZWAYRWLL8397-47-01 12:15:34018Ahpxgdhy BbvmimdWEMXOVUQM5129-21-53 12:15:001.3 [facility] SczislmYHNSMWLFL2164-50-40 12:15:0015[facility]annCHEMISTRY 2012-09-22 12:15:43636Qciflnnc ZqmukpwUIWTIPTQD7748-86-89 12:15:003.7[facility] RremfopNRXAGJMPT0455-27-79 12:15:006.7[facility] CmltfgpHUZKPRIFY1026-03-86 12:15:57856Nonvhbdy LdvnbanQZDFTCZTB0814-64-77 12:15:0063[facility] FWGDGASST8023-59-35 12:15:000.3[facility] HtbirrkSJEFKDNII8553-09-27 12:15:0036 [facility] GwljbdhTJTMCQZXS5916-24-61 12:15:0014.0[facility] HermannCHEMISTRY 2012-09-22 12:15:0012[facility] YhulbrcUSCSJPJZY1807-59-18 12:15:001.2[facility] RlmozfpWSFNNHUWL6423-78-53 12:15:003.0[facility] KbaptskROINTCWZXO5442-58-78 12:15:005.0[facility] UxirwcsEXEUFCZFSO7884-94-27 12:15:0019.5[facility] AKEIBEYJCS2687-15-73 12:15:001.1[facility] YgjedbkWSNYQBCAXO3815-31-36 12:15:00 73.8[facility] BxiainiQVMPPVMFDX8089-24-72 12:15:000.4[facility]annHEMATOLOGY 2012-09-22 12:15:001.6[facility] AgdiijgJAABGFOARZ2350-77-71 12:15:000.0[facility] ZgzvbstHIAWFCQBQV2694-64-64 12:15:000.1[facility] UhbpwzeONOFLFNIEA4034-44-97 12:15:006.0[facility] DdyuznwFSNGHCYWJR9689-56-28 12:15:000.6[facility] AEYXCMQZML0770-98-30 12:15:000.87[facility] WhkjschFGOWFZEZPQ7379-38-41 12:15:00 Test Item Value Reference Range Interpretation Comments PTT (test code = PTT) 23.2 s 22.9-35.8 N [facility] JkvpwswWSJJUKYTVO4455-83-65 12:15:00 Test Item Value Reference Range Interpretation Comments PT (test code = PT) 12.0 s 12.0-14.7 N [facility] AypsqvyGDXCNZLLSN3057-62-47 12:15:0092.3[facility]annHEMATOLOGY 2012-09-22 12:15:00 Test Item Value Reference Range Interpretation Comments MCH (test code = MCH) 31.0 pg 27.0-31.0 N [facility] VizjqsxCRZRHERUSH8235-39-18 12:15:0033.6[facility]annHEMATOLOGY 2012-09-22 12:15:0012.8[facility] FigxcozXOUCJXAIHO2253-53-67 12:15:0047.8[facility] PuygreoONGVCMLDTV8609-59-56 12:15:009.1[facility] BqpxrqmLOGPYHIMFS4737-88-61 12:15:87977Eojoqdhv QpblxekPUYVTMPTDR3138-54-66 12:15:005.18[facility] FSUYGHSLNU1396-39-47 12:15:0016.1[facility] BbjjsemSZXHQVBSGE9635-31-92 12:15:00 8.1[facility] SutgfyhGVTSSAQHU8665-81-83 12:15:001.6[facility] HermannCHEMISTRY 2012-09-22 12:15:002.8[facility] AodbvqoWCZZXHDHH0241-89-20 12:15:00<0.02 [facility] TloofpxOIIPSRAAI6212-12-70 12:15:03620Zipgorcv HermannCHEMISTRY 2012-09-22 12:15:0066[facility] VgewezuGUWZZYWPT2488-67-20 12:15:008.3[facility] BqvteoqXMSOEVEIQ6228-08-03 12:15:0026[facility] TthauzpJIAOECMXA4573-07-54 12:15:06881Yyjtgujk UuhcmukLKRRZUJOT8546-38-17 12:15:004.0[facility] UUXKFEWXG4960-21-44 12:15:57625Tamhelfa OhejcucJMSNASLFJ7700-33-93 12:15:001.3 [facility] SnyzszdMEIWGWUHA2644-51-91 12:15:0015[facility]annCHEMISTRY 2012-09-22 12:15:23510Ndueyidl YnonojuVEJPMJNIM0916-49-95 12:15:003.7[facility] UarbzhuLEIDELUHF8482-07-30 12:15:006.7[facility] YhvgeboUPIFRHDGF7114-92-52 12:15:10386Jvspwrbd BlbxjhbVSCJTKKLD7480-54-24 12:15:0063[facility] MBMJTUYDT1470-81-66 12:15:000.3[facility] ZzrwuiaEODZHIGLK4699-37-52 12:15:0036 [facility] YnrtsbuMYJEKUJHQ7313-20-51 12:15:0014.0[facility] HermannCHEMISTRY 2012-09-22 12:15:0012[facility] OndtcmzHQRSQWXIS7794-42-67 12:15:001.2[facility] EjldidmZUXGZMVWP7473-17-24 12:15:003.0[facility] LizuuweVKRTRCMVLQ8871-78-96 12:15:005.0[facility] CrnfjjwTEKDFHKQDJ6439-97-88 12:15:0019.5[facility] QQZBRCTVKF1678-09-12 12:15:001.1[facility] JpwdjgoOHNMZJTLJE0613-48-71 12:15:00 73.8[facility] AjjhdbsYKQKTQTPZC4575-67-24 12:15:000.4[facility]annHEMATOLOGY 2012-09-22 12:15:001.6[facility] HqjeqkoFMFDKDPDGS1666-88-67 12:15:000.0[facility] YpwizngCJGISEUSJR1301-99-38 12:15:000.1[facility] PtuyzmjKBPYYRTMPV6869-80-65 12:15:006.0[facility] DpjfwaaIWCENEGNPC0887-82-82 12:15:000.6[facility] SNVBHNEVQF3827-04-34 12:15:000.87[facility] EgzxvifRCHDCLBVYB1016-70-43 12:15:00 Test Item Value Reference Range Interpretation Comments PTT (test code = PTT) 23.2 s 22.9-35.8 N [facility] SbfakjcQHYJTLTPHO6178-62-82 12:15:00 Test Item Value Reference Range Interpretation Comments PT (test code = PT) 12.0 s 12.0-14.7 N [facility] QfxvvgdLUTKRIFUII1828-66-23 12:15:0092.3[facility]annHEMATOLOGY 2012-09-22 12:15:00 Test Item Value Reference Range Interpretation Comments MCH (test code = MCH) 31.0 pg 27.0-31.0 N [facility] BqrktqaFOCIAKJVGM6090-31-34 12:15:0033.6[facility]annHEMATOLOGY 2012-09-22 12:15:0012.8[facility] EzyfnlcHJFDABDDBC6143-12-50 12:15:0047.8[facility] ZkmqdrvNINTWWYNXI7281-78-37 12:15:009.1[facility] VqguiutBXJCSYCLQN9507-91-14 12:15:71375Sqdjbpgr WlmhracORYHHVVYAA0293-98-42 12:15:005.18[facility] WXXKKEJYBP5087-27-89 12:15:0016.1[facility] RzphcseXXBUJNTXGT7492-31-04 12:15:00 8.1[facility] GmbwphtZCREDLJXI4110-63-62 12:15:001.6[facility] HermannCHEMISTRY 2012-09-22 12:15:002.8[facility] FhkltjeETDXKTLSD8967-49-86 12:15:00<0.02 [facility] AggcrtdAVZBMXSKB8190-89-12 12:15:15961Ffrevmmt HermannCHEMISTRY 2012-09-22 12:15:0066[facility] BddtfnzMBOBCZTBV8730-27-70 12:15:008.3[facility] VuobangJFQUUMVXN5097-80-60 12:15:0026[facility] EcaupuuUICCMNHPN7393-85-47 12:15:81587Ejhxlppd TrsswtqQWTAIYCNE0563-18-74 12:15:004.0[facility] DYYNQYIGE5327-98-85 12:15:42500Jgooilec BdgozrvEMYOEQKXQ7539-49-18 12:15:001.3 [facility] XrsunxpJQXHOLRZU2154-65-30 12:15:0015[facility] HermannCHEMISTRY 2012-09-22 12:15:13474Vnuudowk RtiobwaLKDARBDOY1029-80-71 12:15:003.7[facility] FviwcroMEQWMGYJE8504-39-14 12:15:006.7[facility] RkuzisgGBEXYHIHJ8681-19-88 12:15:74623Lmlyymql MoxrfbuGNOMUFPTU4989-44-09 12:15:0063[facility] ISWLMRBZV0821-99-55 12:15:000.3[facility] HmesypsVHMWZMOAY4210-12-50 12:15:0036 [facility] DfndfxdITOFTPPBI3385-95-71 12:15:0014.0[facility] HermannCHEMISTRY 2012-09-22 12:15:0012[facility] TniawxlRBGHDVCWM8385-20-02 12:15:001.2[facility] DchzuvlVIOORJGKR7102-90-60 12:15:003.0[facility] QbcprifBPCAXVDUNN4430-22-27 12:15:005.0[facility] TglztvpRZAXHOPDDU9983-73-82 12:15:0019.5[facility] ZSIUSGDBMO7964-25-68 12:15:001.1[facility] PetpnfmKPCBXCPTTE7389-27-54 12:15:00 73.8[facility] CfjyjpvBLOXURNRDZ7556-32-34 12:15:000.4[facility] HermannHEMATOLOGY 2012-09-22 12:15:001.6[facility] XgmduunDPYBIKWDWW0139-05-95 12:15:000.0[facility] UphuecgGPLDPKRQMB3061-78-73 12:15:000.1[facility] FysxmgbNUPBHFEOYS7978-81-97 12:15:006.0[facility] LekahhaBEHCJNZHHB8345-69-17 12:15:000.6[facility] WYNANNBCCF8561-85-82 12:15:000.87[facility] TednliaAGRGSJUQDA4899-77-77 12:15:00 Test Item Value Reference Range Interpretation Comments PTT (test code = PTT) 23.2 s 22.9-35.8 N [facility] XmsistrJTOVDNRTMY0221-68-08 12:15:00 Test Item Value Reference Range Interpretation Comments PT (test code = PT) 12.0 s 12.0-14.7 N [facility] MgegdqvPWFEHTJAVA6421-20-25 12:15:0092.3[facility]annHEMATOLOGY 2012-09-22 12:15:00 Test Item Value Reference Range Interpretation Comments MCH (test code = MCH) 31.0 pg 27.0-31.0 N [facility] KrncvhsQUQBGEXCMJ9874-11-61 12:15:0033.6[facility]annHEMATOLOGY 2012-09-22 12:15:0012.8[facility] GhihkyaRGLUDWWWOH4043-51-75 12:15:0047.8[facility] KsuknewDWCIXQNGJL2342-09-45 12:15:009.1[facility] CsyhrtgQODEFCBLUN9902-95-78 12:15:59812Fqaehuvw MfzvwhjTZQFRIDLIK1575-47-73 12:15:005.18[facility] RHNVSEEDRB6858-14-38 12:15:0016.1[facility] UmsnzkhTKICBUZAYI1776-96-25 12:15:00 8.1[facility] KrbmuzlWOZEAESBJ2787-82-34 12:15:001.6[facility] HermannCHEMISTRY 2012-09-22 12:15:002.8[facility] BgukhtpSTBFZRLHY6065-26-21 12:15:00<0.02 [facility] GfzdoorGOBBTICRB2495-37-15 12:15:96811Ngkajbec HermannCHEMISTRY 2012-09-22 12:15:0066[facility] RtyvvfbZOBPSOFVV8095-51-97 12:15:008.3[facility] DmtqjttNYIIFHOBM6817-30-57 12:15:0026[facility] YcjxzfmOIOBEISGQ3603-38-09 12:15:08681Gisrnzlx AiqjpchRUNMVLGVR8156-60-32 12:15:004.0[facility] QLQGJRISG3382-11-23 12:15:11754Qmnrgdlp FjbdpxoMPOJCIVHO9315-68-26 12:15:001.3 [facility] GrnceouONQYHYWGI2735-62-05 12:15:0015[facility] HermannCHEMISTRY 2012-09-22 12:15:07395Mypjyxyk AmgcyopPUXNCYQGS9589-62-79 12:15:003.7[facility] FeedxwcKCVSIQBMU5915-06-32 12:15:006.7[facility] JtstxgrRZHPNIGRP2393-41-95 12:15:17827Bgxaiewy HtipwaeGQWKALKAN4638-52-88 12:15:0063[facility] UAKLVQVVM9708-75-56 12:15:000.3[facility] QfjixxaGYFTXEINE6145-72-29 12:15:0036 [facility] GsdubtyDNVEHBBKB5763-17-42 12:15:0014.0[facility] HermannCHEMISTRY 2012-09-22 12:15:0012[facility] CotopndLELCORVOD0928-28-28 12:15:001.2[facility] EysemlhIPPRGNPJV8300-74-36 12:15:003.0[facility] EizbudfLGYDEYDZZQ8734-36-65 12:15:005.0[facility] DztyehtWIMMLAEXZY4560-50-83 12:15:0019.5[facility] FGDMZJLIDG4365-40-09 12:15:001.1[facility] XlegqmoTPIQJCVIZJ0570-96-50 12:15:00 73.8[facility] UmrxzvxTDCHEKTLAU5980-85-42 12:15:000.4[facility] HermannHEMATOLOGY 2012-09-22 12:15:001.6[facility] ZnoefkxSGVGFBRDXJ2266-89-45 12:15:000.0[facility] WrvbufkGALNJWRFHY9104-36-92 12:15:000.1[facility] SkcaarmHJCBQDDGEZ3508-26-79 12:15:006.0[facility] VoudpmkDUSGOUBCDH7685-59-91 12:15:000.6[facility] JQECQPYOCK8861-14-85 12:15:000.87[facility] MgjlpznDWGLKWHUMO9429-51-52 12:15:00 Test Item Value Reference Range Interpretation Comments PTT (test code = PTT) 23.2 s 22.9-35.8 N [facility] IybsfpzBWZNTNEGZK6501-80-97 12:15:00 Test Item Value Reference Range Interpretation Comments PT (test code = PT) 12.0 s 12.0-14.7 N [facility] RplbkgoBJATMCYHZE7736-29-43 12:15:0092.3[facility]annHEMATOLOGY 2012-09-22 12:15:00 Test Item Value Reference Range Interpretation Comments MCH (test code = MCH) 31.0 pg 27.0-31.0 N [facility] DzagodmFIHSAWOLUJ5629-99-46 12:15:0033.6[facility]annHEMATOLOGY 2012-09-22 12:15:0012.8[facility] OyspufpLYZPATYOQQ2703-67-82 12:15:0047.8[facility] BwnjwzgXKHCMTRIKI7995-00-71 12:15:009.1[facility] MwjelqpIMWISPPWUE0984-39-31 12:15:33073Ajanbovn LfnqprcACWUPYZVFZ8195-31-56 12:15:005.18[facility] FFBBNMECSI3555-49-13 12:15:0016.1[facility] IilaclkPFHIMABKLI8049-95-18 12:15:00 8.1[facility] JacgyedZUVEOJAIJ6114-54-70 12:15:001.6[facility]annCHEMISTRY 2012-09-22 12:15:002.8[facility] TdgveplYNEANSOOG1469-42-60 12:15:00<0.02 [facility] YqdeezmGDRYLFDGB5918-36-87 12:15:49379Zhyafpcs HermannCHEMISTRY 2012-09-22 12:15:0066[facility] HymwznlAFRSWDPBV4456-57-61 12:15:008.3[facility] XcarddrNTMXVBAPI1136-28-71 12:15:0026[facility] WwnfqcdSLSRTGDOV8931-71-63 12:15:53694Ejmhwxnv OwgtwcvKUHRZSBXV9231-53-38 12:15:004.0[facility] UHESASYDZ4526-55-50 12:15:27649Jhciggzj IxnqfsvIUBTSLPPL1462-42-56 12:15:001.3 [facility] BigadlsFHHFHVIBB8817-23-83 12:15:0015[facility]annCHEMISTRY 2012-09-22 12:15:40211Dnznknqw DrezafxJWQVXYJQY0690-01-18 12:15:003.7[facility] GwymyubGGTOMGUJT1347-38-17 12:15:006.7[facility] MadprfmHIRSUTJFA0134-05-48 12:15:20194Vdzkchim WyrqakjPEHDZPLPZ4702-92-12 12:15:0063[facility] XJQGRYOXU8317-25-02 12:15:000.3[facility] UfudptgPAYFEHXLZ6651-69-09 12:15:0036 [facility] RhdzjvxRROFHTITP9953-17-68 12:15:0014.0[facility]annCHEMISTRY 2012-09-22 12:15:0012[facility] CvejjjgHJZXXVULC9994-27-30 12:15:001.2[facility] UasbacyQQEXZFVRB4280-37-55 12:15:003.0[facility] StwqckaFQEKZIYHYG5649-29-50 12:15:005.0[facility] FcswfmaQXVHXTFWXC3762-73-39 12:15:0019.5[facility] VUAQSIPZNH5183-49-70 12:15:001.1[facility] CsznnfeKYQJEPGXSH3193-41-09 12:15:00 73.8[facility] IuxnlzfKXVSMGGLEJ5234-59-31 12:15:000.4[facility]annHEMATOLOGY 2012-09-22 12:15:001.6[facility] ZxyzwkwWJZGMRLEYY7862-57-33 12:15:000.0[facility] JdtmpphCIQTKVFTQK0444-22-55 12:15:000.1[facility] JrndoedPCOVQAHRUZ4971-04-14 12:15:006.0[facility] EbwjkzhDZLOREEEXQ8194-29-66 12:15:000.6[facility] DPKDEDDNWK9248-64-62 12:15:000.87[facility] SuhgbxyWDCWUMSZYO2580-40-83 12:15:00 Test Item Value Reference Range Interpretation Comments PTT (test code = PTT) 23.2 s 22.9-35.8 N [facility] MduunaoMVTNEYYCKU4466-17-11 12:15:00 Test Item Value Reference Range Interpretation Comments PT (test code = PT) 12.0 s 12.0-14.7 N [facility] HhdfxarQALPNMAJUX4000-82-13 12:15:0092.3[facility]annHEMATOLOGY 2012-09-22 12:15:00 Test Item Value Reference Range Interpretation Comments MCH (test code = MCH) 31.0 pg 27.0-31.0 N [facility] SqpymhpUXBZCCWMAO2894-51-71 12:15:0033.6[facility]annHEMATOLOGY 2012-09-22 12:15:0012.8[facility] TvnbtzgKJSAYQUIRO9977-69-12 12:15:0047.8[facility] ZbhfovlHIKVSBFOXE6510-97-80 12:15:009.1[facility] CdxaftyXXPXXPKLHM0121-84-20 12:15:08660Vlpahfmc VtpvvpjWUVCTQAUQC8933-24-27 12:15:005.18[facility] TLIRHWBQJO8885-68-76 12:15:0016.1[facility] MifmpxdKFTUVOEYOF1623-87-24 12:15:00 8.1[facility] CghmnikWYNCITCZU2398-63-25 12:15:001.6[facility] HermannCHEMISTRY 2012-09-22 12:15:002.8[facility] WplmcquMPRNPBLPB7039-12-91 12:15:00<0.02 [facility] KmkxgriXKWLDAUQF0886-76-58 12:15:02566Yfsbybpj [facility]annCHEMISTRY 2012-09-22 12:15:0066[facility] JdgmihzLIGCIZBDU5165-43-00 12:15:008.3[facility] VrarqkvXFEUDZVGF4976-44-32 12:15:0026[facility] ThbydsrQELJMNSYL7859-62-66 12:15:08181Aarwmimn HfptnszSUBGSPVWJ6976-08-45 12:15:004.0[facility] CUKPSKIDH0708-54-95 12:15:32481Dymbrgsw BvgvylzLNPMOHSKD4424-29-73 12:15:001.3 [facility] MfpsubkDUXPDZUWL2434-19-64 12:15:0015[facility]annCHEMISTRY 2012-09-22 12:15:72834Pkqxmnbf RcbudbqXZHZBMHHV8719-80-51 12:15:003.7[facility] NdfnhikNFMMKCBHN7535-95-00 12:15:006.7[facility] RbxlasmASEBRUHWN1902-92-83 12:15:59234Lptmfomp MnlclamIQYLJMRRV4392-82-33 12:15:0063[facility] BVIWBNQIZ0365-20-91 12:15:000.3[facility] AqfrrhbBLTXHGWMW6982-39-14 12:15:0036 [facility] AcrzwfhOIDYVZKYG4706-39-86 12:15:0014.0[facility] HermannCHEMISTRY 2012-09-22 12:15:0012[facility] LbsedtyRWAMZEHCK6622-80-73 12:15:001.2[facility] OjikpiuSGFHSXOOT3924-18-24 12:15:003.0[facility] GvflvzySLXUYLNCEK1302-82-21 12:15:005.0[facility] EtbxeexRWBMQOTSEC3920-20-36 12:15:0019.5[facility] MAPAIJBAKB2779-22-01 12:15:001.1[facility] QwefnqrFINQJXHWLW7690-74-21 12:15:00 73.8[facility] GkhliyrBUDJIWRCQI4056-41-59 12:15:000.4[facility] HermannHEMATOLOGY 2012-09-22 12:15:001.6[facility] KbvlblzXNUNOQMCYR8202-50-03 12:15:000.0[facility] GehjqhnCYJLGBPRRT2902-83-91 12:15:000.1[facility] GjvgmakPKBPHBRMBO7645-68-49 12:15:006.0[facility] NcnsyaxYVOLKIUVCJ5327-21-15 12:15:000.6[facility] PVSYBDJGSP7933-86-31 12:15:000.87[facility] IziyrasLZKHUQIRWF8015-50-78 12:15:00 Test Item Value Reference Range Interpretation Comments PTT (test code = PTT) 23.2 s 22.9-35.8 N [facility] OxhympoEPMWBDDAPP8310-51-49 12:15:00 Test Item Value Reference Range Interpretation Comments PT (test code = PT) 12.0 s 12.0-14.7 N [facility] AjojunmDKKHSBGFVE9680-60-68 12:15:0092.3[facility] HermannHEMATOLOGY 2012-09-22 12:15:00 Test Item Value Reference Range Interpretation Comments MCH (test code = MCH) 31.0 pg 27.0-31.0 N [facility] AwygkzyLURBOPFMBP3618-68-27 12:15:0033.6[facility]annHEMATOLOGY 2012-09-22 12:15:0012.8[facility] MmmonhrPWVEPYEQDG1531-31-33 12:15:0047.8[facility] ThwurqlKRNFIRHPOM3265-98-20 12:15:009.1[facility] ZjmpxgwQEQEJHFBLD8989-15-43 12:15:13925Solyuvoq RygdseqHKBBDEMKYT5483-85-20 12:15:005.18[facility] YULPXCNGCW4086-53-98 12:15:0016.1[facility] NeyldefWGBVKVZUHF7544-94-80 12:15:00 8.1[facility] AfbzrsbXWQTDRYPN5037-21-95 12:15:001.6[facility] HermannCHEMISTRY 2012-09-22 12:15:002.8[facility] RfbmcvyZSCIJBQVD1385-61-07 12:15:00<0.02 [facility] FmvztvxODSMKUNNC0999-47-98 12:15:14779Cyojcbsj [facility]annCHEMISTRY 2012-09-22 12:15:0066[facility] TwujvetRTXEGNCEU0207-46-24 12:15:008.3[facility] GrctxbbXKWXHAYLV4883-14-64 12:15:0026[facility] LmjkywwPREYZNSFV5384-96-43 12:15:30232Onjuywol NfqkeduVNVWNZWYK8304-80-44 12:15:004.0[facility] PAUNVGDQB4039-27-60 12:15:74656Ysfijlab NjlyrmiWFGNQUVSZ5951-83-49 12:15:001.3 [facility] IabeyvlGTQEOZAFN0226-90-41 12:15:0015[facility] HermannCHEMISTRY 2012-09-22 12:15:78680Yvwmbkoo BmonijxAXZJSDOFP0400-80-61 12:15:003.7[facility] RvodoswJTGQXBRIA3723-74-95 12:15:006.7[facility] UxfzxjfTOWEOECYF7349-65-89 12:15:89549Zuftgznw CfzgtthKSMXLMEPA4505-62-01 12:15:0063[facility] WTODXNGXE0621-87-33 12:15:000.3[facility] TggodfzTJGNFFMVO0716-34-80 12:15:0036 [facility] DjizgxwNMFWGTQGK1364-84-35 12:15:0014.0[facility] HermannCHEMISTRY 2012-09-22 12:15:0012[facility] VwmsdydCWSJKBSYI0071-73-91 12:15:001.2[facility] GpqycrwCFPQIAWKC7826-12-04 12:15:003.0[facility] JmzeoooWZEJAJOKUW5371-57-49 12:15:005.0[facility] ZtdtcikBSNDADKUZH1314-26-34 12:15:0019.5[facility] UJBWGBNGDF0225-93-93 12:15:001.1[facility] UmnqvvcOCLHSJNNDW0269-12-87 12:15:00 73.8[facility] JpmqnvdAKHFXLPNSE7275-44-56 12:15:000.4[facility] HermannHEMATOLOGY 2012-09-22 12:15:001.6[facility] MbkoizyHEBSRILWTT9476-94-21 12:15:000.0[facility] RriteapVNIMFHREUS0383-10-66 12:15:000.1[facility] SlcparpSSLSHSTEVT1115-19-52 12:15:006.0[facility] WmmbhwiYCZTHQZKZR0421-24-30 12:15:000.6[facility] NVYDRUWEAF5309-88-34 12:15:000.87[facility] SqyxymcPAMMZEZDPO7587-86-19 12:15:00 Test Item Value Reference Range Interpretation Comments PTT (test code = PTT) 23.2 s 22.9-35.8 N [facility] RerasfhOQSIGHYWXH4133-01-49 12:15:00 Test Item Value Reference Range Interpretation Comments PT (test code = PT) 12.0 s 12.0-14.7 N [facility] BsjojmxREPJPKZDCI8349-89-31 12:15:0092.3[facility] HermannHEMATOLOGY 2012-09-22 12:15:00 Test Item Value Reference Range Interpretation Comments MCH (test code = MCH) 31.0 pg 27.0-31.0 N [facility] DpxmexlQGJRQZNCGL2029-25-69 12:15:0033.6[facility] HermannHEMATOLOGY 2012-09-22 12:15:0012.8[facility] JrxyiscXKBZNVZBHB3327-50-43 12:15:0047.8[facility] PuwifzmPOFCBGBMXH1633-87-19 12:15:009.1[facility] DnuaaoiRMMAXDYJNA6945-12-63 12:15:80909Xrskjozw QpbvqwyJKCYQZPUWL5260-53-76 12:15:005.18[facility] WTIBUYOEKH0591-13-86 12:15:0047.8[facility] DsveissRYUOGZJGWT5107-88-64 12:15:00 9.1[facility] AlisulfQUFJEQIJDT0783-22-34 12:15:58073Xdhoncte HermannHEMATOLOGY 2012-09-22 12:15:005.18[facility] AldzqqfGIPXJLXUUC0364-98-70 12:15:0016.1[facility] HpsfmfjYMKFEMSEYF6122-98-97 12:15:008.1[facility] VuavcyjEENDWNMQQ0352-22-57 12:15:001.6[facility] TthvbxlGHAZVCMFG4208-77-92 12:15:002.8[facility] XGKNDATWG8924-37-54 12:15:00<0.02[facility] QivykdfJQLHAURCH8414-85-82 12:15:00 298[facility] KwezzgfVWCBHUWMK6670-52-17 12:15:0066[facility] HermannCHEMISTRY 2012-09-22 12:15:008.3[facility] HbeudshNXNSOXARY7345-63-23 12:15:0026[facility] VqrlrtgARDCDMGMY3545-02-88 12:15:94004Xupgxvdo NvogaqlDWZQELFQD8185-75-83 12:15:004.0[facility] UbupnfnFYMKVIKFC8419-06-77 12:15:42172Ovkbgdbp [place] AERVAJALX3951-10-99 12:15:001.3[facility] DcqieetHHILEIIVA7853-09-17 12:15:0015 [facility] DdcmufbVZDDNXOAA6473-93-82 12:15:62146Btsozieb HermannCHEMISTRY 2012-09-22 12:15:003.7[facility] OijbpzfEGILMICUU8823-82-71 12:15:006.7[facility] YmyrjtaQGECBAUCG2427-89-53 12:15:53838Zdbzfjyl ClzztnkUELYXLCBF9593-97-51 12:15:0063[facility] UzjyzxvRSXXIGJUA3445-31-82 12:15:000.3[facility] EXDUSKXCH5019-51-19 12:15:0036[facility] OjwocvoSQPNJBCGU4658-09-71 12:15:0014.0 [facility] FpuvtsmAKUHCUKYR2863-74-04 12:15:0012[facility] HermannCHEMISTRY 2012-09-22 12:15:001.2[facility] KzvdwdyXINJOWGOY0773-98-63 12:15:003.0[facility] VsdyjqhAADIZBPSIN0359-18-65 12:15:005.0[facility] CdokphjHCMPHUIWIJ8165-72-80 12:15:0019.5[facility] WezmnjjYOWDYKHGHM3858-81-29 12:15:001.1[facility] KECIEWLVBG2689-45-63 12:15:0073.8[facility] TnsroxuYANQXMMPXH3282-75-87 12:15:00 0.4[facility] NwepusqAPERDWCSLY9899-84-04 12:15:001.6[facility] HermannHEMATOLOGY 2012-09-22 12:15:000.0[facility] DsdiijdGPBERCMMWY0579-57-74 12:15:000.1[facility] EhzkyczNHXQKYGEWF6445-36-01 12:15:006.0[facility] DzpjrqsZQNFCHSIXR7501-37-37 12:15:000.6[facility] EmdzjtyBOZUOMMDFI4696-76-29 12:15:000.87[facility] RJLRKOIQGW5357-49-38 12:15:00 Test Item Value Reference Range Interpretation Comments PTT (test code = PTT) 23.2 s 22.9-35.8 N [facility] YptnttmKBLOEAKGLV2677-45-04 12:15:00 Test Item Value Reference Range Interpretation Comments PT (test code = PT) 12.0 s 12.0-14.7 N [facility] KkgrkspZRSMGLMZJN9400-20-55 12:15:0092.3[facility] HermannHEMATOLOGY 2012-09-22 12:15:00 Test Item Value Reference Range Interpretation Comments MCH (test code = MCH) 31.0 pg 27.0-31.0 N [facility] EcvjtfnZROFXFLYVT0944-52-75 12:15:0033.6[facility] HermannHEMATOLOGY 2012-09-22 12:15:0012.8[facility] ZrlpsecULZLBKJMNB9779-94-43 12:15:0047.8[facility] RgwlpulDGQLECBQXC4860-78-58 12:15:009.1[facility] DrjlxqxZQJHGAIVAK3731-39-98 12:15:87648Hexdcffj SutlyxqYCYEITTUMS8579-09-16 12:15:005.18[facility] KBAOZYLBYL1621-94-50 12:15:0016.1[facility] XtpqxabXIIWHONBWU8599-82-13 12:15:00 8.1[facility] ClwpzecPFARFUMSY3631-97-26 12:15:001.6[facility] HermannCHEMISTRY 2012-09-22 12:15:002.8[facility] MiunuwfXRHEEDMCJ6908-95-73 12:15:00<0.02 [facility] SaevvmwNZJJMAIFK3186-61-11 12:15:44563Izggifwz HermannCHEMISTRY 2012-09-22 12:15:0066[facility] ExxtxnoSNUIISBUV3802-45-72 12:15:008.3[facility] FhfexwbVPXLITFLS6881-83-54 12:15:0026[facility] ExtkbdjWHVLIVNKE5144-94-96 12:15:71993Gwfhlhie UjanorjKUOSQAEZA3071-48-34 12:15:004.0[facility] TFIGJPTYA8478-15-07 12:15:74562Ytekjebt UawpahpHGTRVELVI9707-00-64 12:15:001.3 [facility] VzmadfxNALEYFYIB3532-63-33 12:15:0015[facility] HermannCHEMISTRY 2012-09-22 12:15:73326Cmivifcm KlehyjfQJXZQUEDW0008-39-13 12:15:003.7[facility] CzamlnqTIFUBOYPC2205-17-72 12:15:006.7[facility] KkecdhxCNTZUOJBA9149-46-54 12:15:93532Qbqmfzax WirbsukNPEGLRCFV1599-77-55 12:15:0063[facility] BRYGFLXAD7074-94-39 12:15:000.3[facility] MuqbwfsJVCFOEXIY5186-36-44 12:15:0036 [facility] PfaruqlPDSFLQRZH9704-96-13 12:15:0014.0[facility] HermannCHEMISTRY 2012-09-22 12:15:0012[facility] HnomkybQBGUTYAGL3600-28-51 12:15:001.2[facility] DksefpmFVSEMZMDT8000-13-66 12:15:003.0[facility] UjuejhoZGDPQXMFEU0832-16-67 12:15:005.0[facility] SwljpchTXLYHADUNM5288-79-01 12:15:0019.5[facility] ZOSIVXQWLL0845-02-49 12:15:001.1[facility] TxrifvwUOOTGPKKZY3933-56-01 12:15:00 73.8[facility] CljutzuTEUZGTJSSL0161-36-23 12:15:000.4[facility] HermannHEMATOLOGY 2012-09-22 12:15:001.6[facility] BwpzikqDUXICNGATX9305-73-96 12:15:000.0[facility] QyhkatzRZKEPHKABB5841-54-16 12:15:000.1[facility] RuxmcnqNOPDSKQCGG7364-61-56 12:15:006.0[facility] XpvxlnfSLYBOLQLEI2174-76-11 12:15:000.6[facility] QMAREDWIYX2893-48-25 12:15:000.87[facility] IfhxqhsQFDLBEEMWV4204-42-85 12:15:00 Test Item Value Reference Range Interpretation Comments PTT (test code = PTT) 23.2 s 22.9-35.8 N [facility] LcyndgqWYIQFGVKQX8434-70-45 12:15:00 Test Item Value Reference Range Interpretation Comments PT (test code = PT) 12.0 s 12.0-14.7 N [facility] MldttufUFDBETOEVL4107-52-47 12:15:0092.3[facility] HermannHEMATOLOGY 2012-09-22 12:15:00 Test Item Value Reference Range Interpretation Comments MCH (test code = MCH) 31.0 pg 27.0-31.0 N [facility] MwfclkeUAIWUAKARF9008-11-73 12:15:0033.6[facility] 2012-[facility]22 12:15:0012.8[facility] RyrydoxEFAVHOJXYH6277-37-10 12:15:0047.8[facility] WwxyjuuZPRXXSIWUI1763-74-56 12:15:009.1[facility] XezokijEZZGVGIUZH6721-23-24 12:15:98007Mmnmpndm PsudmgiVLCEFAWVPL6920-69-47 12:15:005.18[facility] YXXOVVKLVU6454-85-21 12:15:0016.1[facility] HnuipprAOEHCSKZRQ4489-19-86 12:15:00 8.1[facility] MvmakiyZNEJYOQHU6700-08-03 12:15:001.6[facility]annCHEMISTRY 2012-09-22 12:15:002.8[facility] YmczbkeTWXGYHXFQ4861-86-02 12:15:00<0.02 [facility] AnmqugvRRWULOOXE9545-38-86 12:15:60448Jlbebfwh HermannCHEMISTRY 2012-09-22 12:15:0066[facility] DpcvygnUELYGYPBS9350-01-21 12:15:008.3[facility] MuokeoqIZHOHXHOX0824-91-44 12:15:0026[facility] RzuojewIPTTTYEXF9155-88-64 12:15:98371Tbvuggki TgmkdehPJJYPAOGV7012-80-19 12:15:004.0[facility] FXAEHMQTK7761-41-67 12:15:26324Phrhhczd KdhwjemHXIKOQMXI6454-74-71 12:15:001.3 [facility] CmokipmDOVIEVOAM3360-27-54 12:15:0015[facility]annCHEMISTRY 2012-09-22 12:15:41634Myaqbloe QzqsoidPXKZVNAQN9719-19-81 12:15:003.7[facility] NfpfozhVMBCNNHRX3341-19-07 12:15:006.7[facility] WwzbsncBEGLRFZZQ9312-90-86 12:15:17835Vihedumv XmpmkkwTOLAGQAXV2508-11-83 12:15:0063[facility] OUKJJCPTT7327-24-45 12:15:000.3[facility] PeszdftCZXYBNPCL2213-19-68 12:15:0036 [facility] DuenvcsAXNKNCGEA1246-95-12 12:15:0014.0[facility]annCHEMISTRY 2012-09-22 12:15:0012[facility] VytrlkuDOELBFXPU7318-83-92 12:15:001.2[facility] TrbkwsvHJIEJNCYQ2650-97-21 12:15:003.0[facility] SnlqzxvNNSPORJOOA2391-95-62 12:15:005.0[facility] GfpwyfcXDFZOPGPZN1913-98-42 12:15:0019.5[facility] WEEXEYUEQH4880-84-43 12:15:001.1[facility] OfnfsrvVLSXLTSQPM8461-28-42 12:15:00 73.8[facility] TirugpcKBROSQZCCA0306-45-72 12:15:000.4[facility]annHEMATOLOGY 2012-09-22 12:15:001.6[facility] OhtcutnICYHUHJJYF2865-12-25 12:15:000.0[facility] AhlcgzlENCWZZXLZV9310-18-88 12:15:000.1[facility] QvhazutDIHEEUTGKV1650-44-03 12:15:006.0[facility] BmnmizeSFVNVIYIEW0645-44-33 12:15:000.6[facility] ENYIEPVRVU5476-66-79 12:15:000.87[facility] UrlznuuTASKJIXTQC1842-64-24 12:15:00 Test Item Value Reference Range Interpretation Comments PTT (test code = PTT) 23.2 s 22.9-35.8 N [facility] OwdezegZHNHUAXLQD2634-02-91 12:15:00 Test Item Value Reference Range Interpretation Comments PT (test code = PT) 12.0 s 12.0-14.7 N [facility] OfpksdvYPNHSYRUDC4199-44-81 12:15:0092.3[facility]annHEMATOLOGY 2012-09-22 12:15:00 Test Item Value Reference Range Interpretation Comments MCH (test code = MCH) 31.0 pg 27.0-31.0 N [facility] KcvzehzRGQTQMDNHT0899-14-77 12:15:0033.6[facility]annHEMATOLOGY 2012-09-22 12:15:0012.8[facility] CiftmlgVTXLBBUNLN3668-17-51 12:15:0047.8[facility] UlaunpeDQLWDQJHMR0659-96-85 12:15:009.1[facility] VbmeupdWMKJGMBPSD2814-20-02 12:15:00266Zlxjqacp RulcztjBUNDQHAPBU9887-19-81 12:15:005.18[facility] QLMEVTWTEE3476-87-73 12:15:0016.1[facility] JtqyykgIJHAHRNCJM4799-04-36 12:15:00 8.1[facility] QgyzgkyMDJACXDRN5877-82-65 12:15:001.6[facility]annCHEMISTRY 2012-09-22 12:15:002.8[facility] ThiocswRIFOGVIEH7215-08-48 12:15:00<0.02 [facility] CpmuqjrANGBMIUWA8773-73-47 12:15:50871Kcbdbthh HermannCHEMISTRY 2012-09-22 12:15:0066[facility] WwknltkYBJATVLGB3315-65-44 12:15:008.3[facility] UrxdocnFXTGRPABH5836-46-87 12:15:0026[facility] QgpqnozIFZDWSLEC9978-68-78 12:15:65117Yfqmpnti MawsqlnSJDNBZYXH7426-90-97 12:15:004.0[facility] HOLCHEBNA4679-01-15 12:15:58079Zimeustc TdiphopWJRDDVGUJ6740-91-10 12:15:001.3 [facility] JvarbzjGUTBRPDOW8785-28-23 12:15:0015[facility]annCHEMISTRY 2012-09-22 12:15:05563Qtumttdn OjlephiGCEYNLFOB5087-75-57 12:15:003.7[facility] VilatutDVUNBBEKL8476-69-92 12:15:006.7[facility] LimbhlsIKYZUKNKK0457-88-08 12:15:89029Azakrzbb EvlylycPBGZYKFLB8715-55-27 12:15:0063[facility] QMENNOTKK4282-88-09 12:15:000.3[facility] ZviiivtGDXMAXECH8138-66-93 12:15:0036 [facility] ReenxqeSTADUVJHN6709-40-17 12:15:0014.0[facility]annCHEMISTRY 2012-09-22 12:15:0012[facility] KywzjlzOXTWOTEGR1321-24-01 12:15:001.2[facility] JhncxjnUAQFIINYH0010-22-90 12:15:003.0[facility] UwywylzZDVOSANOFA3261-08-09 12:15:005.0[facility] LhxyuthPRAMFHLKTG8148-47-86 12:15:0019.5[facility] TRBOXYHSVH7737-13-29 12:15:001.1[facility] NsfkpsdAXVYDPQFAP1601-26-86 12:15:00 73.8[facility] PssshhrYIEMCALSWM5302-24-64 12:15:000.4[facility]annHEMATOLOGY 2012-09-22 12:15:001.6[facility] HsfqigoMAEXNZXETG7733-09-29 12:15:000.0[facility] FzgeaafDPRMUQBPJZ5932-88-48 12:15:000.1[facility] PojunfwZIUDMKVASO6431-39-77 12:15:006.0[facility] PvyuuftOUCVPUHHBV6300-21-00 12:15:000.6[facility] LSYUYJQANW6923-83-65 12:15:000.87[facility] EpemhgoTZJMLGSMZF3002-53-53 12:15:00 Test Item Value Reference Range Interpretation Comments PTT (test code = PTT) 23.2 s 22.9-35.8 N [facility] GxbprkgIUNVYSZEUF1993-89-88 12:15:00 Test Item Value Reference Range Interpretation Comments PT (test code = PT) 12.0 s 12.0-14.7 N [facility] OvhmqvbFJOPTZXHYX0748-46-07 12:15:0092.3[facility]annHEMATOLOGY 2012-09-22 12:15:00 Test Item Value Reference Range Interpretation Comments MCH (test code = MCH) 31.0 pg 27.0-31.0 N [facility] EyemsilHWIGBUGUUP2278-04-87 12:15:0033.6[facility]annHEMATOLOGY 2012-09-22 12:15:0012.8[facility] PaydzkuPLHSWIVSLI8476-17-19 12:15:0047.8[facility] CyhouarBHUBMOGPWO4406-81-83 12:15:009.1[facility] VhazjydQYTPJEMZRJ5623-87-08 12:15:98471Wgloeokh BeppvwpGBXJIVFZQG1200-30-81 12:15:005.18[facility] BEBMLWCEXO8478-44-01 12:15:0016.1[facility] BrjgsmcHCCLQMSSQJ0213-11-32 12:15:00 8.1[facility] XtdviqpSHBOTMRAR6235-78-88 12:15:001.6[facility]annCHEMISTRY 2012-09-22 12:15:002.8[facility] KpdysdkOTEDSPQSO6306-86-24 12:15:00<0.02 [facility] ZrhevueQAHOZBOGP2988-63-55 12:15:05686Mxuauwwv HermannCHEMISTRY 2012-09-22 12:15:0066[facility] RxtiwlcMVMPCXBDB0052-43-47 12:15:008.3[facility] SmgazjgRQGVEBQHV6192-14-82 12:15:0026[facility] EovyvqeCSXHLAPMF8013-64-70 12:15:25449Ompnznmw QulcacxKESQYLCBS6076-64-89 12:15:004.0[facility] DJWTRBXZS4845-25-53 12:15:57162Fwxknpbx VpkbgodCLSSJSZPW9696-47-17 12:15:001.3 [facility] RuiceicJIRZVIUJK8553-42-69 12:15:0015[facility]annCHEMISTRY 2012-09-22 12:15:87168Zadggzvp QxznoniEVXDJEQQY8001-96-82 12:15:003.7[facility] CqkchxjWIHSUSEPY4739-96-55 12:15:006.7[facility] HqwueupTZMSCLQAO3400-51-32 12:15:84048Mqgsohuu QweknmiFWHSRUVWA2443-88-95 12:15:0063[facility] ESLSSNMFB5296-93-60 12:15:000.3[facility] AkberxvSGQVCDMZK1531-85-41 12:15:0036 [facility] EkilkaxDVCIBKVGL7010-43-24 12:15:0014.0[facility] HermannCHEMISTRY 2012-09-22 12:15:0012[facility] HcqmmdsDNNTJMANY1266-70-56 12:15:001.2[facility] OujxppxKXIOFICFF5932-87-30 12:15:003.0[facility] NwjrcksXISVVPWVVT0570-44-33 12:15:005.0[facility] RjnjrfmXZLJLLCAMU9154-72-12 12:15:0019.5[facility] WPZWQIYPMF0104-52-76 12:15:001.1[facility] UeaywznXLOPKXHNLT6874-52-54 12:15:00 73.8[facility] RzcwgxtLXAXCBDELL8971-31-85 12:15:000.4[facility]annHEMATOLOGY 2012-09-22 12:15:001.6[facility] AxfxlpdGDXPPVUVIA0894-92-79 12:15:000.0[facility] VqljbkwDWZEZIUAED9653-55-70 12:15:000.1[facility] VjvhuryYMZKISSXZD3932-72-15 12:15:006.0[facility] NlojdcjASIDGXZCDI7466-96-96 12:15:000.6[facility] YGSRLTSLQE8188-08-51 12:15:000.87[facility] RxsucdzNDKGUGOCYP7921-32-64 12:15:00 Test Item Value Reference Range Interpretation Comments PTT (test code = PTT) 23.2 s 22.9-35.8 N [facility] MibtjdbGXAMKGIEAX4094-38-71 12:15:00 Test Item Value Reference Range Interpretation Comments PT (test code = PT) 12.0 s 12.0-14.7 N [facility] StfellfETTFGUEYHH1241-15-50 12:15:0092.3[facility]annHEMATOLOGY 2012-09-22 12:15:00 Test Item Value Reference Range Interpretation Comments MCH (test code = MCH) 31.0 pg 27.0-31.0 N [facility] TsotxccYFCHLVPBLG2525-61-31 12:15:0033.6[facility]annHEMATOLOGY 2012-09-22 12:15:0012.8[facility] UzcyofdPTNCALZHFC6506-92-99 12:00:000.21[facility] FwphysqTLXHEEUFJT0616-80-20 12:00:000.21[facility] HoviisiZWHHUEXWKN1429-51-23 12:00:000.21[facility] CnakopqYRBCCCVJCQ1351-18-37 12:00:000.21[facility] LFGYFZPCYV0877-20-75 12:00:000.21[facility] AvtieciLVVUUUROPP8832-03-14 12:00:00 0.21[facility] OrguyotKMBXEAGSFI8177-81-07 12:00:000.21[facility]annHEMATOLOGY 2012-09-22 12:00:000.21[facility] PsewlmmYILAYSRAFE2609-95-33 12:00:000.21[facility] JmmrlkqTWEOFQBLBM5679-05-35 12:00:000.21[facility] VegxsenRMTPXCPBAA0798-75-61 12:00:000.21[facility] LazfoixZZOGBVIYVR1401-91-42 12:00:000.21[facility] CHMSFHBEWS8286-00-67 12:00:000.21[facility] SgnndpcXAYENENUVT2930-44-44 12:00:00 0.21[facility] SjlnjegRNXLPBYKKL4849-18-87 12:00:000.21[facility]annHEMATOLOGY 2012-09-22 12:00:000.21[facility] HrdhcnwTQLNFRAJWW3372-38-72 12:00:000.21[facility] VsntxzkWATLWBBSSS5992-94-82 12:00:000.21[facility] DgemljxGNSYUDOAWC5619-57-21 12:00:000.21[facility] UqcovxzMNYZWQELBK6124-60-28 12:00:000.21[facility] BMHSXWRCHX1172-47-31 12:00:000.21[facility] KyktomnLWRCFWXTOB2229-96-34 12:00:00 0.21[facility] PhixlwzWNSHQSXVFS4291-94-75 12:00:000.21[facility]
[2021-07-08 07:07] LABS: Absolute Lymphocytes (CBC) 1.8 K/uL (0.7-4.9); Basophils % 0.9 % (0-1.3); Hematocrit 45.3 % (39.6-49.0); MPV 7.9 fL (7.6-11.3); RBC Red Blood Cell Count 5.07 M/uL (4.33-5.43)
[2021-07-08 07:26] LABS: Albumin 3.3 g/dL (3.4-5.0); Bilirubin Direct 0.1 mg/dL (0-0.2); Bilirubin Total 0.5 mg/dL (0.2-1.0)
--- NOTE | 2021-07-08 08:05 | RAD REPORT ---
EXAM DESCRIPTION: CT - Abdomen Pelvis W Contrast - 07/08/2021 7:46 am CLINICAL HISTORY: ABD PAIN COMPARISON: Abdomen Pelvis W Contrast dated 12/23/2016; CT ABD PELVIS W CONTRAST dated 01/16/2014; C T ABD PELVIS W CONTRAST dated 10/14/2012 TECHNIQUE: Biphasic, helical CT imaging of the abdomen and pelvis was performed following 100 ml non -ionic IV contrast. No oral contrast administered. All CT scans are performed using dose optimization technique as appropriate and may include automated exposure control or mA/KV adjustment according to patient size. FINDINGS: No suspicious findings in the lung bases. The liver, spleen, and pancreas show no suspicious findings. Liver attenuation is borderline fatty in filtrated. Gallbladder is absent. No biliary tree dilatation present. Pneumobilia is present presumed to be secondary to sphincterotomy. There is no mass or unexpected finding in the head of the pancrea s or duodenal C-loop. Symmetric renal function is seen with no hydronephrosis or suspicious renal mass. No pyelonephritis o r acute parenchymal process. No bladder abnormalities. No adrenal abnormalities. No dilated bowel loops or bowel wall thickening. No appendicitis. Diverticulosis is present in the le ft side colon without diverticulitis or other acute component. No free air, free fluid or inflammator y stranding. No hernia, mass or bulky lymphadenopathy. No suspicious bony findings. IMPRESSION: Contrast enhanced CT abdomen and pelvis showing no significant or suspicious finding. Pneumobilia is more prominent than on prior studies but still believed to be incidental sequela of pr ior sphincterotomy.
--- NOTE | 2021-07-08 08:39 | EDPHYS ---
Physician Documentation [facility] Name: Rashad Hanley III Age: 56 yrs Sex: Male : 1965 Arrival Date: 07/08/2021 Time: 06:38 Bed Waiting Private MD: ED Physician Roshan Miller HPI: 07/08 08:29 This 56 yrs old Male presents to ER via EMS with complaints of Abdominal Pain. kb 08:37 The patient presents with abdominal pain in the upper abdomen. Onset: The kb symptoms/episode began/occurred 2 week(s) ago. The symptoms do not radiate. Associated signs and symptoms: Pertinent positives: nausea, Pertinent negatives: fever, vomiting. The symptoms are described as intermittent. Modifying factors: The symptoms are alleviated by nothing, the symptoms are aggravated by nothing. Severity of pain: At its worst the pain was mild moderate in the emergency department the pain is unchanged. The patient has not experienced similar symptoms in the past. The patient has not recently seen a physician. Pt reports upper abd pain that started 2 weeks ago. States he was admitted to [facility] for the pain, but they were unable to find a cause. Was discharged to follow up with GI on outpatient basis, but doesn't have appt until 07/17/21 so he came here. . Historical: - Allergies: 06:57 No Known Allergies; lp1 - Immunization history:: Adult Immunizations up to date. - Social history:: Smoking status: Patient reports use of chewing tobacco. ROS: 08:28 Constitutional: Negative for fever, chills, and weight loss. kb 08:28 Abdomen/GI: Positive for abdominal pain, nausea. 08:28 All other systems are negative. Exam: 08:28 Constitutional: This is a well developed, well nourished patient who is awake, alert, kb and in no acute distress. Head/Face: Normocephalic, atraumatic. ENT: Moist Mucous membranes Respiratory: Respirations even and unlabored. No increased work of breathing, no retractions or nasal flaring. Skin: Warm, dry with normal turgor. Normal color. MS/ Extremity: Pulses equal, no cyanosis. Neurovascular intact. Full, normal range of motion. Neuro: Awake and alert, GCS 15, oriented to person, place, time, and situation. Moves all extremities. Normal gait. Psych: Awake, alert, with orientation to person, place and time. Behavior, mood, and affect are within normal limits. 08:28 Abdomen/GI: Inspection: abdomen appears normal, Bowel sounds: normal, Palpation: soft, in all quadrants, mild abdominal tenderness, in the epigastric area and left upper quadrant. Vital Signs: 06:56 BP 120 / 71; Pulse 63; Resp 14; Temp 98.5; Pulse Ox 99% on R/A; Weight 120.2 kg; Height lp1 5 ft. 11 in. (180.34 cm); Pain 10/10; 09:21 BP 130 / 70; Pulse 60; Resp 16; Temp 97.1(TE); Pulse Ox 100% on R/A; ss 06:56 Body Mass Index 36.96 (120.20 kg, 180.34 cm) lp1 MDM: 06:39 Patient medically screened. kb 08:28 Data reviewed: vital signs, nurses notes. Data interpreted: Pulse oximetry: on room air kb is 99 %. Interpretation: normal. Counseling: I had a detailed discussion with the patient and/or guardian regarding: the historical points, exam findings, and any diagnostic results supporting the discharge/admit diagnosis, lab results, radiology results, the need for outpatient follow up, a rn midwife, to return to the emergency department if symptoms worsen or persist or if there are any questions or concerns that arise at home. 12 06:39 Order name: Basic Metabolic Panel; Complete Time: 07:52 kb 07/08 06:39 Order name: CBC with Diff; Complete Time: 07:13 kb 07/08 06:39 Order name: Hepatic Function; Complete Time: 07:52 kb 07/08 06:39 Order name: Lipase; Complete Time: 07:52 kb 07/08 06:41 Order name: CT Abd/Pelvis - IV Contrast Only; Complete Time: 08:07 kb 07/08 06:39 Order name: IV Saline Lock; Complete Time: 08:07 kb 07/08 06:39 Order name: Labs collected and sent; Complete Time: 08:07 kb Administered Medications: 09:22 Not Given (Pt left prior to medication administsrationn): ProTONIX (pantoprazole) 40 mg ss IVP once 09:22 Not Given (Pt left prior to recieving medicationn): Ketorolac 15 mg IVP once ss Disposition: 19:10 Co-signature as Attending Physician, Roshan Miller MD. [email or web address] Disposition Summary: 07/08/21 08:38 Discharge Ordered Location: Home kb Condition: Stable kb Diagnosis - Upper abdominal pain, unspecified kb Followup: kb - With: Emergency Department - When: As needed - Reason: Worsening of condition Followup: kb - With: Private Physician - When: 2 - 3 days - Reason: Recheck today's complaints, Continuance of care, Re-evaluation by your physician Discharge Instructions: - Discharge Summary Sheet kb - Abdominal Pain, Adult, Wcuq-lh-Mezt kb Forms: - Medication Reconciliation Form kb - Thank You Letter kb - Antibiotic Education kb - Prescription Opioid Use kb Prescriptions: - Zofran 4 mg Oral Tablet - take 1 tablet by ORAL route every 6 hours As needed; 20 tablet; Refills: 0, kb Product Selection Permitted - dicyclomine 20 mg Oral Tablet - take 1 tablet by ORAL route 4 times per day As needed; 20 tablet; Refills: 0, kb Product Selection Permitted Signatures: Dispatcher [employer] EDLadonna Burrell, [employer]-C [employer]-Janet Hook RN RN lp1 Roshan Miller MD MD 7 Ana Dutta RN ss Corrections: (The following items were deleted from the chart) 06:58 06:57 PMHx: GERD; lp1 lp1 06:58 06:57 PMHx: Hypertension; lp1 lp1
--- NOTE | 2021-07-08 08:39 | ER ---
Nurse's Notes [facility] Name: Rashad Hanley III Age: 56 yrs Sex: Male : 1965 Arrival Date: 07/08/2021 Time: 06:38 Bed Waiting Private MD: Diagnosis: Upper abdominal pain, unspecified Presentation: 07/08 06:56 Chief complaint: EMS states: " Abdominal pain for the past two weeks. Was previous seen lp1 at [facility].". Coronavirus screen: Vaccine status: Patient reports receiving the 2nd dose of the covid vaccine. Ebola Screen: Patient negative for fever greater than or equal to 101.5 degrees Fahrenheit, and additional compatible Ebola Virus Disease symptoms Patient denies exposure to infectious person. Patient denies travel to an Ebola-affected area in the 21 days before illness onset. Initial Sepsis Screen: Does the patient meet any 2 criteria? No. Patient's initial sepsis screen is negative. Does the patient have a suspected source of infection? No. Patient's initial sepsis screen is negative. Risk Assessment: Do you want to hurt yourself or someone else? Patient reports no desire to harm self or others. Onset of symptoms is unknown. 06:56 Method Of Arrival: EMS: [facility] lp1 06:56 Acuity: SHIRA 3 lp1 07:00 Care prior to arrival: Medication(s) given: Phenergan, 12.5 mg, IV initiated. 22 GA, in lp1 the left hand, Glucose check: 118. Triage Assessment: 06:57 General: Appears uncomfortable, Behavior is calm, cooperative, appropriate for age. lp1 Pain: Complains of pain in epigastric area and left upper quadrant Pain currently is 10 out of 10 on a pain scale. Quality of pain is described as burning, crampy. GI: Reports " The pain shoots across my stomach. Historical: - Allergies: 06:57 No Known Allergies; lp1 - Immunization history:: Adult Immunizations up to date. - Social history:: Smoking status: Patient reports use of chewing tobacco. Screenin:20 Abuse screen: Denies threats or abuse. Denies injuries from another. Nutritional ss screening: No deficits noted. Tuberculosis screening: Never had TB. Fall Risk None identified. Assessment: 09:20 Reassessment: Patient appears in no apparent distress at this time. Patient and/or ss family updated on plan of care and expected duration. Pain level reassessed. Patient is alert, oriented x 3, equal unlabored respirations, skin warm/dry/pink. Pt is upset because nothing was found with all of his results today. Pt states, "there is something wrong and my doctor cannot get me in until the ." Pt verbalizes understanding of discharge instructions and to return for any worsening of symptoms. Vital Signs: 06:56 BP 120 / 71; Pulse 63; Resp 14; Temp 98.5; Pulse Ox 99% on R/A; Weight 120.2 kg; Height lp1 5 ft. 11 in. (180.34 cm); Pain 10/10; 09:21 BP 130 / 70; Pulse 60; Resp 16; Temp 97.1(TE); Pulse Ox 100% on R/A; ss 06:56 Body Mass Index 36.96 (120.20 kg, 180.34 cm) lp1 ED Course: 06:38 Patient arrived in ED. wm 06:39 Ladonna Maynard FNP-C is [facility]. kb 06:39 Roshan Miller MD is Attending Physician. kb 06:57 Triage completed. lp1 06:57 Arm band placed on right wrist. lp1 06:59 Initial lab(s) drawn, by me, sent to lab. Inserted saline lock: 20 gauge in right lp1 antecubital area, using aseptic technique. Blood collected. 07:46 CT Abd/Pelvis - IV Contrast Only In Process Unspecified. EDMS 09:20 Patient has correct armband on for positive identification. ss 09:20 No provider procedures requiring assistance completed. IV discontinued, intact, ss bleeding controlled, No redness/swelling at site. Pressure dressing applied. Administered Medications: 09:22 Not Given (Pt left prior to medication administsrationn): ProTONIX (pantoprazole) 40 mg ss IVP once 09:22 Not Given (Pt left prior to recieving medicationn): Ketorolac 15 mg IVP once ss Outcome: 08:38 Discharge ordered by . kb 09:20 Discharged to home ambulatory. ss 09:20 Condition: good 09:20 Discharge instructions given to patient, Instructed on discharge instructions, follow up and referral plans. Demonstrated understanding of instructions, follow-up care, Prescriptions given X 2. 09:21 Patient left the ED. ss Signatures: Dispatcher [employer] EDMS Ladonna Maynard, DARRICK-C GATEKEEPER-Ana Kaiser RN RN ss Janet Wright RN RN lp1 Liz Tate Corrections: (The following items were deleted from the chart) :58 06:57 PMHx: GERD; lp1 lp1 06:58 06:57 PMHx: Hypertension; lp1 lp1
[2021-07-08 09:28] VITALS: BP 130/70; TEMP 97.1; O2SAT 100
== END 2021-07-08 09:21 | disposition home or self-care (01) ==
LOC: ER 06:35
DX: R10.10 Upper abdominal pain, unspecified (principal)
CPT/HCPCS: 36415; 74177; 80048; 80076; 83690; 85025; 99284; Q9967

== ENCOUNTER 2021-07-15 06:03 | Emergency (ER) | payer SELFPAY ==
--- OUTSIDE RECORDS SUMMARY | 2021-07-15 06:21 | XMS REPORT | Continuity of Care Document ---
:1965 Author Organization [facility] t Address [address] [place] [address] Care Team Providers Name Role Phone LAURA Primary Care Physician Unavailable Laura GIBBS Attending Clinician LAURA Attending Clinician Unavailable Fahad Grijalva DO Attending Clinician Doctor Unassigned, Name Attending Clinician Unavailable Emmanuel GIBBS Attending Clinician Payers Payer Name Policy Type Policy Number Effective Date Expiration Date S ource Problems Condition Condition Condition Status Onset Resolution Last Treating Co mments Source Name Details Category Date Date Treatment Clinician Date ALVES ALVES Disease Active 2020-08 Univers (dyspnea (dyspnea 2-10 ity of on on 00:00: [place] exertion) exertion) 00 [facility] Branch Chronic Chronic Disease Active 2020-08 Univers 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 00:00: [place] antrum antrum 00 Medical Branch 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 Added automatic ally from request for surgery [id number] Chronic Chronic Disease Active 2020-08 Univers constipati constipati 2-03 it y of on on 00:00: Medical Branch Generalize Generalize Disease Active 2020-08 U nivers d d 2-03 ity of abdominal abdominal 00:[place] pain pain 00 [place] Epigastric Epigastric Disease Active 2020-08 U nivers pain pain 1-23 ity of 00:00: Medical Branch Numbness Numbness Disease Active 2020-08 Unive [...] of reflux reflux 00:00: g of this [place] disease disease 00 note Medical might be Branch different from the original. Added automatic ally from request for surgery [id number] Medicare Medicare Disease Active Overview: Un lety annual annual 3-05 Formattin ity of wellness wellness 00:00: g of this [place] as visit, visit, 00 note Medical subsequent subsequent might be Branch different from the original. Added automatic ally from request for surgery [id number] ACS Diagnosis Active 2012-09-23 Mem oria EVALUATION 09-22 08:31:00 l /CHEST ACS 00:00: [place] PAIN EVALUATION 00 /CHEST PAIN Active 09/22/2012 [facility] SOB Diagnosis Active 2012-09-22 Mem oria 2- 11:39:00 l SOB 00:00: [place] 00 Active 09/22/2012 [facility] Type 2 Type 2 Disease Active [facility] diabetes diabetes ity of mellitus mellitus [place] without without Medical complicati complicati Br anch on, on, without without long-term long-term current current use of use of insulin insulin Rheumatoid Rheumatoid Disease Active U nivers arthritis arthritis ity [facility] Hypertensi Hy[facility]ensi [facility] Hyperlipid Disease Active U nivers emia emia ity [facility] Gout Gout Disease Active Univers [facility] Depression Depression Disease Active U nivers [facility] Anxiety Anxiety Disease Active Univers [facility] JAZMIN JAZMIN Disease Active Univers (obstructi (obstructi it y of ve sleep ve sleep [place] apnea) apnea) [facility] Chest pain Problem Active 2012-09-26 M emoria 10:14:14 l Chest [place] pain Active Problem 09/26/2012 [facility] Syncope Problem Active 2012-09-26 Serg kim 10:14:14 l Syncope [place] Active Problem 09/26/2012 [facility] Other Problem Active 2019-11-17 Memor ia [...] Active 2019-11-17 M emoria emia 02:45:45 l [place] Hyperlipid emia Active [facility] [...] Problem Active 2019-11-17 Me moria 02:45:45 l [place] Heartburn Active Problem 11/17/2019 [facility] 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 Me moria (current) 02:45:45 l use of Long [place] non-steroi term farrukh (current) anti-infla use of mmatories non-steroi (NSAID) farrukh anti-infla mmatories (NSAID) Active Problem 11/17/2019 [facility] Osteoarthr Problem Active 2019-11-17 M emoria itis 02:45:45 l [place] Osteoarthr itis Active Problem 11/17/2019 [facility] Pain in Diagnosis Active 2019-03-27 Me moria joint 02:45:01 l involving Pain in Herm lobo lower leg joint involving lower leg Active Diagnosis 03/27/2019 [facility] CHEST PAIN Diagnosis Active 2012-09-23 Memoria NOS 08:31:00 l CHEST [place] PAIN NOS Active [facility] Abdominal Problem Active 2012-09-26 Me moria pain 10:14:14 l [place] Abdominal pain Active Problem 09/26/2012 [facility] Diverticul Problem Resolve 2010-082012-09-26 2012-09-26 Memoria itis d 0-11 10:14:14 10:14:14 l 00:00: [place] Diverticul 00 itis Resolved 05/14/2011 Problem 09/26/2012 1Had diverticul itis in 2010, 2011 [facility] Testostero Problem Resolve 2010-2012-09-26 2012-09-26 Memoria ne d 02-19 10:14:14 10:14:14 l 00:00: [place] Testostero 00 ne Resolved 02/19/2011 Problem 09/26/2012 [facility] Gout Problem Resolve 2006-2012-09-26 2012-09-26 Memoria d 02-24 10:14:14 10:14:14 l Gout 00:00: [place] 00 Resolved 02/24/2007 Problem 09/26/2012 [facility] Hyperchole Problem Resolve 2001-0 2012-09-26 2012-09-26 Memoria sterolemia d 6-12 10:14:14 10:14:14 l 00:00: [place] Hyperchole 00 sterolemia Resolved 01/13/2002 Problem 09/26/2012 [facility] Allergies, Adverse Reactions, Alerts Allergy Allergy Status Severity Reaction(s) Onset Inactive Treating Comm ents Source Name Type Date Date Clinician Indometh Indometh Active dizziness Mem oria acin acin 9-20 l 00:00: [place] 00 NO KNOWN Drug Active Univers ALLERGIE Class ity of S [facility] Social History Social Habit Start Date Stop Date Quantity Comments Source History of Chews Tobacco University of tobacco use [facility] Exposure to Not sure Fleischmanns of SARS-CoV-2 [place] Medical (event) Branch History SDOH University o f Alcohol Frequency [facility] edical Branch History SDOH University o f Alcohol Std [place] Medical Drinks Branch History SDSD University o f Alcohol Binge [place] Medic al Funk Alcohol intake 2021-07-13 2021-07-13 Current University of 00:00:00 00:00:00 non-drinker of [facility] alcohol Branch (finding) Alcohol Comment 2021-06-26 2021-06-26 quit about 2 Univers ity of 00:00:00 00:00:00 years [facility] Tobacco Comment 2021-06-26 2021-06-26 can per day Universi ty of 00:00:00 00:00:00 [facility] Branch History SDOH 2020-12-01 2020-12-01 0 University o f Physical Activity 00:00:00 00:00:00 [facility] DPW Branch History SDOH 2020-12-01 2020-12-01 0 University o f Physical Activity 00:00:00 00:00:00 [facility] MPS Branch Tobacco use and 2019-06-28 2019-06-28 Current user Univers ity of exposure 00:00:00 00:00:00 [facility] Sex [birth year] At [birth year] Universit y of 00:00:00 00:00:00 [facility] Smoking Status Start Date Stop Date Source [facility]ations Ordered Filled Start Stop Current Ordering Indication Dosage Frequency Signature Comments Components Source Medication Medication Date Date Medication? Clinician (SIG) Name Name vitamin 2020-08 Yes 1000ug Take 1,000 Un lety B-12 2-10 mcg by ity of (VITAMIN 10:14: mouth [place] B-12) 1,000 16 daily. Medica l mcg tablet Branch ARTIFICIAL 2020-08 Yes 1[drp] 1 Drop 3 U nivers TEARS,DEXT7 2-10 (three) ity o f 0-HYPRO, 10:14: times [place] ophthalmic 16 daily as Medic al solution needed. Branch atorvastati 2020-08 Yes 80mg Take 80 mg Univers n 80 mg 2-10 by mouth ity of tablet 10:14: at [place] 16 bedtime. Medical Branch vitamin 2020-08 Yes 1000ug Take 1,000 Un lety B-12 2-10 mcg by ity of (VITAMIN 10:14: mouth [place] B-12) 1,000 16 daily. Medica l mcg tablet Branch ARTIFICIAL 2020-08 Yes 1[drp] 1 Drop 3 U nivers TEARS,DEXT7 2-10 (three) ity o f 0-HYPRO, 10:14: times [place] ophthalmic 16 daily as Medic al solution needed. Branch atorvastati 2020-08 Yes 80mg Take 80 mg Univers n 80 mg 2-10 by mouth ity of tablet 10:14: at [place] 16 bedtime. Medical Branch pantoprazol 2020-08 Yes 40mg Take 1 Univ ers e 40 mg EC 2-08 tablet by ity of tablet 00:00: mouth 2 [place] 00 (two) Medical times Branch daily. 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 pantoprazol 2020-08 Yes 40mg Take 1 Univ ers e 40 mg EC 2-08 tablet by ity of tablet 00:00: mouth 2 [place] 00 (two) Medical times Branch daily. 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 sucralfate 2020-08- Yes [id number] 1g Take 1 Univers 1 gram 2-01 02-06 tablet by ity of tablet 00:00: 05:59 mouth [place] 00 :00 before Medical meals and Branch at bedtime for 30 days. sucralfate 2020-08- Yes [id number] 1g Take 1 Univers 1 gram 2-01 02-06 tablet by ity of tablet 00:00: 05:59 mouth [place] 00 :00 before Medical meals and Branch at bedtime for 30 days. docusate 2020-08 Yes [id number] 100mg Take 1 U nivers (COLACE) 2-03 capsule by ity o f 100 mg 00:00: mouth 2 [place] capsule 00 (two) Medical times Branch daily. sennosides 2020-08 Yes [id number] 8.6mg Take 1 Univers (SENOKOT) 2-03 tablet by ity o f 8.6 mg 00:00: mouth [place] tablet 00 daily. Medical Branch glycerin/mi 2020-08 Yes [id number] 225mL Insert 225 Univers neral oil, 2-03 mL into ity of AGLO ENEMA, 00:00: rectum as [place] Enem 00 needed for Medical Constipati Branch on. dicyclomine 2020-08 Yes [id number] 10mg Take 1 Univers (BENTYL) 10 2-03 capsule by it y of mg capsule 00:00: mouth [place] 00 every 8 Medical (eight) Branch hours as needed for Abdominal pain. docusate 2020-08 Yes [id number] 100mg Take 1 U nivers (COLACE) 2-03 capsule by ity o f 100 mg 00:00: mouth 2 [place] capsule 00 (two) Medical times Branch daily. sennosides 2020-08 Yes [id number] 8.6mg Take 1 Univers (SENOKOT) 2-03 tablet by ity o f 8.6 mg 00:00: mouth [place] tablet 00 daily. Medical Branch glycerin/mi 2020-08 Yes [id number] 225mL Insert 225 Univers neral oil, 2-03 mL into ity of AGLO ENEMA, 00:00: rectum as [place] Enem 00 needed for Medical Constipati Branch on. dicyclomine 2020-08 Yes [id number] 10mg Take 1 Univers (BENTYL) 10 2-03 capsule by it y of mg capsule 00:00: mouth [place] 00 every 8 Medical (eight) Branch hours as needed for Abdominal pain. ondansetron 2020-08 Yes [id number] 4mg Take 1 Univers 4 mg 1-26 tablet by ity of disintegrat 00:00: mouth [place] ing tablet 00 every 8 Medica l (eight) Branch hours as needed for Nausea and Vomiting (N/V). escitalopra 2020-08 Yes [id number] 20mg Take 1 Univers m oxalate 1-26 tablet by ity o f 20 mg 00:00: mouth [place] tablet 00 daily. Medical Branch polyethylen 2020-08 Yes [id number] 1{packe Take 1 Univers e glycol 1-26 t} Packet by ity of 3350 17 00:00: mouth 2 [place] gram powder 00 (two) Medical times Branch daily. ondansetron 2020-08 Yes [id number] 4mg Take 1 Univers 4 mg 1-26 tablet by ity of disintegrat 00:00: mouth [place] ing tablet 00 every 8 Medica l (eight) Branch hours as needed for Nausea and Vomiting (N/V). escitalopra 2020-08 Yes [id number] 20mg Take 1 Univers m oxalate 1-26 tablet by ity o f 20 mg 00:00: mouth [place] tablet 00 daily. Medical Branch polyethylen 2020-08 Yes [id number] 1{packe Take 1 Univers e glycol 1-26 t} Packet by ity of 3350 17 00:00: mouth 2 [place] gram powder 00 (two) Medical times Branch daily. traMADoL 50 2020-08- Yes [id number] 50mg Take [...] Indication s: acute pain methocarbam 2020-08 Yes [id number] 500mg Take 1 Univers oL 0-15 tablet by ity of (ROBAXIN) 00:00: mouth 2 [place] 500 mg 00 (two) Medical tablet times Branch daily as needed for Pain (scale 4-6) or Pain (scale 7-10). methocarbam 2020-08 Yes [id number] 500mg Take 1 Univers oL 0-15 tablet [...] 00 daily. Medical Branch albuterol 2020-08 Yes [id number] 2{puff} Inhale 2 Univers 90 0-11 Puffs ity of mcg/actuati 00:00: every 6 [place] as on inhaler 00 (six) Medical hours as Branch needed for Wheezing or Shortness of Breath. albuterol 2020-08 Yes [id number] 2{puff} Inhale 2 Univers 90 0-11 Puffs ity of mcg/actuati 00:00: every 6 [place] as on inhaler 00 (six) Medical hours as Branch needed for Wheezing or Shortness of Breath. traZODone Yes [id number] Take 0.5 Univers 100 mg 8-13 to 1.5 ity of tablet 00:00: tabs at [place] 00 night as Medical needed for Branch insomnia. traZODone Yes [id number] Take 0.5 Univers 100 mg 8-13 to 1.5 ity of tablet 00:00: tabs at [place] 00 night as Medical needed for Branch insomnia. omeprazole Yes [id number] 40mg Take 1 Univers 40 mg 5-18 capsule by ity of capsule 00:00: mouth (two) Medical times Branch daily. omeprazole Yes [id number] 40mg Take 1 Univers 40 mg 5-18 capsule by ity of capsule 00:00: mouth (two) Medical times Branch daily. glipiZIDE Yes [id number] 10mg Take 1 U nivers 10 mg 3-26 tablet by ity of tablet 00:00: mouth [place] 00 daily. As Medical needed if Branch blood sugars are over 140. metFORMIN Yes [id number] 500mg Take 1 Univers 500 mg 3-26 tablet by ity of tablet 00:00: mouth (two) Medical times Branch daily. glipiZIDE Yes [id number] 10mg Take 1 U nivers 10 mg 3-26 tablet by ity of tablet 00:00: mouth [place] 00 daily. As Medical needed if Branch blood sugars are over 140. metFORMIN Yes [id number] 500mg Take 1 Univers 500 mg 3-26 tablet by ity of tablet 00:00: mouth 2 [place] 00 (two) Medical times Branch daily. ezetimibe Yes 10mg Take 1 Univer s 10 mg 3-05 tablet by ity of tablet 00:00: mouth [place] 00 daily. Medical Branch ezetimibe Yes 10mg Take 1 Univer s 10 mg 3-05 tablet by ity of tablet 00:00: mouth [place] 00 daily. Medical Branch Blood-Gluco 2020-0 Yes [id number] Use as Univers se Meter 7-22 directed ity of (BLOOD 00:00: [place] GLUCOSE 00 Medical MONITORING) Branch Kit Blood-Gluco 2020-0 Yes [id number] Use as Univers se Meter 7-22 directed ity of (BLOOD 00:00: [place] GLUCOSE 00 Medical MONITORING) Branch Kit PredniSONE 2020-0 Yes Diann 2 tablets Memoria 4-06 Vo daily for l 00:00: 7 days, [place] 00 then 15 tabs daily for 1 week, then 1 tablet daily for 1 week, stay on 0.5 tab daily PredniSONE 2020-0 Yes Diann 2 tablets Memoria 4-06 Vo daily for l 00:00: 7 days, [place] 00 then 15 tabs daily for 1 week, then 1 tablet daily for 1 week, stay on 0.5 tab daily PredniSONE 2020-0 Yes Diann 2 tablets Memoria 4-06 Vo daily for l 00:00: 7 days, [place] 00 then 15 tabs daily for 1 [...] Vo daily for l 00:00: 7 days, [place] 00 then 15 tabs daily for 1 week, then 1 tablet daily for 1 week, stay on 0.5 tab daily PredniSONE 2020-0 Yes Diann 2 tablets Memoria 4-06 Vo daily for l 00:00: 7 days, [place] 00 then 15 tabs daily for 1 week, then 1 tablet daily for 1 week, stay on 0.5 tab daily PredniSONE 2020-0 Yes Diann 2 tablets Memoria 4-06 Vo daily for l 00:00: 7 days, [place] 00 then 15 tabs daily for 1 [...] Vo daily for l 00:00: 7 days, [place] 00 then 15 tabs daily for 1 [...] Vo daily for l 00:00: 7 days, [place] 00 then 15 tabs daily for 1 [...] Vo daily for l 00:00: 7 days, [place] 00 then 15 tabs daily for 1 [...] Vo daily for l 00:00: 7 days, [place] 00 then 15 tabs daily for 1 week, then 1 tablet daily for 1 week, stay on 0.5 tab daily PredniSONE 2020-0 Yes Diann 2 tablets Memoria 4-06 Vo daily for l 00:00: 7 days, [place] 00 then 15 tabs daily for 1 week, then 1 tablet daily for 1 week, stay on 0.5 tab daily PredniSONE 2020-0 Yes Diann 2 tablets Memoria 4-06 Vo daily for l 00:00: 7 days, [place] 00 then 15 tabs daily for 1 week, then 1 tablet daily for 1 week, stay on 0.5 tab daily thiamine 2019- Yes [id number] 100mg Take 1 U nivers 100 mg 1-17 tablet by ity of tablet 00:00: mouth [place] 00 daily. Medical Branch thiamine 2019- Yes [id number] 100mg Take 1 U nivers 100 mg 1-17 tablet by ity of tablet 00:00: mouth [place] 00 daily. Medical Branch aspirin 81 2018- Yes [id number] 81mg Take 1 U nivers mg chewable 1-11 tablet by ity of tablet 00:00: mouth [place] 00 daily. Medical Branch aspirin 81 2018- Yes [id number] 81mg Take 1 U nivers mg chewable 1-11 tablet by ity of tablet 00:00: mouth [place] 00 daily. Medical Branch AndroGel [id number] Yes Nilanjana not Serg kim Pump 9-23 Haley defined l 02:45: [place] 03 Omeprazole 2019-0 Yes Nilanjana 1 capsule Memoria 9-23 Haley l 02:45: [place] 03 Metoprolol 2019-0 Yes Nilanjana 1 tablet Memoria Succinate 9-23 Haley l ER 02:45: [place] 03 AndroGel 2019 Yes Nilanjana not Serg kim Pump 9-23 [place] defined l 02:45: [place] 03 Omeprazole 2019-0 Yes Nilanjana 1 capsule Memoria 9-23 Haley l 02:45: [place] 03 Metoprolol 2019-0 Yes Nilanjana 1 tablet Memoria Succinate 9-23 Haley l ER 02:45: [place] 03 AndroGel 2018-0 Yes Nilanjana not Serg kim Pump 9-23 [place] defined l 02:45: [place] 03 Omeprazole 2019-0 Yes Nilanjana 1 capsule Memoria 9-23 Haley l 02:45: [place] 03 Metoprolol 2019-0 Yes Nilanjana 1 tablet Memoria Succinate 9-23 Haley l ER 02:45: [place] 03 AndroGel 2019-0 Yes Nilanjana not Serg kim Pump 9-23 [place] defined l 02:45: [place] Omeprazole 2019-0 Yes Nilanjana 1 capsule Memoria 9-23 Haley l 02:45: [place] 03 Metoprolol 2019-0 Yes Nilanjana 1 tablet Memoria Succinate 9-23 Haley l ER 02:45: [place] AndroGel 2019 Yes Nilanjana not Serg kim Pump 9-23 [place]aley defined l 02:45: [place] 03 Omeprazole 2019-0 Yes Nilanjana 1 capsule [...] 2019-0 Yes Nilanjana 1 capsule Memoria 9-05 Ahley l 00:00: Mitigare 2019-0 Yes Nilanjana 1 [...] tablet Memoria 8-24 Vo l 02:45: [place] 01 Meloxicam 2019-0 Yes Diann 1 tablet Memoria 8-24 Vo l 02:45: Meloxicam 2019-0 Yes Diann 1 tablet Memoria 8-24 Vo l 02:45: [place] 01 Meloxicam 2019-0 Yes Diann 1 tablet Memoria 8-24 Vo l 02:45: [place] 01 Meloxicam 2019-0 Yes Diann 1 tablet Memoria 8-24 Vo l 02:45: Meloxicam 2019-0 Yes Diann 1 tablet Memoria 8-24 Vo l 02:45: Meloxicam 2019-0 Yes Diann 1 tablet Memoria 8-24 Vo l 02:45: Meloxicam 2019-0 Yes Diann 1 tablet Memoria 8-24 Vo l 02:45: [place] 01 Meloxicam 2019-0 Yes Diann 1 tablet Memoria 8-24 Vo l 02:45: [place] 01 Meloxicam 2019-0 Yes Diann 1 tablet Memoria 8-24 Vo l 02:45: Meloxicam 2019-0 Yes Diann 1 tablet Memoria 8-24 Vo l 02:45: Meloxicam 2019-0 Yes Diann 1 tablet Memoria 8-24 Vo l 02:45: Meloxicam 2019-0 Yes Diann 1 tablet Memoria 8-24 Vo l 02:45: Allopurinol 2019-0 Yes Nilanjana 2 tablets Memoria [...] 1 tablet Memoria 8-23 Haley l 00:00: [place] 00 Allopurinol 2019-0 Yes Nilanjana 2 tablets Memoria [...] tablet Memoria 8-23 Haley l 00:00: meclizine 2013- Yes Jaymie 25 mg, 1 M emoria 25 mg oral 2-21 Natasha tab, PO, l tablet 17:10: [place] TID, PRN, [place] 25 10 tab, for nausea/vom iting, Substituti on Allowed, TAB meclizine 2012- Yes Jaymie 25 mg, 1 M emoria 25 mg oral 2-21 Natasha tab, PO, l tablet 17:10: [place] TID, PRN, [place] lobo 25 10 tab, for nausea/vom iting, Substituti on Allowed, TAB meclizine 2012- Yes Jaymie 25 mg, 1 M emoria 25 mg oral 2-21 Natasha tab, PO, l tablet 17:10: [place] TID, PRN, Herm lobo 25 10 tab, for nausea/vom iting, Substituti on Allowed, TAB meclizine 2012- Yes Jaymie 25 mg, 1 M emoria 25 mg oral 2-21 Natasha tab, PO, l tablet 17:10: [place] TID, PRN, [place] lobo 25 10 tab, for nausea/vom iting, Substituti on Allowed, TAB meclizine 2012-0 Yes Jaymie 25 mg, 1 M emoria 25 mg oral 2-21 Natasha tab, PO, l tablet 17:10: [place] TID, PRN, Herm lobo 25 10 tab, for nausea/vom iting, Substituti on Allowed, TAB meclizine 2012-0 Yes Jaymie 25 mg, 1 M emoria 25 mg oral 2-21 Natasha tab, PO, l tablet 17:10: [place] TID, PRN, Herm lobo 25 10 tab, for nausea/vom iting, Substituti on Allowed, TAB meclizine 2012- Yes Jyamie 25 mg, 1 M emoria 25 mg [...] Omidvar mL, Route: l 01:37: IVP, Drug [place] 00 form: INJ, ONCE, Dosing Weight 125.227, kg, PRN Anxiety, Start date: 09/23/12 19:37:00 Ativan No Jarvis 2 mg, 1 Memori a 2-21 Omidvar mL, Route: l 01:37: IVP, Drug [place] 00 form: INJ, ONCE, Dosing Weight 125.227, kg, PRN Anxiety, Start date: 09/23/12 19:37:00 Ativan No Jarvis 2 mg, 1 Memori a 2-21 Omidvar mL, Route: l 01:37: IVP, Drug [place] 00 form: INJ, ONCE, Dosing Weight 125.227, kg, PRN Anxiety, Start date: 09/23/12 19:37:00 Ativan No Jarvis 2 mg, 1 Memori a 2-21 Omidvar mL, Route: l 01:37: IVP, Drug [place] 00 form: INJ, ONCE, Dosing Weight 125.227, kg, PRN Anxiety, Start date: 09/23/12 19:37:00 Ativan No Jarvis 2 mg, 1 Memori a 2-21 [place]mid[place] mL, Route: l 01:37: IVP, Drug [place] 00 form: INJ, ONCE, Dosing Weight 125.227, kg, PRN Anxiety, Start date: 09/23/12 19:37:00 Ativan No Jarvis 2 mg, 1 Memori a 2-21 [place]mid[place] mL, Route: l 01:37: IVP, Drug [place] 00 form: INJ, ONCE, Dosing Weight 125.227, kg, PRN Anxiety, Start date: 09/23/12 19:37:00 Ativan No Jarvis 2 mg, 1 Memori a 2-21 [place]midvar mL, Route: l 01:37: IVP, Drug [place] 00 form: INJ, ONCE, Dosing Weight 125.227, [...] Omidvar mL, Route: l 01:37: IVP, Drug [place] 00 form: INJ, ONCE, Dosing Weight 125.227, [...] Omidvar mL, Route: l 01:37: IVP, Drug [place] 00 form: INJ, ONCE, Dosing Weight 125.227, kg, PRN Anxiety, Start date: 09/23/12 19:37:00 Ativan No Jarvis 2 mg, 1 Memori a 2-21 [place]midvar mL, Route: l 01:37: IVP, Drug [place] 00 form: INJ, ONCE, Dosing Weight 125.227, kg, PRN Anxiety, Start date: 09/23/12 19:37:00 Ativan No Jarvis 2 mg, 1 Memori a 2-21 Omidvar mL, Route: l 01:37: IVP, Drug [place] 00 form: INJ, ONCE, Dosing Weight 125.227, kg, PRN Anxiety, Start date: 09/23/12 19:37:00 Ativan No Jarvis 2 mg, 1 Memori a 2-21 [place]mid[place] mL, Route: l 01:37: IVP, Drug [place] 00 form: INJ, ONCE, Dosing Weight 125.227, [...] Omidvar mL, Route: l 01:37: IVP, Drug [place] 00 form: INJ, ONCE, Dosing Weight 125.227, kg, PRN Anxiety, Start date: 09/23/12 19:37:00 Ativan No Jarvis 2 mg, 1 Memori a 2-21 Omidvar mL, Route: l 01:37: IVP, Drug [place] 00 form: INJ, ONCE, Dosing Weight 125.227, kg, PRN Anxiety, Start date: 09/23/12 19:37:00 Ativan No Jarvis 2 mg, 1 Memori a 2-21 Omidvar mL, Route: l 01:37: IVP, Drug [place] 00 form: INJ, ONCE, Dosing Weight 125.227, [...] mL, Route: l 22:43: Noah IVP, Drug Rjaan n 00 form: INJ, ONCE, Dosing Weight [...] Bret 4 mg, 2 Memor ia 2-20 Dnoald mL, Route: l 18:04: Carmella IVP, Drug [...] Stop date: 09/23/12 12:04:00 Zofran 2012-0 No Brte 4 mg, 2 Memor ia 2-20 Donald [...] ia 2-20 Donald mL, Route: l 18:04: Caremlla IVP, Drug Herm lobo 00 form: INJ, [...] Wally mL, Route: l 18:00: IVP, Drug [place] 00 form: INJ, ONCE, Start date: 09/23/12 12:00:00, Stop date: 09/23/12 12:00:00 Zofran 2012-0 No Zaina 4 mg, 2 Serg kim 2-20 Lobo Wally mL, Route: l 18:00: IVP, Drug [place] 00 form: INJ, ONCE, Start date: 09/23/12 12:00:00, Stop date: 09/23/12 12:00:00 Zofran 2012-0 No Zaina 4 mg, 2 Serg kim 2-20 Lobo Wally mL, Route: l 18:00: IVP, Drug [place] 00 form: INJ, ONCE, Start date: 09/23/12 [...] Wally mL, Route: l 18:00: IVP, Drug [place] 00 form: INJ, ONCE, Start date: 09/23/12 12:00:00, Stop date: 09/23/12 12:00:00 Zofran 2012-0 No Zaina 4 mg, 2 Serg kim 2-20 Lobo Wally mL, Route: l 18:00: IVP, Drug [place] 00 form: INJ, ONCE, Start date: 09/23/12 12:00:00, Stop date: 09/23/12 12:00:00 Zofran 2012-0 No Zaina 4 mg, 2 Serg kim 2-20 Lobo Wally mL, Route: l 18:00: IVP, Drug [place] 00 form: INJ, ONCE, Start date: 09/23/12 12:00:00, Stop date: 09/23/12 12:00:00 Zofran 2012-0 No Zaina 4 mg, 2 Serg kim 2-20 Lobo Wally mL, Route: l 18:00: IVP, Drug [place] 00 form: INJ, ONCE, Start date: 09/23/12 12:00:00, Stop date: 09/23/12 12:00:00 Zofran 2012-0 No Zaina 4 mg, 2 Serg kim 2-20 Lobo Wally mL, Route: l 18:00: IVP, Drug [place] 00 form: INJ, ONCE, Start date: 09/23/12 12:00:00, Stop date: 09/23/12 12:00:00 Zofran 2012-0 No Zaina 4 mg, 2 Serg kim 2-20 Lobo Wally mL, Route: l 18:00: IVP, Drug [place] 00 form: INJ, ONCE, Start date: 09/23/12 [...] Wally mL, Route: l 18:00: IVP, Drug [place] 00 form: INJ, ONCE, Start date: 09/23/12 [...] Wally mL, Route: l 18:00: IVP, Drug [place] 00 form: INJ, ONCE, Start date: 09/23/12 12:00:00, Stop date: 09/23/12 12:00:00 Zofran 2012-0 No Zaina 4 mg, 2 Serg kim 2-20 Lobo Wally mL, Route: l 18:00: IVP, Drug [place] 00 form: INJ, ONCE, Start date: 09/23/12 12:00:00, Stop date: 09/23/12 12:00:00 Zofran 2012-0 No Zaina 4 mg, 2 Serg kim 2-20 Lobo Wally mL, Route: l 18:00: IVP, Drug [place] 00 form: INJ, ONCE, Start date: 09/23/12 12:00:00, Stop date: 09/23/12 12:00:00 Zofran 2012-0 No Zaina 4 mg, 2 Serg kim 2-20 Lobo Wally mL, Route: l 18:00: IVP, Drug [place] 00 form: INJ, ONCE, Start date: 09/23/12 12:00:00, Stop date: 09/23/12 12:00:00 Zofran 2012-0 No Zaina 4 mg, 2 Serg kim 2-20 Lobo Wally mL, Route: l 18:00: IVP, Drug [place] 00 form: INJ, ONCE, Start date: 09/23/12 12:00:00, Stop date: 09/23/12 12:00:00 influenza 2012-0 No SYSTEM 0.5 ml, Mem [...] mL, Route: l 22:14: IVPB, Drug [place] form: INJ, ONCE, Dosing Weight 125.227, kg, Total dose = 2 gm, Start date: 09/22/12 16:14:00, Duration: 1 doses or times, Stop date: 09/22/12 16:14:00 magnesium 2013-0 No Zaina 2 gm, 50 Memoria sulfate 2-19 Lobo Wally mL, Route: l 22:14: IVPB, Drug [place] form: INJ, ONCE, Dosing Weight 125.227, kg, Total dose = 2 gm, Start date: 09/22/12 16:14:00, Duration: 1 doses or times, Stop date: 09/22/12 16:14:00 magnesium 2013-0 No Zaina 2 gm, 50 Memoria sulfate 2-19 Lobo Wally mL, Route: l 22:14: IVPB, Drug [place] 00 form: INJ, ONCE, Dosing Weight 125.227, kg, Total dose = 2 gm, Start date: 09/22/12 16:14:00, Duration: 1 doses or times, Stop date: 09/22/12 16:14:00 magnesium 2013-0 No Zaina 2 gm, 50 Memoria sulfate 2-19 Lobo Wally mL, Route: l 22:14: IVPB, Drug [place] 00 form: INJ, ONCE, Dosing Weight 125.227, [...] Wally mL, Route: l 22:14: IVPB, Drug [place] 00 form: INJ, ONCE, Dosing Weight 125.227, kg, Total dose = 2 gm, Start date: 09/22/12 16:14:00, Duration: 1 doses or times, Stop date: 09/22/12 16:14:00 magnesium 2013-0 No Zaina 2 gm, 50 Memoria sulfate 2-19 Lobo Wally mL, Route: l 22:14: IVPB, Drug [place] 00 form: INJ, ONCE, Dosing Weight 125.227, kg, Total dose = 2 gm, Start date: 09/22/12 16:14:00, Duration: 1 doses or times, Stop date: 09/22/12 16:14:00 magnesium 2013-0 No Zaina 2 gm, 50 Memoria sulfate 2-19 Lobo Wally mL, Route: l 22:14: IVPB, Drug [place] 00 form: INJ, ONCE, Dosing Weight 125.227, kg, Total dose = 2 gm, Start date: 09/22/12 16:14:00, Duration: 1 doses or times, Stop date: 09/22/12 16:14:00 magnesium 2013-0 No Zaina 2 gm, 50 Memoria sulfate 2-19 Lobo Wally mL, Route: l 22:14: IVPB, Drug [place] 00 form: INJ, ONCE, Dosing Weight 125.227, kg, Total dose = 2 gm, Start date: 09/22/12 16:14:00, Duration: 1 doses or times, Stop date: 09/22/12 16:14:00 magnesium 2012-0 No Zaina 2 gm, 50 Memoria sulfate 2-19 Lobo Wally mL, Route: l 22:14: IVPB, Drug [place] 00 form: INJ, ONCE, Dosing Weight 125.227, kg, Total dose = 2 gm, Start date: 09/22/12 16:14:00, Duration: 1 doses or times, Stop date: 09/22/12 16:14:00 magnesium 2013-0 No Zaina 2 gm, 50 Memoria sulfate 2-19 Lobo Wally mL, Route: l 22:14: IVPB, Drug [place] 00 form: INJ, ONCE, Dosing Weight 125.227, kg, Total dose = 2 gm, Start date: 09/22/12 16:14:00, Duration: 1 doses or times, Stop date: 09/22/12 16:14:00 magnesium 2013-0 No Zaina 2 gm, 50 Memoria sulfate 2-19 Lobo Wally mL, Route: l 22:14: IVPB, Drug [place] 00 form: INJ, ONCE, Dosing Weight 125.227, kg, Total dose = 2 gm, Start date: 09/22/12 16:14:00, Duration: 1 doses or times, Stop date: 09/22/12 16:14:00 magnesium 2013-0 No Zaina 2 gm, 50 Memoria sulfate 2-19 Lobo Wally mL, Route: l 22:14: IVPB, Drug [place] 00 form: INJ, ONCE, Dosing Weight 125.227, kg, Total dose = 2 gm, Start date: 09/22/12 16:14:00, Duration: 1 doses or times, Stop date: 09/22/12 16:14:00 magnesium 2013-0 No Zaina 2 gm, 50 Memoria sulfate 2-19 Lobo Wally mL, Route: l 22:14: IVPB, Drug [place] 00 form: INJ, ONCE, Dosing Weight 125.227, kg, Total dose = 2 gm, Start date: 09/22/12 16:14:00, Duration: 1 doses or times, Stop date: 09/22/12 16:14:00 magnesium 2013-0 No Zaina 2 gm, 50 Memoria sulfate 2-19 Lobo Wally mL, Route: l 22:14: IVPB, Drug [place] 00 form: INJ, ONCE, Dosing Weight 125.227, kg, Total dose = 2 gm, Start date: 09/22/12 16:14:00, Duration: 1 doses or times, Stop date: 09/22/12 16:14:00 magnesium 2013-0 No Zaina 2 gm, 50 Memoria sulfate 2-19 Lobo Wally mL, Route: l 22:14: IVPB, Drug [place] 00 form: INJ, ONCE, Dosing Weight 125.227, kg, Total dose = 2 gm, Start date: 09/22/12 16:14:00, Duration: 1 doses or times, Stop date: 09/22/12 16:14:00 magnesium 2013-0 No Zaina 2 gm, 50 Memoria sulfate 2-19 Lobo Wally mL, Route: l 22:14: IVPB, Drug [place] 00 form: INJ, ONCE, Dosing Weight 125.227, kg, Total dose = 2 gm, Start date: 09/22/12 16:14:00, Duration: 1 doses or times, Stop date: 09/22/12 16:14:00 magnesium 2013-0 No Zaina 2 gm, 50 Memoria sulfate 2-19 Lobo Wally mL, Route: l 22:14: IVPB, Drug [place] 00 form: INJ, ONCE, Dosing Weight 125.227, kg, Total dose = 2 gm, Start date: 09/22/12 16:14:00, Duration: 1 doses or times, Stop date: 09/22/12 16:14:00 magnesium 2013-0 No Zaina 2 gm, 50 Memoria sulfate 2-19 Lobo Wally mL, Route: l 22:14: IVPB, Drug [place] 00 form: INJ, ONCE, Dosing Weight 125.227, kg, Total dose = 2 gm, Start date: 09/22/12 16:14:00, Duration: 1 doses or times, Stop date: 09/22/12 16:14:00 magnesium 2013-0 No Zaina 2 gm, 50 Memoria sulfate 2-19 Lobo Wally mL, Route: l 22:14: IVPB, Drug [place] 00 form: INJ, ONCE, Dosing Weight 125.227, kg, Total dose = 2 gm, Start date: 09/22/12 16:14:00, Duration: 1 doses or times, Stop date: 09/22/12 16:14:00 magnesium 2013-0 No Zaina 2 gm, 50 Memoria sulfate 2-19 Lobo Wally mL, Route: l 22:14: IVPB, Drug [place] 00 form: INJ, ONCE, Dosing Weight 125.227, kg, Total dose = 2 gm, Start date: 09/22/12 16:14:00, Duration: 1 doses or times, Stop date: 09/22/12 16:14:00 magnesium 2013-0 No Zaina 2 gm, 50 Memoria sulfate 2-19 Lobo Wally mL, Route: l 22:14: IVPB, Drug [place] 00 form: INJ, ONCE, Dosing Weight 125.227, kg, Total dose = 2 gm, Start date: 09/22/12 16:14:00, Duration: 1 doses or times, Stop date: 09/22/12 16:14:00 magnesium 2013-0 No Zaina 2 gm, 50 Memoria sulfate 2-19 Lobo Wally mL, Route: l 22:14: IVPB, Drug [place] 00 form: INJ, ONCE, Dosing Weight 125.227, [...] Wally mL, Route: l 20:01: IVP, Drug [place] 00 form: INJ, Q6H, Dosing Weight 125.227, kg, PRN Nausea & Vomiting, Start date: 09/22/12 14:01:00, Duration: 30 day, Stop date: 10/22/12 14:00:00 ondansetron 2013-0 No Zaina 4 mg, 2 Memoria 2-19 Lobo Wally mL, Route: l 20:01: IVP, Drug [place] 00 form: INJ, Q6H, Dosing Weight 125.227, kg, PRN Nausea & Vomiting, Start date: 09/22/12 14:01:00, Duration: 30 day, Stop date: 10/22/12 14:00:00 ondansetron 2013-0 No Zaina 4 mg, 2 Memoria 2-19 Lobo Wally mL, Route: l 20:01: IVP, Drug [place] 00 form: INJ, Q6H, Dosing Weight 125.227, [...] Wally mL, Route: l 20:01: IVP, Drug [place] 00 form: INJ, Q6H, Dosing Weight 125.227, [...] Wally mL, Route: l 20:01: IVP, Drug [place] 00 form: INJ, Q6H, Dosing Weight 125.227, [...] Wally mL, Route: l 20:01: IVP, Drug [place] 00 form: INJ, Q6H, Dosing Weight 125.227, [...] Wally mL, Route: l 20:01: IVP, Drug [place] 00 form: INJ, Q6H, Dosing Weight 125.227, [...] Wally mL, Route: l 20:01: IVP, Drug [place] 00 form: INJ, Q6H, Dosing Weight 125.227, [...] Duration: 30 day, Stop date: 10/22/12 14[facility]00[facility] [facility] on Allowed l 19:27: [facility]ebo [facility] Mem [facility]ria 2-19 on Allowed l 19:27: [facility] Mem oria 2-19 on Allowed l 19:27: [facility]stit[facility] Mem oria 2-19 on Allowed l 19:27: [facility] Mem oria 2-19 on Allowed l 19:27: [facility] Mem [facility]ria 2-19 on Allowed l 19:27: [facility]stit[facility] Mem oria 2-19 on Allowed l 19:27: [facility] 2-19 on Allowed l 19:27: [facility] Mem oria 2-19 on Allowed l 19:27: [facility] Mem [facility]ria 2-19 on Allowed l 19:27: [facility]stituti Mem oria 2-19 on Allowed l 19:27: [facility]stituti Mem oria 2-19 on Allowed l 19:27: [facility] Mem [facility]ria 2-19 on Allowed l 19:27: [facility] Mem [facility]ria 2-19 on Allowed l 19:27: [facility]stituti Mem oria 2-19 on Allowed l 19:27: [facility]stituti Mem oria 2-19 on Allowed l 19:27: [facility] 2-19 on Allowed l 19:27: [facility] Mem [facility]ria 2-19 on Allowed l 19:27: Bebo Sullivan AndroGel 2012-0 No Substituti Mem oria 2-19 on Allowed l 19:27: Bebo Sullivan AndroGel 2012-0 No Substituti Mem oria 2-19 on Allowed l 19:27: Bebo Sullivan AndroGel 2012-0 No Substituti Mem oria 2-19 on Allowed l 19:27: Bebo Sullivan AndroGel 2012-0 No Substituti Mem oria 2-19 on Allowed l 19:27: Bebo Sullivan AndroGel 2012-0 No Substituti Mem oria 2-19 on Allowed l 19:27: Bebo Sullivan allopurinol 2012-0 Yes Substituti Memoria 300 mg [...] Allowed l tablet 19:26: Bebo 34 allopurinol 2012-0 Yes Substituti Memoria 300 mg [...] on Allowed l tablet 19:26: Bebo Cuevas pravastatin 2012-0 Yes Substituti Memoria 40 mg [...] Allowed l tablet 19:26: Bebo Solomon pravastatin 2013-0 Yes Substituti Memoria 40 mg oral 2-19 on Allowed l tablet 19:26: Bebo Solomon pravastatin 2012-0 Yes Substituti Memoria 40 mg oral 2-19 on Allowed l tablet 19:26: Bebo Solomon pravastatin 2012-0 Yes Substituti Memoria 40 mg oral 2-19 on Allowed l tablet 19:26: Bebo Solomon pravastatin Yes Substituti Memoria 40 mg oral 2-19 on Allowed l tablet 19:26: Bebo Solomon pravastatin Yes Substituti Memoria 40 mg oral 2-19 on Allowed l tablet 19:26: Bebo Solomon pravastatin Yes Substituti Memoria 40 mg oral 2-19 on Allowed l tablet 19:26: Bebo Solomon pravastatin 2012- Yes Substituti Memoria 40 mg oral 2-19 on Allowed l tablet 19:26: Bebo Solomon pravastatin Yes Substituti Memoria 40 mg oral 2-19 on Allowed l tablet 19:26: Bebo Solomon pravastatin Yes Substituti Memoria 40 mg oral 2-19 on Allowed l tablet 19:26: Bebo Solomon pravastatin Yes Substituti Memoria 40 mg oral 2-19 on Allowed l tablet 19:26: Bebo Solomon pravastatin 2012- Yes Substituti Memoria 40 mg oral 2-19 on Allowed l tablet 19:26: Bebo Solomon pravastatin 2012-0 Yes Substituti Memoria 40 mg oral 2-19 on Allowed l tablet 19:26: Bebo Solomon pravastatin Yes Substituti Memoria 40 mg oral 2-19 on Allowed l tablet 19:26: Bebo Solomon pravastatin 2012- Yes Substituti Memoria 40 mg oral 2-19 on Allowed l tablet 19:26: Bebo Solomon pravastatin 2012- Yes Substituti Memoria 40 mg oral 2-19 on Allowed l tablet 19:26: Bebo Solomon pravastatin 2012-0 Yes Substituti Memoria 40 mg oral 2-19 on Allowed l tablet 19:26: Bebo Solomon omeprazole 0 Yes Substituti M emoria 20 mg oral 2-19 on Allowed l delayed 19:25: Bebo pat 55 capsule omeprazole Yes Substituti M emoria 20 mg oral 2-19 on Allowed l delayed 19:25: [place] release 55 capsule omeprazole 2012-0 Yes Substituti M emoria 20 mg oral 2-19 on Allowed l delayed 19:25: Bebo release 55 capsule omeprazole 2012-0 Yes Substituti M emoria 20 mg oral 2-19 on Allowed l delayed 19:25: [place] release 55 capsule omeprazole 2012-0 Yes Substituti M emoria 20 mg oral 2-19 on Allowed l delayed 19:25: [place] release 55 capsule omeprazole 2012-0 Yes Substituti M emoria 20 mg oral 2-19 on Allowed l delayed 19:25: [place] release 55 capsule omeprazole 2012-0 Yes Substituti M emoria 20 mg oral 2-19 on Allowed l delayed 19:25: [place] release 55 capsule omeprazole 2012-0 Yes Substituti [...] oral 2-19 on Allowed l delayed 19:25: [place] release 55 capsule omeprazole 2012-0 Yes Substituti M emoria 20 mg oral 2-19 on Allowed l delayed 19:25: [place] release 55 capsule omeprazole 2012-0 Yes Substituti M emoria 20 mg oral 2-19 on Allowed l delayed 19:25: [place] release 55 capsule omeprazole 2012-0 Yes Substituti M emoria 20 mg oral 2-19 on Allowed l delayed 19:25: [place] release 55 capsule omeprazole 2012-0 Yes Substituti M emoria 20 mg oral 2-19 on Allowed l delayed 19:25: [place] release 55 capsule omeprazole 2012-0 Yes Substituti M emoria 20 mg oral 2-19 on Allowed l delayed 19:25: [place] release 55 capsule omeprazole 2012-0 Yes Substituti M emoria 20 mg oral 2-19 on Allowed l delayed 19:25: [place] release 55 capsule omeprazole 2012-0 Yes Substituti M emoria 20 mg oral 2-19 on Allowed l delayed 19:25: [place] release 55 capsule omeprazole Yes Substituti M emoria 20 mg oral 2-19 on Allowed l delayed 19:25: [place] release 55 capsule omeprazole Yes Substituti M [...] Arthur-Abundio 138 mL, M emoria 350mg/ml 09-22 [place] Route: l 14:59: Sin IVP, Drug Herm lobo Pu Form: SOLN, Dosing Weight 118.182, kg, ONCALL, STAT, Start date: 09/22/12 8:59:00, Duration: 1 doses or times, Dose = 2.2ml/kg, Max dose = 150ml -- "To be infused by Radiology Staff ONLY"Dose = 2.2ml/kg, Max dose = 150ml -- "To be infused by Radiology Staff ONLY" Omnipaque No Arthur-Abundio 138 mL, M emoria 350mg/ml 09-22 [place] Route: l 14:59: Sin IVP, Drug Herm lobo Pu Form: SOLN, Dosing Weight 118.182, kg, ONCALL, STAT, Start date: 09/22/12 8:59:00, Duration: 1 doses or times, Dose = 2.2ml/kg, Max dose = 150ml -- "To be infused by Radiology Staff ONLY"Dose = 2.2ml/kg, Max dose = 150ml -- "To be infused by Radiology Staff ONLY" Omnipaque No Arthur-Abundio 138 mL, M emoria 350mg/ml 09-22 [place] Route: l 14:59: Sin IVP, Drug Herm lobo Pu Form: SOLN, Dosing Weight 118.182, kg, ONCALL, STAT, Start date: 09/22/12 8:59:00, Duration: 1 doses or times, Dose = 2.2ml/kg, Max dose = 150ml -- "To be infused by Radiology Staff ONLY"Dose = 2.2ml/kg, Max dose = 150ml -- "To be infused by Radiology Staff ONLY" Omnipaque 2013-0 No Arthur-Abundio 138 mL, M emoria 350mg/ml 09-22 [place] Route: l 14:59: Vogt IVP, Drug Herm [...] Arthur-Abundio 138 mL, M emoria 350mg/ml 09-22 [place] Route: l 14:59: Vogt IVP, Drug Herm [...] Arthur-Abundio 138 mL, M emoria 350mg/ml 09-22 [place] Route: l 14:59: V[place] IVP, Drug Herm [...] Arthur-Abundio 138 mL, M emoria 350mg/ml 09-22 [place] Route: l 14:59: V[place] IVP, Drug Herm [...] Arthur-Abundio 138 mL, M emoria 350mg/ml 09-22 [place] Route: l 14:59: Vogt IVP, Drug Herm [...] Arthur-Abundio 138 mL, M emoria 350mg/ml 09-22 [place] Route: l 14:59: Vogt IVP, Drug Herm [...] Arthur-Abundio 138 mL, M emoria 350mg/ml 09-22 [place] Route: l 14:59: Vogt IVP, Drug Herm [...] Arthur-Abundio 138 mL, M emoria 350mg/ml 09-22 [place] Route: l 14:59: Vogt IVP, Drug Herm [...] Arthur-Abundio 138 mL, M emoria 350mg/ml 09-22 [place] Route: l 14:59: [place] IVP, Drug Herm loob Pu Form: SOLN, Dosing Weight 118.182, kg, ONCALL, STAT, Start date: 09/22/12 8:59:00, Duration: 1 doses or times, Dose = 2.2ml/kg, Max dose = 150ml -- "To be infused by Radiology Staff ONLY"Dose = 2.2ml/kg, Max dose = 150ml -- "To be infused by Radiology Staff ONLY" Omnipaque 2012-0 No Arthur-Abundio 138 mL, M emoria 350mg/ml 09-22 [place] Route: l 14:59: Vogt IVP, Drug Herm [...] Arthur-Abundio 138 mL, M emoria 350mg/ml 09-22 [place] Route: l 14:59: Vogt IVP, Drug Herm [...] Arthur-Abundio 138 mL, M emoria 350mg/ml 09-22 [place] Route: l 14:59: Vogt IVP, Drug Herm [...] Arthur-Abundio 138 mL, M emoria 350mg/ml 09-22 [place] Route: l 14:59: Vogt IVP, Drug Herm [...] Arthur-Abundio 138 mL, M emoria 350mg/ml 09-22 [place] Route: l 14:59: Vogt IVP, Drug Herm [...] Arthur-Abundio 138 mL, M emoria 350mg/ml 09-22 [place] Route: l 14:59: Vogt IVP, Drug Herm [...] Arthur-Abundio 138 mL, M emoria 350mg/ml 09-22 [place] Route: l 14:59: Vogt IVP, Drug Herm [...] Arthur-Abundio 138 mL, M emoria 350mg/ml 09-22 [place] Route: l 14:59: Vogt IVP, Drug Herm [...] Arthur-Abundio 138 mL, M emoria 350mg/ml 09-22 [place] Route: l 14:59: Vogt IVP, Drug Herm [...] Arthur-Abundio 138 mL, M emoria 350mg/ml 09-22 [place] Route: l 14:59: Vogt IVP, Drug Herm [...] Arthur-Abundio 138 mL, M emoria 350mg/ml 09-22 [place] Route: l 14:59: [place] IVP, Drug Herm olbo 00 Pu Form: SOLN, Dosing Weight 118.182, kg, ONCALL, STAT, Start date: 09/22/12 8:59:00, Duration: 1 doses or times, Dose = 2.2ml/kg, Max dose = 150ml -- "To be infused by Radiology Staff ONLY"Dose = 2.2ml/kg, Max dose = 150ml -- "To be infused by Radiology Staff ONLY" Zofran 0 No Arthur-Abundio 4 mg, 2 Serg kim 2-19 [place] mL, Route: l 13:56: [place] IVP, Drug Herm lobo 00 Pu form: INJ, ONCE, Dosing Weight 118.182, kg, Priority: STAT, Start date: 09/22/12 7:56:00, Stop date: 09/22/12 7:56:00 Zofran 2012-0 No Arthur-Abundio 4 mg, 2 Serg kim 2-19 [place] mL, Route: l 13:56: Vogt IVP, Drug Herm lobo 00 Pu form: INJ, ONCE, Dosing Weight 118.182, kg, Priority: STAT, Start date: 09/22/12 7:56:00, Stop date: 09/22/12 7:56:00 Zofran 2012-0 No Arthur-Abundio 4 mg, 2 Serg kim 2-19 [place] mL, Route: l 13:56: Vogt IVP, Drug Herm lobo 00 Pu form: INJ, ONCE, Dosing Weight 118.182, kg, Priority: STAT, Start date: 09/22/12 7:56:00, Stop date: 09/22/12 7:56:00 Zofran 2012-0 No Arthur-Abundio 4 mg, 2 Serg kim 2-19 [place] mL, Route: l 13:56: Vog[place] IVP, Drug Herm lobo 00 Pu form: INJ, ONCE, Dosing Weight 118.182, kg, Priority: STAT, Start date: 09/22/12 7:56:00, Stop date: 09/22/12 7:56:00 Zofran 2012-0 No Arthur-Abundio 4 mg, 2 Serg kim 2-19 [place] mL, Route: l 13:56: Vogt IVP, Drug Herm lobo 00 Pu form: INJ, ONCE, Dosing Weight 118.182, kg, Priority: STAT, Start date: 09/22/12 7:56:00, Stop date: 09/22/12 7:56:00 Zofran 2012-0 No Arthur-Abundio 4 mg, 2 Serg kim 2-19 [place] mL, Route: l 13:56: Vogt IVP, Drug Herm lobo 00 Pu form: INJ, ONCE, Dosing Weight 118.182, kg, Priority: STAT, Start date: 09/22/12 7:56:00, Stop date: 09/22/12 7:56:00 Zofran 2012-0 No Arthur-Abundio 4 mg, 2 Serg kim 2-19 [place] mL, Route: l 13:56: Vogt IVP, Drug Herm lobo 00 Pu form: INJ, ONCE, Dosing Weight 118.182, kg, Priority: STAT, Start date: 09/22/12 7:56:00, Stop date: 09/22/12 7:56:00 Zofran 2012-0 No Arthur-Abundio 4 mg, 2 Serg kim 2-19 [place] mL, Route: l 13:56: Vogt IVP, Drug Herm lobo 00 Pu form: INJ, ONCE, Dosing Weight 118.182, kg, Priority: STAT, Start date: 09/22/12 7:56:00, Stop date: 09/22/12 7:56:00 Zofran 2012-0 No Arthur-Abundio 4 mg, 2 Serg kim 2-19 [place] mL, Route: l 13:56: Vogt IVP, Drug Herm lobo 00 Pu form: INJ, ONCE, Dosing Weight 118.182, kg, Priority: STAT, Start date: 09/22/12 7:56:00, Stop date: 09/22/12 7:56:00 Zofran 2012-0 No Arthur-Abundio 4 mg, 2 Serg kim 2-19 [place] mL, Route: l 13:56: Vogt IVP, Drug Herm lobo 00 Pu form: INJ, ONCE, Dosing Weight 118.182, kg, Priority: STAT, Start date: 09/22/12 7:56:00, Stop date: 09/22/12 7:56:00 Zofran 2012-0 No Arthur-Abundio 4 mg, 2 Serg kim 2-19 [place] mL, Route: l 13:56: Vogt IVP, Drug Herm lobo 00 Pu form: INJ, ONCE, Dosing Weight 118.182, kg, Priority: STAT, Start date: 09/22/12 7:56:00, Stop date: 09/22/12 7:56:00 Zofran 2012-0 No Arthur-Abundio 4 mg, 2 Serg kim 2-19 [place] mL, Route: l 13:56: Vogt IVP, Drug Herm lobo 00 Pu form: INJ, ONCE, Dosing Weight 118.182, kg, Priority: STAT, Start date: 09/22/12 7:56:00, Stop date: 09/22/12 7:56:00 Zofran 2012-0 No Arthur-Abundio 4 mg, 2 Serg kim 2-19 [place] mL, Route: l 13:56: Vogt IVP, Drug Herm lobo 00 Pu form: INJ, ONCE, Dosing Weight 118.182, kg, Priority: STAT, Start date: 09/22/12 7:56:00, Stop date: 09/22/12 7:56:00 Zofran 2012-0 No Arthur-Abundio 4 mg, 2 Serg kim 2-19 [place] mL, Route: l 13:56: Vogt IVP, Drug Herm lobo 00 Pu form: INJ, ONCE, Dosing Weight 118.182, kg, Priority: STAT, Start date: 09/22/12 7:56:00, Stop date: 09/22/12 7:56:00 Zofran 2012-0 No Arthur-Abundio 4 mg, 2 Serg kim 2-19 [place] mL, Route: l 13:56: Vogt IVP, Drug Herm lobo 00 Pu form: INJ, ONCE, Dosing Weight 118.182, kg, Priority: STAT, Start date: 09/22/12 7:56:00, Stop date: 09/22/12 7:56:00 Zofran 2012-0 No Arthur-Abundio 4 mg, 2 Serg kim 2-19 [place] mL, Route: l 13:56: Vogt IVP, Drug Herm lobo 00 Pu form: INJ, ONCE, Dosing Weight 118.182, kg, Priority: STAT, Start date: 09/22/12 7:56:00, Stop date: 09/22/12 7:56:00 Zofran 2012-0 No Arthur-Abundio 4 mg, 2 Serg kim 2-19 [place] mL, Route: l 13:56: Vogt IVP, Drug Herm lobo 00 Pu form: INJ, ONCE, Dosing Weight 118.182, kg, Priority: STAT, Start date: 09/22/12 7:56:00, Stop date: 09/22/12 7:56:00 Zofran 2012-0 No Arthur-Abundio 4 mg, 2 Serg kim 2-19 [place] mL, Route: l 13:56: Vogt IVP, Drug Herm lobo 00 Pu form: INJ, ONCE, Dosing Weight 118.182, kg, Priority: STAT, Start date: 09/22/12 7:56:00, Stop date: 09/22/12 7:56:00 Zofran 2012-0 No Arthur-Abundio 4 mg, 2 Serg kim 2-19 [place] mL, Route: l 13:56: Vogt IVP, Drug Herm lobo 00 Pu form: INJ, ONCE, Dosing Weight 118.182, kg, Priority: STAT, Start date: 09/22/12 7:56:00, Stop date: 09/22/12 7:56:00 Zofran 2012-0 No Arthur-Abundio 4 mg, 2 Serg kim 2-19 [place] mL, Route: l 13:56: Vogt IVP, Drug Herm lobo 00 Pu form: INJ, ONCE, Dosing Weight 118.182, kg, Priority: STAT, Start date: 09/22/12 7:56:00, Stop date: 09/22/12 7:56:00 Zofran 2012-0 No Arthur-Abundio 4 mg, 2 Serg kim 2-19 [place] mL, Route: l 13:56: Vogt IVP, Drug Herm lobo 00 Pu form: INJ, ONCE, Dosing Weight 118.182, kg, Priority: STAT, Start date: 09/22/12 7:56:00, Stop date: 09/22/12 7:56:00 Zofran 2012-0 No Arthur-Abundio 4 mg, 2 Serg kim 2-19 [place] mL, Route: l 13:56: Vogt IVP, Drug Herm lobo 00 Pu form: INJ, ONCE, Dosing Weight 118.182, kg, Priority: STAT, Start date: 09/22/12 7:56:00, Stop date: 09/22/12 7:56:00 Zofran 2012-0 No Arthur-Abundio 4 mg, 2 Serg kim 2-19 [place] mL, Route: l 13:56: Vogt IVP, Drug [...] 09/22/12 6:21:00, Stop date: 09/22/12 6:21:00 aspirin 2013-0 No Shoshana 324 mg, 4 Mem oria 2-19 Joyce tab, l 12:21: Bruce Route: [place] 00 CHEW, Drug form: CHEWTAB, ONCE, Dosing Weight 118.182, kg, Priority: STAT, Start date: 09/22/12 6:21:00, Stop date: 09/22/12 6:21:00 aspirin 2013-0 No Shoshana 324 mg, 4 Mem oria 2-19 Joyce tab, l 12:21: Bruce Route: [place] 00 CHEW, Drug form: CHEWTAB, ONCE, Dosing Weight 118.182, kg, Priority: STAT, Start date: 09/22/12 6:21:00, Stop date: 09/22/12 6:21:00 aspirin 2012-0 No Shoshana 324 mg, 4 Mem oria 2-19 Joyce tab, l 12:21: Bruce Route: [place] 00 CHEW, Drug form: CHEWTAB, ONCE, Dosing [...] 2-19 Joyce tab, l 12:21: Bruce Route: [place] CHEW, Drug form: CHEWTAB, ONCE, Dosing Weight [...] 09/22/12 6:21:00, Stop date: 09/22/12 6:21:00 aspirin 2013-0 No Shoshana 324 mg, 4 Mem oria 2-19 Joyce tab, l 12:21: Bruce Route: [place] 00 CHEW, Drug form: CHEWTAB, ONCE, Dosing [...] 2-19 [place] tab, l 12:21: Bruce Route: [place] CHEW, Drug form: CHEWTAB, ONCE, Dosing Weight 118.182, kg, Priority: STAT, Start date: 09/22/12 6:21:00, Stop date: 09/22/12 6:21:00 aspirin 2013-0 No Shoshana 324 mg, 4 Mem oria 2-19 [place] tab, l 12:21: Bruce Route: [place] CHEW, Drug form: CHEWTAB, ONCE, Dosing Weight 118.182, kg, Priority: STAT, Start date: 09/22/12 6:21:00, Stop date: 09/22/12 6:21:00 aspirin 2012-0 No Shoshana 324 mg, 4 Mem oria 2-19 [place] tab, l 12:21: Bruce Route: [place] 00 CHEW, Drug form: CHEWTAB, ONCE, Dosing Weight 118.182, kg, Priority: STAT, Start date: 09/22/12 6:21:00, Stop date: 09/22/12 6:21:00 aspirin 2013-0 No Shoshana 324 mg, 4 Mem oria 2-19 [place] tab, l 12:21: Bruce Route: [place] 00 CHEW, Drug form: CHEWTAB, ONCE, Dosing Weight 118.182, kg, Priority: STAT, Start date: 09/22/12 6:21:00, Stop date: 09/22/12 6:21:00 aspirin 2013-0 No Shoshana 324 mg, 4 Mem oria 2-19 [place] tab, l 12:21: Bruce Route: [place] CHEW, Drug form: CHEWTAB, ONCE, Dosing Weight 118.182, kg, Priority: STAT, Start date: 09/22/12 6:21:00, Stop date: 09/22/12 6:21:00 aspirin 2013-0 No Shoshana 324 mg, 4 Mem oria [...] 09/22/12 6:21:00, Stop date: 09/22/12 6:21:00 aspirin 2013-0 No Shoshana 324 mg, 4 Mem oria 2-19 Joyce tab, l 12:21: Bruce Route: [place] CHEW, Drug form: CHEWTAB, ONCE, Dosing Weight [...] 2-19 Joyce tab, l 12:21: Bruce Route: [place] CHEW, Drug form: CHEWTAB, ONCE, Dosing Weight 118.182, kg, Priority: STAT, Start date: 09/22/12 6:21:00, Stop date: 09/22/12 6:21:00 aspirin 2012-0 No Shoshana 324 mg, 4 Mem oria 2-19 Joyce tab, l 12:21: Bruce Route: [place] CHEW, Drug form: CHEWTAB, ONCE, Dosing Weight [...] l 12:00: Bruce Route: PO, Herm lobo Drug form: ECTAB, ONCE, Dosing Weight 118.182, kg, Priority: STAT, Start date: 09/22/12 6:00:00, Stop date: 09/22/12 6:00:00 Saline No Shoshana 5 mL, Mem[facility] Flush 0.9% 09-22 Route: l 12:00: Bruce IVP, Drug Radha Form: INJ, Dosing Weight 118.182, kg, Q8H, [...] Flush 0.9% 2-19 Joyce Route: l 12:00: Burce IVP, Drug Radha nn 00 Form: INJ, [...] Immunizations Ordered Filled Immunization Date Status Comments [facility] e Immunization Name Name SARS-COV-2 COVID-19 2021-05-22 Completed Unive rsity of PFIZER VACCINE 00:00:00 [facility] SARS-COV-2 COVID-19 2021-05-22 Completed Unive rsity of PFIZER VACCINE 00:00:00 [facility] Influenza Virus 2021-05-14 Completed [facility] y of Vaccine Quad IM, 00:00:00 [place] [facility] Preserv and ABX Branch Free 6 MO-64 YRS Influenza Virus 2021-05-14 Completed [facility] of Vaccine Quad IM, 00:00:00 [place] [facility] Preserv and ABX Branch Free 6 MO-64 YRS SARS-COV-2 COVID-19 2020-10-21 Completed Unive rsity of PFIZER VACCINE 00:00:00 [facility] SARS-COV-2 COVID-19 2020-10-21 Completed Unive rsity of PFIZER VACCINE 00:00:00 [facility] SARS-COV-2 COVID-19 2020-09-30 Completed Unive rsity of PFIZER VACCINE 00:00:00 [facility] SARS-COV-2 COVID-19 2020-09-30 Completed Unive rsity of PFIZER VACCINE 00:00:00 [facility] influenza virus 2012-09-23 Completed [facility] vaccine, 17:09:00 inactivated influenza virus 2012-09-23 Completed [facility] [place] vaccine, 17:09:00 inactivated influenza virus 2012-09-23 Completed [facility] vaccine, 17:09:00 inactivated influenza virus 2012-09-23 Completed [facility] vaccine, 17:09:00 inactivated influenza virus 2012-09-23 Completed [facility] vaccine, 17:09:00 inactivated influenza virus 2012-09-23 Completed [facility] [place] vaccine, 17:09:00 inactivated influenza virus 2012-09-23 Completed [facility] [place] vaccine, 17:09:00 inactivated influenza virus 2012-09-23 Completed [facility] vaccine, 17:09:00 inactivated influenza virus 2012-09-23 Completed [facility] [place] vaccine, 17:09:00 inactivated influenza virus 2012-09-23 Completed [facility] [place] vaccine, 17:09:00 inactivated influenza virus 2012-09-23 Completed [facility] vaccine, 17:09:00 inactivated influenza virus 2012-09-23 Completed [facility] [place] vaccine, 17:09:00 inactivated influenza virus 2012-09-23 Completed [facility] [place] vaccine, 17:09:00 inactivated influenza virus 2012-09-23 Completed [facility] [place] vaccine, 17:09:00 inactivated influenza virus 2012-09-23 Completed [facility] vaccine, 17:09:00 inactivated influenza virus 2012-09-23 Completed [facility] vaccine, 17:09:00 inactivated influenza virus 2012-09-23 Completed [facility] vaccine, 17:09:00 inactivated influenza virus 2012-09-23 Completed [facility] [place] vaccine, 17:09:00 inactivated influenza virus 2012-09-23 Completed [facility] vaccine, 17:09:00 inactivated influenza virus 2012-09-23 Completed [facility] [place] vaccine, 17:09:00 inactivated influenza virus 2012-09-23 Completed [facility] [place] vaccine, 17:09:00 inactivated influenza virus 2012-09-23 Completed [facility] vaccine, 17:09:00 inactivated influenza virus 2012-09-23 Completed [facility] vaccine, 17:09:00 inactivated TDAP (ADACEL) 2011-08-04 Completed [facility] VACCINE 00:00:00 [facility] TDAP (ADACEL) 2011-08-04 Completed [facility] VACCINE 00:00:00 [facility] Vital Signs Vital Name Observation Time Observation Value Comments Source Body weight 2021-07-13 16:09:00 118.389 kg [facility] BMI 2021-07-13 16:09:00 36.40 kg/m2 [facility] Oxygen saturation in 2021-07-13 16:09:00 98 /min [facility] Arterial blood by [facility] Pulse oximetry Branch Systolic blood 2021-07-13 16:09:00 130 mm[Hg] Univer sity of pressure [facility] Diastolic blood 2021-07-13 16:09:00 77 mm[Hg] Unive rsity of pressure [facility] Heart rate 2021-07-13 16:09:00 59 /min [facility] Body temperature 2021-07-13 16:09:00 37.17 Ev [facility] 2021-07-13 16:09:00 18 /min [facility] Weight 2019-04-23 14:15:00 [facility] Height 2019-04-23 14:15:00 [facility] Heart Rate 2019-04-23 14:15:00 [facility] Diastolic (mm Hg) 2019-04-23 14:15:00 Mem [facility] Systolic (mm Hg) 2019-04-23 14:15:00 Serg rial [place] Weight 2019-03-26 13:45:00 [facility] Height 2019-03-26 13:45:00 [facility] [place] Heart Rate 2019-03-26 13:45:00 [facility] [place] Diastolic (mm Hg) 2019-03-26 13:45:00 Mem orial [place] Systolic (mm Hg) 2019-03-26 13:45:00 Serg rial [place] Systolic (mm Hg) 2012-09-24 13:17:00 Serg [facility] Diastolic (mm Hg) 2012-09-24 13:17:00 Mem [facility] Heart Rate 2012-09-24 13:17:00 [facility] Temperature Oral (F) 2012-09-24 13:17:00 97.1 F [facility] Respitory Rate 2012-09-24 13:17:00 [facility] Diastolic (mm Hg) 2012-09-24 10:00:00 Mem orial [place] Temperature Oral (F) 2012-09-24 10:00:00 97.4 F [facility] [place] Heart Rate 2012-09-24 10:00:00 [facility] Respitory Rate 2012-09-24 10:00:00 Memori al [place] Systolic (mm Hg) 2012-09-24 10:00:00 Serg rial [place] Diastolic (mm Hg) 2012-09-24 08:10:00 [facility] Systolic (mm Hg) 2012-09-24 08:10:00 Serg [facility] Heart Rate 2012-09-24 08:10:00 [facility] Respitory Rate 2012-09-24 01:42:00 Memori al [place] Temperature Oral (F) 2012-09-24 01:42:00 97.6 F [facility] [place] Weight 2012-09-22 19:21:00 [facility] Height 2012-09-22 19:21:00 180.34 cm [facility] Weight 2012-09-22 11:50:00 [facility] Height 2012-09-22 11:50:00 180.34 cm [facility] [place] Procedures Procedure Date / Time Performing Clinician Source Performed Abdomen endoscopy 2011-10-21 05:00:00 [facility] Etienne ermann <sup>1</sup> Colonoscopy 2011-10-17 05:00:00 [facility] marina Cholecystectomy 2011-10-16 05:00:00 [facility] Her marina Back fusion 1998-02-16 05:00:00 [facility] Her marina Encounters Start End Encounter Admission Attending Care Care Encounter Source Date/Time Date/Time Type Type Clinicians Facility Department ID 2021-07-13 2021-07-13 [facility] [id number] [facility] 09:48:04 11:19:08 Visit Justin MORAES [id number] [id number] [id number] Ms dical NAL [address] [place] [address] 2021-07-13 2021-07-13 [id number] [facility] 09:40:00 11:19:08 JUSTIN celis [facility] 2020-07-19 2020-07-19 Telephone [facility] [id number] 00:00:00 00:00:00 Mahesh Vásquez PRIMARY [id number] CARE [id number] PAVILLION [id number] 2020-07-14 2020-07-14 Telephone [facility] [id number] 00:00:00 00:00:00 Mahesh Vásquez MULTISPEC [id number] IALTY [id number] [place] [id number] AND KIMANI [facility] 2020-07-14 2020-07-14 Telephone [facility] [id number] 00:00:00 00:00:00 Mahesh Váqsuez MULTISPEC [id number] IALTY [id number] [place] [id number] AND KIMANI [facility] 2020-07-14 2020-07-14 Orders Doctor MARIA TERESA [id number] 00:00:00 00:00:00 Only Unassigned, FANNY [id number] [facility] [id number] [id number] 2020-07-13 2020-07-13 Telephone [facility] [id number] 00:00:00 00:00:[id number] [facility] [id number] [id number] 2020-06-07 2020-06-07 Orders Doctor MARIA TERESA [id number] 00:00:00 00:00:00 Only Unassigned, FANNY [id number] [place] [facility] [id number] [id number] 2020-05-15 2020-05-15 Office [facility] [id number] 09:43:40 09:58:40 Visit Magui LEES [id number] [facility] [id number] [id number] 2012-09-22 2012-09-24 [facility] [id number] Memoria 10:37:00 12:30:00 r [facility] [place] Results Test Description Test Time Test Comments Results Result Comments Source CHEMISTRY 2012-09-23 2.5 [facility] 02:00:00 CHEMISTRY 2012-09-23 <0.02 [facility] nn 02:00:00 CHEMISTRY 2012-09-23 <0.010 [facility] nn 02:00:00 CHEMISTRY 2012-09-23 278 [facility] nn 02:00:00 CHEMISTRY 2012-09-23 0.9 [facility] nn 02:00:00 CHEMISTRY 2012-09-23 2.5 [facility] nn 02:00:00 CHEMISTRY 2012-09-23 <0.02 [facility] nn 02:00:00 CHEMISTRY 2012-09-23 <0.010 [facility] nn 02:00:00 CHEMISTRY 2012-09-23 278 [facility] nn 02:00:00 CHEMISTRY 2012-09-23 0.9 [facility] nn 02:00:00 CHEMISTRY 2012-09-23 2.5 [facility] nn 02:00:00 CHEMISTRY 2012-09-23 <0.02 [facility] [address] [facility] 02:00:00 CHEMISTRY 2012-09-23 <0.010 [facility] nn 02:00:00 CHEMISTRY 2012-09-23 278 [facility] nn 02:00:00 CHEMISTRY 2012-09-23 0.9 [facility] nn 02:00:00 CHEMISTRY 2012-09-23 2.5 [facility] nn 02:00:00 CHEMISTRY 2012-09-23 <0.02 [facility] nn 02:00:00 CHEMISTRY 2012-09-23 <0.010 [facility] nn 02:00:00 CHEMISTRY 2012-09-23 278 [facility] nn 02:00:00 CHEMISTRY 2012-09-23 0.9 [facility] nn 02:00:00 CHEMISTRY 2012-09-23 2.5 [facility] nn 02:00:00 CHEMISTRY 2012-09-23 <0.02 [facility] nn 02:00:00 CHEMISTRY 2012-09-23 <0.010 [facility] nn 02:00:00 CHEMISTRY 2012-09-23 278 [facility] nn 02:00:00 CHEMISTRY 2012-09-23 0.9 [facility] nn 02:00:00 CHEMISTRY 2012-09-23 2.5 [facility] nn 02:00:00 CHEMISTRY 2012-09-23 <0.02 [facility] nn 02:00:00 CHEMISTRY 2012-09-23 <0.010 [facility] nn 02:00:00 CHEMISTRY 2012-09-23 278 [facility] nn 02:00:00 CHEMISTRY 2012-09-23 0.9 [facility] nn 02:00:00 CHEMISTRY 2012-09-23 2.5 [facility] nn 02:00:00 CHEMISTRY 2012-09-23 <0.02 [facility] nn 02:00:00 CHEMISTRY 2012-09-23 <0.010 [facility] nn 02:00:00 CHEMISTRY 2012-09-23 278 [facility] nn 02:00:00 CHEMISTRY 2012-09-23 0.9 [facility] nn 02:00:00 CHEMISTRY 2012-09-23 2.5 [facility] nn 02:00:00 CHEMISTRY 2012-09-23 <0.02 [facility] nn 02:00:00 CHEMISTRY 2012-09-23 <0.010 [facility] nn 02:00:00 CHEMISTRY 2012-09-23 278 [facility] nn 02:00:00 CHEMISTRY 2012-09-23 0.9 [facility] nn 02:00:00 CHEMISTRY 2012-09-23 2.5 [facility] nn 02:00:00 CHEMISTRY 2012-09-23 <0.02 [facility] nn 02:00:00 CHEMISTRY 2012-09-23 <0.010 [facility] nn 02:00:00 CHEMISTRY 2012-09-23 278 [facility] nn 02:00:00 CHEMISTRY 2012-09-23 0.9 [facility] nn 02:00:00 CHEMISTRY 2012-09-23 2.5 [facility] nn 02:00:00 CHEMISTRY 2012-09-23 <0.02 [facility] nn 02:00:00 CHEMISTRY 2012-09-23 <0.010 [facility] nn 02:00:00 CHEMISTRY 2012-09-23 278 [facility] nn 02:00:00 CHEMISTRY 2012-09-23 0.9 [facility] nn 02:00:00 CHEMISTRY 2012-09-23 2.5 [facility] nn 02:00:00 CHEMISTRY 2012-09-23 <0.02 [facility] nn 02:00:00 CHEMISTRY 2012-09-23 <0.010 [facility] nn 02:00:00 CHEMISTRY 2012-09-23 278 [facility] nn 02:00:00 CHEMISTRY 2012-09-23 0.9 [facility] nn 02:00:00 CHEMISTRY 2012-09-23 2.5 [facility] nn 02:00:00 CHEMISTRY 2012-09-23 <0.02 [facility] nn 02:00:00 CHEMISTRY 2012-09-23 <0.010 [facility] nn 02:00:00 CHEMISTRY 2012-09-23 278 [facility] nn 02:00:00 CHEMISTRY 2012-09-23 0.9 [facility] nn 02:00:00 CHEMISTRY 2012-09-23 2.5 [facility] nn 02:00:00 CHEMISTRY 2012-09-23 <0.02 [facility] nn 02:00:00 CHEMISTRY 2012-09-23 <0.010 [facility] nn 02:00:00 CHEMISTRY 2012-09-23 278 [facility] nn 02:00:00 CHEMISTRY 2012-09-23 0.9 [facility] nn 02:00:00 CHEMISTRY 2012-09-23 2.5 [facility] nn 02:00:00 CHEMISTRY 2012-09-23 <0.02 [facility] nn 02:00:00 CHEMISTRY 2012-09-23 <0.010 [facility] nn 02:00:00 CHEMISTRY 2012-09-23 278 [facility] nn 02:00:00 CHEMISTRY 2012-09-23 0.9 [facility] nn 02:00:00 CHEMISTRY 2012-09-23 2.5 [facility] nn 02:00:00 CHEMISTRY 2012-09-23 <0.02 [facility] nn 02:00:00 CHEMISTRY 2012-09-23 <0.010 [facility] nn 02:00:00 CHEMISTRY 2012-09-23 278 [facility] nn 02:00:00 CHEMISTRY 2012-09-23 0.9 [facility] nn 02:00:00 CHEMISTRY 2012-09-23 2.5 [facility] nn 02:00:00 CHEMISTRY 2012-09-23 <0.02 [facility] nn 02:00:00 CHEMISTRY 2012-09-23 <0.010 [facility] nn 02:00:00 CHEMISTRY 2012-09-23 278 [facility] nn 02:00:00 CHEMISTRY 2012-09-23 0.9 [facility] nn 02:00:00 CHEMISTRY 2012-09-23 2.5 [facility] nn 02:00:00 CHEMISTRY 2012-09-23 <0.02 [facility] nn 02:00:00 CHEMISTRY 2012-09-23 <0.010 [facility] nn 02:00:00 CHEMISTRY 2012-09-23 278 [facility] nn 02:00:00 CHEMISTRY 2012-09-23 0.9 [facility] nn 02:00:00 CHEMISTRY 2012-09-23 2.5 [facility] nn 02:00:00 CHEMISTRY 2012-09-23 <0.02 [facility] nn 02:00:00 CHEMISTRY 2012-09-23 <0.010 [facility] nn 02:00:00 CHEMISTRY 2012-09-23 278 [facility] nn 02:00:00 CHEMISTRY 2012-09-23 0.9 [facility] nn 02:00:00 CHEMISTRY 2012-09-23 <0.02 [facility] nn 02:00:00 CHEMISTRY 2012-09-23 <0.010 [facility] nn 02:00:00 CHEMISTRY 2012-09-23 278 [facility] nn 02:00:00 CHEMISTRY 2012-09-23 0.9 [facility] nn 02:00:00 CHEMISTRY 2012-09-23 2.5 [facility] nn 02:00:00 CHEMISTRY 2012-09-23 <0.02 [facility] nn 02:00:00 CHEMISTRY 2012-09-23 <0.010 [facility] nn 02:00:00 CHEMISTRY 2012-09-23 278 [facility] nn 02:00:00 CHEMISTRY 2012-09-23 0.9 [facility] nn 02:00:00 CHEMISTRY 2012-09-23 2.5 [facility] nn 02:00:00 CHEMISTRY 2012-09-23 <0.02 [facility] nn 02:00:00 CHEMISTRY 2012-09-23 <0.010 [facility] nn 02:00:00 CHEMISTRY 2012-09-23 278 [facility] nn 02:00:00 CHEMISTRY 2012-09-23 0.9 [facility] nn 02:00:00 CHEMISTRY 2012-09-23 2.5 [facility] nn 02:00:00 CHEMISTRY 2012-09-23 <0.02 [facility] nn 02:00:00 CHEMISTRY 2012-09-23 <0.010 [facility] nn 02:00:00 CHEMISTRY 2012-09-23 278 [facility] nn 02:00:00 CHEMISTRY 2012-09-23 0.9 [facility] nn 02:00:00 CHEMISTRY 2012-09-23 2.5 [facility] nn 02:00:00 CHEMISTRY 2012-09-23 <0.02 [facility] nn 02:00:00 [...] 3.1 [facility] nn 20:37:00 CHEMISTRY 2012-09-22 <0.02 [facility] nn 20:37:00 CHEMISTRY 2012-09-22 <0.010 [facility] nn 20:37:00 CHEMISTRY 2012-09-22 302 [facility] nn 20:37:00 CHEMISTRY 2012-09-22 1.0 [facility] nn 20:37:00 CHEMISTRY 2012-09-22 3.1 [facility] nn 20:37:00 CHEMISTRY 2012-09-22 <0.02 [facility] nn 20:37:00 CHEMISTRY 2012-09-22 <0.010 [facility] nn 20:37:00 CHEMISTRY 2012-09-22 302 [facility] nn 20:37:00 CHEMISTRY 2012-09-22 1.0 [facility] nn 20:37:00 CHEMISTRY 2012-09-22 3.1 [facility] nn 20:37:00 CHEMISTRY 2012-09-22 <0.02 [facility] nn 20:37:00 CHEMISTRY 2012-09-22 <0.010 [facility] nn 20:37:00 CHEMISTRY 2012-09-22 302 [facility] nn 20:37:00 CHEMISTRY 2012-09-22 1.0 [facility] nn 20:37:00 CHEMISTRY 2012-09-22 3.1 [facility] nn 20:37:00 CHEMISTRY 2012-09-22 <0.02 [facility] nn 20:37:00 CHEMISTRY 2012-09-22 <0.010 [facility] nn 20:37:00 CHEMISTRY 2012-09-22 302 [facility] nn 20:37:00 CHEMISTRY 2012-09-22 1.0 [facility] nn 20:37:00 CHEMISTRY 2012-09-22 3.1 [facility] nn 20:37:00 CHEMISTRY 2012-09-22 <0.02 [facility] nn 20:37:00 CHEMISTRY 2012-09-22 <0.010 [facility] nn 20:37:00 CHEMISTRY 2012-09-22 302 [facility] nn 20:37:00 CHEMISTRY 2012-09-22 1.0 [facility] nn 20:37:00 CHEMISTRY 2012-09-22 3.1 [facility] nn 20:37:00 CHEMISTRY 2012-09-22 <0.02 [facility] nn 20:37:00 CHEMISTRY 2012-09-22 <0.010 [facility] nn 20:37:00 CHEMISTRY 2012-09-22 302 [facility] nn 20:37:00 CHEMISTRY 2012-09-22 1.0 [facility] nn 20:37:00 CHEMISTRY 2012-09-22 3.1 [facility] nn 20:37:00 CHEMISTRY 2012-09-22 <0.02 [facility] nn 20:37:00 CHEMISTRY 2012-09-22 <0.010 [facility] nn 20:37:00 CHEMISTRY 2012-09-22 302 [facility] nn 20:37:00 CHEMISTRY 2012-09-22 1.0 [facility] nn 20:37:00 CHEMISTRY 2012-09-22 3.1 [facility] nn 20:37:00 CHEMISTRY 2012-09-22 <0.02 [facility] nn 20:37:00 CHEMISTRY 2012-09-22 <0.010 [facility] nn 20:37:00 CHEMISTRY 2012-09-22 302 [facility] nn 20:37:00 CHEMISTRY 2012-09-22 1.0 [facility] nn 20:37:00 CHEMISTRY 2012-09-22 3.1 [facility] nn 20:37:00 CHEMISTRY 2012-09-22 <0.02 [facility] nn 20:37:00 CHEMISTRY 2012-09-22 <0.010 [facility] nn 20:37:00 CHEMISTRY 2012-09-22 302 [facility] nn 20:37:00 CHEMISTRY 2012-09-22 1.0 [facility] nn 20:37:00 CHEMISTRY 2012-09-22 3.1 [facility] nn 20:37:00 CHEMISTRY 2012-09-22 <0.02 [facility] nn 20:37:00 CHEMISTRY 2012-09-22 <0.010 [facility] nn 20:37:00 CHEMISTRY 2012-09-22 302 [facility] nn 20:37:00 CHEMISTRY 2012-09-22 1.0 [facility] nn 20:37:00 CHEMISTRY 2012-09-22 3.1 [facility] nn 20:37:00 CHEMISTRY 2012-09-22 <0.02 [facility] nn 20:37:00 CHEMISTRY 2012-09-22 <0.010 [facility] nn 20:37:00 CHEMISTRY 2012-09-22 302 [facility] nn 20:37:00 CHEMISTRY 2012-09-22 1.0 [facility] nn 20:37:00 CHEMISTRY 2012-09-22 3.1 [facility] 20:37:00 CHEMISTRY 2012-09-22 <0.02 [facility] nn 20:37:00 CHEMISTRY 2012-09-22 <0.010 [facility] nn 20:37:00 CHEMISTRY 2012-09-22 302 [facility] nn 20:37:00 CHEMISTRY 2012-09-22 1.0 [facility] nn 20:37:00 CHEMISTRY 2012-09-22 3.1 [facility] nn 20:37:00 CHEMISTRY 2012-09-22 <0.02 [facility] nn 20:37:00 CHEMISTRY 2012-09-22 <0.010 [facility] nn 20:37:00 CHEMISTRY 2012-09-22 302 [facility] nn 20:37:00 CHEMISTRY 2012-09-22 1.0 [facility] 20:37:00 CHEMISTRY 2012-09-22 3.1 [facility] nn 20:37:00 CHEMISTRY 2012-09-22 <0.02 [facility] nn 20:37:00 CHEMISTRY 2012-09-22 <0.010 [facility] nn 20:37:00 CHEMISTRY 2012-09-22 302 [facility] nn 20:37:00 CHEMISTRY 2012-09-22 1.0 [facility] nn 20:37:00 CHEMISTRY 2012-09-22 3.1 [facility] nn 20:37:00 CHEMISTRY 2012-09-22 <0.02 [facility] nn 20:37:00 CHEMISTRY 2012-09-22 <0.010 [facility] nn 20:37:00 CHEMISTRY 2012-09-22 302 [facility] nn 20:37:00 CHEMISTRY 2012-09-22 1.0 [facility] 20:37:00 CHEMISTRY 2012-09-22 3.1 [facility] 20:37:00 CHEMISTRY 2012-09-22 <0.02 [facility] nn 20:37:00 CHEMISTRY 2012-09-22 <0.010 [facility] nn 20:37:00 CHEMISTRY 2012-09-22 302 [facility] nn 20:37:00 CHEMISTRY 2012-09-22 1.0 [facility] nn 20:37:00 CHEMISTRY 2012-09-22 3.1 [facility] 20:37:00 CHEMISTRY 2012-09-22 <0.02 [facility] nn 20:37:00 CHEMISTRY 2012-09-22 <0.010 [facility] nn 20:37:00 CHEMISTRY 2012-09-22 302 [facility] nn 20:37:00 CHEMISTRY 2012-09-22 1.0 [facility] 20:37:00 CHEMISTRY 2012-09-22 3.1 [facility] 20:37:00 CHEMISTRY 2012-09-22 <0.02 [facility] nn 20:37:00 CHEMISTRY 2012-09-22 <0.010 [facility] nn 20:37:00 CHEMISTRY 2012-09-22 302 [facility] nn 20:37:00 CHEMISTRY 2012-09-22 1.0 [facility] 20:37:00 CHEMISTRY 2012-09-22 3.1 [facility] 20:37:00 CHEMISTRY 2012-09-22 <0.02 [facility] nn 20:37:00 CHEMISTRY 2012-09-22 <0.010 [facility] nn 20:37:00 CHEMISTRY 2012-09-22 302 [facility] nn 20:37:00 CHEMISTRY 2012-09-22 1.0 [facility] nn 20:37:00 CHEMISTRY 2012-09-22 3.1 [facility] 20:37:00 CHEMISTRY 2012-09-22 <0.02 [facility] nn 20:37:00 CHEMISTRY 2012-09-22 <0.010 [facility] nn 20:37:00 CHEMISTRY 2012-09-22 302 [facility] nn 20:37:00 CHEMISTRY 2012-09-22 1.0 [facility] 20:37:00 CHEMISTRY 2012-09-22 3.1 [facility] 20:37:00 CHEMISTRY 2012-09-22 <0.02 [facility] nn 20:37:00 CHEMISTRY 2012-09-22 <0.010 [facility] nn 20:37:00 CHEMISTRY 2012-09-22 302 [facility] nn 20:37:00 CHEMISTRY 2012-09-22 1.0 [facility] nn 20:37:00 CHEMISTRY 2012-09-22 3.1 [facility] nn 20:37:00 CHEMISTRY 2012-09-22 <0.02 [facility] nn 20:37:00 CHEMISTRY 2012-09-22 <0.010 [facility] nn 20:37:00 CHEMISTRY 2012-09-22 302 [facility] nn 20:37:00 CHEMISTRY 2012-09-22 1.0 [facility] 20:37:00 CHEMISTRY 2012-09-22 3.1 [facility] 20:37:00 CHEMISTRY 2012-09-22 2.8 [facility] 12:15:00 [...] code = PTT) 23.2 s 22.9-35.8 [id number] 12:15:00 Test Item Value Reference Range Interpretation Comments PT (test code = PT) 12.0 s 12.0-14.7 N [facility] [id number] 12:15[facility] 2012-09-22 12:15:00 Test Item Value Reference Range Interpretation Comments MCH (test code = MCH) 31.0 pg 27.0-31.0 N [facility] Dallas[facility]uvvzuaBZYLEHHNGZ9983-32-75 12:15:0033.6[facility] 2012-09-22 12:15:0012.8[facility] JyxsxkxSVBVLIXFEY7024-73-27 12:15:0047.8[facility] PhrfeimFYTATYFYEL7659-88-49 12:15:009.1[facility] PlthqyuQUGCNUWHKK7867-55-64 12:15:09756Dtwnuhdm CobpvltZBYBDMQEQW1467-81-76 12:15:005.18[facility] KGWRDBKNIV3944-35-08 12:15:0016.1[facility] ZlmsepgKJHLPNSUKO1357-91-01 12:15:00 8.1[facility] AxjjzdeRFFUXUOON2677-38-04 12:15:001.6[facility] 2012-09-22 12:15:002.8[facility] EsuixjuQGTOVMNOJ9194-99-33 12:15:00<0.02 Memorial LmpfkpqKKWMRMGBH1926-27-16 12:15:88465Chguotlw HermannCHEMISTRY 2012-09-22 12:15:0066[facility] JumkcgdRMWWSSLFE7237-72-58 12:15:008.3[facility] ZpdwafpFUDVKAZNR0322-32-33 12:15:0026[facility] VwaoxpuNHLNEGFEK4638-53-27 12:15:99203Clvhxdaq RilfilcUGCHUZRQA5315-57-04 12:15:004.0[facility] JDKKNXGAN5804-32-71 12:15:31634Qsxcehwd JtfqoxrZNTKDBZFC1837-47-39 12:15:001.3 [facility] SlsahglSYSVAXDLG2670-10-63 12:15:0015[facility] HermannCHEMISTRY 2012-09-22 12:15:75521Euougzyb QvmjvxfCNYSOUDUE9150-43-11 12:15:003.7[facility] WhwabcuPEHDYRXWU6073-08-99 12:15:006.7[facility] TggdniyQOOMCNMZA4883-95-57 12:15:06285Alkmbhpg ZcjpkqrHRIAFBYBP4365-59-23 12:15:0063[facility] RMEDGOAVH1496-51-98 12:15:000.3[facility] OueoojeHDDUAWTIJ9886-94-61 12:15:0036 [facility] JjckjycKRISUNOVY7680-38-17 12:15:0014.0[facility] HermannCHEMISTRY 2012-09-22 12:15:0012[facility] VvrqxsfAUQBGOKSZ8719-61-05 12:15:001.2[facility] FuuprhiIYUOPGJCP7161-17-87 12:15:003.0[facility] SnaqbneMAKNSBXILW6809-05-49 12:15:005.0[facility] DcjdmosKOHAHXDFWM2654-48-91 12:15:0019.5[facility] QQUSECWHOS1541-48-80 12:15:001.1[facility] PmccnueBHFUMJRYUP0408-91-66 12:15:00 73.8[facility] YntfzxoKJLFOLTEQZ7502-84-85 12:15:000.4[facility] HermannHEMATOLOGY 2012-09-22 12:15:001.6[facility] SkdfkjrZBROEHYAGT5723-77-21 12:15:000.0[facility] YeefviqHPREVRHCKB5702-04-14 12:15:000.1[facility] PokfyejTHZHENRFQH4781-55-99 12:15:006.0[facility] ShrwbdnJDNKWEQSJN8567-39-87 12:15:000.6[facility] SNNSQRTIWS0706-99-87 12:15:000.87[facility] FgvihduWFVSFQFJFE9202-86-13 12:15:00 Test Item Value Reference Range Interpretation Comments PTT (test code = PTT) 23.2 s 22.9-35.8 [facility]YEK8887-28-69 12:15:00 Test Item Value Reference Range Interpretation Comments PT (test code = PT) 12.0 s 12.0-14.7 N [facility] CfblwwqFLAIIMAOCL2581-82-31 12:15:0092.3[facility] HermannHEMATOLOGY 2012-09-22 12:15:00 Test Item Value Reference Range Interpretation Comments MCH (test code = MCH) 31.0 pg 27.0-31.0 N [facility] WvdvhakGTZQVYOONG7983-11-03 12:15:0033.6[facility] HermannHEMATOLOGY 2012-09-22 12:15:0012.8[facility] EzgapimMTWXQZKBRN6873-32-90 12:15:0047.8[facility] ViflfkmUSQERFEPYH1864-87-33 12:15:009.1[facility] HpmbcqyYPQBDTQHKX1305-34-00 12:15:39026Bbmfllgc XvjkhcyLUTCEXZTED1736-47-98 12:15:005.18[facility] CXEKVISIYD4200-01-40 12:15:0016.1[facility] TmrnpjpDNOQJIWSXQ3989-61-13 12:15:00 8.1[facility] BevvwwpHTXFAJUGY3948-34-80 12:15:001.6[facility]annCHEMISTRY 2012-09-22 12:15:002.8[facility] HpgnadoZJWZDWGUT0969-70-82 12:15:00<0.02 [facility] OomgyrjCIBXPSMXC3406-89-74 12:15:41215Oxucjyes HermannCHEMISTRY 2012-09-22 12:15:0066[facility] ExdqrhvRQSLMGHZW2499-81-51 12:15:008.3[facility] CwfmkpdWPZCGGOEK3769-23-93 12:15:0026[facility] MfkzsvkNPQPWSNIN1379-51-04 12:15:77858Jehhpmdm QhppahpKHJKQNUUV8314-88-22 12:15:004.0[facility] UXXBNNZSU9006-40-94 12:15:90853Ufyfncnr EmrvzfvOJNYQQJWT4456-83-80 12:15:001.3 [facility] FbdmvyhPDIFUNTZY6315-28-03 12:15:0015[facility]annCHEMISTRY 2012-09-22 12:15:20375Pqzjsenr XbvioblERZIMRPFW2283-28-25 12:15:003.7[facility] JvqsoqkQDXIHSQCM9679-10-63 12:15:006.7[facility] DppzpfcNETNWLSES1808-96-93 12:15:21700Esjptxxd QjpklqpYYHSKKLPJ0143-77-90 12:15:0063[facility] XENRVIAGF3219-82-32 12:15:000.3[facility] BeijflwFEQBDKLZT1232-36-23 12:15:0036 [facility] OcaytmgLZPXYQDJY8166-34-86 12:15:0014.0[facility]annCHEMISTRY 2012-09-22 12:15:0012[facility] XmqcxrrSSAUGMYIZ2205-37-66 12:15:001.2[facility] TvwbjkvTXXKCNHQD8560-53-45 12:15:003.0[facility] FqbxrmeXTZJAOPYUD3284-54-92 12:15:005.0[facility] RgznfhdLBJROILNZA4893-03-34 12:15:0019.5[facility] KWLWUSAKUT7945-49-28 12:15:001.1[facility] YufnfcxLOVRLIEHXA7395-84-96 12:15:00 73.8[facility] NadfjsqKAHIZXUPNK5153-83-34 12:15:000.4[facility] HermannHEMATOLOGY 2012-09-22 12:15:001.6[facility] EvbmlmkYBIQVHIFBB3556-62-37 12:15:000.0[facility] TklzxioCBFJXYAIIH2663-95-70 12:15:000.1[facility] ElpgondTGOJMWMAJR8548-12-33 12:15:006.0[facility] LojczfeWIGSUJZPOM4508-78-76 12:15:000.6[facility] ZOJIUUFUWN8084-29-87 12:15:000.87[facility] KuckguxSOREOTHZWL3735-57-21 12:15:00 Test Item Value Reference Range Interpretation Comments PTT (test code = PTT) 23.2 s 22.9-35.8 N [facility] VzciimsEBAERJQVCS6061-85-77 12:15:00 Test Item Value Reference Range Interpretation Comments PT (test code = PT) 12.0 s 12.0-14.7 N [facility] VtrtgkaAHKNNOAOPG3369-71-28 12:15:0092.3[facility]annHEMATOLOGY 2012-09-22 12:15:00 Test Item Value Reference Range Interpretation Comments MCH (test code = MCH) 31.0 pg 27.0-31.0 N [facility] WydlgujVEJNIARZWB5026-88-18 12:15:0033.6[facility] HermannHEMATOLOGY 2012-09-22 12:15:0012.8[facility] ZwdykxaJIFLAWJDSC4300-62-60 12:15:0047.8[facility] VijtzqoKXCFUPAKBI9659-85-94 12:15:009.1[facility] EbtztcjMFXXRJCHPC5691-34-93 12:15:79813Bmjbfzwd PwcwqryENACQFIXQT8659-92-69 12:15:005.18[facility] TZTQYWJVFK9910-14-58 12:15:0016.1[facility] KastajbHAMNIWTZOM8391-44-57 12:15:00 8.1[facility] HvzpoakLSCODNOEG8784-10-72 12:15:001.6[facility] HermannCHEMISTRY 2012-09-22 12:15:002.8[facility] LwoenfoHFIWDTAHH0545-71-24 12:15:00<0.02 [facility] QhyfivzTHTFWPNJU5945-74-50 12:15:37678Zrofagcu HermannCHEMISTRY 2012-09-22 12:15:0066[facility] EprljorXPMHUSHFQ9243-97-52 12:15:008.3[facility] SayfnwzFMTVZUPDT7384-42-77 12:15:0026[facility] ZqsxahlJPXIQNRYU0125-70-29 12:15:61806Adhxhloi OipaagvDILOTQXDQ5999-45-53 12:15:004.0[facility] JASFDWZUY2456-96-64 12:15:47524Hveulrgo UwhqbcsNRQXDTLXL8572-46-35 12:15:001.3 [facility] ZejtsvjAYHRJNOIA2045-08-41 12:15:0015[facility]annCHEMISTRY 2012-09-22 12:15:97954Svjuwtsb ZdayikmNYLXZCQBO6132-87-17 12:15:003.7[facility] HwrpyatFHDWQRIIE9979-66-80 12:15:006.7[facility] TqbnjtgAWIFKYXBP0882-05-64 12:15:05443Qilmitcp VquavcpKZSZFOMUL4878-32-74 12:15:0063[facility] OEAHUJLKX5942-21-19 12:15:000.3[facility] MvdjpygMOWJKAKPM5719-33-38 12:15:0036 [facility] JdeqwbmBWWCOWRWH3672-31-29 12:15:0014.0[facility] HermannCHEMISTRY 2012-09-22 12:15:0012[facility] PakptmlKTOQONGDB8467-34-88 12:15:001.2[facility] JcfypvsKMCOYBTNJ6147-76-68 12:15:003.0[facility] OqggwppEKSCXSKUCF0039-57-42 12:15:005.0[facility] ZtalvxeNQGPDIIWQQ9670-39-57 12:15:0019.5[facility] GINFWQNOUQ1146-07-26 12:15:001.1[facility] ZnyacbrRDMYHHJBPK6613-34-23 12:15:00 73.8[facility] DhrdiyoLRHQNEBBBV1453-26-03 12:15:000.4[facility] HermannHEMATOLOGY 2012-09-22 12:15:001.6[facility] ClmpkudFLRDTULNQW8061-21-40 12:15:000.0[facility] KvorrumXTVJHLDSOQ6688-14-94 12:15:000.1[facility] BlcrdyrXGDAYBUZQK9607-48-03 12:15:006.0[facility] BhxiqpdHYBKJKYXXE3065-66-69 12:15:000.6[facility] NAOQHGPAPF6887-26-31 12:15:000.87[facility] NytwdepLZHZYBBAWG5089-82-84 12:15:00 Test Item Value Reference Range Interpretation Comments PTT (test code = PTT) 23.2 s 22.9-35.8 N [facility] AnkwateHYLCYOWTKZ4117-90-59 12:15:00 Test Item Value Reference Range Interpretation Comments PT (test code = PT) 12.0 s 12.0-14.7 [facility]xowkdbDBHYMCRTXH6259-26-19 12:15:0092.3[facility] HermannHEMATOLOGY 2012-09-22 12:15:00 Test Item Value Reference Range Interpretation Comments MCH (test code = MCH) 31.0 pg 27.0-31.0 N [facility] QvwnilqTOXKLUTPDO3966-06-02 12:15:0033.6[facility] HermannHEMATOLOGY 2012-09-22 12:15:0012.8[facility] HejnkxfANUTLNVSWP2395-53-24 12:15:0047.8[facility] XsdvtxaNMWPQWNOGZ0843-03-61 12:15:009.1[facility] HzhxhfyAECMWFBXEM0115-06-02 12:15:02630Akcvnilk BcdnjvlXIETOHYKIX3271-98-09 12:15:005.18[facility] FWFUMRJLIO3587-47-54 12:15:0016.1[facility] FkdvtxpASLLPSOAZB4420-16-22 12:15:00 8.1[facility] HupvudrRDNASFXDN8947-56-89 12:15:001.6[facility] HermannCHEMISTRY 2012-09-22 12:15:002.8[facility] YcyxaisNGKSABZVE8134-34-51 12:15:00<0.02 [facility] BipssiyBFTSDPBZL5147-71-00 12:15:60702Lbmugcdk HermannCHEMISTRY 2012-09-22 12:15:0066[facility] OlzypqcKMSLPFMYM9180-94-68 12:15:008.3[facility] HxqactlTFINXPHTF0230-89-55 12:15:0026[facility] QiocrokGKNGTPYLO1771-24-45 12:15:28319Nfwpwtsi JwptcktPLSWZOQOX5052-04-60 12:15:004.0[facility] RTSWDLROF3481-96-73 12:15:38912Crqmrayl FgfhvmzHUYMNCUUW0813-31-32 12:15:001.3 [facility] WpcrywkDEMUXYSRD6667-80-92 12:15:0015[facility] HermannCHEMISTRY 2012-09-22 12:15:05510Oirhkalr HcbhemaTPGKZWXBZ1788-92-89 12:15:003.7[facility] OgiywypAJDAXLYET2940-20-90 12:15:006.7[facility] CxlwfmnFOUDDOISZ0897-66-00 12:15:54426Ydpabiag KkjrwpoHEDWCUNQS6759-90-35 12:15:0063[facility] MMEZXSAHO1866-42-06 12:15:000.3[facility] ScbapnzASTPSQYHA6888-44-30 12:15:0036 [facility] TpjlhjzKJLVGMDDP0204-69-20 12:15:0014.0[facility] HermannCHEMISTRY 2012-09-22 12:15:0012[facility] TjajttvFNBVDWHIY9685-44-36 12:15:001.2[facility] ZrtlwcaPHCRTROGI8123-04-35 12:15:003.0[facility] WrasdopVPMABIQNRL6714-70-52 12:15:005.0[facility] RrpemsiNEFAHIMTSF7658-09-23 12:15:0019.5[facility] OZEJMEATNQ0041-82-66 12:15:001.1[facility] YnnxlzmKOMRNKJJVZ7963-85-34 12:15:00 73.8[facility] CudgknkYIUCBMIEFV0830-41-86 12:15:000.4[facility] HermannHEMATOLOGY 2012-09-22 12:15:001.6[facility] LrbmdpqBJVUVYTDWG6689-39-51 12:15:000.0[facility] BimlnnjUDCLYDBBXM7832-70-93 12:15:000.1[facility] GxmnmpsBTJVLXZYPA4239-53-97 12:15:006.0[facility] UqbzulpHEJIPBFWWB0462-90-43 12:15:000.6[facility] PDNYKVLUNW1513-95-50 12:15:000.87[facility] MhwpavhWVWHZXLEMI4967-52-37 12:15:00 Test Item Value Reference Range Interpretation Comments PTT (test code = PTT) 23.2 s 22.9-35.8 [facility] DallasLnfgntmMZFOGLYQWM6645-99-96 12:15:00 Test Item Value Reference Range Interpretation Comments PT (test code = PT) 12.0 s 12.0-14.7 N [facility] DallasJjjbrukXMTYIUCIZY2773-53-81 12:15:0092.3[facility] HermannHEMATOLOGY 2012-09-22 12:15:00 Test Item Value Reference Range Interpretation Comments MCH (test code = MCH) 31.0 pg 27.0-31.0 N [facility] DallasEkltenfJRHYLQPTIX7373-19-99 12:15:0033.6[facility] HermannHEMATOLOGY 2012-09-22 12:15:0012.8[facility] IgjmihcDACGNYCBVO1670-99-13 12:15:0047.8[facility] KskuayoZXPICYCOHG7537-45-68 12:15:009.1[facility] XiqsaxhIHMWJNJVJT9551-38-66 12:15:32504Egyokvmw BgxfeexCLTXNNRMUF0020-52-93 12:15:005.18[facility] HQCDUWNISX4415-66-54 12:15:0016.1[facility] TpcyamaHJFRUGVNAQ2260-76-32 12:15:00 8.1[facility] MnrdukdMPBZFQEYM8172-56-95 12:15:001.6[facility] HermannCHEMISTRY 2012-09-22 12:15:002.8[facility] IpfmlixBMQOAOVJM8338-66-61 12:15:00<0.02 [facility] EwjrrojWTZAMQMJQ2212-28-57 12:15:45817Nympaerh HermannCHEMISTRY 2012-09-22 12:15:0066[facility] CyjblrlHSEGDDXRT7342-93-24 12:15:008.3[facility] ZilxbuxQUJQGLWZT8536-95-06 12:15:0026[facility] ZryhlymXZZDTJCQO9062-38-99 12:15:77899Fsznrdoh KlefdufQDIMLMYBE5425-13-49 12:15:004.0[facility] PCDXUPAPQ6881-80-13 12:15:09434Kczfeshh DtidhpbWFURGMUBV3691-06-23 12:15:001.3 [facility] ObpkagsTKSWACUPO8048-09-16 12:15:0015[facility] HermannCHEMISTRY 2012-09-22 12:15:18643Xwwhqsdd XtkbaxhCJOWPVBRY1142-51-81 12:15:003.7[facility] QazekzxZKJEOOIJL4492-70-65 12:15:006.7[facility] DsfpsoxPDRYKHNVF2360-61-27 12:15:66309Iiqpbqkc CswzhmjIVUYNIURL8548-00-58 12:15:0063[facility] FOXVEWHPQ7394-18-51 12:15:000.3[facility] UfcaxuzVGGYEBTZL7914-04-92 12:15:0036 [facility] VvfdhqhGHOPELZIK5100-24-05 12:15:0014.0[facility] HermannCHEMISTRY 2012-09-22 12:15:0012[facility] RvpkhkoUEBRSLXCY8916-16-17 12:15:001.2[facility] EmedrawFAJDKNWZH5706-76-27 12:15:003.0[facility] HqodhuhZTSLPLAOPY1859-02-17 12:15:005.0[facility] YbtbuotWPDFNUHDJR9780-07-16 12:15:0019.5[facility] EZJFRHVNCT6664-49-61 12:15:001.1[facility] FwqqvpmYYDEZBAVQW3480-52-99 12:15:00 73.8[facility] FakuspfSJRRKQEOXV7967-20-60 12:15:000.4[facility] HermannHEMATOLOGY 2012-09-22 12:15:001.6[facility] FcqdmtjFZUTRHTLWE4965-37-90 12:15:000.0[facility] FbshxwbUZPAJJESPL7297-37-78 12:15:000.1[facility] NpqodbsKAHORCIGYI3903-96-94 12:15:006.0[facility] RyukjksXOYOCGZFXW2698-86-41 12:15:000.6[facility] IAKNOIIFKM6963-08-44 12:15:000.87[facility] BszenbtNFGFEAHNBT2629-07-20 12:15:00 Test Item Value Reference Range Interpretation Comments PTT (test code = PTT) 23.2 s 22.9-35.8 N [facility] DallasFlberhfJTUYMRECWI0787-12-34 12:15:00 Test Item Value Reference Range Interpretation Comments PT (test code = PT) 12.0 s 12.0-14.7 N [facility] DallasPnjdcvkBKFAPVQMQT6396-84-11 12:15:0092.3[facility] HermannHEMATOLOGY 2012-09-22 12:15:00 Test Item Value Reference Range Interpretation Comments MCH (test code = MCH) 31.0 pg 27.0-31.0 N [facility] DallasIwynnjgHMZNDZQQPI1744-65-25 12:15:0033.6[facility]annHEMATOLOGY 2012-09-22 12:15:0012.8[facility] UdsficsSYJUMHBYTO8111-11-77 12:15:0047.8[facility] HozkkaeMVOESVSCKZ6236-22-93 12:15:009.1[facility] WjpuvvtDMIKKJKWRA8348-52-69 12:15:68443Knyvhmpg EzqvifaOWLTCOWBRO4462-72-72 12:15:005.18[facility] CSNGIKGWWZ5371-72-66 12:15:0016.1[facility] HszrovmVVNECCYYBV0837-05-25 12:15:00 8.1[facility] GtxgpbeLEAEOGLTY0449-02-40 12:15:001.6[facility] HermannCHEMISTRY 2012-09-22 12:15:002.8[facility] BdtvalaIZHJTAZRX5292-19-49 12:15:00<0.02 [facility] ItuxqgvJLVFCUDVG1105-34-71 12:15:22003Luqyurgg HermannCHEMISTRY 2012-09-22 12:15:0066[facility] GopjzryEEPZOKFTS8392-58-48 12:15:008.3[facility] YgppasiQTSIEIIUB3818-13-61 12:15:0026[facility] HwctmyrJAOCBFYDZ6610-41-76 12:15:04897Bpnklzfh YhrbywsDKDVZCNZZ1494-60-06 12:15:004.0[facility] MOUNMHLQV3544-74-20 12:15:34990Vazkmmps AcxphkpEBVJXCUXH6450-94-22 12:15:001.3 [facility] NtiotddXDTVOOLHF4986-58-24 12:15:0015[facility] HermannCHEMISTRY 2012-09-22 12:15:86429Jsauiqpj XlyddhjXTHMAKANU8353-82-79 12:15:003.7[facility] GlkljvpOYUQRPCOG2365-90-69 12:15:006.7[facility] QvvxihwVRSWHAHZX7396-20-66 12:15:90848Luqhxkum LqymyweMUVGHPEWB0190-41-90 12:15:0063[facility] ZNEAEEVTY9998-30-34 12:15:000.3[facility] GrjbumePAOIPRCSL1391-95-39 12:15:0036 [facility] SrrgossVFZMSBGSZ1515-27-76 12:15:0014.0[facility] HermannCHEMISTRY 2012-09-22 12:15:0012[facility] RcbyhixEGLIWZION5523-91-96 12:15:001.2[facility] AlqxzzoOZLYXBLIS8865-91-52 12:15:003.0[facility] AipigmbGLYJBMBKGB2714-21-97 12:15:005.0[facility] DgfcmizJFUNNVITRB8936-39-74 12:15:0019.5[facility] UYZKVNDBCH6023-79-94 12:15:001.1[facility] KwojzjeRBEGSHQNLL3892-65-83 12:15:00 73.8[facility] WqhwjguVALKWODXER0809-72-26 12:15:000.4[facility] HermannHEMATOLOGY 2012-09-22 12:15:001.6[facility] PghilkdKNFJUVTXID7768-16-85 12:15:000.0[facility] ShzqdjkPEJJONNEXJ7370-27-99 12:15:000.1[facility] XvxqodlSXZUAAVSGD6566-38-35 12:15:006.0[facility] VdjpvalYNKUVFBDXG9221-77-78 12:15:000.6[facility] LZSWNGAQOA9934-80-75 12:15:000.87[facility] SptruexGFOJZBFHRG1938-76-68 12:15:00 Test Item Value Reference Range Interpretation Comments PTT (test code = PTT) 23.2 s 22.9-35.8 N [facility] DallasKtiibjzHFAJWYTRTV3752-82-00 12:15:00 Test Item Value Reference Range Interpretation Comments PT (test code = PT) 12.0 s 12.0-14.7 N [facility] NnudkbmKYCSNWVIQA3950-87-26 12:15:0092.3[facility]annHEMATOLOGY 2012-09-22 12:15:00 Test Item Value Reference Range Interpretation Comments MCH (test code = MCH) 31.0 pg 27.0-31.0 N [facility] WvpgcsnDTMZKFPHQU7940-54-47 12:15:0033.6[facility]annHEMATOLOGY 2012-09-22 12:15:0012.8[facility] SfbpnsuWIEODCKRCA8634-72-99 12:15:0047.8[facility] KehmqyrZASWGECTDG8417-84-35 12:15:009.1[facility] FxkbmqfZQGCOQERNE6370-86-32 12:15:80647Xgfaofsy JbcrldrNCESASWIVG6336-72-52 12:15:005.18[facility] PIIYIQUVDU1963-40-66 12:15:0016.1[facility] TxqpzxtSWZIFBFCWO5890-83-76 12:15:00 8.1[facility] GvtcflgEQYIRCYKR1573-88-12 12:15:001.6[facility]annCHEMISTRY 2012-09-22 12:15:002.8[facility] HctikrhYAEMPLRIF4878-17-92 12:15:00<0.02 [facility] CngnhdxMPCBZEXNT1051-54-14 12:15:90200Oxcokzkc HermannCHEMISTRY 2012-09-22 12:15:0066[facility] AuwscuaKAMGSEFPV4786-64-21 12:15:008.3[facility] HcrzwsmDQANJKIPQ3199-86-32 12:15:0026[facility] NwfxjalFBVMKVUHN1437-13-84 12:15:42064Tgtuzoyk CngvercFAYILGBMB5760-18-29 12:15:004.0[facility] HNLJMNGJT1198-12-93 12:15:17526Htnzxzww NdepaqdMNMYOPZBZ4223-98-51 12:15:001.3 [facility] BdjdjhiOMMMNEHAY4530-06-19 12:15:0015[facility]annCHEMISTRY 2012-09-22 12:15:27957Bkuhxdgj DlgdbhxLUKZQEHMZ8916-93-47 12:15:003.7[facility] GosiwwmPGJCZTGBV0346-10-74 12:15:006.7[facility] VfjhapxXXOSRAROM6625-33-93 12:15:70085Vhdzvrtp EpokuycIOMHIEYOD9215-46-37 12:15:0063[facility] JOILGPTQQ7776-77-49 12:15:000.3[facility] DrtwipvFMBEMLPBS3558-75-92 12:15:0036 [facility] MhhqlwvOYOOBAMBK1284-26-42 12:15:0014.0[facility] HermannCHEMISTRY 2012-09-22 12:15:0012[facility] OpfqbjfYHLKBUBTV9929-87-35 12:15:001.2[facility] VawwedfYODOVFHSZ0271-35-47 12:15:003.0[facility] LncuzcyHFWTOLSDHV3195-72-18 12:15:005.0[facility] PxvputmOOSUVOXBVU5897-08-94 12:15:0019.5[facility] SKMJQJMDDX4251-69-46 12:15:001.1[facility] RugxyexGWERCUHRQE8995-37-16 12:15:00 73.8[facility] ItvojamOJMKMPQVSS1394-65-47 12:15:000.4[facility] HermannHEMATOLOGY 2012-09-22 12:15:001.6[facility] HsklhmbUORLBTQWEG3861-56-76 12:15:000.0[facility] DgdudsnRFRQQOOHDC0501-77-20 12:15:000.1[facility] HpmihknCRDOXCHCJZ3767-11-02 12:15:006.0[facility] HyqyqtaTAEQELIWRK0933-92-21 12:15:000.6[facility] CVNSYQWICW7180-46-47 12:15:000.87[facility] NhfvgzaDSMJDDMVWP0904-49-07 12:15:00 Test Item Value Reference Range Interpretation Comments PTT (test code = PTT) 23.2 s 22.9-35.8 N [facility] DallasGvukuqlNWXXMYHOTE6730-04-14 12:15:00 Test Item Value Reference Range Interpretation Comments PT (test code = PT) 12.0 s 12.0-14.7 N [facility] QycfiqlJUWEHRQHRN9554-59-62 12:15:0092.3[facility]annHEMATOLOGY 2012-09-22 12:15:00 Test Item Value Reference Range Interpretation Comments MCH (test code = MCH) 31.0 pg 27.0-31.0 N [facility] DallasTftyfhaOUXUTHUBMJ7365-89-79 12:15:0033.6[facility]annHEMATOLOGY 2012-09-22 12:15:0012.8[facility] ZxnknkbPGSOUIIFCF2410-04-83 12:15:0047.8[facility] YkfdooqTZINDEPMDI6007-55-78 12:15:009.1[facility] EmvjmujDFJWVTOVND2893-72-63 12:15:15581Deqgxtid TbnsabdORJYOQHDQT5425-82-97 12:15:005.18[facility] RZGCOWHMUB8057-60-99 12:15:0016.1[facility] FfskqneGCVROPPINS8213-09-15 12:15:00 8.1[facility] PdirbmzTTIRTADBV2147-53-82 12:15:001.6[facility] HermannCHEMISTRY 2012-09-22 12:15:002.8[facility] WhrfofyYYZZGSMKL4686-52-37 12:15:00<0.02 [facility] MjnolfySXPDQWDCZ6313-83-85 12:15:40508Gfjfrihy HermannCHEMISTRY 2012-09-22 12:15:0066[facility] JzsgkvkQKPJIUIJJ4554-52-02 12:15:008.3[facility] AotdcxoAWVTDHXQR3885-22-24 12:15:0026[facility] ZixbgmsEJUZWPSTM4486-34-36 12:15:58622Vzpszesn EflyowlETGELXVQV2474-41-62 12:15:004.0[facility] QGHKEABXL8912-19-00 12:15:75830Lbbejnro MdllpfpYRMGVWIPA7612-31-49 12:15:001.3 [facility] RlpaymqEMQMRQFRI9247-02-93 12:15:0015[facility] HermannCHEMISTRY 2012-09-22 12:15:07230Gnckoyoq OufuaepDYMGJZZMA6588-80-54 12:15:003.7[facility] PmtjfwyYHYSMJPLL1250-35-63 12:15:006.7[facility] JuhoxbaGQFTJTHLO0425-57-03 12:15:69312Owmzsytl SypxyviEMSBVMEYA6868-31-33 12:15:0063[facility] KKCJLMFYP2284-05-09 12:15:000.3[facility] UklvmkmXSZTAWCKU8762-20-16 12:15:0036 [facility] VihnswbLFNAXMFNE1937-97-25 12:15:0014.0[facility] HermannCHEMISTRY 2012-09-22 12:15:0012[facility] TqgxwvxNYAVRDGTA0458-04-26 12:15:001.2[facility] GzgzacuJWUQPVURV6519-03-20 12:15:003.0[facility] JcwrukvLSXCFLPOYF1234-22-88 12:15:005.0[facility] PlxrmglVWNTBAUVXM6243-18-97 12:15:0019.5[facility] PSWQKCWYIQ4086-11-42 12:15:001.1[facility] LtyddxsSVCSQENEDI7620-51-11 12:15:00 73.8[facility] FnjktvgMSQSWAYZHT7378-87-35 12:15:000.4[facility] HermannHEMATOLOGY 2012-09-22 12:15:001.6[facility] NbbplryVBWHTRCJFJ3426-82-82 12:15:000.0[facility] GzuonliMVMCIMZKXV1903-38-93 12:15:000.1[facility] XkzjtdlZIFXGIQNPH0301-61-59 12:15:006.0[facility] KmdtlcqNUOZJWNHWB9424-73-41 12:15:000.6[facility] LFBKGBZKIC6759-34-46 12:15:000.87[facility] SnwzspzLIADLRNXQY0477-37-84 12:15:00 Test Item Value Reference Range Interpretation Comments PTT (test code = PTT) 23.2 s 22.9-35.8 [facility]slgwVDJTURWGEE1661-99-19 12:15:00 Test Item Value Reference Range Interpretation Comments PT (test code = PT) 12.0 s 12.0-14.7 N [facility] YcnwsoaPEXXVVMXLF7428-52-32 12:15:0092.3[facility]annHEMATOLOGY 2012-09-22 12:15:00 Test Item Value Reference Range Interpretation Comments MCH (test code = MCH) 31.0 pg 27.0-31.0 N [facility] YrndemyBVYWXUYGII4400-88-23 12:15:0033.6[facility]annHEMATOLOGY 2012-09-22 12:15:0012.8[facility] GeyrlxbTCHXVXNTKI2832-77-98 12:15:0047.8[facility] FmecwzvRJSSQGJZWI6887-07-51 12:15:009.1[facility] ZxktcvtQYCOJTBXDV5349-18-33 12:15:99637Wlxgwjwz VprxoscRAJNGLCVVM7786-65-36 12:15:005.18[facility] MQBDXWQSCC3394-71-59 12:15:0016.1[facility] AktdvfeLEAYSHYAOQ5343-72-84 12:15:00 8.1[facility] RszxmytPJWFMQBXI5309-85-62 12:15:001.6[facility]annCHEMISTRY 2012-09-22 12:15:002.8[facility] NhkqffeTCDZISGOZ7879-83-59 12:15:00<0.02 [facility] MawqofsKTRWTVQBG9629-79-35 12:15:20000Xeciswss HermannCHEMISTRY 2012-09-22 12:15:0066[facility] JpxeutkYVXNPGFLQ8287-94-70 12:15:008.3[facility] EwzvextDJTSLGZTZ8100-72-18 12:15:0026[facility] EaljoooXSIRFPEXC2114-98-51 12:15:69236Gfslestw IzhediuLPEUEAIZF4718-68-07 12:15:004.0[facility] QXKMTPDZQ4807-74-94 12:15:49179Wnpshmfc TkaiprlTYPWMNPVP7691-21-83 12:15:001.3 [facility] XjcrltyPPXDMXBHL3162-49-78 12:15:0015[facility]annCHEMISTRY 2012-09-22 12:15:04910Pfapfarr BxjputdHGMPVFSRC7949-56-44 12:15:003.7[facility] JempfipDJYMSQWBT2707-34-26 12:15:006.7[facility] HjdlrhwLXLIDCCRO0657-67-20 12:15:09301Xymirhps CktvyneABQIEDJDQ0704-28-63 12:15:0063[facility] YSMZRIUTD4538-26-24 12:15:000.3[facility] WlfpmgdYINDZKMTV0776-88-60 12:15:0036 [facility] KnzrbyiGEYHHQCJJ6507-35-41 12:15:0014.0[facility]annCHEMISTRY 2012-09-22 12:15:0012[facility] UshykoxRSBINSDBS8638-78-96 12:15:001.2[facility] ItgkgmsHZVBAFKTA9636-91-66 12:15:003.0[facility] ClbpfcuZFFIABQHAW9260-02-15 12:15:005.0[facility] SywhzuiPVMOPFIHEG6553-25-24 12:15:0019.5[facility] SXYEENUFEE8840-72-07 12:15:001.1[facility] VhioqeqAQXCZVVXFV7213-79-49 12:15:00 73.8[facility] LkhbbxlEKWAULXSHV4030-33-16 12:15:000.4[facility]annHEMATOLOGY 2012-09-22 12:15:001.6[facility] MpichcpJLAADWRCPP2086-22-26 12:15:000.0[facility] RydkqimXSZWIKPZJI5229-13-70 12:15:000.1[facility] ZgqmplxPGNBAHTKPC9517-84-88 12:15:006.0[facility] AifhvtrLFGEUQRYHA3125-59-05 12:15:000.6[facility] TQNRTOZHJX6243-62-24 12:15:000.87[facility] XwnxdzsEEACLFQXJZ2772-22-72 12:15:00 Test Item Value Reference Range Interpretation Comments PTT (test code = PTT) 23.2 s 22.9-35.8 N [facility] HofgdpoDZQWJNIXXA3678-86-28 12:15:00 Test Item Value Reference Range Interpretation Comments PT (test code = PT) 12.0 s 12.0-14.7 N [facility] ErzxtzjVSVWGSUHJH3718-26-03 12:15:0092.3[facility]annHEMATOLOGY 2012-09-22 12:15:00 Test Item Value Reference Range Interpretation Comments MCH (test code = MCH) 31.0 pg 27.0-31.0 N [facility] LlouapcGIZSLGEUND5024-29-26 12:15:0033.6[facility]annHEMATOLOGY 2012-09-22 12:15:0012.8[facility] WmzlsxpLRRPMURBYJ0604-86-28 12:15:0047.8[facility] HxaosejFCQJZNVMBR2389-30-72 12:15:009.1[facility] QaegqfyMUZANKAWPV7844-53-07 12:15:23592Rcwrqkdn IgxzaukQTOCZEYRFP8179-17-81 12:15:005.18[facility] YQPOXXAZCS0417-44-50 12:15:0016.1[facility] UpdnlnrGHEJQIPNYK6399-52-21 12:15:00 8.1[facility] NeuqmskAWLOCTGYX9085-72-69 12:15:001.6[facility] HermannCHEMISTRY 2012-09-22 12:15:002.8[facility] KmrishqMZYFICPGG4315-74-25 12:15:00<0.02 [facility] PgfrruvNLMSTWIJY7156-39-65 12:15:59996Wprqfiwf HermannCHEMISTRY 2012-09-22 12:15:0066[facility] EzqxeemFKKYWVAKC7408-39-56 12:15:008.3[facility] UlnphcjHJPPDXCNO0253-37-90 12:15:0026[facility] KrkggmeNSCEXGABD5690-32-72 12:15:16639Lxwymqbx BfqchaqXAZFVECCW9316-10-69 12:15:004.0[facility] GCCYWICZO6336-37-97 12:15:39357Pmrpnrqd DsrxgvzCNGMADMDR8193-16-07 12:15:001.3 [facility] IosiqdvEJJTETWRE3224-43-31 12:15:0015[facility]annCHEMISTRY 2012-09-22 12:15:84366Aidflvtk ScjhqbvEOUFXDTUB2876-44-89 12:15:003.7[facility] FnzdchwKFWGPGBJJ5184-13-84 12:15:006.7[facility] UxzawpeKUQUDMACB3829-06-10 12:15:82185Ghotpjnn DadxldrVUPNVRCPK7981-01-02 12:15:0063[facility] KOHRORLJH7448-63-19 12:15:000.3[facility] OstsyxxFCXSRFQFT2896-29-16 12:15:0036 [facility] KdhvymmHZYRVIIMT1670-71-70 12:15:0014.0[facility] HermannCHEMISTRY 2012-09-22 12:15:0012[facility] CnbvodpOKBJWNARK6124-58-51 12:15:001.2[facility] RdllmzpSZZCSBSYY7380-03-99 12:15:003.0[facility] DqxgqvkYYQZXFSVPE6909-52-54 12:15:005.0[facility] IhbmoclUJUJMFTIRJ4554-25-69 12:15:0019.5[facility] TFXOBVVPNX6033-27-59 12:15:001.1[facility] ClebboxWXPYYSTTIH1234-38-98 12:15:00 73.8[facility] NgmnwsjZNAIUQEEPL2776-54-82 12:15:000.4[facility]annHEMATOLOGY 2012-09-22 12:15:001.6[facility] JrmopycOVBEKUOGXT5938-92-40 12:15:000.0[facility] LpbvvcvRGKUDPVMAD8337-46-53 12:15:000.1[facility] AjiscqtJEWOKCCZXV3295-76-53 12:15:006.0[facility] QmbdlprGWRSLQBMBD4996-79-78 12:15:000.6[facility] FWTMQQJMAH0550-80-48 12:15:000.87[facility] DkybcovBLVRVXKCVU2853-17-78 12:15:00 Test Item Value Reference Range Interpretation Comments PTT (test code = PTT) 23.2 s 22.9-35.8 N [facility] GebbagmTXGWZNGWOV1962-94-31 12:15:00 Test Item Value Reference Range Interpretation Comments PT (test code = PT) 12.0 s 12.0-14.7 N [facility] EcspesfQCMLSIRUMJ0465-71-89 12:15:0092.3[facility]annHEMATOLOGY 2012-09-22 12:15:00 Test Item Value Reference Range Interpretation Comments MCH (test code = MCH) 31.0 pg 27.0-31.0 N [facility] OmlmhjkICQTXLFBJY4455-48-03 12:15:0033.6[facility]annHEMATOLOGY 2012-09-22 12:15:0012.8[facility] ZrnbgtdSMOFSTUTEO5430-62-61 12:15:0047.8[facility] KkjjnsgBQGYPIKNHJ9414-59-72 12:15:009.1[facility] CiqeddcBJBGYJTAJB6542-20-56 12:15:98137Dpsypofd BqiqioxFJVPFEWWDE7866-87-22 12:15:005.18[facility] VCDNJNXBHA3748-25-56 12:15:0016.1[facility] LjjvcvbDXMTJMKYHT5456-05-77 12:15:00 8.1[facility] SjkodrjHUNWIYJCG2617-56-99 12:15:001.6[facility] HermannCHEMISTRY 2012-09-22 12:15:002.8[facility] KcoodhiZSBKEMGVP4629-76-71 12:15:00<0.02 [facility] HxgtvmzEANVEUKWM4221-57-69 12:15:49137Ecwbndis HermannCHEMISTRY 2012-09-22 12:15:0066[facility] HhauezyZXOSUFZXP8552-76-39 12:15:008.3[facility] GlpqdsvEFIVFYQOF4098-00-68 12:15:0026[facility] YfckwwsYMINNOYQP8662-02-67 12:15:32664Dnfuqrje OmdknteOWBVZYXSU5276-16-76 12:15:004.0[facility] IEOVQHETN2062-91-76 12:15:30339Ahedjqxg YubkfcjHQYSOGMJU7213-09-89 12:15:001.3 [facility] HbyzljxXIYKMSIGO7992-73-74 12:15:0015[facility] HermannCHEMISTRY 2012-09-22 12:15:31733Undstcug GvdfkhmIDJMAMLZU3410-00-09 12:15:003.7[facility] NdssumfSHZLLIDOF6520-07-38 12:15:006.7[facility] HjqvaecOIKJFEQWC1849-65-25 12:15:08289Unwspabi CxiozzdFUHXUPIHX1941-74-14 12:15:0063[facility] QBTEKBYJA4287-32-10 12:15:000.3[facility] TvjaruvEBXRXAUHJ5699-88-39 12:15:0036 [facility] VxqkmmaGFYFFUXZU0043-38-59 12:15:0014.0[facility]annCHEMISTRY 2012-09-22 12:15:0012[facility] VivukgoOZHQMKDRS1924-22-09 12:15:001.2[facility] MplfepxJWKNVMWUV7803-33-50 12:15:003.0[facility] MgvgxfuUSJSXKIETN4003-38-49 12:15:005.0[facility] IpstvgfDFZGKDVQGO7689-53-44 12:15:0019.5[facility] TPLWRZLDVY4951-36-00 12:15:001.1[facility] XfdresqCIWSGKNGBZ8525-47-42 12:15:00 73.8[facility] LmjeoprGXGUJYIFQL4921-40-67 12:15:000.4[facility] HermannHEMATOLOGY 2012-09-22 12:15:001.6[facility] UownbpwJQGBCTAXNG4840-35-74 12:15:000.0[facility] WizywtnYVMWNVHCHX2049-48-47 12:15:000.1[facility] SwszcwxGGIJFGHMNI2414-49-31 12:15:006.0[facility] KriungaFYUUKFIZML6965-64-36 12:15:000.6[facility] ONLCRFZHUG9814-90-15 12:15:000.87[facility] JccqwzlCIOJTAIAFF9335-77-44 12:15:00 Test Item Value Reference Range Interpretation Comments PTT (test code = PTT) 23.2 s 22.9-35.8 N [facility] KpzjhicVFBRSUJYZT8849-35-70 12:15:00 Test Item Value Reference Range Interpretation Comments PT (test code = PT) 12.0 s 12.0-14.7 N [facility] YprqzsgCQUAQGBVYU7211-35-34 12:15:0092.3[facility]annHEMATOLOGY 2012-09-22 12:15:00 Test Item Value Reference Range Interpretation Comments MCH (test code = MCH) 31.0 pg 27.0-31.0 N [facility] BhntqfmOKYDXVUTMI0609-54-33 12:15:0033.6[facility]annHEMATOLOGY 2012-09-22 12:15:0012.8[facility] MrgbilsKALEQEWECK8835-40-34 12:15:0047.8[facility] TdkdhhiWSFQBMPUQR4079-60-13 12:15:009.1[facility] AgurpnhEGESIIYMTH5608-13-32 12:15:54014Pdjrisbs CbizrjeXTETVBBCFX2444-11-59 12:15:005.18[facility] LWNVRIXVJH9407-49-92 12:15:0016.1[facility] MksrxivJCFRAMBPOC2716-23-19 12:15:00 8.1[facility] DknosqrPXZOLZFFL0007-47-57 12:15:001.6[facility] HermannCHEMISTRY 2012-09-22 12:15:002.8[facility] EwihnqtHUTPGLRAJ5508-58-29 12:15:00<0.02 [facility] DgmgqfkEJPTMYCOX2005-71-70 12:15:63257Zlrekjet HermannCHEMISTRY 2012-09-22 12:15:0066[facility] IaikytmZCZFUWLJF7701-53-19 12:15:008.3[facility] VtrorzjNXYAVFGJI5283-77-86 12:15:0026[facility] GjubrmkOFQUOHRVZ0295-34-13 12:15:49262Ajapcydr NnrhkggISTWXEIKT4406-75-60 12:15:004.0[facility] SXRBQFMXN1839-59-43 12:15:85603Jvzzentc SyepqwvMAZMIHAQR0597-28-01 12:15:001.3 [facility] LexvdjjOFKQYNVJU7668-27-11 12:15:0015[facility]annCHEMISTRY 2012-09-22 12:15:86457Lsbgtwcu WojufriIDFRHYGLU6013-95-92 12:15:003.7[facility] WcowbbiZCGMGIJOS3138-84-11 12:15:006.7[facility] ZazomduRJLQYULVY6553-57-61 12:15:54443Lqlgimwc SzqomnuDJXJHCLZR0520-82-52 12:15:0063[facility] QABOSHWOH4159-34-54 12:15:000.3[facility] VbrubbyCGYNAVCCM3369-29-99 12:15:0036 [facility] ZsptcszBVVEQNNGH5592-07-43 12:15:0014.0[facility] HermannCHEMISTRY 2012-09-22 12:15:0012[facility] YmyqqynPOAPFKLDE8025-14-78 12:15:001.2[facility] NentczyILUYOVMGZ6386-91-46 12:15:003.0[facility] UuszvevCCDXIUJXNH0641-78-37 12:15:005.0[facility] GpvmvmkVFINIWNGVT4117-21-07 12:15:0019.5[facility] GSGQTPETUR5951-90-32 12:15:001.1[facility] SourwcuTFXCWXVXGB7416-12-38 12:15:00 73.8[facility] NzimqfiWGDKLPURCV7964-46-52 12:15:000.4[facility] HermannHEMATOLOGY 2012-09-22 12:15:001.6[facility] QmngbihISKQSHOCFT5361-57-15 12:15:000.0[facility] GuqtgucHWUHQXWVNT8343-35-58 12:15:000.1[facility] PydyuvoEZDFPDGAXN6892-91-26 12:15:006.0[facility] SkbwyleQUUWCGJJIV4137-93-14 12:15:000.6[facility] VXZQQLRRYU7152-86-31 12:15:000.87[facility] TtrgdsbBLGPXRBMQJ3772-52-13 12:15:00 Test Item Value Reference Range Interpretation Comments PTT (test code = PTT) 23.2 s 22.9-35.8 N [facility] XelemssGSXQBYZHWL2906-57-25 12:15:00 Test Item Value Reference Range Interpretation Comments PT (test code = PT) 12.0 s 12.0-14.7 N [facility] KtkgixwLNCAUDBKDK5621-33-63 12:15:0092.3[facility]annHEMATOLOGY 2012-09-22 12:15:00 Test Item Value Reference Range Interpretation Comments MCH (test code = MCH) 31.0 pg 27.0-31.0 N [facility] KpmxbzcRTDDXWMQIL3858-21-62 12:15:0033.6[facility]annHEMATOLOGY 2012-09-22 12:15:0012.8[facility] IdjfbeiHLTHTDMHVW3649-82-15 12:15:0047.8[facility] RmjxcikJMYEKRRKIS3741-38-61 12:15:009.1[facility] ZjatgoqGKPAELBWJU5496-49-40 12:15:05387Yjlzrxmk SwmltrlLLKXVQYHQK4874-88-69 12:15:005.18[facility] ZRFZTQEQON5668-51-72 12:15:0016.1[facility] IodrcafVQAYGHMOZD6520-18-78 12:15:00 8.1[facility] LbcrboyMMTCRFLBO5853-57-90 12:15:001.6[facility] HermannCHEMISTRY 2012-09-22 12:15:002.8[facility] TgmxdsfIEBUWAGIE3933-31-43 12:15:00<0.02 [facility] LeescjyBXWCPVZGN8881-40-57 12:15:60962Kwryxojo HermannCHEMISTRY 2012-09-22 12:15:0066[facility] DgbbtzfNTGFRINRV9842-18-06 12:15:008.3[facility] XjyetqwXGIZTMXEZ3898-02-29 12:15:0026[facility] GpkhjvfQTXCEJKEH1099-11-15 12:15:87851Oacpspvp QdlqgypOSKAWYLYW2831-05-00 12:15:004.0[facility] ESESOQJUO3891-01-20 12:15:13624Hbzuycav UbmoktlJITYVGSOA1911-43-84 12:15:001.3 [facility] QwppoecLQPVFOHOK3478-78-75 12:15:0015[facility] HermannCHEMISTRY 2012-09-22 12:15:25082Kmqsncmt YcifktdHSNQYQDBO7803-78-43 12:15:003.7[facility] SfibcqrHPPTNPDWT9951-07-54 12:15:006.7[facility] BhrmeedCIEOCWVTM6407-47-53 12:15:90484Abobucit PhpkvkoLODJVOXYW2769-44-65 12:15:0063[facility] GMPCWUWWE7858-18-40 12:15:000.3[facility] FojjwcqGMEHOQUWQ7432-95-82 12:15:0036 [facility] NjwqbebNFHMSCPLP3252-59-89 12:15:0014.0[facility] HermannCHEMISTRY 2012-09-22 12:15:0012[facility] ZzouoosWSCTLWMDV5032-41-92 12:15:001.2[facility] PjfxxwnYRKKRRIKH8031-84-03 12:15:003.0[facility] OrfpvilSIBMRZJBIX5623-16-89 12:15:005.0[facility] EhnocsoULHRBYDUKQ9854-49-85 12:15:0019.5[facility] RAMRRAWYMD2030-54-25 12:15:001.1[facility] CktrdfgMZEOTTFXLP2038-15-00 12:15:00 73.8[facility] NfntuehGIIQNOHUUW3526-48-96 12:15:000.4[facility] HermannHEMATOLOGY 2012-09-22 12:15:001.6[facility] RgsxsyqRAXOTSAEPS6034-68-13 12:15:000.0[facility] UytenizZZKNODNCYV4985-97-25 12:15:000.1[facility] RwuhbucIJTKMSHJQT6065-60-63 12:15:006.0[facility] FapksknVOQOBILLVI1965-91-97 12:15:000.6[facility] IRHDORACHG9271-44-98 12:15:000.87[facility] ZaelggoWUSMQPZAXP6919-58-44 12:15:00 Test Item Value Reference Range Interpretation Comments PTT (test code = PTT) 23.2 s 22.9-35.8 N [facility] LiqwdoyDGLDMPRIEX4577-83-33 12:15:00 Test Item Value Reference Range Interpretation Comments PT (test code = PT) 12.0 s 12.0-14.7 N [facility] HbwgzalIKGDUMDXOD1402-76-52 12:15:0092.3[facility] HermannHEMATOLOGY 2012-09-22 12:15:00 Test Item Value Reference Range Interpretation Comments MCH (test code = MCH) 31.0 pg 27.0-31.0 N [facility] FygzauxTSCVVMPIXU4271-54-88 12:15:0033.6[facility] HermannHEMATOLOGY 2012-09-22 12:15:0012.8[facility] KwuejvgZGHGDGUTDO1774-50-54 12:15:0047.8[facility] MmepmfiLNRIVIXZXA8159-33-70 12:15:009.1[facility] BzyldecDPDOJIWAJZ5157-44-06 12:15:95657Uvkktknw DzwprjkRZZKELHJYA8629-06-49 12:15:005.18[facility] YTOUOGQJTH7509-82-79 12:15:0016.1[facility] VtpepfoMDVUURYQDG8362-49-39 12:15:00 8.1[facility] YbciovqBBWCENNLK0060-65-61 12:15:001.6[facility] HermannCHEMISTRY 2012-09-22 12:15:002.8[facility] CbqsijtXKSDPDAPU5764-04-28 12:15:00<0.02 [facility] FgpismcLNTOSOEWA0538-64-09 12:15:64597Joqazkee HermannCHEMISTRY 2012-09-22 12:15:0066[facility] ZqskslgUKCUSEKOF6603-18-89 12:15:008.3[facility] CsiarefBZHGQZZNF6816-39-59 12:15:0026[facility] ZfbmfunENOSNXRRY5359-41-16 12:15:63552Tjzozejo BeilyrvORKCTIWVM6826-31-40 12:15:004.0[facility] MGMSCHDHL1999-35-63 12:15:70258Ihhgdhww OmlofmaAQSDTGHXL9513-82-71 12:15:001.3 [facility] XxgbrmfCALELESRU7369-95-45 12:15:0015[facility] HermannCHEMISTRY 2012-09-22 12:15:51446Seecigmc XclzquwDNMIGVUPQ8151-92-80 12:15:003.7[facility] TxdtxkwCDTIQCXDZ2576-53-08 12:15:006.7[facility] KejqvhiFTTIMPBZE1972-65-71 12:15:35538Mwmkeede TeogruqQTUJTUJLE8324-86-63 12:15:0063[facility] UVQWXJRVR4590-07-41 12:15:000.3[facility] JttcemkUYMXRGBGV8261-64-52 12:15:0036 [facility] TguktziSTRYFFAER5920-66-15 12:15:0014.0[facility] HermannCHEMISTRY 2012-09-22 12:15:0012[facility] LrwbsdsOWMWCTZSS2698-41-72 12:15:001.2[facility] KorodgvRSZKXNRDE8328-04-59 12:15:003.0[facility] UfoapylFYKQLGFUAT5414-25-02 12:15:005.0[facility] WjaiyjuZQQOSMBDIH8223-36-89 12:15:0019.5[facility] AHYFKQKUUC4422-72-69 12:15:001.1[facility] ZmwifchMFJBJVZSFE8347-96-61 12:15:00 73.8[facility] YxgfrgpZNWFLSCPVV4940-49-34 12:15:000.4[facility] HermannHEMATOLOGY 2012-09-22 12:15:001.6[facility] GaovevtRCRJSGKLXJ4646-56-71 12:15:000.0[facility] SpuzbziSCGESDDJMC6324-43-53 12:15:000.1[facility] NuwygedETOANYIVVS3962-43-21 12:15:006.0[facility] HjfbmxfOLBVGLVHMZ5669-61-99 12:15:000.6[facility] UAFLDPKTZL8046-01-07 12:15:000.87[facility] MhnsdmrTITBDHNIIW9968-14-08 12:15:00 Test Item Value Reference Range Interpretation Comments PTT (test code = PTT) 23.2 s 22.9-35.8 N [facility] JtwpdbbNBZESOCUSI6948-64-54 12:15:00 Test Item Value Reference Range Interpretation Comments PT (test code = PT) 12.0 s 12.0-14.7 N [facility] NzfyzglOTBTLCDMJV9728-89-92 12:15:0092.3[facility]annHEMATOLOGY 2012-09-22 12:15:00 Test Item Value Reference Range Interpretation Comments MCH (test code = MCH) 31.0 pg 27.0-31.0 N [facility] GpiejzdBHGYZQGKLP1083-54-11 12:15:0033.6[facility] HermannHEMATOLOGY 2012-09-22 12:15:0012.8[facility] PgphltfCDFACFFIKZ9812-17-67 12:15:0047.8[facility] JhkfzofEPOCMTWEHA6739-55-27 12:15:009.1[facility] DsjastaDIHQOTBBXC4936-27-14 12:15:57187Lbwnadrt QbwxfucCSYTEWVXKI5867-06-31 12:15:005.18[facility] JOQDHILPFR5246-97-22 12:15:0016.1[facility] VbdjiwjOYVUHQPQIO4771-87-11 12:15:00 8.1[facility] MxmrqkwBFFTTCELE0798-51-06 12:15:001.6[facility] HermannCHEMISTRY 2012-09-22 12:15:002.8[facility] MuvhxtxFAIJYXIDH8694-13-93 12:15:00<0.02 [facility] YkzhikxEUTNGYGXV3716-24-84 12:15:10987Uvqflmrr HermannCHEMISTRY 2012-09-22 12:15:0066[facility] IcrtlizUUTFDNBZW1827-63-48 12:15:008.3[facility] IlbasjhNTQAJQYVD6539-66-83 12:15:0026[facility] NxobqvaXECSUEJCW1359-55-90 12:15:10950Hgcxodzu VlckqxiJZGSTOMWX9569-54-91 12:15:004.0[facility] HBWBKIORE4902-46-51 12:15:81943Kezsrnvb PlevhxjHYYMGUASO6768-05-50 12:15:001.3 [facility] KtxmpfyKWZKGXFNG1827-35-57 12:15:0015[facility] HermannCHEMISTRY 2012-09-22 12:15:07537Kprqfsod GrcsdaqRNNCZSIIK2860-65-72 12:15:003.7[facility] DzrhynlNYOEJVZLY4138-38-44 12:15:006.7[facility] AqdimogSDXZDEGAH8784-04-32 12:15:36299Umwqefga NnndncyZLCJHPQEV3498-01-08 12:15:0063[facility] KFPUDPAAW1528-95-07 12:15:000.3[facility] VsyxqxqMFFATBVCE6040-94-38 12:15:0036 [facility] IwxbavoMRWTUTDRO4983-92-07 12:15:0014.0[facility] HermannCHEMISTRY 2012-09-22 12:15:0012[facility] KtnofqfNOSZWMIKI1965-32-45 12:15:001.2[facility] OkvmknmVKYUDTBBZ8327-67-28 12:15:003.0[facility] SchfddxNGUWEHOGPY3558-18-70 12:15:005.0[facility] GpzscjzOCVKCYALQI8079-85-77 12:15:0019.5[facility] OTAGNONFZC1990-89-37 12:15:001.1[facility] FslsfokUHPHQQZXYX1459-88-42 12:15:00 73.8[facility] TacwvexQUTBNJMRQL5219-62-46 12:15:000.4[facility] HermannHEMATOLOGY 2012-09-22 12:15:001.6[facility] DvgueecXNMABCSMXL6396-63-22 12:15:000.0[facility] CzcdhgrNPYBLAHLJA1270-88-70 12:15:000.1[facility] AuvpgikBPQTZNSIIF3435-77-73 12:15:006.0[facility] OxdpzlxVBDXPQKMAX3557-61-80 12:15:000.6[facility] YIPXYESBHV2225-05-25 12:15:000.87[facility] UwihvgeRTWQCZRIEK6649-31-31 12:15:00 Test Item Value Reference Range Interpretation Comments PTT (test code = PTT) 23.2 s 22.9-35.8 N [facility] FvnfmhgZUPNSCIMXU7735-63-56 12:15:00 Test Item Value Reference Range Interpretation Comments PT (test code = PT) 12.0 s 12.0-14.7 N [facility] AkgydbkRMHICQRMCE2307-97-52 12:15:0092.3[facility]annHEMATOLOGY 2012-09-22 12:15:00 Test Item Value Reference Range Interpretation Comments MCH (test code = MCH) 31.0 pg 27.0-31.0 N [facility] NylopwlSUJQEQCIIJ3888-00-83 12:15:0033.6[facility]annHEMATOLOGY 2012-09-22 12:15:0012.8[facility] MizedswAJHVDMVTVX1098-70-23 12:15:0047.8[facility] SkakyrmBDKXEMZBPY4945-98-52 12:15:009.1[facility] MkxjgwqCSVDMRQNUQ8537-01-25 12:15:38570Uiliqxud NihjmdiMESYJZGSHD6198-40-71 12:15:005.18[facility] XSPJCVSYMR7624-14-01 12:15:0016.1[facility] IqylroyIBXDOGRTPO9266-71-52 12:15:00 8.1[facility] XgmcqsaAMLZGZRDG2190-83-04 12:15:001.6[facility] HermannCHEMISTRY 2012-09-22 12:15:002.8[facility] AtkgklvRZGBTTICL4076-14-05 12:15:00<0.02 [facility] ZagvramGSVFCLBIV6981-94-20 12:15:12703Qskwsiit HermannCHEMISTRY 2012-09-22 12:15:0066[facility] OfxppapQCOPAKTXX8798-23-78 12:15:008.3[facility] RwjkcwlDVNJCBWMS7904-54-12 12:15:0026[facility] GrgcdfrZXSMFTEUJ4509-65-96 12:15:55368Kyogfmgo WafihfjHBEHLRJMC3583-73-05 12:15:004.0[facility] IVQSESFCH0235-31-18 12:15:20746Lbmmqxmo QbohzdaDEYYDWTWT0933-22-75 12:15:001.3 [facility] XhonussZPRFHRQCP6721-15-11 12:15:0015[facility]annCHEMISTRY 2012-09-22 12:15:56117Yeijzctv UcvktakDPRFYPCXP5714-95-52 12:15:003.7[facility] StftvizDKFUPQQBA9163-86-46 12:15:006.7[facility] IeuunzgYVWVUQXBZ2612-67-90 12:15:76848Ptjevmof SrcdxdaXFFHCFSYG5958-68-98 12:15:0063[facility] AZYWPVRYT4636-68-40 12:15:000.3[facility] PmblkcyTGWXWEUCG2948-24-08 12:15:0036 [facility] BzmomxpTDBDQFECU8729-12-69 12:15:0014.0[facility] HermannCHEMISTRY 2012-09-22 12:15:0012[facility] WcsqmguURBOPBKAA8667-60-02 12:15:001.2[facility] XcvxgedBEQQMBOYK9104-83-85 12:15:003.0[facility] FhskfftFYBWZIADEJ3334-55-45 12:15:005.0[facility] KyhgobuGRVRQHSHCB6572-52-41 12:15:0019.5[facility] HTTFFVISQW8259-30-16 12:15:001.1[facility] XmdfborMETDXFZLLP1220-34-88 12:15:00 73.8[facility] VndrtqgIZPKZVLOWP1242-03-80 12:15:000.4[facility] HermannHEMATOLOGY 2012-09-22 12:15:001.6[facility] EbvxarhNEFXMFEWMQ4510-22-15 12:15:000.0[facility] TiykgshRNDXOFAQZK6280-14-76 12:15:000.1[facility] NgrnjsbKYMIRPJNGM7652-65-52 12:15:006.0[facility] AevyylbWGUTYGCLFA8887-26-20 12:15:000.6[facility] XAPVFDOSVE5424-12-92 12:15:000.87[facility] RwkqjxeEGSHKSQBYW1608-66-14 12:15:00 Test Item Value Reference Range Interpretation Comments PTT (test code = PTT) 23.2 s 22.9-35.8 N [facility] RwahpwyMNRIVBFTSZ0676-04-17 12:15:00 Test Item Value Reference Range Interpretation Comments PT (test code = PT) 12.0 s 12.0-14.7 N [facility] KayiaalJSPXNFUGCN0018-21-70 12:15:0092.3[facility]annHEMATOLOGY 2012-09-22 12:15:00 Test Item Value Reference Range Interpretation Comments MCH (test code = MCH) 31.0 pg 27.0-31.0 N [facility] PoesajhWXLBWZXRKQ6892-90-84 12:15:0033.6[facility]annHEMATOLOGY 2012-09-22 12:15:0012.8[facility] VphoepqZKZFDBEEVZ7847-27-85 12:15:0047.8[facility] YpmncsrCVRXZFXBAS0061-84-52 12:15:009.1[facility] AmtrwepMMWRITIHLM6605-96-87 12:15:15380Xyodaaxk SqqxwrpNVFIMWGIEE5816-50-47 12:15:005.18[facility] XOCMPVJGGG1060-00-51 12:15:0016.1[facility] SrlowcgVXIRONXGFE2075-71-90 12:15:00 8.1[facility] TibpocyYLMHWHPGN3707-75-38 12:15:001.6[facility] HermannCHEMISTRY 2012-09-22 12:15:002.8[facility] LohrejaOQTHFIRJU0065-10-89 12:15:00<0.02 [facility] CqluvrqOZLJBRSYS8225-39-16 12:15:24602Vjxsxozz HermannCHEMISTRY 2012-09-22 12:15:0066[facility] SvuprgwKHFLHALIY8431-70-47 12:15:008.3[facility] UehwyyqCVTWOYXSJ0170-92-76 12:15:0026[facility] LioqxgyVIOFSRWIN5452-78-30 12:15:02236Fpdwalti NhatqpfIYFHKPWZC4979-19-69 12:15:004.0[facility] LCVDHZYQE6577-94-76 12:15:45462Wnxcsevm OhvbjbyQDOWDGIHY1281-76-31 12:15:001.3 [facility] TsqohbvQJKWMBXZU8304-23-65 12:15:0015[facility] HermannCHEMISTRY 2012-09-22 12:15:43280Jrvxdiim NyfisupZEMDZQQNX8032-86-64 12:15:003.7[facility] RhstjdhEQQSOMSLY0899-44-85 12:15:006.7[facility] TaovcdiJIDWEFNHQ8644-25-51 12:15:65060Vqphcdsy NdgyhljKDWNUFEYP0553-18-50 12:15:0063[facility] TKDNOUOOQ5547-37-55 12:15:000.3[facility] MujgrbxHAJDKHXQN4888-74-42 12:15:0036 [facility] AhqszsoMLSWLRDSP3306-91-35 12:15:0014.0[facility] HermannCHEMISTRY 2012-09-22 12:15:0012[facility] HcjrquaBAKVYCSOT4351-96-08 12:15:001.2[facility] QnqimtfKFUPKZJVU4192-73-58 12:15:003.0[facility] IkoxeoeYZSAABLYUU2289-94-92 12:15:005.0[facility] HwblpxtAMFQEWCSJI1932-36-59 12:15:0019.5[facility] AIPXZQTOGM1883-95-16 12:15:001.1[facility] HgojsyuFMRCPZHZBG9054-49-02 12:15:00 73.8[facility] RiqmdkgQDXIBKVYFW0414-22-08 12:15:000.4[facility] HermannHEMATOLOGY 2012-09-22 12:15:001.6[facility] VwxppdmBYRFOUZJWN3191-00-07 12:15:000.0[facility] IoodhexVCMFZSLQVA8526-60-39 12:15:000.1[facility] QxpqmzhSRFVJYYFCO8369-27-58 12:15:006.0[facility] IwnhiycPVGPMGUOEE1795-54-63 12:15:000.6[facility] PBDATVGKOC0171-66-14 12:15:000.87[facility] BjllbwxRQUCDLWCCV2074-81-22 12:15:00 Test Item Value Reference Range Interpretation Comments PTT (test code = PTT) 23.2 s 22.9-35.8 [facility]WwadaagWHFJLMJVPC9580-29-97 12:15:00 Test Item Value Reference Range Interpretation Comments PT (test code = PT) 12.0 s 12.0-14.7 N [facility] DallasAzreamuCIZVTTPQZU6611-48-03 12:15:0092.3[facility] HermannHEMATOLOGY 2012-09-22 12:15:00 Test Item Value Reference Range Interpretation Comments MCH (test code = MCH) 31.0 pg 27.0-31.0 N [facility] BlyhslwXQGDLMXWLU4703-17-83 12:15:0033.6[facility] HermannHEMATOLOGY 2012-09-22 12:15:0012.8[facility] MkiwhjtXBPWQNCAPR6340-51-60 12:15:0047.8[facility] XhzqmqgUZHVQRDKAE0756-31-09 12:15:009.1[facility] CzvgaspOYHBNIRVXE4202-94-34 12:15:42900Rnjnjkeo MpfpcefVRQIQCFDWI5047-85-61 12:15:005.18[facility] WHMUWAXALU9877-69-95 12:15:0016.1[facility] ZrvhaszWWAINTDQRV0337-53-98 12:15:00 8.1[facility] CgsgahkQXKYDQSPS6937-48-40 12:15:001.6[facility] 2012-09-22 12:15:0047.8[facility] FkvdipsCMQGHBSYTA4115-00-74 12:15:009.1[facility] OlkkdlaLPZEOMPNRF3288-04-17 12:15:19698Wghfcnfh PwjubjeUNVWWVKRBW9964-50-33 12:15:005.18[facility] NgwbwslKCGFFZWDOV3895-99-60 12:15:0016.1[facility] RHBFWJWDFQ7133-94-17 12:15:008.1[facility] MvnzjnfHMKDCVKLF3121-79-40 12:15:001.6 [facility] BkglftuDBXHGAWOT5234-93-98 12:15:002.8[facility]annCHEMISTRY 2012-09-22 12:15:00<0.02[facility] DgrgfqkJKGMTTYNE6002-24-78 12:15:08287 [facility] KtvqemeJAYNIFOCC2675-26-45 12:15:0066[facility]CHE[facility]Y 2012-09-22 12:15:008.3[facility] HwhkjncAXQOPIPCO2613-91-60 12:15:0026[facility] QxsqzzkCUOJWWXIF6967-81-84 12:15:26331Dscehkek OvrtraiAASPRZAHE9340-84-55 12:15:004.0[facility] XcvpqhaYOEOKJAMW5046-31-54 12:15:92960Sfjixojv [facility] KSHMQLZPL4375-09-79 12:15:001.3[facility] JyuiftgHOFJXVFVB8247-69-41 12:15:0015 [facility] ApxucxbDGDBKLWTI2211-92-02 12:15:61051Tdlvrhfl HermannCHEMISTRY 2012-09-22 12:15:003.7[facility] WgyvbqpWZUVEQOSF5299-36-84 12:15:006.7[facility] QeeovdzWBFHDEVEB9867-08-34 12:15:07842Yjpcpdrr XhmvghePNVYQVTYW3999-16-08 12:15:0063[facility] OlsopxzZMARSRWII5511-63-03 12:15:000.3[facility] ZKFGTLCZY0660-30-87 12:15:0036[facility] StvgknnWENEEWMUR0449-59-13 12:15:0014.0 [facility] AsaouubWULRDGQDK4815-40-07 12:15:0012[facility]annCHE[facility]Y 2012-09-22 12:15:001.2[facility] KluowrkFXNSQMUCE4079-80-06 12:15:003.0[facility] IytwfvwKVLBZVEGQO6683-02-71 12:15:005.0[facility] IylzkhzTDWUFZXYMC6526-96-91 12:15:0019.5[facility] OqdvxfbVFAZRHSFSF5442-68-26 12:15:001.1[facility] NTCQNPMUAQ0913-63-26 12:15:0073.8[facility] JhjfdtfMVUUJRULRX6145-64-14 12:15:00 0.4[facility] EjlxsnoFCGSFIRQAW6020-45-04 12:15:001.6[facility]annHE[facility]OLOGY 2012-09-22 12:15:000.0[facility] ViplsdmEKUJATMUXY4707-39-45 12:15:000.1[facility] NlijvntGOPBBPYKVI5704-83-62 12:15:006.0[facility] BycerdpBXGSJXPYPZ5739-17-12 12:15:000.6[facility] FwdsxcgRGSJYIBKBD1064-93-12 12:15:000.87[facility] AMLUIYIRLB5635-67-27 12:15:00 Test Item Value Reference Range Interpretation Comments PTT (test code = PTT) 23.2 s 22.9-35.8 N [facility] HtzpsimKMIGECZDWL7553-66-22 12:15:00 Test Item Value Reference Range Interpretation Comments PT (test code = PT) 12.0 s 12.0-14.7 N [facility] OvnehwkTZMNVEFPXQ3127-90-65 12:15:0092.3[facility] 2012-09-22 12:15:00 Test Item Value Reference Range Interpretation Comments MCH (test code = MCH) 31.0 pg 27.0-31.0 N [facility] TutpmnzJVCJARNAET8661-77-95 12:15:0033.6[facility]annHE[facility]Y 2012-09-22 12:15:0012.8[facility] EoucevwZZCSFVLPCV6397-42-10 12:15:0047.8[facility] VovartnRGMMNJRMBU4503-94-52 12:15:009.1[facility] NujmupbXHRFPEANKQ8803-38-97 12:15:18886Vwkhqnsc XghxdedRHCSKTDQPY1684-04-10 12:15:005.18[facility] MXPLAUMPZL0862-76-03 12:15:0016.1[facility] GpzjqsnQBKAIFJGVF4372-74-37 12:15:00 8.1[facility] OigiutkQQVRMGIKR7558-43-24 12:15:001.6[facility]annCHEMISTRY 2012-09-22 12:15:002.8[facility] ZeriyczZEDKBNPZJ9212-72-40 12:15:00<0.02 [facility] PzdwuabNZHTTMDHB3380-66-19 12:15:90722Jxhgwcms HermannCHEMISTRY 2012-09-22 12:15:0066[facility] ArseeiaOZKJTWSYX1205-35-46 12:15:008.3[facility] TgklxscXEQFNPXAB9644-26-79 12:15:0026[facility] ScxehyzGPKLZICJQ2470-88-30 12:15:21173Micfhztu HpvhzevDZUHQSHPW7575-59-50 12:15:004.0[facility] NLQLBOTHU3931-31-97 12:15:26314Khdjtswq IwerlcyXVWVUVTBN4350-33-07 12:15:001.3 [facility] KkekvaiXTYNQZXDT4625-52-12 12:15:0015[facility]annCHEMISTRY 2012-09-22 12:15:89587Xyviclor HnrdefgXJZWCSVEY7031-99-30 12:15:003.7[facility] PuypxvxNCQKCFJGY0449-83-46 12:15:006.7[facility] GduwpknQQOLXYYLG1682-27-28 12:15:16986Bmmrdhna EpocojzZRGADCPRZ0784-03-42 12:15:0063[facility] BANBNWMYQ1554-25-66 12:15:000.3[facility] YdetzlfMHVIOHIYF1209-05-21 12:15:0036 [facility] UqnkoufPWRESNZBT7075-01-36 12:15:0014.0[facility]annCHEMISTRY 2012-09-22 12:15:0012[facility] WavokvsUSNOAWEDR9102-71-37 12:15:001.2[facility] VqaeqxjWPUQYFCUW4991-08-56 12:15:003.0[facility] WwqqcfuKPCIREYORP2656-94-44 12:15:005.0[facility] OpwsfhkKMKAYSNYMS5910-86-70 12:15:0019.5[facility] XGYHYTDMAN5409-55-95 12:15:001.1[facility] SpbanruJXMSAWVULR9023-09-03 12:15:00 73.8[facility] WeatzmtCZACBPCNKV9152-14-51 12:15:000.4[facility]annHEMATOLOGY 2012-09-22 12:15:001.6[facility] ZhazgfmRMZRMREOUO3434-11-85 12:15:000.0[facility] QwdoyptKWTLGNOFRA8735-81-93 12:15:000.1[facility] GxlvydkQQVJETJCNE0078-85-88 12:15:006.0[facility] RelupraYMTMIWVTJD2385-00-11 12:15:000.6[facility] UVGSDWVLVC1258-93-47 12:15:000.87[facility] FfcjtljVXSTNULJHQ1069-89-96 12:15:00 Test Item Value Reference Range Interpretation Comments PTT (test code = PTT) 23.2 s 22.9-35.8 N [facility] JbbmeluIXDQGGVFQR6455-76-51 12:15:00 Test Item Value Reference Range Interpretation Comments PT (test code = PT) 12.0 s 12.0-14.7 N [facility] KtulbrmTRUTAVRAYB6988-84-54 12:15:0092.3[facility]annHEMATOLOGY 2012-09-22 12:15:00 Test Item Value Reference Range Interpretation Comments MCH (test code = MCH) 31.0 pg 27.0-31.0 N [facility] MsxzgpiCJIMAJSPYH5508-45-73 12:15:0033.6[facility]annHEMATOLOGY 2012-09-22 12:15:0012.8[facility] HhndcenBBXOROSIOZ5378-47-44 12:15:0047.8[facility] GopnwxsQPGAUAJMJR7802-50-22 12:15:009.1[facility] AiqissjOCUJQILAHM5059-65-09 12:15:54165Gcpdrxtd AorcyolLVGVRIKGSU9868-21-91 12:15:005.18[facility] ZMKOHMZHXG0511-04-49 12:15:0016.1[facility] QgtxcnuKNOMXUESXQ5892-20-17 12:15:00 8.1[facility] TenkbvgNAXTWVEWE9100-13-57 12:15:001.6[facility]annCHEMISTRY 2012-09-22 12:15:002.8[facility] HjprvfhXLYCBJQIC6388-95-10 12:15:00<0.02 [facility] WznkwrjDGEONQKIZ2761-05-90 12:15:88304Fmvftwhx HermannCHEMISTRY 2012-09-22 12:15:0066[facility] PlhtsbsCXAZMBLWV2834-82-08 12:15:008.3[facility] GcgnzqhHVLYKPKPN9425-97-31 12:15:0026[facility] EnotlekJPITPJUDG2037-84-73 12:15:15255Ivroghfi UfjloyhNZQSQTUMW7083-07-48 12:15:004.0[facility] LOPPLUDRX8119-76-86 12:15:42643Bkasuxyq VzpyhecCUAAMXDQK9143-08-30 12:15:001.3 [facility] ItylirnHHPAGPFUY5656-82-73 12:15:0015[facility]annCHEMISTRY 2012-09-22 12:15:08992Htzwjlpe XnhomkiFAIVXIAMV8609-06-53 12:15:003.7[facility] FszpxecJVKMUTGBQ6927-05-98 12:15:006.7[facility] IclttjsKMXJMYUNT9815-25-08 12:15:09087Gpumsqtn SdmiwhiQUNVRAZNP5228-52-23 12:15:0063[facility] BSTKYZEUJ1849-13-79 12:15:000.3[facility] LubzujwLRUCHOZEY9184-76-99 12:15:0036 [facility] RrpoxruDRVJVZZUL4045-27-38 12:15:0014.0[facility] HermannCHEMISTRY 2012-09-22 12:15:0012[facility] SmvnkgmPPOQSRTOJ4727-68-64 12:15:001.2[facility] BbtlzriMJEQVDAPK8519-89-00 12:15:003.0[facility] NdiuahdYFZAZUGMRB9510-52-87 12:15:005.0[facility] XquxemkMMUNLRTPIL1923-50-95 12:15:0019.5[facility] PMIQACTRLF0921-28-17 12:15:001.1[facility] IcsupguUSQNEMMXGK5157-24-04 12:15:00 73.8[facility] FskwuppXUSYCDOQUR8867-03-67 12:15:000.4[facility] HermannHEMATOLOGY 2012-09-22 12:15:001.6[facility] GqjfcuyWMVVMVQVBA4113-42-40 12:15:000.0[facility] SfwtszpATZBABGPAE8244-21-77 12:15:000.1[facility] IlqqyquVQPAUSEMSD7313-53-01 12:15:006.0[facility] BxkjzbzQYUHRJJWWO6662-75-26 12:15:000.6[facility] NWXLSNKLWL7197-12-28 12:15:000.87[facility] UhmelezHALLVATPCO7946-72-42 12:15:00 Test Item Value Reference Range Interpretation Comments PTT (test code = PTT) 23.2 s 22.9-35.8 N [facility] MuzjvfbBDSYOXXRVK1214-40-77 12:15:00 Test Item Value Reference Range Interpretation Comments PT (test code = PT) 12.0 s 12.0-14.7 N [facility] FkjodjdXRYVCWAEPK3533-38-46 12:15:0092.3[facility] HermannHEMATOLOGY 2012-09-22 12:15:00 Test Item Value Reference Range Interpretation Comments MCH (test code = MCH) 31.0 pg 27.0-31.0 N [facility] VxzsozaCCJGHHTFPL2658-50-01 12:15:0033.6[facility] HermannHEMATOLOGY 2012-09-22 12:15:0012.8[facility] QrzcgurFPEDMQLMQG7241-21-46 12:15:0047.8[facility] YvizfhwZXHSQZFCVH0731-39-20 12:15:009.1[facility] MywrzyqXQSAKWAFBO7331-16-47 12:15:76266Icsxajir EbimnxlWLGYASOKNC8857-45-81 12:15:005.18[facility] LIKCJAVIRU9321-02-40 12:15:0016.1[facility] VrhwpepMGZXPOWRCR1599-36-01 12:15:00 8.1[facility] JnfsyaqTNGMDAVQF6106-38-64 12:15:001.6[facility] HermannCHEMISTRY 2012-09-22 12:15:002.8[facility] PevfotjVIWAVZTQM3536-60-07 12:15:00<0.02 [facility] LzbcdgyZYAYXAFEE4088-25-80 12:15:76159Fosgpmup HermannCHEMISTRY 2012-09-22 12:15:0066[facility] OzjyaytOXTMBLSHF0784-54-21 12:15:008.3[facility] ObbsasgFGJGSIDCI7323-57-46 12:15:0026[facility] DltigkiFLXLAGYPF0103-17-28 12:15:57941Nakkqrrt TerikjkNQRDXPDPW6916-01-83 12:15:004.0[facility] BTRRIJIYY5514-25-44 12:15:10281Fewufpxk SdbysvqJGCEALDQK5018-24-42 12:15:001.3 [facility] ZudzhxcNAHGNOEGP0575-03-30 12:15:0015[facility] HermannCHEMISTRY 2012-09-22 12:15:57694Ynxmplnc NemryriETCOUBBYT9306-95-08 12:15:003.7[facility] MimhgrzXFPWFORLT8507-97-08 12:15:006.7[facility] VafqbjzMQMJXYSCZ4658-78-38 12:15:54126Ogvdwocp DflytftOVRRCHUAB3405-89-06 12:15:0063[facility] OLGSZPNUP9942-42-72 12:15:000.3[facility] LpkpkssVLUHYXTWY7732-44-73 12:15:0036 [facility] UkykgdrHUXTZKKEW4776-77-91 12:15:0014.0[facility] HermannCHEMISTRY 2012-09-22 12:15:0012[facility] PrkzwueZVGVLMQYZ4938-26-83 12:15:001.2[facility] FzvemaxVYBBLIMIX6936-35-98 12:15:003.0[facility] VvmrbmxWUCAOJFVJY4014-21-76 12:15:005.0[facility] NyvoridCZCPUZWUWE7770-07-53 12:15:0019.5[facility] GTNVMMTWPC3962-48-96 12:15:001.1[facility] TyojsdqTRYPKNAYBY5471-89-77 12:15:00 73.8[facility] StvdsmjPLQZPUREBA3336-89-59 12:15:000.4[facility] HermannHEMATOLOGY 2012-09-22 12:15:001.6[facility] XexcorjVWUOGUHJVZ2989-81-20 12:15:000.0[facility] WefwjpxFFWENKFEEK5314-31-97 12:15:000.1[facility] CdflsqvWDCWNPOAIM5817-59-49 12:15:006.0[facility] XgzsucpAIFWYTNZWV4945-70-60 12:15:000.6[facility] HJHOXJDNKM1625-03-93 12:15:000.87[facility] PjqjquyMOEJVKRFEP4953-60-35 12:15:00 Test Item Value Reference Range Interpretation Comments PTT (test code = PTT) 23.2 s 22.9-35.8 N [facility] ZdmiigqHIWXTXDYRG9822-57-35 12:15:00 Test Item Value Reference Range Interpretation Comments PT (test code = PT) 12.0 s 12.0-14.7 N [facility] KdpgvgmWZRFNFCSSV9720-78-33 12:15:0092.3[facility] HermannHEMATOLOGY 2012-09-22 12:15:00 Test Item Value Reference Range Interpretation Comments MCH (test code = MCH) 31.0 pg 27.0-31.0 N [facility] BxbaktrBNGFLJIJGK2094-67-03 12:15:0033.6[facility] HermannHEMATOLOGY 2012-09-22 12:15:0012.8[facility] OjvigngJMRBGHSXEX0295-75-73 12:15:0047.8[facility] AjbtocgPOVMKECQPZ6156-88-43 12:15:009.1[facility] DozltstZWZYWGEAQK3164-11-39 12:15:45853Mvblicka GzkwmarFJNXKDZIUX9734-51-12 12:15:005.18[facility] LRDTLRXFEX2762-90-51 12:15:0016.1[facility] AspryyaMJOEBXIDJI2441-70-27 12:15:00 8.1[facility] AewxvzuMFCOVYGHS4496-77-82 12:15:001.6[facility] HermannCHEMISTRY 2012-09-22 12:15:002.8[facility] FondsniYHFLPPRFE2499-51-05 12:15:00<0.02 [facility] BufotveTCVTDGUOB3900-31-74 12:15:05359Ucswqgvl HermannCHEMISTRY 2012-09-22 12:15:0066[facility] UnimeswLAWNNFWHR6786-10-95 12:15:008.3[facility] ImfwmpzEYMYJEEPF7830-81-39 12:15:0026[facility] QrfcqsbTYXMFIFRQ6744-87-19 12:15:85609Qrgvjzpn NyihudePUSZEXOSX8932-21-97 12:15:004.0[facility] ORVIIWHOL1231-06-28 12:15:70570Iiguvgsz EwaxkmgRDBNBPIFO2496-44-82 12:15:001.3 [facility] RsfwodyDLLXRGYSS8513-53-43 12:15:0015[facility] HermannCHEMISTRY 2012-09-22 12:15:50909Gvtfkyzk IdjbfglFJMTWEIOK2465-00-76 12:15:003.7[facility] VhhpjcvIOOGZEPBX7245-98-73 12:15:006.7[facility] YdeambaLNOYLYJCY8883-60-25 12:15:89212Viddnsip WkawawdZDDTAIFCU9301-77-21 12:15:0063[facility] EYBLOCNJR8032-50-34 12:15:000.3[facility] HajdzzhOQRWBBFAM6260-73-55 12:15:0036 [facility] AfpehxvWETCCUHFL7884-07-56 12:15:0014.0[facility] HermannCHEMISTRY 2012-09-22 12:15:0012[facility] XtuilhjAFFWSQCPZ6227-54-88 12:15:001.2[facility] QpcegnfEEVXBEFMX1163-30-70 12:15:003.0[facility] AmgrglaFRZLQYMHHZ0042-50-57 12:15:005.0[facility] YhanllxFQBFCUHAAW7272-35-82 12:15:0019.5[facility] OVVTPQIOXY6575-76-68 12:15:001.1[facility] HwpnpblKBVYOCUHMY6193-52-28 12:15:00 73.8[facility] BzxnfrgSTLXNPEEWR9235-82-65 12:15:000.4[facility] HermannHEMATOLOGY 2012-09-22 12:15:001.6[facility] PnoburzNTSYVNRQKY8455-13-02 12:15:000.0[facility] QcauxdaNRDSGQLXTD8885-18-98 12:15:000.1[facility] UkbxkkyOCXGZJTWZU4941-88-72 12:15:006.0[facility] StwdsaqGSBKGAWSOQ6333-09-48 12:15:000.6[facility] ECAMDSEGDW9187-38-91 12:15:000.87[facility] RoxsgbzUCAXPCSHMT4899-40-69 12:15:00 Test Item Value Reference Range Interpretation Comments PTT (test code = PTT) 23.2 s 22.9-35.8 [facility] 12:15:00 Test Item Value Reference Range Interpretation Comments PT (test code = PT) 12.0 s 12.0-14.7 N [facility] JjcgjdgVTVUHRQGBY4134-72-41 12:15:0092.3[facility] HermannHEMATOLOGY 2012-09-22 12:15:00 Test Item Value Reference Range Interpretation Comments MCH (test code = MCH) 31.0 pg 27.0-31.0 N [facility] DallasNcbvpqwSHDYDIQNGA2012-07-45 12:15:0033.6[facility] HermannHEMATOLOGY 2012-09-22 12:15:0012.8[facility] UcnnnvlPNOTRGKNAA2512-53-39 12:00:000.21[facility] FkrtbomAUHAQKZNEO9327-92-19 12:00:000.21[facility] NnsofvrUNSFMTAKFX3867-15-51 12:00:000.21[facility] YilnpuyRRGTWPDKUA3183-52-63 12:00:000.21[facility] YQVHPDSBJA0220-92-58 12:00:000.21[facility] UrgmaeyIYFYXWUPSF8449-93-64 12:00:00 0.[facility] CydrifbZRDTWXQOQA9531-87-56 12:00:000.21[facility] HermannHEMATOLOGY 2012-09-22 12:00:000.21[facility] UprorkvKYYFNFJNAA6019-02-83 12:00:000.21[facility] IfhprdcUNHHXSUWGE2952-50-34 12:00:000.21[facility] XyyoqlvPUDDRQBDVJ3734-25-60 12:00:000.21[facility] IhbbkupYMYKSSBNGD6239-01-59 12:00:000.21[facility] DYOETQYQPL0281-51-91 12:00:000.21[facility] DhredagHNMOOHIRQY4827-02-84 12:00:00 0.21[facility] RuhgtouELVMEDPWHO4931-85-07 12:00:000.21[facility] HermannHEMATOLOGY 2012-09-22 12:00:000.21[facility] FxxszaqCXVUKCNNXV4999-86-35 12:00:000.21[facility] RxwxzgdJKFHNCAUUP4471-57-19 12:00:000.21[facility] HcmzywyLISCFSHCOG0140-00-65 12:00:000.21[facility] GnkcdrsYOQHXTBIZP0767-85-57 12:00:000.21[facility] ILRMGMBLVZ9820-91-55 12:00:000.21[facility] VxjnyvqGHYSWZDXMC0691-68-14 12:00:00 0.21[facility] HumfnhhMQCDCDYFBG7228-40-62 12:00:000.21[facility]
[2021-07-15 06:49] LABS: Absolute Lymphocytes (CBC) 1.6 K/uL (0.7-4.9); Basophils % 0.8 % (0-1.3); Hematocrit 43.1 % (39.6-49.0); MPV 7.8 fL (7.6-11.3); RBC Red Blood Cell Count 4.87 M/uL (4.33-5.43)
[2021-07-15 07:06] LABS: Albumin 3.1 g/dL (3.4-5.0); Bilirubin Total 0.4 mg/dL (0.2-1.0); Potassium 3.9 mmol/L (3.5-5.1); Protein, Total 6.4 g/dL (6.4-8.2)
[2021-07-15] MEDS ORDERED: METOCLOPRAMIDE 10 MG/2mL INJ ONE (07:07)
[2021-07-15] MEDS ORDERED: DIPHENHYDRAMINE 25 MG TAB/CAP ONE (07:07)
[2021-07-15] MEDS ORDERED: NA CHLORIDE 0.9% 500 ML ONE (07:08)
[2021-07-15] MEDS ORDERED: DIPHENHYDRAMINE 50 MG/ML VIAL ONE (07:13)
--- NOTE | 2021-07-15 07:24 | RAD REPORT ---
EXAM DESCRIPTION: CT - Head Brain Wo Cont - 07/15/2021 6:49 am CLINICAL HISTORY: HEADACHE COMPARISON: Ct Stroke Brain Wo Cont dated 07/28/2020; Brain Wo Cont dated 07/28/2020 TECHNIQUE: Axial 5 mm thick images of the head were obtained without IV contrast. All CT scans are performed using dose optimization technique as appropriate and may include automated exposure control or mA/KV adjustment according to patient size. FINDINGS: No intracranial hemorrhage, mass, edema or shift of mid-line structures. No acute infarcti on changes seen. No abnormal extra-axial fluid collections. Ventricles are normal. Mastoid air cells and visualized portions of the paranasal sinuses are clear. No acute bony findings. No significant change from prior imaging. IMPRESSION: Negative non-contrast CT head examination.
[2021-07-15] MEDS ORDERED: PROMETHAZINE INJ 25 MG/ML AMP ONE (09:29)
[2021-07-15] MEDS ORDERED: FENTANYL CITR 100 MCG/2 ML ONE (09:29)
--- NOTE | 2021-07-15 10:32 | EDPHYS ---
Physician Documentation [facility] Name: Rashad Hanley III Age: 56 yrs Sex: Male : 1965 Arrival Date: 07/15/2021 Time: 06:04 Bed 16 Private MD: ED Physician Alexander Felix HPI: 07/15 06:36 This 56 yrs old Male presents to ER via EMS with complaints of Headache. pm1 06:36 The patient complains of pain to the base of the skull. The patient describes the pm1 headache as aching, constant. Onset: The symptoms/episode began/occurred last night. Associated signs and symptoms: Pertinent positives: nausea, Pertinent negatives: dizziness, fever, vomiting. Severity of symptoms: in the emergency department the pain a " 8" out of "10". Headache History: The patient has had previous headaches and this one is similar to previous episodes. The symptoms are alleviated by Darkened room, the symptoms are aggravated by movement. The patient has been recently seen by a physician: a x ray physician, Had endoscopy and stomach polyps removed last week when he followed up with GI for abdominal pain ongoing 1 month. Historical: - Allergies: 06:20 No Known Allergies; sv1 - Immunization history:: none. - Social history:: Smoking status: Patient denies any tobacco usage or history of. ROS: 06:36 Constitutional: Negative for fever, chills, and weight loss, Eyes: Negative for injury, pm1 pain, redness, and discharge, ENT: Negative for injury, pain, and discharge, Neck: Negative for injury, pain, and swelling, Cardiovascular: Negative for chest pain, palpitations, and edema, Respiratory: Negative for shortness of breath, cough, wheezing, and pleuritic chest pain, MS/Extremity: Negative for injury and deformity, Skin: Negative for injury, rash, and discoloration. 06:36 Neuro: Positive for headache, numbness, of the To both sides of face from the chin to both cheeks to the forehead and scalp. Exam: 06:30 Constitutional: This is a well developed, well nourished patient who is awake, alert, pm1 and in no acute distress. Head/Face: Normocephalic, atraumatic. 06:30 Back: No spinal tenderness. No costovertebral tenderness. Full range of motion. Skin: Warm, dry with normal turgor. Normal color with no rashes, no lesions, and no evidence of cellulitis. MS/ Extremity: Pulses equal, no cyanosis. Neurovascular intact. Full, normal range of motion. 06:30 Neck: External neck: tenderness, that is moderate, of the left trapezius and right trapezius, Movement of head causes headache. 06:30 Cardiovascular: Exam negative for acute changes, Rate: normal, Rhythm: regular, Pulses: no pulse deficits are appreciated. 06:30 Respiratory: Exam negative for acute changes, respiratory distress, shortness of breath, Breath sounds: are clear throughout. 06:30 Abdomen/GI: Inspection: abdomen appears normal, Palpation: abdomen is soft and non-tender, in all quadrants. 06:30 Neuro: Exam negative for acute changes, Orientation: is normal, Cranial nerves: CN II- XII are normal as tested, Cerebellar function: normal finger to nose testing, Motor: moves all fours, strength is 5/5 in all extremities, Sensation: is normal, no obvious gross deficits. Vital Signs: 06:06 BP 132 / 88; Pulse 59; Resp 16; Temp 98.2; Pulse Ox 98% ; lt3 07:00 BP 111 / 67; Pulse 52; Resp 15 S; Pulse Ox 99% on R/A; al4 07:30 BP 121 / 76; Pulse 52; Resp 14 S; Pulse Ox 99% on R/A; Pain 8/10; al4 08:00 BP 114 / 72; Pulse 47; Resp 20 S; Pulse Ox 96% on R/A; al4 08:30 BP 95 / 47; Pulse 46; Resp 21 S; Pulse Ox 97% on R/A; al4 09:00 BP 101 / 55; Pulse 48; Resp 19 S; Pulse Ox 96% on R/A; al4 09:30 BP 106 / 53; Pulse 48; Resp 20 S; Pulse Ox 96% on R/A; al4 10:30 BP 108 / 73; Pulse 46; Resp 18 S; Pulse Ox 96% on R/A; al4 MDM: 06:08 Patient medically screened. pm1 10:24 Data reviewed: vital signs. Data interpreted: Pulse oximetry: on room air is 96 %. pm1 Interpretation: normal. Counseling: I had a detailed discussion with the patient and/or guardian regarding: the historical points, exam findings, and any diagnostic results supporting the discharge/admit diagnosis, lab results, radiology results, the need for outpatient follow up, to return to the emergency department if symptoms worsen or persist or if there are any questions or concerns that arise at home. 10:38 ED course: PMPAware reviewed. pm1 12 06:22 Order name: CBC with Diff; Complete Time: 07:07 pm1 12 06:22 Order name: CMP; Complete Time: 07:07 pm1 12 06:18 Order name: CT Head Brain wo Cont; Complete Time: 07:39 pm1 12 06:22 Order name: IV Saline Lock; Complete Time: 07:19 pm1 Administered Medications: 06:21 CANCELLED (Inappropriate at this time; home medicationn): Aspirin 81 mg PO once lp1 06:21 CANCELLED (home medicationn): Metoprolol TARTRATE 50 mg PO once lp1 06:21 CANCELLED (Home medicationn): metFORMIN 1000 mg PO Per package directions; "2,000 mg in lp1 2 equally divided doses per day" 07:28 Drug: Benadryl (diphenhydrAMINE) 25 mg Route: IVP; Site: right forearm; al4 08:30 Follow up: Response: No adverse reaction al4 07:28 Drug: NS 0.9% 500 ml Route: IV; Rate: bolus; Site: right forearm; al4 08:30 Follow up: Response: No adverse reaction; IV Status: Completed infusion al4 07:29 Drug: Reglan (metoCLOPramide) 10 mg Route: IVP; Site: right forearm; al4 08:30 Follow up: Response: No adverse reaction al4 09:40 Drug: fentaNYL (PF) 25 mcg Route: IVP; Site: right forearm; al4 10:55 Follow up: Response: No adverse reaction; RASS: Alert and Calm (0) al4 09:40 Drug: Phenergan (promethazine) 12.5 mg Route: IVP; Site: right forearm; al4 10:54 Follow up: Response: No adverse reaction; RASS: Alert and Calm (0) al4 Disposition Summary: 07/15/21 10:31 Discharge Ordered Location: Home pm1 Problem: new pm1 Symptoms: have improved pm1 Condition: Stable pm1 Diagnosis - Headache pm1 Followup: pm1 - With: Emergency Department - When: As needed - Reason: Worsening of condition Followup: pm1 - With: Private Physician - When: 2 - 3 days - Reason: Recheck today's complaints, Continuance of care, Re-evaluation by your physician Discharge Instructions: - Discharge Summary Sheet pm1 - General Headache Without Cause pm1 Forms: - Medication Reconciliation Form pm1 - Thank You Letter pm1 - Antibiotic Education pm1 - Prescription Opioid Use pm1 - Work release form eb Prescriptions: - Fioricet 50-300-40 mg Oral capsule - take 1 capsule by ORAL route every 4 hours As needed as needed; 12 capsule; pm1 Refills: 0, Product Selection Permitted Addendum: 07/16/2021 11:08 Co-signature as Attending Physician, Alexandre Felix MD I agree with the assessment and c freeman plan of care. Signatures: Dispatcher [employer] Alexander Nuno MD MD cha Pena, Laura, RN RN lp1 Baltazar Aleman, FILLER MACHINE OPERATOR FILLER MACHINE OPERATOR pm1 Bob Lozano al4 Zion Jean RN RN sv1 Corrections: (The following items were deleted from the chart) 07/15 06:21 06:09 Aspirin 81 mg PO once given. sv1 lp1 06:21 06:15 Metoprolol TARTRATE 50 mg PO once given. sv1 lp1 06:21 06:16 metFORMIN 1000 mg PO Per package directions; "2,000 mg in 2 equally divided doses lp1 per day" given. sv1 06:21 06:20 Aspirin 81 mg PO once ordered. lp1 lp1 06:21 06:20 Metoprolol TARTRATE 50 mg PO once ordered. lp1 lp1 06:21 06:20 metFORMIN 1000 mg PO Per package directions; "2,000 mg in 2 equally divided doses lp1 per day" ordered. lp1 06:21 06:20 metFORMIN 1000 mg PO Per package directions; "2,000 mg in 2 equally divided doses lp1 per day" given. lp1 06:21 06:20 Metoprolol TARTRATE 50 mg PO once given. lp1 lp1 06:21 06:20 Aspirin 81 mg PO once given. lp1 lp1 06:21 06:21 Aspirin 81 mg PO once ordered. lp1 lp1 06:21 06:21 Metoprolol TARTRATE 50 mg PO once ordered. lp1 lp1 06:21 06:21 metFORMIN 1000 mg PO Per package directions; "2,000 mg in 2 equally divided doses lp1 per day" ordered. lp1 06:20 Allergies: No Known Allergies; sv1 sv1 06:20 Allergies: Aspirin; sv1 sv1 06:20 Allergies: Demerol; sv1 sv1 06:20 Allergies: Ibuprofen; sv1 sv1 06:20 Allergies: Unable to obtain; sv1 sv1 06:20 Allergies: Morphine; sv1 sv1 06:20 Allergies: Codeine; sv1 sv1
--- NOTE | 2021-07-15 10:32 | ER ---
Nurse's Notes [facility] Name: Rashad Hanley III Age: 56 yrs Sex: Male : 1965 Arrival Date: 07/15/2021 Time: 06:04 Bed 16 Private MD: Diagnosis: Headache Presentation: 07/15 06:17 Chief complaint: Patient states: CC head and facial pain 03/13. Coronavirus screen: At sv1 this time, the client does not indicate any symptoms associated with coronavirus-19. Ebola Screen: No symptoms or risks identified at this time. Initial Sepsis Screen: Does the patient have a suspected source of infection? No. Patient's initial sepsis screen is negative. Risk Assessment: Do you want to hurt yourself or someone else? Patient reports no desire to harm self or others. Onset of symptoms was July 11, 2021. 06:17 Method Of Arrival: EMS: [facility] sv1 06:17 Acuity: SHIRA 3 sv1 06:30 Initial Sepsis Screen: Does the patient meet any 2 criteria? No. Patient's initial sv1 sepsis screen is negative. Triage Assessment: 06:07 General: Appears uncomfortable, well developed. sv1 06:07 Pain: Complains of pain in face and scalp. sv1 06:20 General: Behavior is cooperative, appropriate for age, restless. sv1 Historical: - Allergies: 06:20 No Known Allergies; sv1 - Immunization history:: none. - Social history:: Smoking status: Patient denies any tobacco usage or history of. Screenin:28 Abuse screen: none. Nutritional screening: No deficits noted. Tuberculosis screening: sv1 No symptoms or risk factors identified. Fall Risk Secondary diagnosis (15 points) bloody stool. IV access (20 points). Assessment: 07:09 Reassessment: CT completed. Reported off. . sv1 07:31 General: Appears in no apparent distress. uncomfortable, Behavior is calm, cooperative, al4 appropriate for age. Pain: Complains of pain in back of head Pain currently is 8 out of 10 on a pain scale. Pain began at 0200. Neuro: Level of Consciousness is awake, alert, obeys commands, Oriented to person, place, time, situation, Appropriate for age. Cardiovascular: Heart tones present Capillary refill < 3 seconds Patient's skin is warm and dry. Respiratory: Airway is patent Respiratory effort is even, unlabored, Respiratory pattern is regular, symmetrical, Breath sounds are clear bilaterally. GI: Bowel sounds present X 4 quads. Reports nausea, "not being able to have a decent bowel movement in 2 weeks.". : No signs and/or symptoms were reported regarding the genitourinary system. EENT: No signs and/or symptoms were reported regarding the EENT system. Derm: No signs and/or symptoms reported regarding the dermatologic system. Musculoskeletal: No signs and/or symptoms reported regarding the musculoskeletal system. 08:14 Reassessment: No changes from previously documented assessment. Patient and/or family al4 updated on plan of care and expected duration. Pain level reassessed. Patient is alert, oriented x 3, equal unlabored respirations, skin warm/dry/pink. Pain: Complains of pain in head Pain currently is 7 out of 10 on a pain scale. 09:30 Reassessment: No changes from previously documented assessment. Patient and/or family al4 updated on plan of care and expected duration. Pain level reassessed. Patient is alert, oriented x 3, equal unlabored respirations, skin warm/dry/pink. 09:30 Pain: Pain currently is 6 out of 10 on a pain scale. al4 10:52 Reassessment: No changes from previously documented assessment. Patient and/or family al4 updated on plan of care and expected duration. Pain level reassessed. Patient is alert, oriented x 3, equal unlabored respirations, skin warm/dry/pink. Vital Signs: 06:06 BP 132 / 88; Pulse 59; Resp 16; Temp 98.2; Pulse Ox 98% ; lt3 07:00 BP 111 / 67; Pulse 52; Resp 15 S; Pulse Ox 99% on R/A; al4 07:30 BP 121 / 76; Pulse 52; Resp 14 S; Pulse Ox 99% on R/A; Pain 8/10; al4 08:00 BP 114 / 72; Pulse 47; Resp 20 S; Pulse Ox 96% on R/A; al4 08:30 BP 95 / 47; Pulse 46; Resp 21 S; Pulse Ox 97% on R/A; al4 09:00 BP 101 / 55; Pulse 48; Resp 19 S; Pulse Ox 96% on R/A; al4 09:30 BP 106 / 53; Pulse 48; Resp 20 S; Pulse Ox 96% on R/A; al4 10:30 BP 108 / 73; Pulse 46; Resp 18 S; Pulse Ox 96% on R/A; al4 ED Course: 06:04 Patient arrived in ED. bp1 06:06 Baltazar Aleman NP is PHCP. pm1 06:06 Alexander Felix MD is Attending Physician. pm1 06:06 Zion Jean, RN is Primary Nurse. sv1 06:20 Triage completed. sv1 06:20 Arm band placed on. sv1 06:31 Patient has correct armband on for positive identification. Bed in low position. Call sv1 light in reach. 06:46 CMP Sent. oe 06:46 CBC with Diff Sent. oe 06:49 CT Head Brain wo Cont In Process Unspecified. EDMS 07:30 Maintain EMS IV. Dressing intact. Site clean \\T\\ dry. Gauge \\T\\ site: 18G Right Forearm. al 4 09:03 Primary Nurse role handed off by Zion Jean, ARMOND eb 09:26 Bob Lozano is Primary Nurse. al4 11:02 No provider procedures requiring assistance completed. intact, bleeding controlled, No al4 redness/swelling at site. Pressure dressing applied. Administered Medications: 06:21 CANCELLED (Inappropriate at this time; home medicationn): Aspirin 81 mg PO once lp1 06:21 CANCELLED (home medicationn): Metoprolol TARTRATE 50 mg PO once lp1 06:21 CANCELLED (Home medicationn): metFORMIN 1000 mg PO Per package directions; "2,000 mg in lp1 2 equally divided doses per day" 07:28 Drug: Benadryl (diphenhydrAMINE) 25 mg Route: IVP; Site: right forearm; al4 08:30 Follow up: Response: No adverse reaction al4 07:28 Drug: NS 0.9% 500 ml Route: IV; Rate: bolus; Site: right forearm; al4 08:30 Follow up: Response: No adverse reaction; IV Status: Completed infusion al4 07:29 Drug: Reglan (metoCLOPramide) 10 mg Route: IVP; Site: right forearm; al4 08:30 Follow up: Response: No adverse reaction al4 09:40 Drug: fentaNYL (PF) 25 mcg Route: IVP; Site: right forearm; al4 10:55 Follow up: Response: No adverse reaction; RASS: Alert and Calm (0) al4 09:40 Drug: Phenergan (promethazine) 12.5 mg Route: IVP; Site: right forearm; al4 10:54 Follow up: Response: No adverse reaction; RASS: Alert and Calm (0) al4 Outcome: 10:31 Discharge ordered by MD. pm1 11:02 Discharged to home ambulatory, with ride al4 11:02 Condition: stable 11:02 Discharge instructions given to patient, Instructed on discharge instructions, no driving heavy equipment, medication usage, Demonstrated understanding of instructions, medications. 11:04 Patient left the ED. al4 Signatures: Dispatcher [employer] EDMS Janet Wright RN RN lp1 Baltazar Aleman NP WAGE AND SALARY ADMINISTRATOR pm1 Warren Bermudez Elizabeth eb Paniauga, Brittany bp1 Ledbetter, Alexis al4 Veronica Chavira 3 Zion Jean RN RN sv1 Corrections: (The following items were deleted from the chart) 06:20 07/14 00:00 Aspirin 81 mg PO sv1 lp1 07/15 06:20 12 09:00 Metoprolol TARTRATE 50 mg PO sv1 lp1 07/15 06:20 00:00 metFORMIN 1000 mg PO sv1 lp1 06:21 06:20 metFORMIN 1000 mg PO lp1 lp1 06:21 06:20 Metoprolol TARTRATE 50 mg PO lp1 lp1 06:21 06:20 Aspirin 81 mg PO lp1 lp1 06:22 06:20 Allergies: No Known Allergies; sv1 sv1 06:22 06:20 Allergies: Aspirin; sv1 sv1 06:22 06:20 Allergies: Demerol; sv1 sv1 06:22 06:20 Allergies: Ibuprofen; sv1 sv1 06:22 06:20 Allergies: Unable to obtain; sv1 sv1 06:22 06:20 Allergies: Morphine; sv1 sv1 06:22 06:20 Allergies: Codeine; sv1 sv1 09:47 08:30 BP 95 / 47; Pulse 46bpm; Resp 21bpm; Pulse Ox 97%; al4 al4 09:47 09:00 BP 101 / 55; Pulse 48bpm; Resp 19bpm; Pulse Ox 96%; al4 al4 09:47 09:30 BP 106 / 53; Pulse 48bpm; Resp 20bpm; Pulse Ox 96%; al4 al4 09:48 09:30 Pain: Pain currently is 6 out of 10 on a pain scale. al4 al4
[2021-07-15 11:09] VITALS: TEMP 98.2
[2021-07-15 11:16] VITALS: O2SAT 96
[2021-07-15 11:19] VITALS: BP 108/73
== END 2021-07-15 11:04 | disposition home or self-care (01) ==
LOC: ER 06:03
DX: R51.9 Headache, unspecified (principal)
CPT/HCPCS: 36415; 70450; 80053; 85025; 96361; 96374; 96375; 99284; J1200; J2550; J2765; J3010; J7040